=== PATIENT | female | born 1940 ===

== ENCOUNTER 2017-10-23 09:15 | Emergency (ER) | payer MEDICARE, MEDICAID ==
[~2017-10-23] VITALS: Ht 160 cm; Wt 62.0 kg
[~2017-10-23 09:15] MED LIST: CARV6.25 PO; DIGO0.25 PO; ENOX80P SQ; FURO20 PO; LORTA5 PO; SERT-132 PO; STOO100C PO; SYNT88TA PO; TAB-TAB PO; WARF5TAB PO; [UNRECOGNIZED DRUG - CODE] IM
[2017-10-23 09:18] VITALS: BP 134/85; PULSE 82; RESP 15; TEMP 98.4; O2SAT 92
[2017-10-23] MEDS ORDERED: SERT-132 PO (10:12)
[2017-10-23] MEDS ORDERED: CARV12.52 PO (10:12)
[2017-10-23] MEDS ORDERED: COUM5TAB PO (10:12)
[2017-10-23] MEDS ORDERED: FURO1TAB62 PO (10:12)
[2017-10-23] MEDS ORDERED: LEVO125T4 PO (10:12)
[2017-10-23] MEDS ORDERED: DIGO0.12 PO (10:12)
[2017-10-23] MEDS ORDERED: ATOR20TA15 PO (10:12)
[2017-10-23] MEDS ORDERED: AMLO5TAB2 PO (10:12)
[2017-10-23] MEDS ORDERED: COUM4TAB PO (10:12)
[2017-10-23] MEDS ORDERED: K-TA10TA PO (10:14)
[2017-10-23] MEDS ORDERED: SODIUM CHLOR 0.9% 1000 ML INJ 1,000 ML IV ONE (10:15)
[2017-10-23] MEDS ORDERED: ONDANSETRON HCL 4 MG/2 ML VIAL IV PUSH ONE (10:15)
[2017-10-23] MEDS ORDERED: MULTTAB67 PO (10:16)
--- NOTE | 2017-10-23 10:18 | PD ---
HPI Chief Complaint: GI Complaint Time Seen by Provider: 10:03 Travel History International Travel<30 days: No Contact w/Intl Traveler<30days: No Traveled to known affect area: No History of Present Illness HPI This 76-year-old female is brought by her daughters for evaluation of nausea and vomiting and weakness. Patient has extensive medical problems. She has had valve replacements and is on Coumadin. She has had strokes in the past and also has had a cerebral hemorrhage. She has a history of hypertension thyroid disease. She has borderline diabetes. She is on digoxin. She apparently has some dementia. The daughter says she is vomited about 3 times this morning. She appears somewhat listless to them. She is not complaining of any pain PFSH Past Medical History Hx Anticoagulant Therapy: Yes Atrial Fibrillation: Yes Heart Rhythm Problems: Yes Cancer: No Cardiac Catheterization: Yes (2007) Cardiovascular Problems: Yes (htn on meds, HEART VALVE REPLACEMENT) High Cholesterol: Yes Chest Pain: Yes Congestive Heart Failure: Yes (?) Cerebrovascular Accident: Yes Coronary Artery Disease: Yes Dementia: Yes Diabetes: No (borderline) Diminished Hearing: No Deep Vein Thrombosis: Yes Endocrine: Yes Gastrointestinal Disorders: No Genitourinary: Yes Hypertension: Yes Immune Disorder: No Implanted Vascular Access Dvce: Yes Medical other: Yes (hx of edema to legs/feet) Musculoskeletal: Yes Neurologic: Yes (CVA May 2012) Psychiatric: No Reproductive: No Respiratory: No Myocardial Infarction: Yes (2007) Thyroid Disease: Yes (HYPOTHRYROID) Triglycerides - High: Yes Tetanus Vaccination: Never Vaccinated Influenza Vaccination: No PNEUMOCCOCAL Vaccine (Year): 2 ?: Not Menopausal: Yes Past Surgical History Body Medical Devices: MVR, MECHANICAL VALVE Cardiac Surgery: Yes (OPEN HEART - 2 VALVES) Coronary Artery Bypass Graft: Yes (2010) Eye Surgery: Yes (BILAT. 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 Reported Meds & Prescriptions Reported Meds & Active Scripts Active Zofran Odt (Ondansetron Odt) 4 Mg Tab 4 Mg SL Q6HR PRN Reported Multiple Vitamin 1 Tab 1 Tab PO DAILY K-Tab (Potassium Chloride) 10 Meq Tab 10 Meq PO DAILY Atorvastatin (Atorvastatin Calcium) 20 Mg Tab 20 Mg PO DAILY Coumadin (Warfarin) 4 Mg Tab 4 Mg PO DIRECTED Coumadin (Warfarin) 5 Mg Tab 5 Mg PO DIRECTED Amlodipine (Amlodipine Besylate) 5 Mg Tab 5 Mg PO DAILY Levothyroxine (Levothyroxine Sodium) 125 Mcg Tab 125 Mcg PO DAILY Digoxin 0.125 Mg Tab 0.125 Mg PO DAILY Sertraline (Sertraline HCl) 50 Mg Tab 50 Mg PO DAILY Lasix (Furosemide) 20 Mg Tab 20 Mg PO DIRECTED Carvedilol 12.5 Mg Tab 12.5 Mg PO BID Review of Systems ROS Limitations: Language Barrier General / Constitutional: No: Fever, Chills HENT: No: Headaches Cardiovascular: No: Chest Pain or Discomfort Respiratory: No: Cough Gastrointestinal: Positive: Nausea, Vomiting Genitourinary: No: Urgency Neurologic: Positive: Weakness Physical Exam Narrative GENERAL: Well-developed female SKIN: Focused skin assessment warm/dry. HEAD: Atraumatic. Normocephalic. EYES: Pupils equal and round. No scleral icterus. No injection or drainage. ENT: No nasal bleeding or discharge. Mucous membranes pink and moist. NECK: Trachea midline. No JVD. CARDIOVASCULAR: Regular rate and rhythm. No murmur appreciated. RESPIRATORY: No accessory muscle use. Clear to auscultation. Breath sounds equal bilaterally. GASTROINTESTINAL: Abdomen soft, non-tender, nondistended. Hepatic and splenic margins not palpable. MUSCULOSKELETAL: No obvious deformities. No clubbing. No cyanosis. No edema. NEUROLOGICAL: She is somewhat listless initially but later fully alert no obvious cranial nerve deficits. Motor grossly within normal limits. Normal speech. PSYCHIATRIC: Not testable Data Data Last Documented VS Vital Signs Date Time Temp Pulse Resp B/P (MAP) Pulse Ox O2 Delivery O2 Flow Rate FiO2 10/23/17 11:01 64 16 127/77 (94) 97 Room Air 10/23/17 09:18 98.4 Orders Orders Electrocardiogram (10/23/17 10:13) Complete Blood Count With Diff (10/23/17 10:13) Comprehensive Metabolic Panel (10/23/17 10:13) B-Type Natriuretic Peptide (10/23/17 10:13) Prothrombin Time / Inr (Pt) (10/23/17 10:13) Act Partial Throm Time (Ptt) (10/23/17 10:13) Urinalysis - C+S If Indicated (10/23/17 10:13) Ct Brain W/O Iv Contrast(Rout) (10/23/17 10:13) Sodium Chlor 0.9% 1000 Ml Inj (Ns 1000 M (10/23/17 10:15) Ondansetron Inj (Zofran Inj) (10/23/17 10:15) Digoxin (10/23/17 10:13) Urine Culture (10/23/17 10:30) Labs Laboratory Tests Test 10/23/17 10:29 10/23/17 10:30 White Blood Count 3.9 TH/MM3 Red Blood Count 4.36 MIL/MM3 Hemoglobin 13.2 GM/DL Hematocrit 39.2 % Mean Corpuscular Volume 89.8 FL Mean Corpuscular Hemoglobin 30.3 PG Mean Corpuscular Hemoglobin Concent 33.8 % Red Cell Distribution Width 14.1 % Platelet Count 188 TH/MM3 Mean Platelet Volume 7.1 FL Neutrophils (%) (Auto) 54.8 % Lymphocytes (%) (Auto) 29.5 % Monocytes (%) (Auto) 9.1 % Eosinophils (%) (Auto) 6.0 % Basophils (%) (Auto) 0.6 % Neutrophils # (Auto) 2.1 TH/MM3 Lymphocytes # (Auto) 1.2 TH/MM3 Monocytes # (Auto) 0.4 TH/MM3 Eosinophils # (Auto) 0.2 TH/MM3 Basophils # (Auto) 0.0 TH/MM3 CBC Comment DIFF FINAL Differential Comment Prothrombin Time 16.6 SEC Prothromb Time International Ratio 1.6 RATIO Activated Partial Thromboplast Time 35.6 SEC Blood Urea Nitrogen 8 MG/DL Creatinine 0.73 MG/DL Random Glucose 102 MG/DL Total Protein 7.9 GM/DL Albumin 3.4 GM/DL Calcium Level 9.0 MG/DL Alkaline Phosphatase 130 U/L Aspartate Amino Transf (AST/SGOT) 24 U/L Alanine Aminotransferase (ALT/SGPT) 20 U/L Total Bilirubin 0.4 MG/DL Sodium Level 143 MEQ/L Potassium Level 4.3 MEQ/L Chloride Level 108 MEQ/L Carbon Dioxide Level 31.6 MEQ/L Anion Gap 3 MEQ/L Estimat Glomerular Filtration Rate 77 ML/MIN B-Type Natriuretic Peptide 48 PG/ML Digoxin Level 0.8 NG/ML Urine Collection Type CLEAN CATCH Urine Color YELLOW Urine Turbidity CLEAR Urine pH 7.5 Urine Specific [place] 1.010 Urine Protein NEG mg/dL Urine Glucose (UA) NEG mg/dL Urine Ketones NEG mg/dL Urine Occult Blood TRACE Urine Nitrite POS Urine Bilirubin NEG Urine Urobilinogen 0.2 MG/DL Urine Leukocyte Esterase SMALL Urine RBC 4-9 /hpf Urine WBC 6-8 /hpf Urine WBC Clumps OCC Urine Squamous Epithelial Cells 6-8 /hpf Urine Bacteria FEW /hpf Microscopic Urinalysis Comment CULTURE INDICATED Urine Collection Time 10:30 [facility] Medical Decision Making Medical Screen Exam Complete: Yes Emergency Medical Condition: Yes Medical Record Reviewed: Yes Differential Diagnosis Differential includes CVA, electrolyte imbalance dehydration, vomiting Narrative Course Is been given IV fluids and Zofran with improvement. CT is negative for stroke. Lab work unrevealing. Urine shows 6-8 white cells which I do not think warrants treatment with antibiotics. She will be released with prescription for Zofran Diagnosis Primary Impression: Acute vomiting Scripts Ondansetron Odt (Zofran Odt) 4 Mg Tab 4 MG SL Q6HR Y for Nausea/Vomiting, #10 TAB 0 Refills Prov: Steve Meyer MD 10/23/17 Disposition: 01 DISCHARGE HOME Condition: Stable Steve Meyer MD Oct 23, 2017 10:18
[2017-10-23 10:38] LABS: AUTOMATED NEUTROPHIL # 2.1 TH/MM3 (1.8-7.7); BASOPHIL % 0.6 % (0.0-2.0); EOSINOPHIL # 0.2 TH/MM3 (0-0.4); HEMATOCRIT 39.2 % (35.0-46.0); HEMOGLOBIN 13.2 GM/DL (11.6-15.3); LYMPH % 29.5 % (9.0-44.0); LYMPHOCYTE # 1.2 TH/MM3 (1.0-4.8); MEAN CELL VOLUME 89.8 FL (80.0-100.0); MEAN CORPUSCULAR HEMOGLOBIN 30.3 PG (27.0-34.0); MEAN CORPUSCULAR HGB CONC 33.8 % (32.0-36.0); MEAN PLATELET VOLUME 7.1 FL (7.0-11.0); MONO % 9.1 % (0.0-8.0); MONOCYTE # 0.4 TH/MM3 (0-0.9); NEUT % 54.8 % (16.0-70.0); PLATELET COUNT 188 TH/MM3 (150-450); RED BLOOD COUNT 4.36 MIL/MM3 (4.00-5.30); RED CELL DISTRIBUTION WIDTH 14.1 % (11.6-17.2); WHITE BLOOD COUNT 3.9 TH/MM3 (4.0-11.0)
[2017-10-23 10:47] LABS: CHLORIDE 108 MEQ/L (98-107); SODIUM (NA) 143 MEQ/L (136-145)
[2017-10-23 10:51] LABS: ALBUMIN 3.4 GM/DL (3.4-5.0); BICARBONATE 31.6 MEQ/L (21.0-32.0); BLOOD UREA NITROGEN 8 MG/DL (7-18); GLUCOSE,RANDOM 102 MG/DL (74-106)
[2017-10-23 10:52] LABS: INTERNATIONAL NORMALIZED RATIO 1.6 RATIO; PROTHROMBIN TIME - PATIENT 16.6 SEC (9.8-11.6)
[2017-10-23 10:54] LABS: ALT (GPT) 20 U/L (10-53); AST (GOT) 24 U/L (15-37); CREATININE 0.73 MG/DL (0.50-1.00); GLOMERULAR FILTRATION RATE 77 ML/MIN (>89)
[2017-10-23 10:55] LABS: TOTAL BILIRUBIN ADULT 0.4 MG/DL (0.2-1.0); TOTAL PROTEIN 7.9 GM/DL (6.4-8.2)
[2017-10-23 10:57] LABS: ALKALINE PHOSPHATASE 130 U/L (45-117)
[2017-10-23 11:01] VITALS: BP 127/77; PULSE 64; RESP 16; O2SAT 97
[2017-10-23 11:02] LABS: BILIRUBIN, URINE NEG (NEG); BLOOD, URINE TRACE (NEG); GLUCOSE,URINE NEG (NEG); KETONE, URINE NEG (NEG); NITRITE,URINE POS (NEG); PH, URINE 7.5 (5.0-8.5); URINE COLOR YELLOW (YELLW/STRAW); URINE LEUKOCYTE ESTERASE SMALL (NEG)
[2017-10-23 11:30] LABS: WHITE BLOOD CELL CLUMPS OCC
[2017-10-23 11:31] LABS: BACTERIA, URINE FEW /hpf
[2017-10-23 11:34] LABS: DIGOXIN 0.8 NG/ML (0.8-2.0)
[2017-10-23 12:10] VITALS: BP 124/66; PULSE 71; RESP 18; O2SAT 96
--- NOTE | 2017-10-23 12:15 | EKG ---
Date Performed: 10/23/2017 Time Performed: 10:36:16 PTAGE: 76 years EKG: ATRIAL FIBRILLATION NONSPECIFIC T-WAVE ABNORMALITY ABNORMAL RHYTHM ECG PREVIOUS TRACING : 10/13/2015 11.21 DOCTOR: Michael De Los Santos Interpretating Date/Time 10/23/2017 12:15:20
--- NOTE | 2017-10-23 12:34 | RADRPT ---
EXAM DATE/TIME: 10/23/2017 12:17 [facility] COMPARISON: CT BRAIN W/O CONTRAST, July 08, 2015, 12:55. INDICATIONS : General weakness. Vomiting. RADIATION DOSE: 47.28 CTDIvol (mGy) MEDICAL HISTORY : Cerebrovascular disease. Congestive heart failure. Deep venous thrombosis.Myocardial infarction. Hyp ertension. Dementia. SURGICAL HISTORY : CABG Mitral valve replacement. ENCOUNTER: Initial ACUITY: 1 day PAIN SCALE: 0/10 LOCATION: cranial TECHNIQUE: Multiple contiguous axial images were obtained of the head. Using automated exposure control and adj ustment of the mA and/or kV according to patient size, radiation dose was kept as low as reasonably a chievable to obtain optimal diagnostic quality images. DICOM format image data is available electro nically for review and comparison. FINDINGS: CEREBRUM: There is diffuse moderate atrophic changes noted with multiple areas of encephalomalacia which are st able No evidence of midline shift, mass lesion, hemorrhage or acute infarction. No extra-axial fluid collections are seen. POSTERIOR FOSSA: The cerebellum and brainstem are intact. The 4th ventricle is midline. The cerebellopontine angle i s unremarkable. EXTRACRANIAL: The visualized portion of the orbits is intact. Mucosal thickening is noted in the ethmoidal air cell s. SKULL: The calvaria is intact. No evidence of skull fracture. CONCLUSION: Stable appearance with multiple old infarcts. There is no acute hemorrhage, mass or acute infarction. Alvarez Melendrez MD on October 23, 2017 at 12:30 Board Certified Radiologist. This report was verified electronically.
[2017-10-23] MEDS ORDERED: ZOFR4TAB3 SL (12:51)
[2017-10-23 13:36] VITALS: BP 127/82
== END 2017-10-23 13:45 | disposition home or self-care (01) ==
LOC: PHED 09:15
DX: R11.2 Nausea with vomiting, unspecified (principal); R53.1 Weakness; E03.9 Hypothyroidism, unspecified; E78.00 Pure hypercholesterolemia, unspecified; I11.0 Hypertensive heart disease with heart failure; I50.9 Heart failure, unspecified; I48.91 Unspecified atrial fibrillation; Z79.01 Long term (current) use of anticoagulants
CPT/HCPCS: 70450; 80053; 80162; 81001; 83880; 85025; 85610; 85730; 87086; 93005; 96361; 96374; 99285; J2405; J7030

== ENCOUNTER 2017-10-26 00:08 | Inpatient (IN) | payer OTHER, MEDICARE, MEDICAID ==
[2017-10-26] VITALS (35 sets, daily range): BP systolic 105–160; BP diastolic 65–101; PULSE 62–75; RESP 15–23; TEMP 97.4–99; O2SAT 94–100
[~2017-10-26] VITALS: Ht 160 cm; Wt 66.7 kg
[~2017-10-26 00:08] MED LIST changes: +AMLO5TAB2 PO; +ATOR20TA15 PO; +CARV12.52 PO; -CARV6.25 PO; +COUM4TAB PO; +COUM5TAB PO; +DIGO0.12 PO; -DIGO0.25 PO; -ENOX80P SQ; +FURO1TAB62 PO; -FURO20 PO; +K-TA10TA PO; +LEVO125T4 PO; -LORTA5 PO; +MULTTAB67 PO; -STOO100C PO; -SYNT88TA PO; -TAB-TAB PO; -WARF5TAB PO; +ZOFR4TAB3 SL; -[UNRECOGNIZED DRUG - CODE] IM
[2017-10-26] MEDS ORDERED: IODIXANOL 320 MG/ML 10 ML VIAL (for Rad CT) IVCONTRAST ONE (00:12)
[2017-10-26 00:33] LABS: AUTOMATED NEUTROPHIL # 3.6 TH/MM3 (1.8-7.7); BASOPHIL % 0.6 % (0.0-2.0); EOSINOPHIL # 0.2 TH/MM3 (0-0.4); HEMATOCRIT 38.4 % (35.0-46.0); HEMOGLOBIN 12.5 GM/DL (11.6-15.3); LYMPHOCYTE # 1.5 TH/MM3 (1.0-4.8); MEAN CELL VOLUME 91.2 FL (80.0-100.0); MEAN CORPUSCULAR HEMOGLOBIN 29.8 PG (27.0-34.0); MEAN CORPUSCULAR HGB CONC 32.6 % (32.0-36.0); MEAN PLATELET VOLUME 7.4 FL (7.0-11.0); MONOCYTE # 0.5 TH/MM3 (0-0.9); NEUT % 60.4 % (16.0-70.0); PLATELET COUNT 169 TH/MM3 (150-450); RED BLOOD COUNT 4.21 MIL/MM3 (4.00-5.30); RED CELL DISTRIBUTION WIDTH 13.8 % (11.6-17.2); WHITE BLOOD COUNT 5.8 TH/MM3 (4.0-11.0)
[2017-10-26 00:40] LABS: CHLORIDE 107 MEQ/L (98-107); SODIUM (NA) 141 MEQ/L (136-145)
[2017-10-26 00:42] LABS: CALCIUM 8.8 MG/DL (8.5-10.1)
[2017-10-26 00:43] LABS: BICARBONATE 28.5 MEQ/L (21.0-32.0); BLOOD UREA NITROGEN 11 MG/DL (7-18); GLUCOSE,RANDOM 142 MG/DL (74-106)
[2017-10-26 00:44] LABS: INTERNATIONAL NORMALIZED RATIO 1.7 RATIO; PROTHROMBIN TIME - PATIENT 16.7 SEC (9.8-11.6)
[2017-10-26 00:46] LABS: CREATININE 0.74 MG/DL (0.50-1.00); GLOMERULAR FILTRATION RATE 76 ML/MIN (>89)
--- NOTE | 2017-10-26 00:49 | RADRPT ---
EXAM DATE/TIME: 10/26/2017 00:12 [facility] COMPARISON: CT BRAIN W/O CONTRAST, July 08, 2015, 12:55. CT BRAIN W/O CONTRAST, October 23, 2017, 12:17. INDICATIONS : Stroke alert, unresponsive. RADIATION DOSE: 60.17 CTDIvol (mGy) This report was called to Dr. Malcolm at the 12: 41 am MEDICAL HISTORY : Non-responsive. SURGICAL HISTORY : Non-responsive. ENCOUNTER: Initial ACUITY: 1 day PAIN SCALE: Non-responsive LOCATION: cranial TECHNIQUE: Multiple contiguous axial images were obtained of the head. Using automated exposure control and adj ustment of the mA and/or kV according to patient size, radiation dose was kept as low as reasonably a chievable to obtain optimal diagnostic quality images. DICOM format image data is available electro nically for review and comparison. FINDINGS: CEREBRUM: There are multiple old infarcts involving right MCA/ELENA watershed zone, right anterior frontal pariet al, left posterior parietal, left medial occipital mid convexity and left high parietal region. The appearance of these infarcts is unchanged from prior CT 10/23/17 and 07/08/15. No acute findings. No e vidence of acute blood products. There is prominence of the ventricles and sulci, characteristic of moderate central and cortical atrophy, similar to prior. POSTERIOR FOSSA: The cerebellum and brainstem are intact. The 4th ventricle is midline. The cerebellopontine angle i s unremarkable. EXTRACRANIAL: The visualized portion of the orbits is intact. Opacification of bilateral frontal and bilateral eth moid sinuses. SKULL: The calvaria is intact. No evidence of skull fracture. CONCLUSION: 1. Multiple bilateral old infarcts, unchanged from 3 days ago. No acute findings. 2. Bilateral maxillary and ethmoid sinus disease. Anatoly Early MD on October 26, 2017 at 0:39 Board Certified Radiologist. This report was verified electronically.
[2017-10-26 00:51] LABS: TROPONIN I LESS THAN 0.02 NG/ML (0.02-0.05)
--- NOTE | 2017-10-26 00:52 | PD ---
HPI Chief Complaint: Stroke Alert Time Seen by Provider: 00:24 Travel History International Travel<30 days: No Contact w/Intl Traveler<30days: No Traveled to known affect area: No History of Present Illness HPI The patient is a 76-year-old female that was apparently alert and talking prior to 11 PM tonight when she started vomiting. She then became comatose, [facility] was called and they intubated the patient using etomidate and Versed. 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 There has not been any head trauma. After intubation and Versed the blood pressure is 127/90. No seizure activity is noted tonight. PFSH Past Medical History Hx Anticoagulant Therapy: Yes Atrial Fibrillation: Yes Heart Rhythm Problems: Yes Cancer: No Cardiac Catheterization: Yes (2007) Cardiovascular Problems: Yes (htn on meds, HEART VALVE REPLACEMENT) High Cholesterol: Yes Chest Pain: Yes Congestive Heart Failure: Yes (?) Cerebrovascular Accident: Yes Coronary Artery Disease: Yes Dementia: Yes Diabetes: No (borderline) Diminished Hearing: No Deep Vein Thrombosis: Yes Endocrine: Yes Gastrointestinal Disorders: No Genitourinary: Yes Hypertension: Yes Immune Disorder: No Implanted Vascular Access Dvce: Yes Musculoskeletal: Yes Neurologic: Yes (CVA May 2012) Psychiatric: No Reproductive: No Respiratory: No Myocardial Infarction: Yes (2007) Thyroid Disease: Yes (HYPOTHRYROID) Triglycerides - High: Yes PNEUMOCCOCAL Vaccine (Year): 2 Menopausal: Yes Past Surgical History Body Medical Devices: MVR, MECHANICAL VALVE Cardiac Surgery: Yes (OPEN HEART - 2 VALVES) Coronary Artery Bypass Graft: Yes (2010) Eye Surgery: Yes (BILAT. 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 Reported Meds & Prescriptions Reported Meds & Active Scripts Active Zofran Odt (Ondansetron Odt) 4 Mg Tab 4 Mg SL Q6HR PRN Reported Multiple Vitamin 1 Tab 1 Tab PO DAILY K-Tab (Potassium Chloride) 10 Meq Tab 10 Meq PO DAILY Atorvastatin (Atorvastatin Calcium) 20 Mg Tab 20 Mg PO DAILY Coumadin (Warfarin) 4 Mg Tab 4 Mg PO DIRECTED Coumadin (Warfarin) 5 Mg Tab 5 Mg PO DIRECTED Amlodipine (Amlodipine Besylate) 5 Mg Tab 5 Mg PO DAILY Levothyroxine (Levothyroxine Sodium) 125 Mcg Tab 125 Mcg PO DAILY Digoxin 0.125 Mg Tab 0.125 Mg PO DAILY Sertraline (Sertraline HCl) 50 Mg Tab 50 Mg PO DAILY Lasix (Furosemide) 20 Mg Tab 20 Mg PO DIRECTED Carvedilol 12.5 Mg Tab 12.5 Mg PO BID Review of Systems ROS Limitations: Altered Mental Status, Unresponsive Except as stated in HPI: all other systems reviewed are Neg Physical Exam Narrative GENERAL: The patient is comatose. She does not respond to verbal commands. Blood pressure is 127/90. The patient is in atrial fibrillation and heart rate average is around 62. SKIN: Focused skin assessment warm/dry. HEAD: Atraumatic. Normocephalic. EYES: Pupils equal and round. No scleral icterus. No injection or drainage. ENT: No nasal bleeding or discharge. Mucous membranes pink and moist. NECK: Trachea midline. No JVD. CARDIOVASCULAR: Regular rate and rhythm. No murmur appreciated. RESPIRATORY: No accessory muscle use. Clear to auscultation. Breath sounds equal bilaterally. GASTROINTESTINAL: Abdomen soft, non-tender, nondistended. Hepatic and splenic margins not palpable. MUSCULOSKELETAL: No obvious deformities. No clubbing. No cyanosis. No edema. NEUROLOGICAL: Motor shows some right arm movement when pulling on the right arm but otherwise no movement anywhere else. About 15 minutes later the patient started moving all 4 extremities spontaneously but did not follow any commands. PSYCHIATRIC: Appropriate mood and affect; insight and judgment normal. Data Data Last Documented VS Vital Signs Date Time Temp Pulse Resp B/P (MAP) Pulse Ox O2 Delivery O2 Flow Rate FiO2 10/26/17 00:45 99 40 10/26/17 00:15 75 16 160/98 (118) 10/26/17 00:[address] Brain W/O Iv Contrast(Rout) (10/26/17 ) Cath For Specimen (10/26/17 00:12) Neuro Checks Q2HX12,Q4H (10/26/17 00:12) Nursing Bedside Swallow Assess .ONCE (10/26/17 00:12) Activity Bed Rest (10/26/17 00:12) Diet Npo (10/26/17 Breakfast) Prothrombin Time / Inr (Pt) (10/26/17 00:12) Act Partial Throm Time (Ptt) (10/26/17 00:12) Complete Blood Count With Diff (10/26/17 00:12) Basic Metabolic Panel (Bmp) (10/26/17 00:12) Fibrinogen (10/26/17 00:12) Creatine Kinase (Cpk) (10/26/17 00:12) Troponin I (10/26/17 00:12) Ua Includes Microscopic (10/26/17 00:12) Drug Screen, Random Urine (10/26/17 00:12) Type And Screen (10/26/17 00:12) Cta Brain W Iv Contrast W 3d (10/26/17 00:12) Cta Neck W Iv Contrast W 3d (10/26/17 00:12) Electrocardiogram (10/26/17 ) Consult Neurology (10/26/17 00:12) Blood Glucose (10/26/17 00:12) Ecg Monitoring (10/26/17 00:12) Iv Access Insert/Monitor (10/26/17 00:12) NPO (10/26/17 00:12) Oximetry (10/26/17 00:12) Resp Oxygen Nc Stroke (10/26/17 ) Digoxin (10/26/17 00:12) Urinary Catheter Insert/Apply (10/26/17 00:52) Propofol 1000 Mg/100 Ml Inj (Diprivan 10 (10/26/17 01:08) Lidocaine 2% Inj (Xylocaine 2% Inj) (10/26/17 01:08) Propofol 1000 Mg/100 Ml Inj (Diprivan 10 (10/26/17 01:15) Admit Order (Ed Use Only) (10/26/17 01:14) Labs Laboratory Tests Test 10/26/17 00:20 10/26/17 00:30 10/26/17 01:13 White Blood Count 5.8 TH/MM3 Red Blood Count 4.21 MIL/MM3 Hemoglobin 12.5 GM/DL Hematocrit 38.4 % Mean Corpuscular Volume 91.2 FL Mean Corpuscular Hemoglobin 29.8 PG Mean Corpuscular Hemoglobin Concent 32.6 % Red Cell Distribution Width 13.8 % Platelet Count 169 TH/MM3 Mean Platelet Volume 7.4 FL Neutrophils (%) (Auto) 60.4 % Lymphocytes (%) (Auto) 26.0 % Monocytes (%) (Auto) 9.0 % Eosinophils (%) (Auto) 4.0 % Basophils (%) (Auto) 0.6 % Neutrophils # (Auto) 3.6 TH/MM3 Lymphocytes # (Auto) 1.5 TH/MM3 Monocytes # (Auto) 0.5 TH/MM3 Eosinophils # (Auto) 0.2 TH/MM3 Basophils # (Auto) 0.0 TH/MM3 CBC Comment DIFF FINAL Differential Comment Prothrombin Time 16.7 SEC Prothromb Time International Ratio 1.7 RATIO Activated Partial Thromboplast Time 29.1 SEC Fibrinogen 298 mg/dL Blood Urea Nitrogen 11 MG/DL Creatinine 0.74 MG/DL Random Glucose 142 MG/DL Calcium Level 8.8 MG/DL Sodium Level 141 MEQ/L Potassium Level 3.5 MEQ/L Chloride Level 107 MEQ/L Carbon Dioxide Level 28.5 MEQ/L Anion Gap 6 MEQ/L Estimat Glomerular Filtration Rate 76 ML/MIN Total Creatine Kinase 47 U/L Troponin I LESS THAN 0.02 NG/ML Digoxin Level 0.6 NG/ML Urine Color YELLOW Urine Turbidity CLEAR Urine pH 7.5 Urine Specific [place] 1.010 Urine Protein NEG mg/dL Urine Glucose (UA) NEG mg/dL Urine Ketones NEG mg/dL Urine Occult Blood SMALL Urine Nitrite NEG Urine Bilirubin NEG Urine Urobilinogen 0.2 MG/DL Urine Leukocyte Esterase NEG Urine RBC 3-5 /hpf Urine WBC 0-2 /hpf Urine Squamous Epithelial Cells 0-5 /hpf Urine Bacteria NONE /hpf Urine Opiates Screen NEG Urine Barbiturates Screen NEG Urine Amphetamines Screen NEG Urine Benzodiazepines Screen POS Urine Cocaine Screen NEG Urine Cannabinoids Screen NEG Blood Gas Puncture Site RT BRACHIAL Blood Gas Patient Temperature 98.6 Blood Gas HCO3 26 mmol/L Blood Gas Base Excess 2.6 mmol/L Blood Gas Oxygen Saturation 97 % Arterial Blood pH 7.45 Arterial Blood Partial Pressure CO2 39 mmHG Arterial Blood Partial Pressure O2 151 mmHG Arterial Blood Oxygen Content 18.1 Vol % Arterial Blood Carboxyhemoglobin 1.4 % Arterial Blood Methemoglobin 1.1 % Blood Gas Hemoglobin 13.1 G/DL Oxygen Delivery Device VENTILATOR Blood Gas Ventilator Setting PRVC/AC Blood Gas Inspired Oxygen 40 % MDM Medical Decision Making Medical Screen Exam Complete: Yes Emergency Medical Condition: Yes Medical Record Reviewed: Yes Differential Diagnosis Intracranial bleed, ischemic CVA, seizure, hypoglycemia, electrolyte disorder Narrative Course The patient initially came in with no spontaneous movement. She then began to have spontaneous movement of her right arm, nothing on commands. At about 0045 the patient began moving both arms and both legs. The patient is on Coumadin and her INR is 1.7. I discussed the patient with Dr. Kim, the INR is borderline, she has a previous intracranial bleed and her history and she is improving. For these 3 reasons he does not want to give TPA. Plan: The patient will be admitted to the intensive care unit here at [facility]. Dr. Kim will be consulting and the patient will be admitted to Dr. Anguiano. Physician Communication Physician Communication I discussed the patient with Drs. Laughlin and Silvio. Diagnosis Primary Impression: Ischemic cerebrovascular accident (CVA) Admitting Information Admitting Physician Requests: Admit Giovani Malcolm MD Oct 26, 2017 00:52
--- NOTE | 2017-10-26 00:52 | RADRPT ---
EXAM DATE/TIME: 10/26/2017 00:12 [facility] COMPARISON: No previous studies available for comparison. INDICATIONS : Stroke alert, unresponsive IV CONTRAST: 80 cc Visipaque (iodixanol) IV ; Cumulative dose for multiple exams. RADIATION DOSE: 43.02 CTDIvol (mGy) ; Combined studies MEDICAL HISTORY : Non-responsive. SURGICAL HISTORY : Non-responsive. ENCOUNTER: Initial ACUITY: 1 day PAIN SCALE: Non-responsive LOCATION: cranial TECHNIQUE: Volumetric scanning was performed using a multi-row detector CT scanner. The data was post processed with a variety of visualization algorithms including full volume maximum intensity projection, multi -planar sliding thin slab reformation, curved planar reformation, and surface rendering techniques. Using automated exposure control and adjustment of the mA and/or kV according to patient size, radiat ion dose was kept as low as reasonably achievable to obtain optimal diagnostic quality images. DICO M format image data is available electronically for review and comparison. FINDINGS: There is excellent visualization of the major intracranial arteries out to the second-order branch ve ssels. There is no evidence for aneurysm, vessel truncation or stenosis, and no evidence for vascula r malformation. The right posterior cerebral artery arises from the anterior circulation. Flow is s een in the anterior communicating artery. The vertebral system is left dominant. CONCLUSION: No evidence of vessel truncation. Anatoly Early MD on October 26, 2017 at 0:47 Board Certified Radiologist. This report was verified electronically.
[2017-10-26 00:59] LABS: BILIRUBIN, URINE NEG (NEG); BLOOD, URINE SMALL (NEG); GLUCOSE,URINE NEG (NEG); KETONE, URINE NEG (NEG); NITRITE,URINE NEG (NEG); PH, URINE 7.5 (5.0-8.5); URINE COLOR YELLOW (YELLW/STRAW); URINE LEUKOCYTE ESTERASE NEG (NEG)
[2017-10-26 01:04] LABS: SQUAMOUS EPITHELIAL CELL URINE 0-5 /hpf (0-5); WBC, URINE 0-2 /hpf (0-5)
--- NOTE | 2017-10-26 01:06 | RADRPT ---
EXAM DATE/TIME: 10/26/2017 00:12 [facility] COMPARISON: No previous studies available for comparison. INDICATIONS : Stroke alert, unresponsive. IV CONTRAST: 80 cc Visipaque (iodixanol) IV ; Cumulative dose for multiple exams. RADIATION DOSE: 43.02 CTDIvol (mGy) ; Combined studies MEDICAL HISTORY : Non-responsive. SURGICAL HISTORY : Non-responsive. ENCOUNTER: Initial ACUITY: 1 day PAIN SCALE: Non-responsive LOCATION: neck Elevated flow velocities and ICA/CCA ratios have been found to correlate with increased degrees of vessel stenosis, calculated as percentage of diameter relative to a normal segment of distal ICA/CCA. TECHNIQUE: Volumetric scanning was performed using a multirow detector CT scanner. The data was post processed with a variety of visualization algorithms including full-volume maximum intensity projection, multip lanar sliding thin-slab reformation, curved-planar reformation, and surface-rendering techniques. Us ing automated exposure control and adjustment of the mA and/or kV according to patient size, radiatio n dose was kept as low as reasonably achievable to obtain optimal diagnostic quality images. DICOM f ormat image data is available electronically for review and comparison. FINDINGS: AORTIC ARCH: There is a three-vessel origin of the great vessels from the aorta. No evidence of ostial narrowing. RIGHT CAROTID: The common carotid artery is intact. The carotid bulb has a normal configuration without ulceration o r narrowing. Some wall calcification in bifurcation. The internal carotid artery lumen is smooth wi thout stenosis. The external carotid artery is intact. LEFT CAROTID: The common carotid artery is intact. The carotid bulb has a normal configuration without ulceration or narrowing. Some wall calcification of the bifurcation. The internal carotid artery lumen is smoo th without stenosis. The external carotid artery is intact. VERTEBRALS: The vertebral system is left dominant. CONCLUSION: 1. No luminal narrowing or significant plaque formation. 2. Left dominant vertebral system. Anatoly Early MD on October 26, 2017 at 1:01 Board Certified Radiologist. This report was verified electronically.
[2017-10-26] MEDS ORDERED: PROPOFOL 1000 MG/100 ML INJ 100 ML ONE (01:08)
[2017-10-26] MEDS ORDERED: LIDOCAINE HCL 2% 100 MG/5 ML SYRINGE ONE (01:08)
[2017-10-26] MEDS ORDERED: PROPOFOL 1000 MG/100 ML INJ 100 ML IV PRN (01:15)
[2017-10-26 01:24] LABS: DIGOXIN 0.6 NG/ML (0.8-2.0)
[2017-10-26] MEDS: SODIUM CHLOR 0.9% 1000 ML INJ 1,000 ML IV SCH ×2 (01:39→14:40)
[2017-10-26] MEDS ORDERED: RESP: ALBUTEROL 2.5 MG/IPRATROPIUM 0.5 MG NEB (PRN) INH (01:45)
[2017-10-26] MEDS ORDERED: MAGNESIUM HYDROXIDE SUSP 30 ML CUP PO PRN (01:45)
[2017-10-26] MEDS ORDERED: MORPHINE SULFATE 4 MG/ML INJ IV PUSH PRN (01:45)
[2017-10-26] MEDS ORDERED: SODIUM CHLORIDE 0.9% FLUSH 10 ML FLUSH IV FLUSH PRN ×2 (01:45→09:00)
[2017-10-26] MEDS ORDERED: NURSING INFORMATION XX SCH (01:45)
[2017-10-26] MEDS ORDERED: CHLORHEXIDINE GLUCONATE 2 % 1 PACK (2 CLOTHS) TOP PRN (01:45)
[2017-10-26] MEDS ORDERED: SENNOSIDES 8.6 MG TAB PO PRN (01:45)
[2017-10-26] MEDS ORDERED: ONDANSETRON HCL 4 MG/2 ML VIAL IV PUSH PRN (01:45)
[2017-10-26] MEDS ORDERED: LORazepam 2 MG/ML VIAL IV PUSH PRN (01:45)
[2017-10-26] MEDS ORDERED: LACTULOSE SYRUP 20 GM/30 ML CUP PO PRN (01:45)
[2017-10-26] MEDS ORDERED: BISACODYL 10 MG SUPP RECTAL PRN (01:45)
[2017-10-26] MEDS: HEPARIN-D5W 25,000 U/250 ML 250 ML IV PRN (02:11)
[2017-10-26] MEDS: levETIRAcetam INJ 100 ML IV SCH ×3 (02:12→21:29)
[2017-10-26] MEDS: CHLORHEXIDINE GLUCONATE 2 % 1 PACK (2 CLOTHS) TOP SCH (04:00)
--- NOTE | 2017-10-26 07:05 | RADRPT ---
EXAM DATE/TIME: 10/26/2017 06:33 [facility] COMPARISON: CHEST SINGLE AP, September 29, 2015, 9:14. INDICATIONS : Post endotracheal tube placement. MEDICAL HISTORY : Non-responsive SURGICAL HISTORY : Non-responsive ENCOUNTER: Initial ACUITY: 1 day PAIN SCORE: Non-responsive. LOCATION: Bilateral chest FINDINGS: There are atelectatic changes at the lung bases, cardiomegaly, sternotomy wires and cardiac valvular prosthesis. Enteric tube is coiled in the expected location of the stomach. An endotracheal tube is p resent. The distal tip is at the sho/origin of the right mainstem bronchus, it obscured by overlyi ng EKG leads. CONCLUSION: ET tube as above. Luis Felipe Ayala MD on October 26, 2017 at 7:01 Board Certified Radiologist. This report was verified electronically.
[2017-10-26] MEDS: PROPOFOL 1000 MG/100 ML INJ 100 ML IV PRN ×3 (08:12→21:28)
[2017-10-26] MEDS: DOCUSATE SODIUM 50 MG/SENNA 8.6 MG TAB PO SCH ×2 (08:28→21:30)
[2017-10-26] MEDS: FAMOTIDINE 20 MG/2 ML VIAL IV PUSH SCH ×2 (08:31→21:29)
[2017-10-26] MEDS: SODIUM CHLORIDE 0.9% FLUSH 10 ML FLUSH IV FLUSH SCH ×4 (08:32→21:29)
[2017-10-26] MEDS: MULTIVITAMIN TAB PO SCH (08:33)
[2017-10-26] MEDS: ATORVASTATIN 20 MG TAB PO SCH (08:33)
[2017-10-26] MEDS: CHLORHEXIDINE 0.12% (ORAL KIT) 15 ML CUP MT SCH ×2 (08:34→20:00)
[2017-10-26] MEDS: CARVEDILOL 12.5 MG TAB PO SCH ×2 (08:35→21:30)
[2017-10-26] MEDS: amLODIPine BESYLATE 5 MG TAB PO SCH (08:35)
[2017-10-26] MEDS: DIGOXIN 0.125 MG TAB PO SCH (08:35)
[2017-10-26] MEDS: SERTRALINE HCL 50 MG TAB PO SCH (08:35)
--- NOTE | 2017-10-26 08:40 | HHI.HP ---
[facility] Service Critical Care Medicine Primary Care Physician Alex Skelton Do, MD Admission Diagnosis Ischemic CVA Diagnosis: Chief Complaint: Altered mental status Travel History International Travel<30 Days: No Contact w/Intl Traveler <30 Da: No Traveled to Known Affected Are: No History of Present Illness HPI The patient is a 76-year-old female that was apparently alert and talking prior to 11 PM tonight when she started vomiting. She then became comatose, [facility] was called and they intubated the patient using etomidate and Versed. 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 There has not been any head trauma. After intubation and Versed the blood pressure is 127/90. No seizure activity noted per ER physician. Patient was kept sedated orally intubated overnight on mechanical ventilation. She is starting to arousable although not following commands. She does try to open her eyes on command. Per nursing staff she was moving all [address] done in the ER did not reveal any acute bleed and had evidence of old strokes. Dr. Kim from neurology was contacted by ER physician and will be evaluating patient. When I evaluated the patient this morning she sedated with propofol, orally intubated on mechanical ventilation. History is obtained by reviewing records and discussion with nursing staff. History PFSH Past Medical History Hx Anticoagulant Therapy: Yes Atrial Fibrillation: Yes Heart Rhythm Problems: Yes Cancer: No Cardiac Catheterization: Yes (2007) Cardiovascular Problems: Yes (htn on meds, HEART VALVE REPLACEMENT) High Cholesterol: Yes Chest Pain: Yes Congestive Heart Failure: Yes (?) Cerebrovascular Accident: Yes Coronary Artery Disease: Yes Dementia: Yes Diabetes: No (borderline) Diminished Hearing: No Deep Vein Thrombosis: Yes Endocrine: Yes Gastrointestinal Disorders: No Genitourinary: Yes Hypertension: Yes Immune Disorder: No Implanted Vascular Access Dvce: Yes Musculoskeletal: Yes Neurologic: Yes (CVA May 2012) Psychiatric: No Reproductive: No Respiratory: No Myocardial Infarction: Yes (2007) Thyroid Disease: Yes (HYPOTHRYROID) Triglycerides - High: Yes PNEUMOCCOCAL Vaccine (Year): 2 Menopausal: Yes Past Surgical History Body Medical Devices: MVR, MECHANICAL VALVE Cardiac Surgery: Yes (OPEN HEART - 2 VALVES) Coronary Artery Bypass Graft: Yes (2010) Eye Surgery: Yes (BILAT. 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 Reported Meds & Prescriptions Reported Meds & Active Scripts Active Zofran Odt (Ondansetron Odt) 4 Mg Tab 4 Mg SL Q6HR PRN Reported Multiple Vitamin 1 Tab 1 Tab PO DAILY K-Tab (Potassium Chloride) 10 Meq Tab 10 Meq PO DAILY Atorvastatin (Atorvastatin Calcium) 20 Mg Tab 20 Mg PO DAILY Coumadin (Warfarin) 4 Mg Tab 4 Mg PO DIRECTED Coumadin (Warfarin) 5 Mg Tab 5 Mg PO DIRECTED Amlodipine (Amlodipine Besylate) 5 Mg Tab 5 Mg PO DAILY Levothyroxine (Levothyroxine Sodium) 125 Mcg Tab 125 Mcg PO DAILY Digoxin 0.125 Mg Tab 0.125 Mg PO DAILY Sertraline (Sertraline HCl) 50 Mg Tab 50 Mg PO DAILY Lasix (Furosemide) 20 Mg Tab 20 Mg PO DIRECTED Carvedilol 12.5 Mg Tab 12.5 Mg PO BID ROS Review of Systems ROS Limitations: Altered Mental Status, intubated on mechanical ventilation Physical Exam Vital Signs Vital Signs Date Time Temp Pulse Resp B/P (MAP) Pulse Ox O2 Delivery O2 Flow Rate FiO2 10/26/17 06:00 71 10/26/17 06:00 64 16 152/82 (105) 99 10/26/17 05:00 97.5 70 16 156/89 (111) 98 10/26/17 04:29 98 35 10/26/17 04:00 70 16 134/101 (112) 94 10/26/17 04:00 71 10/26/17 03:18 97.5 68 21 145/92 (109) 10/26/17 03:04 74 16 145/80 (101) 100 Ventilator 10/26/17 03:00 40 10/26/17 01:52 97 Ventilator 4/28/18 01:51 98 Ventilator 10/26/17 01:40 Bag Valve 10/26/17 01:30 75 16 145/88 (107) 97 Ventilator 10/26/17 00:45 99 40 10/26/17 00:15 75 16 160/98 (118) 98 10/26/17 00:10 100 15.00 10/26/17 00:10 100 100 Physical Exam HEENT/ Neuro: Sedated, arouses with deep stimulation, attempts to open eyes. Not following commands potential withdrawal bilateral lower extremities with painful stimuli. Moving both hands. Orally intubated, Pallor present, no icterus, tongue/ mucosa dry Neck: No JVD Chest/Pulm: on mech vent, good air entry bilaterally, no wheezing or crackles CVS: S1-S2 irregularly irregular, no murmur GI/abdomen: soft, nontender, bowel sounds sluggish Extremities: warm bilaterally, no edema Laboratory Laboratory Tests Test 10/26/17 00:20 10/26/17 00:30 10/26/17 01:13 10/26/17 02:46 White Blood Count 5.8 Red Blood Count 4.21 Hemoglobin 12.5 Hematocrit 38.4 Mean Corpuscular Volume 91.2 Mean Corpuscular Hemoglobin 29.8 Mean Corpuscular Hemoglobin Concent 32.6 Red Cell Distribution Width 13.8 Platelet Count 169 Mean Platelet Volume 7.4 Neutrophils (%) (Auto) 60.4 Lymphocytes (%) (Auto) 26.0 Monocytes (%) (Auto) 9.0 Eosinophils (%) (Auto) 4.0 Basophils (%) (Auto) 0.6 Neutrophils # (Auto) 3.6 Lymphocytes # (Auto) 1.5 Monocytes # (Auto) 0.5 Eosinophils # (Auto) 0.2 Basophils # (Auto) 0.0 CBC Comment DIFF FINAL Differential Comment Prothrombin Time 16.7 Prothromb Time International Ratio 1.7 Activated Partial Thromboplast Time 29.1 Fibrinogen 298 Blood Urea Nitrogen 11 Creatinine 0.74 Random Glucose 142 Calcium Level 8.8 Sodium Level 141 Potassium Level 3.5 Chloride Level 107 Carbon Dioxide Level 28.5 Anion Gap 6 Estimat Glomerular Filtration Rate 76 Total Creatine Kinase 47 Troponin I LESS THAN 0.02 Digoxin Level 0.6 Urine Color YELLOW Urine Turbidity CLEAR Urine pH 7.5 Urine Specific [place] 1.010 Urine Protein NEG Urine Glucose (UA) NEG Urine Ketones NEG Urine Occult Blood SMALL Urine Nitrite NEG Urine Bilirubin NEG Urine Urobilinogen 0.2 Urine Leukocyte Esterase NEG Urine RBC 3-5 Urine WBC 0-2 Urine Squamous Epithelial Cells 0-5 Urine Bacteria NONE Urine Opiates Screen NEG Urine Barbiturates Screen NEG Urine Amphetamines Screen NEG Urine Benzodiazepines Screen POS Urine Cocaine Screen NEG Urine Cannabinoids Screen NEG Blood Gas Puncture Site RT BRACHIAL Blood Gas Patient Temperature 98.6 Blood Gas HCO3 26 Blood Gas Base Excess 2.6 Blood Gas Oxygen Saturation 97 Arterial Blood pH 7.45 Arterial Blood Partial Pressure CO2 39 Arterial Blood Partial Pressure O2 151 Arterial Blood Oxygen Content 18.1 Arterial Blood Carboxyhemoglobin 1.4 Arterial Blood Methemoglobin 1.1 Blood Gas Hemoglobin 13.1 Oxygen Delivery Device VENTILATOR Blood Gas Ventilator Setting PRVC/AC Blood Gas Inspired Oxygen 40 Ammonia 18 Test 10/26/17 07:53 Activated Partial Thromboplast Time 55.3 Date/Time Source Procedure Growth Status 10/26/17 05:15 Stool Stool Stool Occult Blood (MATTHEW) Pending Received Result Diagram: 10/26/17 0020 10/26/17 0020 Caprini VTE Risk Assessment Caprini VTE Risk Assessment: Mod/High Risk (score >= 2) Caprini Risk Assessment Model Point Value = 1 Point Value = 2 Point Value = 3 Point Value = 5 Age 41-60 Minor surgery BMI > 25 kg/m2 Swollen legs Varicose veins or History of unexplained or recurrent spontaneous Oral contraceptives or hormone replacement Sepsis (< 1 month) Serious lung disease, including pneumonia (< 1 month) Abnormal pulmonary function Acute myocardial infarction Congestive heart failure (< 1 month) History of inflammatory bowel disease Medical patient at bed rest Age 61-74 Arthroscopic surgery Major open surgery (> 45 min) Laparoscopic surgery (> 45 min) Malignancy Confined to bed (> 72 hours) Immobilizing plaster cast Central venous access Age >= 75 History of VTE Family history of VTE Factor V Leiden Prothrombin [id number] Lupus anticoagulant Anticardiolipin antibodies Elevated serum homocysteine Heparin-induced thrombocytopenia Other congenital or acquired thrombophilia Stroke (< 1 month) Elective arthroplasty Hip, pelvis, or leg fracture Acute spinal cord injury (< 1 month) Prophylaxis Regimen Total Risk Factor Score Risk Level Prophylaxis Regimen 0-1 Low Early ambulation 2 Moderate Order ONE of the following: *Sequential Compression Device (SCD) *Heparin 5000 units SQ BID 3-4 Higher Order ONE of the following medications: *Heparin 5000 units SQ TID *Enoxaparin/Lovenox 40 mg SQ daily (WT < 150 kg, CrCl > 30 mL/min) *Enoxaparin/Lovenox 30 mg SQ daily (WT < 150 kg, CrCl > 10-29 mL/min) *Enoxaparin/Lovenox 30 mg SQ BID (WT < 150 kg, CrCl > 30 mL/min) AND/OR *Sequential Compression Device (SCD) 5 or more Highest Order ONE of the following medications: *Heparin 5000 units SQ TID (Preferred with Epidurals) *Enoxaparin/Lovenox 40 mg SQ daily (WT < 150 kg, CrCl > 30 mL/min) *Enoxaparin/Lovenox 30 mg SQ daily (WT < 150 kg, CrCl > 10-29 mL/min) *Enoxaparin/Lovenox 30 mg SQ BID (WT < 150 kg, CrCl > 30 mL/min) AND *Sequential Compression Device (SCD) Assessment and Plan Assessment and Plan Altered mental status/encephalopathy History of previous strokes Atrial fibrillation Mechanical mitral valve on anticoagulation Subtherapeutic INR Acute respiratory failure on mechanical ventilation CAD CHF Dementia Hypothyroidism History of DVT Plan: Neuro: Sedation with propofol, daily sedation vacation. Will obtain MRI brain and EEG for further evaluation of altered mental status. Neurology consult with Dr. Kim. Cardiovascular: Continue home medications. On Coumadin for anticoagulation for mitral valve with subtherapeutic INR. Adjust Coumadin dosing. Started on heparin GTT for full anticoagulation due to subtherapeutic INR. Pulmonary: Continue mechanical ventilation, vent bundle, bronchodilators as needed. Awaiting improvement in neurologic status to initiate CPAP trials to decide extubation. Chest x-ray from this morning reviewed, ET tube to be pulled back 1.5 cm as it is at junction of sho and right mainstem bronchus GI/liver: Start tube feeds and advance to goal as tolerated Renal/: IV hydration, strict intake output, monitor and replete electrolytes, follow BUN/creatinine ID: No antibiotics at this time. Heme: Follow CBC and INR. Continue Coumadin for full anticoagulation. On heparin GTT while INR subtherapeutic. Endocrine: Watch for hypoglycemia, SSI for glycemic control if needed. Check TSH Prophylaxis: Pepcid, SCDs. On full anticoagulant with heparin. Coumadin for anticoagulation Condition critical Time spent on critical care excluding procedures 45 minutes Armani Rodriguez MD Oct 26, 2017 08:40
[2017-10-26] MEDS ORDERED: DEXTROSE 50% IN WATER 50 ML VIAL(D50) IV PUSH PRN (09:00)
[2017-10-26] MEDS ORDERED: GLUCAGON 1 MG/ML VIAL OTHER PRN (09:00)
--- NOTE | 2017-10-26 09:13 | MB ---
cc: Claudio Kim MD, PhD DATE: 10/26/2017 REASON FOR CONSULTATION: Stroke alert. HISTORY OF PRESENT ILLNESS: This is a 76-year-old female who was apparently normal when last seen at 11:00 last night, then began to have some vomiting and lost consciousness. [facility] was called. She was given benzodiazepines, was intubated in the field and brought to the emergency room. Dr. Malcolm therefore called a stroke alert. I discussed the case with Dr. Malcolm last night. Apparently, she had some weakness initially which he thought was focal left-sided weakness, but then this was resolving. She has a history of previous intracranial hemorrhage in the past. She does have atrial fibrillation for which she is on Coumadin. Her INR was 1.7. I recommended not to give TPA because of the borderline INR 1.7 as well as the rapidly resolving symptoms as well as a history of intracerebral hemorrhage. She also underwent CT angiography which revealed no evidence of any large vessel occlusion. PAST MEDICAL AND SURGICAL HISTORY: There is a history of atrial fibrillation, valve replacement surgery with a mechanical valve, mitral valve replacement, left shoulder fracture, cataract surgery. MEDICATIONS AT HOME: 1. She takes Coumadin. 2. Atorvastatin. 3. ____ 4. Multivitamin. 5. Levothyroxine. 6. Digoxin. 7. Sertraline. 8. Lasix. 9. Carvedilol. 10. Amlodipine. NEUROLOGIC EXAMINATION: GENERAL: The patient is sedated but we did hold the sedation for exam. VITAL SIGNS: Blood pressure 152/82, pulse 64, respirations 16, temperature 97.5 degrees. HIGHER CORTICAL FUNCTION: She is sedated, not following any commands. CRANIAL NERVES: Intact. Pupils are equal. There is no gross facial asymmetry. MOTOR EXAM: She seems to move both upper and lower extremities equally. She withdraws both legs equally to noxious stimuli. Reflexes are symmetric. IMAGING STUDIES: CT scan of the head obtained last night. Multiple old bilateral infarctions. No acute change. No hemorrhage identified. Neck CTA was normal. Brain CTA was normal. LABORATORY DATA: The white count is 5800; hemoglobin 12.5; hematocrit 38%; platelet count 169,000. Sodium is 141, potassium is 3.5, chloride 107, CO2 is 28. The BUN is 11, creatinine 0.74, GFR 76. PT last night 16.7, INR 1.7, APTT last night 29. She is now on IV heparin, APTT 55.3 this morning. Tox screen positive for benzodiazepine. Digoxin level 0.6. Urinalysis: The pH 7.5, specific gravity 1.010. IMPRESSION: Suspect that this may have been a transient ischemic attack with resolving symptoms versus completed stroke. History of atrial fibrillation as noted above. The patient was not a candidate for IV TPA for 3 reasons. The rapidly resolving symptoms, the history of cerebral hemorrhage and the borderline INR. There is no evidence of any large vessel occlusion for intervention. RECOMMENDATION: MRI of the brain if possible i not contraindication by her valve replacement. Also obtain an echocardiogram. Continue the IV heparin until the INR is greater than 2. Claudio Kim MD, PhD ANTHONY/LNIDA , 08:49 AM , 09:13 AM
--- NOTE | 2017-10-26 10:22 | EKG ---
Date Performed: 10/26/2017 Time Performed: 00:45:55 PTAGE: 76 years EKG: ATRIAL FIBRILLATION NONSPECIFIC ST & T-WAVE ABNORMALITY ABNORMAL RHYTHM ECG PREVIOUS TRACING : 10/23/2017 10.36 Since the previous tracing, no significant change noted DOCTOR: Gonsalo Canseco Interpretating Date/Time 10/26/2017 10:21:06
[2017-10-26] MEDS: INSULIN ASPART SUPPLEMENTAL SCALE SQ SCH ×3 (11:54→21:00)
[2017-10-26] MEDS: LEVOTHYROXINE SODIUM 125 MCG TAB PO SCH (12:01)
[2017-10-26] MEDS: ARTIFICIAL TEARS OPTH SOLN 15 ML BTL EACH EYE SCH ×3 (12:01→18:00)
[2017-10-26] MEDS ORDERED: WARFARIN SOD 4 MG TAB PO SCH (16:00)
--- NOTE | 2017-10-26 16:19 | RADRPT ---
EXAM DATE/TIME: 10/26/2017 16:04 [facility] COMPARISON: CT BRAIN W/O CONTRAST, October 26, 2017, 0:12. INDICATIONS : CVA. Unresponsive. MEDICAL HISTORY : Hypertension. SURGICAL HISTORY : CABG Heart valve replacement. ENCOUNTER: Initial ACUITY: 1 day PAIN SCORE: 0/10 LOCATION: cranial TECHNIQUE: Multiplanar, multisequence MRI of the brain was performed without contrast. FINDINGS: CEREBRUM: Multiple old bilateral infarcts again noted. Cerebral atrophy. The ventricles are normal for age. No evidence of midline shift, mass lesion, hemorrhage. No extraaxial fluid collections are seen. The pituitary gland and suprasellar cistern are normal in configuration. WHITE MATTER: Extensive signal abnormalities are seen in the white matter. POSTERIOR FOSSA: High T2 signal abnormality right cerebellum.. The 4th ventricle is midline. The cerebellopontine ang le is unremarkable. The cerebellar tonsils are normal in position. DIFFUSION IMAGING: There is focal area of restricted diffusion seen in the right cerebellum consistent with acute infarc tion. EXTRACRANIAL: The visualized portions of the orbits are unremarkable. Diffuse scattered sinus disease. CONCLUSION: 1. Acute right cerebellar infarct. No midline shift or mass effect. 2. Multiple old bilateral infarcts. Samuel Chen MD on October 26, 2017 at 16:13 Board Certified Radiologist. This report was verified electronically.
--- NOTE | 2017-10-26 19:00 | ECHRPT ---
Indication: CVA/TIA CONCLUSIONS Normal left ventricular size. Wall thickness is normal. The left ventricular systolic function is severely reduced with an estimated ejection fraction less than 20%. The left atrial size is [id number] dilated. The right atrial size is mildly dilated. The mitral valve area by Pressure Halftime Method is 1.29 cm. Normally functioning mechanical mitral valve prosthesis. Mitral valve mean gradient is 4.2 mmHg. Aortic valve sclerosis is present. Aortic valve mean gradient is 4.7 mmHg. Aortic valve area is 0.85 cm. There is mild tricuspid valve regurgitation. The estimated pulmonary arterial pressure is 33 mmHg. can not rule out thrombus in lv apex BP: 131 / 82 HR: 68 Rhythm: Atrial fibrillation, PVCs MEASUREMENTS (Male / Female) Normal Values Technical Quality:Technically difficult study 2D ECHO LVOT Diameter 1.9 cm Aortic Root Diameter 2.6 cm M-MODE LV Diastolic Diameter MM 5.2 cm 4.2 - 5.9 / 3.9 - 5.3 cm LV Systolic Diameter MM 4.7 cm LV Ejection Fraction MM Teich 18.3 % IVS Diastolic Thickness MM 0.8 cm 0.6 - 1.0 / 0.6 - 0.9 cm LVPW Diastolic Thickness MM 0.8 cm 0.6 - 1.0 / 0.6 - 0.9 cm LV Relative Wall Thickness MM 0.3 0.24 - 0.42 / 0.22 - 0.42 DOPPLER AV Peak Velocity 152.7 cm/s AV Peak Gradient 9.3 mmHg AV Mean Gradient 4.7 mmHg AV Velocity Time Integral 21.7 cm LVOT Peak Velocity 49.1 cm/s LVOT Peak Gradient 1.0 mmHg LVOT Velocity Time Integral 6.5 cm AV Area Cont Eq vti 0.8 cm AV Area Cont Eq pk 0.9 cm MV Peak Velocity 159.8 cm/s MV Peak Gradient 10.2 mmHg MV Mean Velocity 93.2 cm/s MV Mean Gradient 4.2 mmHg MV Area PHT 1.3 cm Mitral E Point Velocity 59.9 cm/s TR Peak Velocity 240.0 cm/s TR Peak Gradient 23.0 mmHg Right Atrial Pressure 10.0 mmHg Pulmonary Artery Systolic Pressu 33.0 mmHg Right Ventricular Systolic Press 33.0 mmHg PV Peak Velocity 43.6 cm/s PV Peak Gradient 0.8 mmHg FINDINGS LEFT VENTRICLE Normal left ventricular size. Wall thickness is normal. The left ventricular systolic function is severely reduced with an estimated ejection fraction less than 20%. RIGHT VENTRICLE Normal right ventricular size and systolic function. LEFT ATRIUM The left atrial size is [id number]-[id number] dilated. RIGHT ATRIUM The right atrial size is mildly dilated. ATRIAL SEPTUM The interatrial septum not well visualized. AORTA The aortic root and proximal ascending aorta are not well visualized. MITRAL VALVE The mitral valve area by Pressure Halftime Method is 1.29 cm. Normally functioning mechanical mitral valve prosthesis. Mitral valve mean gradient is 4.2 mmHg. AORTIC VALVE Aortic valve sclerosis is present. Aortic valve mean gradient is 4.7 mmHg. Aortic valve area is 0.85 cm. TRICUSPID VALVE There is mild tricuspid valve regurgitation. The estimated pulmonary arterial pressure is 33 mmHg. PULMONARY VALVE The pulmonary valve is not well visualized. VESSELS The inferior vena cava was not well visualized. PERICARDIUM No pericardial effusion. Gil Mcadams MD, FACC, [facility] (Electronically Signed) Final Date:26 October 2017 18:59
[2017-10-27] VITALS (66 sets, daily range): BP systolic 87–173; BP diastolic 60–96; PULSE 56–78; RESP 15–40; TEMP 97.8–100.3; O2SAT 99–100
[2017-10-27] MEDS: CHLORHEXIDINE GLUCONATE 2 % 1 PACK (2 CLOTHS) TOP SCH (04:00)
[2017-10-27 06:04] LABS: AUTOMATED NEUTROPHIL # 4.1 TH/MM3 (1.8-7.7); BASOPHIL # 0.1 TH/MM3 (0-0.2); BASOPHIL % 2.1 % (0.0-2.0); EOSINOPHIL # 0.1 TH/MM3 (0-0.4); EOSINOPHIL % 1.9 % (0.0-4.0); HEMATOCRIT 38.9 % (35.0-46.0); HEMOGLOBIN 12.9 GM/DL (11.6-15.3); LYMPH % 19.4 % (9.0-44.0); LYMPHOCYTE # 1.2 TH/MM3 (1.0-4.8); MEAN CELL VOLUME 89.8 FL (80.0-100.0); MEAN CORPUSCULAR HEMOGLOBIN 29.7 PG (27.0-34.0); MEAN CORPUSCULAR HGB CONC 33.1 % (32.0-36.0); MEAN PLATELET VOLUME 7.9 FL (7.0-11.0); MONO % 7.7 % (0.0-8.0); MONOCYTE # 0.5 TH/MM3 (0-0.9); NEUT % 68.9 % (16.0-70.0); PLATELET COUNT 142 TH/MM3 (150-450); RED BLOOD COUNT 4.33 MIL/MM3 (4.00-5.30); RED CELL DISTRIBUTION WIDTH 13.6 % (11.6-17.2)
[2017-10-27 06:16] LABS: INTERNATIONAL NORMALIZED RATIO 1.8 RATIO; PROTHROMBIN TIME - PATIENT 18.7 SEC (9.8-11.6)
[2017-10-27] MEDS: LEVOTHYROXINE SODIUM 125 MCG TAB PO SCH (06:17)
[2017-10-27 06:26] LABS: CHLORIDE 114 MEQ/L (98-107); SODIUM (NA) 146 MEQ/L (136-145)
[2017-10-27 06:29] LABS: CALCIUM 8.2 MG/DL (8.5-10.1)
[2017-10-27 06:30] LABS: BICARBONATE 23.6 MEQ/L (21.0-32.0); BLOOD UREA NITROGEN 9 MG/DL (7-18); GLUCOSE,RANDOM 139 MG/DL (74-106); MAGNESIUM 2.3 MG/DL (1.5-2.5)
[2017-10-27 06:33] LABS: ALT (GPT) 24 U/L (10-53); AST (GOT) 36 U/L (15-37); CREATININE 0.62 MG/DL (0.50-1.00); GLOMERULAR FILTRATION RATE 93 ML/MIN (>89); PHOSPHORUS 3.1 MG/DL (2.5-4.9)
[2017-10-27 06:34] LABS: TOTAL BILIRUBIN ADULT 0.7 MG/DL (0.2-1.0)
[2017-10-27 06:35] LABS: TOTAL PROTEIN 6.9 GM/DL (6.4-8.2)
[2017-10-27 06:36] LABS: ALKALINE PHOSPHATASE 119 U/L (45-117)
[2017-10-27] MEDS: levETIRAcetam INJ 100 ML IV SCH ×2 (08:37→21:23)
[2017-10-27] MEDS: ARTIFICIAL TEARS OPTH SOLN 15 ML BTL EACH EYE SCH ×3 (08:37→16:55)
[2017-10-27] MEDS: CARVEDILOL 12.5 MG TAB PO SCH ×2 (08:38→21:24)
[2017-10-27] MEDS: DOCUSATE SODIUM 50 MG/SENNA 8.6 MG TAB PO SCH ×2 (08:38→21:23)
[2017-10-27] MEDS: MULTIVITAMIN TAB PO SCH (08:38)
[2017-10-27] MEDS: FAMOTIDINE 20 MG/2 ML VIAL IV PUSH SCH ×2 (08:38→21:24)
[2017-10-27] MEDS: SERTRALINE HCL 50 MG TAB PO SCH (08:38)
[2017-10-27] MEDS: amLODIPine BESYLATE 5 MG TAB PO SCH (08:38)
[2017-10-27] MEDS: DIGOXIN 0.125 MG TAB PO SCH (08:38)
[2017-10-27] MEDS: ATORVASTATIN 20 MG TAB PO SCH (08:38)
[2017-10-27] MEDS: CHLORHEXIDINE 0.12% (ORAL KIT) 15 ML CUP MT SCH ×2 (08:39→21:22)
[2017-10-27] MEDS: SODIUM CHLOR 0.9% 1000 ML INJ 1,000 ML IV SCH (08:47)
[2017-10-27] MEDS: SODIUM CHLORIDE 0.9% FLUSH 10 ML FLUSH IV FLUSH SCH ×2 (09:00→21:24)
--- NOTE | 2017-10-27 09:54 | HHI.CCPN ---
Subjective Remarks/Hospital Course The patient is a 76-year-old female that was apparently alert and talking prior to 11 PM tonight when she started vomiting. She then became comatose, [facility] was called and they intubated the patient using etomidate and Versed. 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 There has not been any head trauma. After intubation and Versed the blood pressure is 127/90. No seizure activity noted per ER physician. Patient was kept sedated orally intubated overnight on mechanical ventilation. She is starting to arousable although not following commands. She does try to open her eyes on command. Per nursing staff she was moving all [address] done in the ER did not reveal any acute bleed and had evidence of old strokes. Dr. Kim from neurology was contacted by ER physician and will be evaluating patient. When I evaluated the patient this morning she sedated with propofol, orally intubated on mechanical ventilation. History is obtained by reviewing records and discussion with nursing staff. Subjective: 10/27: The patient currently remains intubated and sedated. EEG in process. MRI revealed acute right cerebellar. or infarct. Sedation vacation pending. Objective Vital Signs Date Time Temp Pulse Resp B/P (MAP) Pulse Ox O2 Delivery O2 Flow Rate FiO2 10/27/17 07:51 100 35 10/27/17 06:00 71 10/27/17 06:00 18 143/88 (106) 10/27/17 04:00 98.8 10/26/17 03:04 Ventilator 10/26/17 00:10 15.00 Intake and Output 10/27/17 10/27/17 10/28/17 08:00 16:00 00:00 Intake Total 792 ml Output Total 950 ml Balance -158 ml Result Diagram: 10/27/17 0550 10/27/17 0550 Other Results Microbiology Date/Time Source Procedure Growth Status 10/26/17 05:15 Stool Stool Stool Occult Blood (MATTHEW) - Final HEMOCCULT NEGATIVE Complete Imaging Last Impressions Neck CTA 10/26/1711 Signed Impressions: Service Date/Time: Thursday, October 26, 2017 00:12 - CONCLUSION: 1. No luminal narrowing or significant plaque formation. 2. Left dominant vertebral system. Anatoly Early MD Head CTA 10/26/1711 Signed Impressions: Service Date/Time: Thursday, October 26, 2017 00:12 - CONCLUSION: No evidence of vessel truncation. Anatoly Early MD Head CT 10/26/17 0000 Signed Impressions: Service Date/Time: Thursday, October 26, 2017 00:12 - CONCLUSION: 1. Multiple bilateral old infarcts, unchanged from 3 days ago. No acute findings. 2. Bilateral maxillary and ethmoid sinus disease. Anatoly Early MD Chest X-Ray 10/26/17 0000 Signed Impressions: Service Date/Time: Thursday, October 26, 2017 06:33 - CONCLUSION: ET tube as above. Luis Felipe Ayala MD Brain MRI 10/26/17 0000 Signed Impressions: Service Date/Time: Thursday, October 26, 2017 16:04 - CONCLUSION: 1. Acute right cerebellar infarct. No midline shift or mass effect. 2. Multiple old bilateral infarcts. Samuel Chen MD Objective Remarks HEENT/ Neuro: Currently sedated on propofol infusion, arouses with deep stimulation, attempts to open eyes. Not following commands potential withdrawal bilateral lower extremities with painful stimuli. Moving both hands. Orally intubated, Pallor present, no icterus, tongue/ mucosa dry Neck: No JVD Chest/Pulm: on mech vent, good air entry bilaterally, no wheezing or crackles. Bilateral chest excursion CVS: S1-S2 irregularly irregular, no murmur GI/abdomen: soft, nontender, bowel sounds sluggish Extremities: warm bilaterally, no edema Urinary Catheter: Yes Alvares insert reason: Measure Accurate Output Date of Insertion: Oct 26, 2017 A/P Assessment and Plan Altered mental status/encephalopathy History of previous strokes Atrial fibrillation Mechanical mitral valve on anticoagulation Subtherapeutic INR Acute respiratory failure on mechanical ventilation CAD CHF Dementia Hypothyroidism History of DVT Plan: Neuro: Sedation with propofol, daily sedation vacation. 10/26 MRI brain-acute right cerebellar infarct. 10/27 EEG for further evaluation of altered mental status-pending Neurology following- Dr. Kim. Cardiovascular: Continue home medications. On Coumadin for anticoagulation for mitral valve with subtherapeutic INR. Adjust Coumadin dosing. Started on heparin GTT for full anticoagulation due to subtherapeutic INR. Monitor INR Atrial fibrillation rate controlled Pulmonary: Continue mechanical ventilation Ventilator bundle, bronchodilators as needed. Awaiting improvement in neurologic status to initiate CPAP trials to decide extubation. Chest x-ray from this morning reviewed GI/liver: Tube feeds Jevity 1.5 and advance to goal 65 cc/hour as tolerated Bowel regimen GI prophylaxis Renal/: IV hydration, strict intake output, Monitor and replete electrolytes, follow BUN/creatinine ID: No antibiotics indicated at this time. Heme: Monitor CBC and INR. Continue Coumadin for full anticoagulation. On heparin GTT while INR subtherapeutic. Endocrine: Watch for hypoglycemia, SSI for glycemic control if needed. TSH significantly elevated- 16 Obtain [id number] on levothyroxine 125 mics/day Prophylaxis: Pepcid, SCDs. On full anticoagulant with heparin. Coumadin for anticoagulation my billing statement This patient remains critically ill with one or more organ systems which are or may become a threat to life. I have spent in excess of 35 minutes discontinuously in the care and management of this patient. This time is exclusive of procedures, and includes, but is not limited to, evaluation of the patient, review of the medical record, discussions with family, consultants, nursing staff, or respiratory therapy, and documentation in the medical record. Physician Melina Rock MD Oct 27, 2017 09:54
[2017-10-27] MEDS: INSULIN ASPART SUPPLEMENTAL SCALE SQ SCH ×4 (10:41→21:00)
[2017-10-27] MEDS: HEPARIN-D5W 25,000 U/250 ML 250 ML IV PRN (11:25)
[2017-10-27] MEDS: PROPOFOL 1000 MG/100 ML INJ 100 ML IV PRN (11:26)
[2017-10-27 11:40] LABS: CHOLESTEROL/ HDL RATIO 2.31 RATIO; HDL CHOLESTEROL 46.2 MG/DL (40.0-60.0)
--- NOTE | 2017-10-27 12:33 | RADRPT ---
EXAM DATE/TIME: 10/27/2017 12:09 [facility] COMPARISON: CT BRAIN W/O CONTRAST, October 26, 2017, 0:12. INDICATIONS : Follow up. RADIATION DOSE: 55.56 CTDIvol (mGy) MEDICAL HISTORY : Cerebrovascular disease. Dementia. Cardiovascular diseaseHypertension. SURGICAL HISTORY : CABG Mitral valve replacement. ENCOUNTER: Subsequent ACUITY: 2 days PAIN SCALE: Non-responsive LOCATION: cranial TECHNIQUE: Multiple contiguous axial images were obtained of the head. Using automated exposure control and adj ustment of the mA and/or kV according to patient size, radiation dose was kept as low as reasonably a chievable to obtain optimal diagnostic quality images. DICOM format image data is available electro nically for review and comparison. FINDINGS: There is opacification of the bilateral ethmoid air cells and maxillary sinuses. Mild circumferential mucosal thickening in the sphenoid sinuses and frontal sinuses. No fractures. There is encephalomala inga in the bilateral frontal, left temporal, left occipital, right parietal lobes from remote infarct s. There is mild diffuse atrophy. There is a remote left cerebellar infarct, and a new area of hypo-density in the right cerebellar hem isphere measuring 3.9 cm and demonstrating slight mass effect on the fourth ventricle. This is consis tent with acute infarction and cytotoxic edema. CONCLUSION: Remote infarcts are again noted as well is an acute right cerebellar infarct. Luis Felipe Ayala MD on October 27, 2017 at 12:28 Board Certified Radiologist. This report was verified electronically.
--- NOTE | 2017-10-27 12:38 | RADRPT ---
EXAM DATE/TIME: 10/27/2017 12:08 [facility] COMPARISON: CHEST SINGLE AP, October 26, 2017, 6:33. INDICATIONS : Respiratory failure MEDICAL HISTORY : Hypertension. Non-responsive SURGICAL HISTORY : CABG. Non-responsive Heart valve replacement. ENCOUNTER: Subsequent ACUITY: 4 - 6 days PAIN SCORE: Non-responsive. LOCATION: Bilateral chest FINDINGS: Enteric tube courses beneath the diaphragm. Endotracheal tube tip terminates just above the sho. T here is atelectasis versus consolidation at the bases. Cardiomegaly. CONCLUSION: No significant change has occurred. Luis Felipe Ayala MD on October 27, 2017 at 12:35 Board Certified Radiologist. This report was verified electronically.
--- NOTE | 2017-10-27 12:39 | MG ---
cc: Claudio Kim MD, PhD TEST NUMBER: [id number]. TECHNIQUE: A 21-channel EEG. DESCRIPTION: The background rhythm reveals generalized slowing in the theta frequency at 6 Hz. Amplitude is 20-30 microvolts. There are no lateralizing features seen. There are no epileptiform discharges. At times, this becomes even slower in the delta frequency. There is some occasional muscle artifact. INTERPRETATION: Abnormal study consistent with a diffuse encephalopathy. Claudio Kim MD, PhD ANTHONY/SB , 12:15 PM , 12:38 PM
[2017-10-27 13:27] LABS: HEMOGLOBIN A1C 4.8 % (4.3-6.0)
[2017-10-27] MEDS: ACETAMINOPHEN 325 MG TAB PO PRN (14:27)
[2017-10-27] MEDS ORDERED: WARFARIN SOD 5 MG TAB PO SCH (16:00)
[2017-10-27 20:31] LABS: THYROXINE (T4) 5.5 MCG/DL (4.8-13.9)
--- NOTE | 2017-10-27 20:32 | HHI.PR ---
Review/Management Diagnosis right cerebellar stroke atrial fibrillation Plan stop heparin and coumadin for now due to increase edema of Right cerebellar stroke and hemorrhagic potential . Start Aspirin suppository recheck CT brain in AM. If there is any more edema, consider [place] [facility] [place]. Diagnosis/Plan: Subjective Subjective Comments No acute events reported Active Medications Current Medications Medications (Trade) Dose Ordered Sig/Nitin Route Start Time Stop Time Status Last Admin (Norvasc) 5 mg DAILY PO 10/26/17 09:00 10/27/17 08:38 (Lipitor) 20 mg DAILY PO 10/26/17 09:00 10/27/17 08:38 (Coreg) 12.5 mg BID PO 10/26/17 09:00 10/27/17 08:38 (Lanoxin) 0.125 mg DAILY PO 10/26/17 09:00 10/27/17 08:38 (Synthroid) 125 mcg DAILY@0700 PO 10/26/17 07:00 10/27/17 06:17 (Zoloft) 50 mg DAILY PO 10/26/17 09:00 10/27/17 08:38 (Theragran) 1 tab DAILY PO 10/26/17 09:00 10/27/17 08:38 Pharmacy Profile Note 0 ml @ 0 mls/hr UNSCH OTHER 10/26/17 01:45 Levetriacetam 100 ml @ 400 mls/hr Q12HR IV 10/26/17 01:45 10/27/17 08:37 Sodium Chloride 1,000 ml @ 84 mls/hr [id number] IV 10/26/17 01:39 10/27/17 08:47 (Tylenol) 650 mg Q6H PRN PO 10/26/17 01:45 10/27/17 14:27 (Morphine Inj) 2 mg Q2H PRN IV PUSH 10/26/17 01:45 (Pepcid Inj) 20 mg Q12HR IV PUSH 10/26/17 09:00 10/27/17 08:38 (Ativan Inj) 1 mg Q1H PRN IV PUSH 10/26/17 01:45 (Tears Naturale Opth Soln) 1 drop TID EACH EYE 10/26/17 09:00 10/27/17 16:55 (Zofran Inj) 4 mg Q6H PRN IV PUSH 10/26/17 01:45 (Duoneb Neb) 1 ampule Q2HR NEB PRN INH 10/26/17 01:45 ([facility] [place] [facility] [place] 1 [id number] XX 10/26/17 01:45 10/26/17 01:45 (Chlorhexidine 2% Cloth) 3 pack Taper DAILY@04 TOP 10/26/17 04:00 10/22/18 03:59 10/27/17 04:00 (Chlorhexidine 2% Cloth) 3 pack UNSCH PRN TOP 10/26/17 01:45 (Ivette-Colace) 1 tab BID PO 10/26/17 09:00 10/27/17 08:38 (Milk Of Magnesia Liq) 30 ml Q12H PRN PO 10/26/17 01:45 (Senokot) 17.2 mg Q12H PRN PO 10/26/17 01:45 (Dulcolax Supp) 10 mg DAILY PRN RECTAL 10/26/17 01:45 (Lactulose Liq) 30 ml DAILY PRN PO 10/26/17 01:45 (Peridex 0.12% Liq) 15 ml BID@08,20 MT 10/26/17 08:00 10/27/17 08:39 Propofol 100 ml @ 1.878 mls/ hr TITRATE PRN IV 10/26/17 01:45 10/27/17 11:26 Heparin Sodium/ Dextrose 250 ml @ 8 mls/hr TITRATE PRN IV 10/26/17 01:45 10/27/17 11:25 (NS Flush) 2 ml BID IV FLUSH 10/26/17 09:00 10/26/17 21:00 (NS Flush) 2 ml UNSCH PRN IV FLUSH 10/26/17 09:00 (NovoLOG SUPPLEMENTAL SCALE) 1 ACHS SQ 10/26/17 12:00 10/27/17 16:55 (D50w (Vial) Inj) 50 ml UNSCH PRN IV PUSH 10/26/17 09:00 (Glucagon Inj) 1 mg UNSCH PRN OTHER 10/26/17 09:00 (Coumadin) 5 mg DAILY@1600 PO 10/27/17 16:00 10/27/17 14:27 Allergies Allergies Coded Allergies amiodarone (Unverified Allergy, Severe, Blurred Vision, 10/23/17) amoxicillin (Unverified Allergy, Severe, Swelling, 10/23/17) *MDRO Multi-Drug Resistant Organism (Verified Adverse Reaction, Unknown, ) Exam I&O / VS 10/27/17 10/27/17 10/28/17 15:00 23:00 07:00 Intake Total 206.1 ml 1750.7 ml Output Total 850 ml Balance 206.1 ml 900.7 ml IV Total 206.1 ml 790.7 ml Tube Feeding 760 ml Other 200 ml Output Urine Total 850 ml Vital Signs Date Time Temp Pulse Resp B/P (MAP) Pulse Ox O2 Delivery O2 Flow Rate FiO2 10/27/17 19:00 62 29 121/69 (86) 100 10/27/17 18:50 98.5 62 21 108/66 (80) 100 10/27/17 18:40 66 21 112/69 (83) 100 10/27/17 18:30 64 16 98/68 (78) 100 10/27/17 18:20 66 17 87/60 (69) 100 10/27/17 18:10 66 20 99/61 (74) 100 10/27/17 18:00 68 17 100/61 (74) 100 10/27/17 18:00 68 10/27/17 17:50 68 19 95/63 (74) 100 10/27/17 17:40 68 21 104/69 (81) 100 10/27/17 17:30 98.5 68 21 109/67 (81) 100 10/27/17 17:20 66 22 119/70 (86) 100 10/27/17 17:10 74 24 133/81 (98) 100 10/27/17 17:06 100 35 10/27/17 17:00 70 10/27/17 17:00 74 16 156/80 (105) 100 10/27/17 16:55 76 40 140/80 (100) 100 10/27/17 16:52 74 30 140/76 (97) 100 10/27/17 16:50 76 20 150/79 (102) 100 10/27/17 16:48 76 19 133/86 (102) 100 10/27/17 16:43 78 24 173/91 (118) 100 10/27/17 16:38 99.7 4/29/18 16:35 74 22 100 10/27/17 16:00 74 17 166/96 (119) 100 10/27/17 16:00 74 17 166/96 (119) 100 10/27/17 16:00 74 10/27/17 16:00 35 10/27/17 15:35 99.3 10/27/17 15:35 74 22 100 10/27/17 15:20 74 10/27/17 15:20 74 21 156/85 (108) 100 10/27/17 15:00 72 10/27/17 15:00 72 17 152/81 (104) 100 10/27/17 14:25 74 22 168/93 (118) 100 10/27/17 14:25 74 10/27/17 14:20 35 10/27/17 14:20 100 35 10/27/17 13:00 72 10/27/17 13:00 100.3 72 23 100 10/27/17 12:44 72 15 139/81 (100) 100 10/27/17 12:14 74 10/27/17 12:14 100.0 74 19 138/70 (92) 10/27/17 12:00 35 10/27/17 12:00 100 100 10/27/17 11:03 100 35 10/27/17 11:00 72 35 134/83 (100) 100 10/27/17 11:00 72 10/27/17 10:00 74 37 113/74 (87) 100 10/27/17 10:00 74 10/27/17 09:00 76 20 140/92 (108) 100 10/27/17 09:00 76 10/27/17 08:37 78 16 145/87 (106) 100 10/27/17 08:00 35 10/27/17 08:00 78 10/27/17 08:00 99.4 78 30 152/89 (110) 100 10/27/17 07:51 100 35 10/27/17 07:00 74 10/27/17 07:00 74 21 144/94 (111) 99 10/27/17 06:00 71 10/27/17 06:00 72 18 143/88 (106) 99 10/27/17 05:00 76 20 145/81 (102) 99 10/27/17 04:30 100 35 10/27/17 04:00 98.8 66 18 149/87 (107) 99 10/27/17 04:00 66 10/27/17 04:00 35 10/27/17 03:00 70 18 149/85 (106) 100 10/27/17 02:00 64 18 134/83 (100) 100 10/27/17 02:00 100 35 10/27/17 02:00 73 10/27/17 01:00 58 16 109/72 (84) 100 10/27/17 00:00 98.5 64 16 109/65 (80) 100 10/27/17 00:00 72 10/27/17 00:00 35 10/26/17 23:00 64 16 116/69 (85) 100 10/26/17 22:46 100 35 10/26/17 22:00 70 16 121/73 (89) 100 10/26/17 22:00 71 10/26/17 21:00 72 17 136/84 (101) 99 Exam Comments pupils 2mm symmetric and reactive EOM intact to dolls maneuver MOTOR--withdraws BUE and BLE to tactile stimulation Objective Radiology Results CT brain today shows right cerebellar infarct with more edema but no hemorrhage Micro and Labs Laboratory Tests Test 10/26/17 20:48 10/27/17 03:28 10/27/17 05:50 10/27/17 10:20 Activated Partial Thromboplast Time 58.1 67.6 65.4 White Blood Count 6.0 Red Blood Count 4.33 Hemoglobin 12.9 Hematocrit 38.9 Mean Corpuscular Volume 89.8 Mean Corpuscular Hemoglobin 29.7 Mean Corpuscular Hemoglobin Concent 33.1 Red Cell Distribution Width 13.6 Platelet Count 142 Mean Platelet Volume 7.9 Neutrophils (%) (Auto) 68.9 Lymphocytes (%) (Auto) 19.4 Monocytes (%) (Auto) 7.7 Eosinophils (%) (Auto) 1.9 Basophils (%) (Auto) 2.1 Neutrophils # (Auto) 4.1 Lymphocytes # (Auto) 1.2 Monocytes # (Auto) 0.5 Eosinophils # (Auto) 0.1 Basophils # (Auto) 0.1 CBC Comment DIFF FINAL Differential Comment Prothrombin Time 18.7 Prothromb Time International Ratio 1.8 Blood Urea Nitrogen 9 Creatinine 0.62 Random Glucose 139 Total Protein 6.9 Albumin 3.0 Calcium Level 8.2 Phosphorus Level 3.1 Magnesium Level 2.3 Alkaline Phosphatase 119 Aspartate Amino Transf (AST/SGOT) 36 Alanine Aminotransferase (ALT/SGPT) 24 Total Bilirubin 0.7 Sodium Level 146 Potassium Level 3.3 Chloride Level 114 Carbon Dioxide Level 23.6 Anion Gap 8 Estimat Glomerular Filtration Rate 93 Triglycerides Level 89 Cholesterol Level 107 LDL Cholesterol 43 HDL Cholesterol 46.2 Cholesterol/HDL Ratio 2.31 Test 10/27/17 10:26 10/27/17 17:40 Activated Partial Thromboplast Time 59.4 61.5 Date/Time Source Procedure Growth Status 10/26/17 05:15 Stool Stool Stool Occult Blood (MATTHEW) - Final HEMOCCULT NEGATIVE Complete Claudio Kim MD PhD Oct 27, 2017 20:32
[2017-10-27 20:40] LABS: FREE T3 1.72 PG/ML (2.18-3.98)
[2017-10-28] VITALS (51 sets, daily range): BP systolic 123–164; BP diastolic 64–93; PULSE 54–81; RESP 15–33; TEMP 97.3–99.7; O2SAT 98–100
[2017-10-28] MEDS: PROPOFOL 1000 MG/100 ML INJ 100 ML IV PRN (00:52)
[2017-10-28] MEDS: SODIUM CHLOR 0.9% 1000 ML INJ 1,000 ML IV SCH ×2 (00:52→13:14)
[2017-10-28] MEDS: CHLORHEXIDINE GLUCONATE 2 % 1 PACK (2 CLOTHS) TOP SCH (00:53)
[2017-10-28 04:59] LABS: HEMATOCRIT 37.7 % (35.0-46.0); HEMOGLOBIN 12.3 GM/DL (11.6-15.3); MEAN CELL VOLUME 90.7 FL (80.0-100.0); MEAN CORPUSCULAR HEMOGLOBIN 29.6 PG (27.0-34.0); MEAN CORPUSCULAR HGB CONC 32.6 % (32.0-36.0); MEAN PLATELET VOLUME 8.1 FL (7.0-11.0); PLATELET COUNT 133 TH/MM3 (150-450); RED BLOOD COUNT 4.15 MIL/MM3 (4.00-5.30); RED CELL DISTRIBUTION WIDTH 13.8 % (11.6-17.2); WHITE BLOOD COUNT 6.5 TH/MM3 (4.0-11.0)
[2017-10-28 05:10] LABS: CALCIUM 8.3 MG/DL (8.5-10.1)
[2017-10-28 05:11] LABS: BICARBONATE 27.7 MEQ/L (21.0-32.0)
[2017-10-28 05:13] LABS: INTERNATIONAL NORMALIZED RATIO 2.1 RATIO; PROTHROMBIN TIME - PATIENT 21.3 SEC (9.8-11.6)
[2017-10-28 05:15] LABS: CREATININE 0.52 MG/DL (0.50-1.00); PHOSPHORUS 1.8 MG/DL (2.5-4.9)
--- NOTE | 2017-10-28 06:25 | RADRPT ---
EXAM DATE/TIME: 10/28/2017 05:54 [facility] COMPARISON: CHEST SINGLE AP, October 27, 2017, 12:08. INDICATIONS : Shortness of breath. MEDICAL HISTORY : Hypertension. SURGICAL HISTORY : CABG. ENCOUNTER: Subsequent ACUITY: 4 - 6 days PAIN SCORE: Non-responsive. LOCATION: Bilateral chest FINDINGS: A single view of the chest demonstrates the lungs to be symmetrically aerated with minimal bibasilar atelectatic changes which appears to have improved slightly from prior. Heart size is prominent with findings of valvular replacement. Intact median sternotomy wires. Endotracheal and nasogastric tubes appear to be appropriately positioned. Mild dextroscoliosis of the thoracolumbar spine with associate d degenerative changes. Osseous structures are otherwise intact. CONCLUSION: 1. Improving aeration in the bases. 2. Stable cardiomegaly. Findings a prior valvular replacement 3. Appropriate positioning of life support tubes Julio Bahena MD on October 28, 2017 at 6:21 Board Certified Radiologist. This report was verified electronically.
[2017-10-28] MEDS: LEVOTHYROXINE SODIUM 125 MCG TAB PO SCH (08:25)
[2017-10-28] MEDS ORDERED: SODIUM PHOSPHATE INJ 30 MMOL in SODIUM CHLOR 0.9% 250 ML INJ 240 ML IV PRN (08:30)
[2017-10-28] MEDS ORDERED: POTASSIUM PHOSPHATE MONOBASIC 500 MG TAB PO/TUBE PRN (08:30)
[2017-10-28] MEDS ORDERED: MAGNESIUM SULFATE INJ 2 GM in SODIUM CHLORIDE 0.9% INJ 96 ML IV PRN (08:30)
[2017-10-28] MEDS ORDERED: POTASSIUM CHLOR 40 MEQ PREMIX 100 ML IV PRN ×2 (08:30)
[2017-10-28] MEDS ORDERED: POTASSIUM PHOSPHATE INJ 30 MMOL in SODIUM CHLOR 0.9% 250 ML INJ 250 ML IV PRN (08:30)
[2017-10-28] MEDS ORDERED: POTASSIUM PHOSPHATE MONOBASIC 500 MG TAB PO PRN (08:30)
[2017-10-28] MEDS ORDERED: MAGNESIUM SULFATE INJ 4 GM in SODIUM CHLORIDE 0.9% INJ 92 ML IV PRN (08:30)
[2017-10-28] MEDS ORDERED: POTASSIUM CHLORIDE 25 MEQ EFFERVESCENT TAB PO PRN (08:30)
[2017-10-28] MEDS ORDERED: POTASSIUM CHLOR 20 MEQ PREMIX 100 ML IV PRN (08:30)
[2017-10-28] MEDS ORDERED: MAGNESIUM OXIDE 400 MG TAB PO PRN (08:30)
--- NOTE | 2017-10-28 08:45 | HHI.PR ---
Review/Management Diagnosis right cerebellar stroke atrial fibrillation Plan will obtain CT brain stat to follow up on the cerebellar stroke--assess for increase edema or hemorrhage. Diagnosis/Plan: Subjective Subjective Comments No acute events reported pt nonresponsive on minimal sedation Active Medications Current Medications Medications (Trade) Dose Ordered Sig/Nitin Route Start Time Stop Time Status Last Admin (Norvasc) 5 mg DAILY PO 10/26/17 09:00 10/27/17 08:38 (Lipitor) 20 mg DAILY PO 10/26/17 09:00 10/27/17 08:38 (Coreg) 12.5 mg BID PO 10/26/17 09:00 10/27/17 21:24 (Lanoxin) 0.125 mg DAILY PO 10/26/17 09:00 10/27/17 08:38 (Synthroid) 125 mcg DAILY@0700 PO 10/26/17 07:00 10/28/17 08:25 (Zoloft) 50 mg DAILY PO 10/26/17 09:00 10/27/17 08:38 (Theragran) 1 tab DAILY PO 10/26/17 09:00 10/27/17 08:38 Levetriacetam 100 ml @ 400 mls/hr Q12HR IV 10/26/17 01:45 10/27/17 21:23 Sodium Chloride 1,000 ml @ 84 mls/hr [id number] IV 10/26/17 01:39 10/28/17 00:52 (Tylenol) 650 mg Q6H PRN PO 10/26/17 01:45 10/27/17 14:27 (Morphine Inj) 2 mg Q2H PRN IV PUSH 10/26/17 01:45 (Pepcid Inj) 20 mg Q12HR IV PUSH 10/26/17 09:00 10/27/17 21:24 (Ativan Inj) 1 mg Q1H PRN IV PUSH 10/26/17 01:45 (Tears Naturale Opth Soln) 1 drop TID EACH EYE 10/26/17 09:00 10/27/17 16:55 (Zofran Inj) 4 mg Q6H PRN IV PUSH 10/26/17 01:45 (Duoneb Neb) 1 ampule Q2HR NEB PRN INH 10/26/17 01:45 ([facility] [place]) 1 Q361D XX 10/26/17 01:45 10/26/17 01:45 (Chlorhexidine 2% Cloth) 3 pack Taper DAILY@04 TOP 10/26/17 04:00 10/22/18 03:59 10/28/17 00:53 (Chlorhexidine 2% Cloth) 3 pack UNSCH PRN TOP 10/26/17 01:45 (Ivette-Colace) 1 tab BID PO 10/26/17 09:00 10/27/17 21:23 (Milk Of Magnesia Liq) 30 ml Q12H PRN PO 10/26/17 01:45 (Senokot) 17.2 mg Q12H PRN PO 10/26/17 01:45 (Dulcolax Supp) 10 mg DAILY PRN RECTAL 10/26/17 01:45 (Lactulose Liq) 30 ml DAILY PRN PO 10/26/17 01:45 (Peridex 0.12% Liq) 15 ml BID@08,20 MT 10/26/17 08:00 10/27/17 21:22 Propofol 100 ml @ 1.878 mls/ hr TITRATE PRN IV 10/26/17 01:45 10/28/17 00:52 (NS Flush) 2 ml BID IV FLUSH 10/26/17 09:00 10/27/17 21:24 (NS Flush) 2 ml UNSCH PRN IV FLUSH 10/26/17 09:00 (D50w (Vial) Inj) 50 ml UNSCH PRN IV PUSH 10/26/17 09:00 (Glucagon Inj) 1 mg UNSCH PRN OTHER 10/26/17 09:00 (Aspirin Supp) 300 mg DAILY RECTAL 10/28/17 09:00 (NovoLOG SUPPLEMENTAL SCALE) 1 Q6HR SQ 10/28/17 12:00 UNV Potassium Chloride 100 ml @ 50 mls/hr Q2H PRN IV 10/28/17 08:30 UNV Potassium Chloride 100 ml @ 50 mls/hr Q2H PRN IV 10/28/17 08:30 UNV (K-Lyte Cl Eff) 50 meq UNSCH PRN PO 10/28/17 08:30 UNV Potassium Chloride 100 ml @ 25 mls/hr UNSCH PRN IV 10/28/17 08:30 UNV Potassium Chloride 100 ml @ 50 mls/hr Q2H PRN IV 10/28/17 08:30 UNV Magnesium Sulfate 4 gm/Sodium Chloride 100 ml @ 50 mls/hr UNSCH PRN IV 10/28/17 08:30 UNV (Mag-Ox) 800 mg UNSCH PRN PO 10/28/17 08:30 UNV Magnesium Sulfate 2 gm/Sodium Chloride 100 ml @ 50 mls/hr UNSCH PRN IV 10/28/17 08:30 UNV (K-Phos) 2,000 mg Q4H PRN PO 10/28/17 08:30 UNV Sodium Phosphate 30 mmol/Sodium Chloride 250 ml @ 42 mls/hr UNSCH PRN IV 10/28/17 08:30 UNV (K-Phos) 2,000 mg UNSCH PRN PO/TUBE 10/28/17 08:30 UNV Allergies Allergies Coded Allergies amiodarone (Unverified Allergy, Severe, Blurred Vision, 10/23/17) amoxicillin (Unverified Allergy, Severe, Swelling, 10/23/17) *MDRO Multi-Drug Resistant Organism (Verified Adverse Reaction, Unknown, ) Exam I&O / VS Vital Signs Date Time Temp Pulse Resp B/P (MAP) Pulse Ox O2 Delivery O2 Flow Rate FiO2 10/28/17 07:46 76 33 128/82 (97) 100 10/28/17 07:31 72 32 142/88 (106) 100 10/28/17 07:30 100 35 10/28/17 07:16 72 31 149/87 (107) 100 10/28/17 07:01 70 31 152/86 (108) 100 10/28/17 06:46 70 31 125/75 (92) 100 10/28/17 06:31 74 30 124/73 (90) 100 10/28/17 06:16 68 31 124/79 (94) 100 10/28/17 06:00 76 21 131/85 (100) 100 10/28/17 06:00 76 10/28/17 05:45 72 25 133/75 (94) 100 10/28/17 05:30 76 20 145/75 (98) 100 10/28/17 05:15 72 26 143/75 (97) 100 10/28/17 05:00 70 19 141/76 (97) 100 10/28/17 04:35 100 35 10/28/17 04:30 72 27 150/79 (102) 99 10/28/17 04:15 72 33 142/77 (98) 99 10/28/17 04:00 70 10/28/17 04:00 35 10/28/17 04:00 99.3 70 22 146/83 (104) 99 10/28/17 03:45 68 28 148/76 (100) 100 10/28/17 03:30 64 28 135/87 (103) 99 10/28/17 03:15 68 29 151/82 (105) 99 10/28/17 03:00 66 23 126/68 (87) 99 10/28/17 02:45 68 25 135/81 (99) 99 10/28/17 02:30 64 29 134/73 (93) 99 10/28/17 02:15 66 21 151/70 (97) 98 10/28/17 02:00 64 25 140/66 (90) 98 10/28/17 02:00 64 10/28/17 01:45 66 23 161/85 (110) 99 10/28/17 01:30 66 21 149/77 (101) 99 10/28/17 01:20 98 35 10/28/17 01:15 62 23 153/82 (105) 99 10/28/17 00:53 60 27 145/86 (105) 99 10/28/17 00:38 58 20 138/78 (98) 99 10/28/17 00:23 58 16 123/81 (95) 99 10/28/17 00:08 97.3 56 16 125/64 (84) 99 10/28/17 00:00 54 10/28/17 00:00 35 10/27/17 23:23 56 16 121/72 (88) 99 10/27/17 23:08 56 16 116/67 (83) 99 10/27/17 22:53 60 15 133/67 (89) 99 10/27/17 22:50 99 35 10/27/17 22:38 58 16 133/75 (94) 99 10/27/17 22:23 60 15 125/77 (93) 99 10/27/17 22:08 64 15 137/70 (92) 99 10/27/17 22:00 58 10/27/17 21:53 62 16 142/81 (101) 99 10/27/17 21:38 66 16 145/82 (103) 99 10/27/17 21:23 64 16 141/71 (94) 99 10/27/17 21:08 68 32 141/83 (102) 99 18 20:53 66 28 150/78 (102) 99 10/27/17 20:38 66 23 156/78 (104) 99 10/27/17 20:23 66 31 150/84 (106) 100 10/27/17 20:11 64 27 148/78 (101) 100 10/27/17 20:03 97.8 72 32 158/87 (110) 100 10/27/17 20:00 64 10/27/17 20:00 35 10/27/17 19:40 100 35 10/27/17 19:00 62 29 121/69 (86) 100 10/27/17 18:50 98.5 62 21 108/66 (80) 100 10/27/17 18:40 66 21 112/69 (83) 100 10/27/17 18:30 64 16 98/68 (78) 100 10/27/17 18:20 66 17 87/60 (69) 100 10/27/17 18:10 66 20 99/61 (74) 100 10/27/17 18:00 68 17 100/61 (74) 100 10/27/17 18:00 68 10/27/17 17:50 68 19 95/63 (74) 100 10/27/17 17:40 68 21 104/69 (81) 100 10/27/17 17:30 98.5 68 21 109/67 (81) 100 10/27/17 17:20 66 22 119/70 (86) 100 10/27/17 17:10 74 24 133/81 (98) 100 18 17:06 100 35 10/27/17 17:00 70 10/27/17 17:00 74 16 156/80 (105) 100 10/27/17 16:55 76 40 140/80 (100) 100 10/27/17 16:52 74 30 140/76 (97) 100 10/27/17 16:50 76 20 150/79 (102) 100 10/27/17 16:48 76 19 133/86 (102) 100 10/27/17 16:43 78 24 173/91 (118) 100 10/27/17 16:38 99.7 10/27/17 16:35 74 22 100 10/27/17 16:00 74 17 166/96 (119) 100 10/27/17 16:00 74 17 166/96 (119) 100 10/27/17 16:00 74 10/27/17 16:00 35 10/27/17 15:35 99.3 10/27/17 15:35 74 22 100 10/27/17 15:20 74 10/27/17 15:20 74 21 156/85 (108) 100 10/27/17 15:00 72 10/27/17 15:00 72 17 152/81 (104) 100 10/27/17 14:25 74 22 168/93 (118) 100 10/27/17 14:25 74 10/27/17 14:20 35 10/27/17 14:20 100 35 10/27/17 13:00 72 10/27/17 13:00 100.3 72 23 100 10/27/17 12:44 72 15 139/81 (100) 100 10/27/17 12:14 74 10/27/17 12:14 100.0 74 19 138/70 (92) 10/27/17 12:00 35 10/27/17 12:00 100 100 10/27/17 11:03 100 35 10/27/17 11:00 72 35 134/83 (100) 100 10/27/17 11:00 72 10/27/17 10:00 74 37 113/74 (87) 100 10/27/17 10:00 74 10/27/17 09:00 76 20 140/92 (108) 100 10/27/17 09:00 76 Exam Comments pupils 1mm symmetric and minimally reactive EOM intact to dolls maneuver MOTOR--no spontaneous limb movement Objective Micro and Labs Laboratory Tests Test 10/27/17 10:20 10/27/17 10:26 10/27/17 17:40 10/28/17 04:39 Thyroxine (T4) 5.5 Free Triiodothyronine (T3) pg/dL 1.72 Activated Partial Thromboplast Time 59.4 61.5 39.2 White Blood Count 6.5 Red Blood Count 4.15 Hemoglobin 12.3 Hematocrit 37.7 Mean Corpuscular Volume 90.7 Mean Corpuscular Hemoglobin 29.6 Mean Corpuscular Hemoglobin Concent 32.6 Red Cell Distribution Width 13.8 Platelet Count 133 Mean Platelet Volume 8.1 Prothrombin Time 21.3 Prothromb Time International Ratio 2.1 Blood Urea Nitrogen 10 Creatinine 0.52 Random Glucose 177 Calcium Level 8.3 Phosphorus Level 1.8 Magnesium Level 2.0 Sodium Level 147 Potassium Level 3.3 Chloride Level 115 Carbon Dioxide Level 27.7 Anion Gap 4 Estimat Glomerular Filtration Rate 114 Date/Time Source Procedure Growth Status 10/26/17 05:15 Stool Stool Stool Occult Blood (MATTHEW) - Final HEMOCCULT NEGATIVE Complete Claudio Kim MD PhD Oct 28, 2017 08:45
--- NOTE | 2017-10-28 08:54 | HHI.CCPN ---
Subjective Remarks/Hospital Course The patient is a 76-year-old female that was apparently alert and talking prior to 11 PM tonight when she started vomiting. She then became comatose, [facility] was called and they intubated the patient using etomidate and Versed. 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 There has not been any head trauma. After intubation and Versed the blood pressure is 127/90. No seizure activity noted per ER physician. Patient was kept sedated orally intubated overnight on mechanical ventilation. She is starting to arousable although not following commands. She does try to open her eyes on command. Per nursing staff she was moving all [address] done in the ER did not reveal any acute bleed and had evidence of old strokes. Dr. Kim from neurology was contacted by ER physician and will be evaluating patient. When I evaluated the patient this morning she sedated with propofol, orally intubated on mechanical ventilation. History is obtained by reviewing records and discussion with nursing staff. Subjective: 10/27: The patient currently remains intubated and sedated. EEG in process. MRI revealed acute right cerebellar. or infarct. Sedation vacation pending. 10/28: more cerebral edema on CT scan yesterday. remains very encephalopathic, intubated, obtunded. long conversation with family today where I explained current stroke and edema. family introduced the idea that if she would not come off life support or would need to be fully dependent on healthcare system, she would not want to live: will consult palliative care to assist with goals of care clarification. Objective Vital Signs Date Time Temp Pulse Resp B/P (MAP) Pulse Ox O2 Delivery O2 Flow Rate FiO2 10/28/17 07:46 76 33 128/82 (97) 100 10/28/17 07:30 35 10/28/17 04:00 99.3 10/26/17 03:04 Ventilator 10/26/17 00:10 15.00 Intake and Output 10/28/17 10/28/17 10/29/17 08:00 16:00 00:00 Intake Total 840 ml Output Total 500 ml Balance 340 ml Result Diagram: 10/28/17 0439 10/28/17 0439 Other Results Microbiology Date/Time Source Procedure Growth Status 10/26/17 05:15 Stool Stool Stool Occult Blood (MATTHEW) - Final HEMOCCULT NEGATIVE Complete Imaging Last Impressions Neck CTA 10/26/1711 Signed Impressions: Service Date/Time: Thursday, October 26, 2017 00:12 - CONCLUSION: 1. No luminal narrowing or significant plaque formation. 2. Left dominant vertebral system. Anatoly Early MD Head CTA 10/26/1711 Signed Impressions: Service Date/Time: Thursday, October 26, 2017 00:12 - CONCLUSION: No evidence of vessel truncation. Anatoly Early MD Head CT 10/26/17 0000 Signed Impressions: Service Date/Time: Thursday, October 26, 2017 00:12 - CONCLUSION: 1. Multiple bilateral old infarcts, unchanged from 3 days ago. No acute findings. 2. Bilateral maxillary and ethmoid sinus disease. Anatoly Early MD Chest X-Ray 10/26/17 Signed Impressions: Service Date/Time: Thursday, October 26, 2017 06:33 - CONCLUSION: ET tube as above. Luis Felipe Ayala MD Brain MRI 10/26/17 0000 Signed Impressions: Service Date/Time: Thursday, October 26, 2017 16:04 - CONCLUSION: 1. Acute right cerebellar infarct. No midline shift or mass effect. 2. Multiple old bilateral infarcts. Samuel Chen MD Objective Remarks HEENT/ Neuro: Currently sedated on propofol infusion, no movement to deep nailbed pressure this morning. Not following commands. Orally intubated, Pallor present, no icterus Neck: No JVD Chest/Pulm: on mech vent, good air entry bilaterally, no wheezing or crackles. Bilateral chest excursion CVS: S1-S2 irregularly irregular, no murmur GI/abdomen: soft, nontender, bowel sounds sluggish Extremities: warm bilaterally, no edema Date of Insertion: Oct 26, 2017 A/P Assessment and Plan Assessment: 76yF with large cerebellar stroke and associated severe encephalopathy, hypoxic and hypercarbic respiratory failure. repeat head CT today to eval for worsening cerebral edema. remains very critically ill. discussed with Dr. Kim, will hold anticoagulation, eval head CT. goals of care need to be better elucidated with family, as emergent posterior fossa decompressive crani for cerebral edema or hemorrhagic conversion would be quite morbid given her age and current functional status. will ask palliative care to provide added assistance. 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 10/27 EEG for further evaluation of altered mental status-pending Neurology following- Dr. Kim. stat repeat head CT. Cardiovascular: Continue home medications. hold coumadin for anticoagulation given size of stroke and edema. high concern for hemorrhagic conversion. Monitor INR Atrial fibrillation rate controlled Pulmonary: Continue mechanical ventilation Ventilator bundle, bronchodilators as needed. Awaiting improvement in neurologic status to initiate CPAP trials to decide extubation. Chest x-ray from this morning reviewed wean fio2 for goal spo2 > 90% GI/liver: Tube feeds Jevity 1.5 and advance to goal 65 cc/hour as tolerated Bowel regimen GI prophylaxis Renal/: IV hydration, strict intake output, Monitor and replete electrolytes, follow BUN/creatinine ID: No antibiotics indicated at this time. Heme: Monitor CBC and INR. hold anticoagulation. daily INRs. Endocrine: Watch for hypoglycemia, SSI for glycemic control if needed. TSH significantly elevated- 16 currently on levothyroxine 125 mcg/day Prophylaxis: Pepcid, SCDs. holding anticoagulation. my billing statement This patient remains critically ill with one or more organ systems which are or may become a threat to life. I have spent in excess of 40 minutes discontinuously in the care and management of this patient. This time is exclusive of procedures, and includes, but is not limited to, evaluation of the patient, review of the medical record, discussions with family, consultants, nursing staff, or respiratory therapy, and documentation in the medical record. Bradly Arellano MD Oct 28, 2017 08:54
[2017-10-28] MEDS: SODIUM CHLORIDE 0.9% FLUSH 10 ML FLUSH IV FLUSH SCH ×2 (09:00→21:09)
--- NOTE | 2017-10-28 09:49 | HHI.PR ---
Review/Management Diagnosis right cerebellar stroke atrial fibrillation Plan CT brain shows stable right cerebellar stroke with no hemorrhage in the stroke and no more mass effect. I discussed with the family the potential for worsening edema/ hemorrhage and whether they would want neurosurgical evaluation if that were to occur and they are unsure at this time but feel it may be a possibility. THerefore, I recommend transfering patient to [facility] at the [facility] for neurosurgical evaluation in the event the stroke develops hemorrhage or worse edema. Will continue to hold anticoagulation. Diagnosis/Plan: Subjective Subjective Comments No acute events reported No headache No chest pain No dyspnea Active Medications Current Medications Medications (Trade) Dose Ordered Sig/Nitin Route Start Time Stop Time Status Last Admin (Norvasc) 5 mg DAILY PO 10/26/17 09:00 10/27/17 08:38 (Lipitor) 20 mg DAILY PO 10/26/17 09:00 10/27/17 08:38 (Coreg) 12.5 mg BID PO 10/26/17 09:00 10/27/17 21:24 (Lanoxin) 0.125 mg DAILY PO 10/26/17 09:00 10/27/17 08:38 (Synthroid) 125 mcg DAILY@0700 PO 10/26/17 07:00 10/28/17 08:25 (Zoloft) 50 mg DAILY PO 10/26/17 09:00 10/27/17 08:38 (Theragran) 1 tab DAILY PO 10/26/17 09:00 10/27/17 08:38 Levetriacetam 100 ml @ 400 mls/hr Q12HR IV 10/26/17 01:45 10/27/17 21:23 Sodium Chloride 1,000 ml @ 84 mls/hr [id number] IV 10/26/17 01:39 10/28/17 00:52 (Tylenol) 650 mg Q6H PRN PO 10/26/17 01:45 10/27/17 14:27 (Morphine Inj) 2 mg Q2H PRN IV PUSH 10/26/17 01:45 (Pepcid Inj) 20 mg Q12HR IV PUSH 10/26/17 09:00 10/27/17 21:24 (Ativan Inj) 1 mg Q1H PRN IV PUSH 10/26/17 01:45 (Tears Naturale Opth Soln) 1 drop TID EACH EYE 10/26/17 09:00 10/27/17 16:55 (Zofran Inj) 4 mg Q6H PRN IV PUSH 10/26/17 01:45 (Duoneb Neb) 1 ampule Q2HR NEB PRN INH 10/26/17 01:45 ([facility] Nursing Information) 1 Q361D XX 10/26/17 01:45 10/26/17 01:45 (Chlorhexidine 2% Cloth) 3 pack Taper DAILY@04 TOP 10/26/17 04:00 10/22/18 03:59 10/28/17 00:53 (Chlorhexidine 2% Cloth) 3 pack UNSCH PRN TOP 10/26/17 01:45 (Ivette-Colace) 1 tab BID PO 10/26/17 09:00 10/27/17 21:23 (Milk Of Magnesia Liq) 30 ml Q12H PRN PO 10/26/17 01:45 (Senokot) 17.2 mg Q12H PRN PO 10/26/17 01:45 (Dulcolax Supp) 10 mg DAILY PRN RECTAL 10/26/17 01:45 (Lactulose Liq) 30 ml DAILY PRN PO 10/26/17 01:45 (Peridex 0.12% Liq) 15 ml BID@08,20 MT 10/26/17 08:00 10/27/17 21:22 Propofol 100 ml @ 1.878 mls/ hr TITRATE PRN IV 10/26/17 01:45 10/28/17 00:52 (NS Flush) 2 ml BID IV FLUSH 10/26/17 09:00 10/27/17 21:24 (NS Flush) 2 ml UNSCH PRN IV FLUSH 10/26/17 09:00 (D50w (Vial) Inj) 50 ml UNSCH PRN IV PUSH 10/26/17 09:00 (Glucagon Inj) 1 mg UNSCH PRN OTHER 10/26/17 09:00 (Aspirin Supp) 300 mg DAILY RECTAL 10/28/17 09:00 (NovoLOG SUPPLEMENTAL SCALE) 1 Q6HR SQ 10/28/17 12:00 UNV Potassium Chloride 100 ml @ 50 mls/hr Q2H PRN IV 10/28/17 08:30 UNV Potassium Chloride 100 ml @ 50 mls/hr Q2H PRN IV 10/28/17 08:30 UNV (K-Lyte Cl Eff) 50 meq UNSCH PRN PO 10/28/17 08:30 UNV Potassium Chloride 100 ml @ 25 mls/hr UNSCH PRN IV 10/28/17 08:30 UNV Potassium Chloride 100 ml @ 50 mls/hr Q2H PRN IV 10/28/17 08:30 UNV Magnesium Sulfate 4 gm/Sodium Chloride 100 ml @ 50 mls/hr UNSCH PRN IV 10/28/17 08:30 UNV (Mag-Ox) 800 mg UNSCH PRN PO 10/28/17 08:30 UNV Magnesium Sulfate 2 gm/Sodium Chloride 100 ml @ 50 mls/hr UNSCH PRN IV 10/28/17 08:30 UNV (K-Phos) 2,000 mg Q4H PRN PO 10/28/17 08:30 UNV Sodium Phosphate 30 mmol/Sodium Chloride 250 ml @ 42 mls/hr UNSCH PRN IV 10/28/17 08:30 UNV (K-Phos) 2,000 mg UNSCH PRN PO/TUBE 10/28/17 08:30 UNV Allergies Allergies Coded Allergies amiodarone (Unverified Allergy, Severe, Blurred Vision, 10/23/17) amoxicillin (Unverified Allergy, Severe, Swelling, 10/23/17) *MDRO Multi-Drug Resistant Organism (Verified Adverse Reaction, Unknown, ) Exam I&O / VS Vital Signs Date Time Temp Pulse Resp B/P (MAP) Pulse Ox O2 Delivery O2 Flow Rate FiO2 10/28/17 07:46 76 33 128/82 (97) 100 10/28/17 07:31 72 32 142/88 (106) 100 10/28/17 07:30 100 35 10/28/17 07:16 72 31 149/87 (107) 100 10/28/17 07:01 70 31 152/86 (108) 100 10/28/17 06:46 70 31 125/75 (92) 100 10/28/17 06:31 74 30 124/73 (90) 100 10/28/17 06:16 68 31 124/79 (94) 100 10/28/17 06:00 76 21 131/85 (100) 100 10/28/17 06:00 76 10/28/17 05:45 72 25 133/75 (94) 100 10/28/17 05:30 76 20 145/75 (98) 100 10/28/17 05:15 72 26 143/75 (97) 100 10/28/17 05:00 70 19 141/76 (97) 100 10/28/17 04:35 100 35 10/28/17 04:30 72 27 150/79 (102) 99 10/28/17 04:15 72 33 142/77 (98) 99 10/28/17 04:00 70 10/28/17 04:00 35 10/28/17 04:00 99.3 70 22 146/83 (104) 99 10/28/17 03:45 68 28 148/76 (100) 100 10/28/17 03:30 64 28 135/87 (103) 99 10/28/17 03:15 68 29 151/82 (105) 99 10/28/17 03:00 66 23 126/68 (87) 99 10/28/17 02:45 68 25 135/81 (99) 99 10/28/17 02:30 64 29 134/73 (93) 99 10/28/17 02:15 66 21 151/70 (97) 98 10/28/17 02:00 64 25 140/66 (90) 98 10/28/17 02:00 64 10/28/17 01:45 66 23 161/85 (110) 99 10/28/17 01:30 66 21 149/77 (101) 99 10/28/17 01:20 98 35 10/28/17 01:15 62 23 153/82 (105) 99 10/28/17 00:53 60 27 145/86 (105) 99 10/28/17 00:38 58 20 138/78 (98) 99 10/28/17 00:23 58 16 123/81 (95) 99 10/28/17 00:08 97.3 56 16 125/64 (84) 99 10/28/17 00:00 54 10/28/17 00:00 35 10/27/17 23:23 56 16 121/72 (88) 99 10/27/17 23:08 56 16 116/67 (83) 99 10/27/17 22:53 60 15 133/67 (89) 99 4/29/18 22:50 99 35 10/27/17 22:38 58 16 133/75 (94) 99 10/27/17 22:23 60 15 125/77 (93) 99 10/27/17 22:08 64 15 137/70 (92) 99 10/27/17 22:00 58 10/27/17 21:53 62 16 142/81 (101) 99 10/27/17 21:38 66 16 145/82 (103) 99 10/27/17 21:23 64 16 141/71 (94) 99 10/27/17 21:08 68 32 141/83 (102) 99 10/27/17 20:53 66 28 150/78 (102) 99 10/27/17 20:38 66 23 156/78 (104) 99 10/27/17 20:23 66 31 150/84 (106) 100 10/27/17 20:11 64 27 148/78 (101) 100 10/27/17 20:03 97.8 72 32 158/87 (110) 100 10/27/17 20:00 64 10/27/17 20:00 35 10/27/17 19:40 100 35 10/27/17 19:00 62 29 121/69 (86) 100 10/27/17 18:50 98.5 62 21 108/66 (80) 100 10/27/17 18:40 66 21 112/69 (83) 100 10/27/17 18:30 64 16 98/68 (78) 100 10/27/17 18:20 66 17 87/60 (69) 100 10/27/17 18:10 66 20 99/61 (74) 100 10/27/17 18:00 68 17 100/61 (74) 100 10/27/17 18:00 68 10/27/17 17:50 68 19 95/63 (74) 100 10/27/17 17:40 68 21 104/69 (81) 100 10/27/17 17:30 98.5 68 21 109/67 (81) 100 10/27/17 17:20 66 22 119/70 (86) 100 10/27/17 17:10 74 24 133/81 (98) 100 10/27/17 17:06 100 35 10/27/17 17:00 70 10/27/17 17:00 74 16 156/80 (105) 100 10/27/17 16:55 76 40 140/80 (100) 100 10/27/17 16:52 74 30 140/76 (97) 100 10/27/17 16:50 76 20 150/79 (102) 100 10/27/17 16:48 76 19 133/86 (102) 100 10/27/17 16:43 78 24 173/91 (118) 100 10/27/17 16:38 99.7 10/27/17 16:35 74 22 100 10/27/17 16:00 74 17 166/96 (119) 100 10/27/17 16:00 74 17 166/96 (119) 100 10/27/17 16:00 74 10/27/17 16:00 35 10/27/17 15:35 99.3 10/27/17 15:35 74 22 100 10/27/17 15:20 74 10/27/17 15:20 74 21 156/85 (108) 100 10/27/17 15:00 72 10/27/17 15:00 72 17 152/81 (104) 100 10/27/17 14:25 74 22 168/93 (118) 100 10/27/17 14:25 74 10/27/17 14:20 35 10/27/17 14:20 100 35 10/27/17 13:00 72 10/27/17 13:00 100.3 72 23 100 10/27/17 12:44 72 15 139/81 (100) 100 10/27/17 12:14 74 10/27/17 12:14 100.0 74 19 138/70 (92) 10/27/17 12:00 35 10/27/17 12:00 100 100 10/27/17 11:03 100 35 10/27/17 11:00 72 35 134/83 (100) 100 10/27/17 11:00 72 10/27/17 10:00 74 37 113/74 (87) 100 10/27/17 10:00 74 Exam Comments pupils 1mm symmetric and minimally reactive EOM intact to dolls maneuver MOTOR--no spontaneous limb movement Objective Micro and Labs Laboratory Tests Test 10/27/17 10:20 10/27/17 10:26 10/27/17 17:40 10/28/17 04:39 Thyroxine (T4) 5.5 Free Triiodothyronine (T3) pg/dL 1.72 Activated Partial Thromboplast Time 59.4 61.5 39.2 White Blood Count 6.5 Red Blood Count 4.15 Hemoglobin 12.3 Hematocrit 37.7 Mean Corpuscular Volume 90.7 Mean Corpuscular Hemoglobin 29.6 Mean Corpuscular Hemoglobin Concent 32.6 Red Cell Distribution Width 13.8 Platelet Count 133 Mean Platelet Volume 8.1 Prothrombin Time 21.3 Prothromb Time International Ratio 2.1 Blood Urea Nitrogen 10 Creatinine 0.52 Random Glucose 177 Calcium Level 8.3 Phosphorus Level 1.8 Magnesium Level 2.0 Sodium Level 147 Potassium Level 3.3 Chloride Level 115 Carbon Dioxide Level 27.7 Anion Gap 4 Estimat Glomerular Filtration Rate 114 Date/Time Source Procedure Growth Status 10/26/17 05:15 Stool Stool Stool Occult Blood ([facility]THEW) - Final HEMOCCULT NEGATIVE Complete Claudio Kim MD PhD Oct 28, 2017 09:49
--- NOTE | 2017-10-28 09:59 | RADRPT ---
EXAM DATE/TIME: 10/28/2017 09:21 [place] COMPARISON: CT BRAIN W/O CONTRAST, October 27, 2017, 12:09. INDICATIONS : Cerebellar CVA. Rule out increase mass effect. RADIATION DOSE: 61.29 CTDIvol (mGy) MEDICAL HISTORY : Cerebrovascular disease. Dementia. Cardiovascular disease. Hypertension. SURGICAL HISTORY : CABG. Mitral valve replacement. ENCOUNTER: Subsequent ACUITY: 3 days PAIN SCALE: Non-responsive LOCATION: cranial TECHNIQUE: Multiple contiguous axial images were obtained of the head. Using automated exposure control and adj ustment of the mA and/or kV according to patient size, radiation dose was kept as low as reasonably a chievable to obtain optimal diagnostic quality images. DICOM format image data is available electro nically for review and comparison. FINDINGS: Evolving right cerebellar infarct with associated slight mass effect on the fourth ventricle. No inte rval hemorrhage. Redemonstration of encephalomalacia in the bilateral frontal, left parietal and bila teral occipital mid convexities. Ventricles are stable in size and midline. Brainstem is intact. Redemonstration of pain in paranasal mucosal sinus opacification or or tenderness into the patient. T here is also a stable focal 1 cm region of hyperdensity in the posterior nasopharynx which may reflec t a small hematoma. The remainder of the exam is unchanged. CONCLUSION: 1. Evolving right cerebellar infarct with slight mass effect on the fourth ventricle. No intercurrent hemorrhage. 2. Stable focal 1 cm hyperdense lesion in the posterior nasopharynx which may reflect a small hematom a. 3. Redemonstration of remote bilateral cerebral infarcts Pollo Jang MD on October 28, 2017 at 9:34 Board Certified Radiologist. This report was verified electronically.
--- NOTE | 2017-10-28 10:13 | PD.CONS ---
Consult Service Palliative Care . Consult Requested By Dr. Robin . Primary Care Physician Alex Skelton Do, MD . Reason for Consultation a. To assist with evaluation and management of symptoms including: Encephalopathy, pain b. To assist medical decision maker(s) with: better understanding of current medical conditions; weighing benefits/burdens of medical treatment options; making medical treatment decisions. . HPI History of Present Illness Ms. Waters is a 76 yo old female patient with a known history of atrial fibrillation, previous CVA, CAD, hypercholesterolemia, CHF, hypertension, MA, hypothyroidism and CKD who presented to the ED on 10/26/2017 after an episode of vomiting followed by unresponsiveness. EMS was called; upon arrival to the home the patient was intubated. Of note, the patient is on anticoagulation therapy. She has a history of ischemic CVAs as well as intracranial hemorrhages in the past. Additional diagnostic data: * Vital signs: Pulse 75, respirations 16, BP 160/98, oxygen saturation 98% on 100% FiO2 * WBC: 5.8, hemoglobin 12.5, hematocrit 38.4, platelets 169, neutrophils 60.4% * Sodium: 141, potassium 3.5, chloride 107, carbon dioxide 28.5, glucose 142, calcium 8.8 * BUN: 11, creatinine 0.74, GFR 76 * Total creatinine 47, troponin <0.02 * PT: 16.7, INR 1.7, APTT 29.1 * Urinalysis WNL * CT head revealed multiple bilateral old infarcts unchanged from 3 days ago but no acute findings. * Chest x-ray showed atelectatic changes at the lung bases, cardiomegaly, sternotomy wires and cardiac valvular prosthesis. * CTA neck showed no luminal narrowing or significant plaque formation; left dominant vertebral system. * CTA brain showed no evidence of vessel truncation Patient was admitted to the intensive care unit. Neurology was consulted. Given rapidly resolving symptoms, borderline INR and h/o previous intracranial bleed, Dr. Kim (neurology) did not feel the patient was a candidate for TPA. The patient underwent a CT angiogram which revealed no evidence of any large vessel occlusions. An MRI of the brain revealed an acute right cerebellar infarct with no midline shift or mass-effect noted. An echocardiogram showed severely reduced left ventricular systolic function with an EF of <20% Follow-up CT brain on 10/27/17 showing increased edema of right cerebellar stroke and hemorrhagic potential. Heparin and Coumadin were placed on hold and the patient was started on aspirin [place]. An EEG on 10/27/2017 was consistent with diffuse encephalopathy. Function/Cognitive Trajectory Family reports the patient ambulates independently without assistive devices. If she goes outdoors for long periods of time, she may use a wheeled walker. Review of Systems ROS Limitations: Clinical Condition, Intubated, Altered Mental Status, Other ( ROS obtained through review of notes and family/staff report) Constitutional: COMPLAINS OF: Generalized weakness Cardiovascular: DENIES: Lower Extremity Edema Gastrointestinal: COMPLAINS OF: Nausea, Vomiting, DENIES: Black stools, Bloody stools, Constipation, Diarrhea Hematologic/Lymphatics: COMPLAINS OF: Bruising Psychiatric: COMPLAINS OF: Confusion Past Family Social History Coded Allergies: amiodarone (Unverified Allergy, Severe, Blurred Vision, 10/23/17) amoxicillin (Unverified Allergy, Severe, Swelling, 10/23/17) *MDRO Multi-Drug Resistant Organism (Verified Adverse Reaction, Unknown, ) MRSA PCR (nares) positive - 09/30/15 Past Medical History Atrial fibrillation Coronary artery disease Hypercholesterolemia CHF Hypertension Previous MA Hypothyroidism CKD Previous CVAs . Past Surgical History Mitral valve replacement-04/05/2011 [place] hole with evacuation of subdural hemorrhage-2012 Cardiac catheterization 2011 . Reported Medications Multiple Vitamin 1 Tab 1 Tab PO DAILY K-Tab (Potassium Chloride) 10 Meq Tab 10 Meq PO DAILY Atorvastatin (Atorvastatin Calcium) 20 Mg Tab 20 Mg PO DAILY Coumadin (Warfarin) 4 Mg Tab 4 Mg PO DIRECTED Coumadin (Warfarin) 5 Mg Tab 5 Mg PO DIRECTED Amlodipine (Amlodipine Besylate) 5 Mg Tab 5 Mg PO DAILY Levothyroxine (Levothyroxine Sodium) 125 Mcg Tab 125 Mcg PO DAILY Digoxin 0.125 Mg Tab 0.125 Mg PO DAILY Sertraline (Sertraline HCl) 50 Mg Tab 50 Mg PO DAILY Lasix (Furosemide) 20 Mg Tab 20 Mg PO DIRECTED Carvedilol 12.5 Mg Tab 12.5 Mg PO BID . Current Medications Medications (Trade) Dose Ordered Sig/Nitin Route Start Time Stop Time Status Last Admin (Norvasc) 5 mg DAILY PO 10/26/17 09:00 10/27/17 08:38 (Lipitor) 20 mg DAILY PO 10/26/17 09:00 10/27/17 08:38 (Coreg) 12.5 mg BID PO 10/26/17 09:00 10/27/17 21:24 (Lanoxin) 0.125 mg DAILY PO 10/26/17 09:00 10/27/17 08:38 (Synthroid) 125 mcg DAILY@0700 PO 10/26/17 07:00 10/28/17 08:25 (Zoloft) 50 mg DAILY PO 10/26/17 09:00 10/27/17 08:38 (Theragran) 1 tab DAILY PO 10/26/17 09:00 10/27/17 08:38 Levetriacetam 100 ml @ 400 mls/hr Q12HR IV 10/26/17 01:45 10/27/17 21:23 Sodium Chloride 1,000 ml @ 84 mls/hr [id number] IV 10/26/17 01:39 10/28/17 00:52 (Tylenol) 650 mg Q6H PRN PO 10/26/17 01:45 10/27/17 14:27 (Morphine Inj) 2 mg Q2H PRN IV PUSH 10/26/17 01:45 (Pepcid Inj) 20 mg Q12HR IV PUSH 10/26/17 09:00 10/27/17 21:24 (Ativan Inj) 1 mg Q1H PRN IV PUSH 10/26/17 01:45 (Tears Naturale Opth Soln) 1 drop TID EACH EYE 10/26/17 09:00 10/27/17 16:55 (Zofran Inj) 4 mg Q6H PRN IV PUSH 10/26/17 01:45 (Duoneb Neb) 1 ampule Q2HR NEB PRN INH 10/26/17 01:45 ([facility] Nursing Information) 1 Q361D XX 10/26/17 01:45 10/26/17 01:45 (Chlorhexidine 2% Cloth) 3 pack Taper DAILY@04 TOP 10/26/17 04:00 10/22/18 03:59 10/28/17 00:53 (Chlorhexidine 2% Cloth) 3 pack UNSCH PRN TOP 10/26/17 01:45 (Ivette-Colace) 1 tab BID PO 10/26/17 09:00 10/27/17 21:23 (Milk Of Magnesia Liq) 30 ml Q12H PRN PO 10/26/17 01:45 (Senokot) 17.2 mg Q12H PRN PO 10/26/17 01:45 (Dulcolax Supp) 10 mg DAILY PRN RECTAL 10/26/17 01:45 (Lactulose Liq) 30 ml DAILY PRN PO 10/26/17 01:45 (Peridex 0.12% Liq) 15 ml BID@08,20 MT 10/26/17 08:00 10/27/17 21:22 Propofol 100 ml @ 1.878 mls/ hr TITRATE PRN IV 10/26/17 01:45 10/28/17 00:52 (NS Flush) 2 ml BID IV FLUSH 10/26/17 09:00 10/27/17 21:24 (NS Flush) 2 ml UNSCH PRN IV FLUSH 10/26/17 09:00 (D50w (Vial) Inj) 50 ml UNSCH PRN IV PUSH 10/26/17 09:00 (Glucagon Inj) 1 mg UNSCH PRN OTHER 10/26/17 09:00 (Aspirin Supp) 300 mg DAILY RECTAL 10/28/17 09:00 (NovoLOG SUPPLEMENTAL SCALE) 1 Q6HR SQ 10/28/17 12:00 Potassium Chloride 100 ml @ 50 mls/hr Q2H PRN IV 10/28/17 08:30 Potassium Chloride 100 ml @ 50 mls/hr Q2H PRN IV 10/28/17 08:30 (K-Lyte Cl Eff) 50 meq UNSCH PRN PO 10/28/17 08:30 Potassium Chloride 100 ml @ 25 mls/hr UNSCH PRN IV 10/28/17 08:30 Potassium Chloride 100 ml @ 50 mls/hr Q2H PRN IV 10/28/17 08:30 Magnesium Sulfate 4 gm/Sodium Chloride 100 ml @ 50 mls/hr UNSCH PRN IV 10/28/17 08:30 (Mag-Ox) 800 mg UNSCH PRN PO 10/28/17 08:30 Magnesium Sulfate 2 gm/Sodium Chloride 100 ml @ 50 mls/hr UNSCH PRN IV 10/28/17 08:30 (K-Phos) 2,000 mg Q4H PRN PO 10/28/17 08:30 Sodium Phosphate 30 mmol/Sodium Chloride 250 ml @ 42 mls/hr UNSCH PRN IV 10/28/17 08:30 (K-Phos) 2,000 mg UNSCH PRN PO/TUBE 10/28/17 08:30 Potassium Phosphate 30 mmol/ Sodium Chloride 260 ml @ 42 mls/hr UNSCH PRN IV 10/28/17 08:30 Family History No family history of venous thromboembolic events. No family history of cancer. Substance Use Tobacco: None unknown Alcohol: None known Prescription med abuse: None known Illicits: None known Psychosocial History Patient is originally from [place]. She is a ; her approximately 18 years ago. Patient 3 daughters and 4 sons. She has 11 grandchildren and at least one great grandchild. The patient lives with her son. Four of her children live locally, to live in [place] and one is in [facility]. The patient has a private nurse who cares for her during the day. . Spiritual/Cultural Factors [place] . Health Care Surrogate: Copy in medical record Date completed: 07/13/2015 . Health Care Surrogate(s): Omega Low (RUBY) is designated as the [facility] decision maker; Lynsey Little is the alternate [facility] decision maker. . Documented care wishes: No documented care wishes are available other than the designation of healthcare surrogate. . Today's verbally stated goals: Given patient's clinical condition, she is unable to participate in establishing medical treatment goals. . Family/friends goals: Patient's family has indicated that the patient would not want to be kept alive on artificial life support for an extended period of time. The family is uncertain if they would proceed with neurosurgery should the patient's neurological status deteriorate, but they feel it may be a possibility. Ethical and Legal Issues No known ethical or legal issues impacting care at this time. . Physical Exam Vital Signs Date Time Temp Pulse Resp B/P (MAP) Pulse Ox O2 Delivery O2 Flow Rate FiO2 10/28/17 07:46 76 33 128/82 (97) 100 10/28/17 07:31 72 32 142/88 (106) 100 10/28/17 07:30 100 35 10/28/17 07:16 72 31 149/87 (107) 100 10/28/17 07:01 70 31 152/86 (108) 100 10/28/17 06:46 70 31 125/75 (92) 100 10/28/17 06:31 74 30 124/73 (90) 100 10/28/17 06:16 68 31 124/79 (94) 100 10/28/17 06:00 76 21 131/85 (100) 100 10/28/17 06:00 76 10/28/17 05:45 72 25 133/75 (94) 100 10/28/17 05:30 76 20 145/75 (98) 100 10/28/17 05:15 72 26 143/75 (97) 100 10/28/17 05:00 70 19 141/76 (97) 100 10/28/17 04:35 100 35 10/28/17 04:30 72 27 150/79 (102) 99 10/28/17 04:15 72 33 142/77 (98) 99 10/28/17 04:00 70 10/28/17 04:00 35 10/28/17 04:00 99.3 70 22 146/83 (104) 99 10/28/17 03:45 68 28 148/76 (100) 100 10/28/17 03:30 64 28 135/87 (103) 99 10/28/17 03:15 68 29 151/82 (105) 99 10/28/17 03:00 66 23 126/68 (87) 99 10/28/17 02:45 68 25 135/81 (99) 99 10/28/17 02:30 64 29 134/73 (93) 99 10/28/17 02:15 66 21 151/70 (97) 98 10/28/17 02:00 64 25 140/66 (90) 98 10/28/17 02:00 64 10/28/17 01:45 66 23 161/85 (110) 99 10/28/17 01:30 66 21 149/77 (101) 99 10/28/17 01:20 98 35 10/28/17 01:15 62 23 153/82 (105) 99 10/28/17 00:53 60 27 145/86 (105) 99 10/28/17 00:38 58 20 138/78 (98) 99 10/28/17 00:23 58 16 123/81 (95) 99 10/28/17 00:08 97.3 56 16 125/64 (84) 99 10/28/17 00:00 54 4/30/18 00:00 35 10/27/17 23:23 56 16 121/72 (88) 99 10/27/17 23:08 56 16 116/67 (83) 99 10/27/17 22:53 60 15 133/67 (89) 99 10/27/17 22:50 99 35 10/27/17 22:38 58 16 133/75 (94) 99 10/27/17 22:23 60 15 125/77 (93) 99 10/27/17 22:08 64 15 137/70 (92) 99 10/27/17 22:00 58 10/27/17 21:53 62 16 142/81 (101) 99 10/27/17 21:38 66 16 145/82 (103) 99 10/27/17 21:23 64 16 141/71 (94) 99 10/27/17 21:08 68 32 141/83 (102) 99 10/27/17 20:53 66 28 150/78 (102) 99 10/27/17 20:38 66 23 156/78 (104) 99 10/27/17 20:23 66 31 150/84 (106) 100 10/27/17 20:11 64 27 148/78 (101) 100 10/27/17 20:03 97.8 72 32 158/87 (110) 100 10/27/17 20:00 64 10/27/17 20:00 35 10/27/17 19:40 100 35 10/27/17 19:00 62 29 121/69 (86) 100 10/27/17 18:50 98.5 62 21 108/66 (80) 100 10/27/17 18:40 66 21 112/69 (83) 100 10/27/17 18:30 64 16 98/68 (78) 100 10/27/17 18:20 66 17 87/60 (69) 100 10/27/17 18:10 66 20 99/61 (74) 100 10/27/17 18:00 68 17 100/61 (74) 100 10/27/17 18:00 68 10/27/17 17:50 68 19 95/63 (74) 100 10/27/17 17:40 68 21 104/69 (81) 100 10/27/17 17:30 98.5 68 21 109/67 (81) 100 10/27/17 17:20 66 22 119/70 (86) 100 10/27/17 17:10 74 24 133/81 (98) 100 10/27/17 17:06 100 35 10/27/17 17:00 70 10/27/17 17:00 74 16 156/80 (105) 100 10/27/17 16:55 76 40 140/80 (100) 100 10/27/17 16:52 74 30 140/76 (97) 100 10/27/17 16:50 76 20 150/79 (102) 100 10/27/17 16:48 76 19 133/86 (102) 100 10/27/17 16:43 78 24 173/91 (118) 100 10/27/17 16:38 99.7 10/27/17 16:35 74 22 100 10/27/17 16:00 74 17 166/96 (119) 100 10/27/17 16:00 74 17 166/96 (119) 100 10/27/17 16:00 74 10/27/17 16:00 35 10/27/17 15:35 99.3 10/27/17 15:35 74 22 100 10/27/17 15:20 74 10/27/17 15:20 74 21 156/85 (108) 100 10/27/17 15:00 72 10/27/17 15:00 72 17 152/81 (104) 100 10/27/17 14:25 74 22 168/93 (118) 100 10/27/17 14:25 74 10/27/17 14:20 35 10/27/17 14:20 100 35 10/27/17 13:00 72 10/27/17 13:00 100.3 72 23 100 10/27/17 12:44 72 15 139/81 (100) 100 10/27/17 12:14 74 10/27/17 12:14 100.0 74 19 138/70 (92) 10/27/17 12:00 35 10/27/17 12:00 100 100 10/27/17 11:03 100 35 10/27/17 11:00 72 35 134/83 (100) 100 10/27/17 11:00 72 10/27/17 10:00 74 37 113/74 (87) 100 10/27/17 10:00 74 . Exam CONSTITUTIONAL/GENERAL: This is an elderly, female patient in no acute distress TUBES/LINES/DRAINS: PIV 2, OGT, ETT, SCDs, urinary catheter SKIN: No jaundice, rashes, or lesions. Ecchymoses on upper extremities. No wounds seen anteriorly. Skin temperature appropriate. Not diaphoretic. HEAD: Atraumatic. Normocephalic. EYES: Pupils equal and round and reactive. Extraocular motions intact. No scleral icterus. No injection or drainage. Fundi not examined. ENT: Hearing grossly normal. Nose without bleeding or purulent drainage. Throat without visible erythema, exudates, masses, or lesions. NECK: Trachea midline. Supple, nontender. No palpable thyroid enlargement or nodularity. CARDIOVASCULAR: Irregularly irregular without murmurs, gallops, or rubs. No JVD. Peripheral pulses symmetric. RESPIRATORY/CHEST: Symmetric, unlabored respirations. Clear to auscultation. Breath sounds diminished bilaterally. No wheezes, rales, or rhonchi. GASTROINTESTINAL: Abdomen soft, non-tender, nondistended. No guarding. Bowel sounds present. GENITOURINARY: Without palpable bladder distension. Alvares catheter in place. MUSCULOSKELETAL: Extremities without clubbing, cyanosis, or edema. No mottling or clubbing. LYMPHATICS: No palpable cervical or supraclavicular adenopathy. NEUROLOGICAL: Sedated. Patient withdraws to noxious stimuli. PSYCHIATRIC: No obvious anxiety/depression. no apparent hallucinations or other psychotic thought process. . Diagnostic Tests Laboratory Laboratory Tests Test 10/26/17 00:20 10/26/17 00:30 10/26/17 01:13 10/26/17 02:46 White Blood Count 5.8 TH/MM3 (4.0-11.0) Red Blood Count 4.21 MIL/MM3 (4.00-5.30) Hemoglobin 12.5 GM/DL (11.6-15.3) Hematocrit 38.4 % (35.0-46.0) Mean Corpuscular Volume 91.2 FL (80.0-100.0) Mean Corpuscular Hemoglobin 29.8 PG (27.0-34.0) Mean Corpuscular Hemoglobin Concent 32.6 % (32.0-36.0) Red Cell Distribution Width 13.8 % (11.6-17.2) Platelet Count 169 TH/MM3 (150-450) Mean Platelet Volume 7.4 FL (7.0-11.0) Neutrophils (%) (Auto) 60.4 % (16.0-70.0) Lymphocytes (%) (Auto) 26.0 % (9.0-44.0) Monocytes (%) (Auto) 9.0 % (0.0-8.0) Eosinophils (%) (Auto) 4.0 % (0.0-4.0) Basophils (%) (Auto) 0.6 % (0.0-2.0) Neutrophils # (Auto) 3.6 TH/MM3 (1.8-7.7) Lymphocytes # (Auto) 1.5 TH/MM3 (1.0-4.8) Monocytes # (Auto) 0.5 TH/MM3 (0-0.9) Eosinophils # (Auto) 0.2 TH/MM3 (0-0.4) Basophils # (Auto) 0.0 TH/MM3 (0-0.2) CBC Comment DIFF FINAL Differential Comment Prothrombin Time 16.7 SEC (9.8-11.6) Prothromb Time International Ratio 1.7 RATIO Activated Partial Thromboplast Time 29.1 SEC (24.3-30.1) Fibrinogen 298 mg/dL (227-377) Blood Urea Nitrogen 11 MG/DL (7-18) Creatinine 0.74 MG/DL (0.50-1.00) Random Glucose 142 MG/DL (74-106) Calcium Level 8.8 MG/DL (8.5-10.1) Sodium Level 141 MEQ/L (136-145) Potassium Level 3.5 MEQ/L (3.5-5.1) Chloride Level 107 MEQ/L (98-107) Carbon Dioxide Level 28.5 MEQ/L (21.0-32.0) Anion Gap 6 MEQ/L (5-15) Estimat Glomerular Filtration Rate 76 ML/MIN (>89) Total Creatine Kinase 47 U/L (26-192) Troponin I LESS THAN 0.02 NG/ML Digoxin Level 0.6 NG/ML (0.8-2.0) Urine Color YELLOW (YELLW/STRAW) Urine Turbidity CLEAR (CLEAR) Urine pH 7.5 (5.0-8.5) Urine Specific Paige 1.010 (1.002-1.035) Urine Protein NEG mg/dL (NEG-TRACE) Urine Glucose (UA) NEG mg/dL (NEG) Urine Ketones NEG mg/dL (NEG) Urine Occult Blood SMALL (NEG) Urine Nitrite NEG (NEG) Urine Bilirubin NEG (NEG) Urine Urobilinogen 0.2 MG/DL (LESS THAN Urine Leukocyte Esterase NEG (NEG) Urine RBC 3-5 /hpf (0-3) Urine WBC 0-2 /hpf (0-5) Urine Squamous Epithelial Cells 0-5 /hpf (0-5) Urine Bacteria NONE /hpf (NONE) Urine Opiates Screen NEG (NEG) Urine Barbiturates Screen NEG (NEG) Urine Amphetamines Screen NEG (NEG) Urine Benzodiazepines Screen POS (NEG) Urine Cocaine Screen NEG (NEG) Urine Cannabinoids Screen NEG (NEG) Blood Gas Puncture Site RT BRACHIAL Blood Gas Patient Temperature 98.6 Blood Gas HCO3 26 mmol/L (22-26) Blood Gas Base Excess 2.6 mmol/L (-2-2) Blood Gas Oxygen Saturation 97 % (90-100) Arterial Blood pH 7.45 (7.380-7.420) Arterial Blood Partial Pressure CO2 39 mmHG (38-42) Arterial Blood Partial Pressure O2 151 mmHG (61-120) Arterial Blood Oxygen Content 18.1 Vol % (12.0-20.0) Arterial Blood Carboxyhemoglobin 1.4 % (0-4) Arterial Blood Methemoglobin 1.1 % (0-2) Blood Gas Hemoglobin 13.1 G/DL (12.0-16.0) Oxygen Delivery Device VENTILATOR Blood Gas Ventilator Setting PRVC/AC Blood Gas Inspired Oxygen 40 % Ammonia 18 MCMOL/L (11-32) Test 10/26/17 07:53 10/26/17 13:41 10/26/17 20:48 10/27/17 03:28 Activated Partial Thromboplast Time 55.3 SEC (24.3-30.1) 67.8 SEC (24.3-30.1) 58.1 SEC (24.3-30.1) 67.6 SEC (24.3-30.1) Hemoglobin A1c 4.8 % (4.3-6.0) Thyroid Stimulating Hormone 3rd Gen 16.100 uIU/ML (0.358-3.740) Test 10/27/17 05:50 10/27/17 10:20 10/27/17 10:26 10/27/17 17:40 White Blood Count 6.0 TH/MM3 (4.0-11.0) Red Blood Count 4.33 MIL/MM3 (4.00-5.30) Hemoglobin 12.9 GM/DL (11.6-15.3) Hematocrit 38.9 % (35.0-46.0) Mean Corpuscular Volume 89.8 FL (80.0-100.0) Mean Corpuscular Hemoglobin 29.7 PG (27.0-34.0) Mean Corpuscular Hemoglobin Concent 33.1 % (32.0-36.0) Red Cell Distribution Width 13.6 % (11.6-17.2) Platelet Count 142 TH/MM3 (150-450) Mean Platelet Volume 7.9 FL (7.0-11.0) Neutrophils (%) (Auto) 68.9 % (16.0-70.0) Lymphocytes (%) (Auto) 19.4 % (9.0-44.0) Monocytes (%) (Auto) 7.7 % (0.0-8.0) Eosinophils (%) (Auto) 1.9 % (0.0-4.0) Basophils (%) (Auto) 2.1 % (0.0-2.0) Neutrophils # (Auto) 4.1 TH/MM3 (1.8-7.7) Lymphocytes # (Auto) 1.2 TH/MM3 (1.0-4.8) Monocytes # (Auto) 0.5 TH/MM3 (0-0.9) Eosinophils # (Auto) 0.1 TH/MM3 (0-0.4) Basophils # (Auto) 0.1 TH/MM3 (0-0.2) CBC Comment DIFF FINAL Differential Comment Prothrombin Time 18.7 SEC (9.8-11.6) Prothromb Time International Ratio 1.8 RATIO Activated Partial Thromboplast Time 65.4 SEC (24.3-30.1) 59.4 SEC (24.3-30.1) 61.5 SEC (24.3-30.1) Blood Urea Nitrogen 9 MG/DL (7-18) Creatinine 0.62 MG/DL (0.50-1.00) Random Glucose 139 MG/DL (74-106) Total Protein 6.9 GM/DL (6.4-8.2) Albumin 3.0 GM/DL (3.4-5.0) Calcium Level 8.2 MG/DL (8.5-10.1) Phosphorus Level 3.1 MG/DL (2.5-4.9) Magnesium Level 2.3 MG/DL (1.5-2.5) Alkaline Phosphatase 119 U/L (45-117) Aspartate Amino Transf (AST/SGOT) 36 U/L (15-37) Alanine Aminotransferase (ALT/SGPT) 24 U/L (10-53) Total Bilirubin 0.7 MG/DL (0.2-1.0) Sodium Level 146 MEQ/L (136-145) Potassium Level 3.3 MEQ/L (3.5-5.1) Chloride Level 114 MEQ/L (98-107) Carbon Dioxide Level 23.6 MEQ/L (21.0-32.0) Anion Gap 8 MEQ/L (5-15) Estimat Glomerular Filtration Rate 93 ML/MIN (>89) Triglycerides Level 89 MG/DL (42-150) Cholesterol Level 107 MG/DL (120-200) LDL Cholesterol 43 MG/DL (0-99) HDL Cholesterol 46.2 MG/DL (40.0-60.0) Cholesterol/HDL Ratio 2.31 RATIO Thyroxine (T4) 5.5 MCG/DL (4.8-13.9) Free Triiodothyronine (T3) pg/dL 1.72 PG/ML (2.18-3.98) Test 10/28/17 04:39 White Blood Count 6.5 TH/MM3 (4.0-11.0) Red Blood Count 4.15 MIL/MM3 (4.00-5.30) Hemoglobin 12.3 GM/DL (11.6-15.3) Hematocrit 37.7 % (35.0-46.0) Mean Corpuscular Volume 90.7 FL (80.0-100.0) Mean Corpuscular Hemoglobin 29.6 PG (27.0-34.0) Mean Corpuscular Hemoglobin Concent 32.6 % (32.0-36.0) Red Cell Distribution Width 13.8 % (11.6-17.2) Platelet Count 133 TH/MM3 (150-450) Mean Platelet Volume 8.1 FL (7.0-11.0) Prothrombin Time 21.3 SEC (9.8-11.6) Prothromb Time International Ratio 2.1 RATIO Activated Partial Thromboplast Time 39.2 SEC (24.3-30.1) Blood Urea Nitrogen 10 MG/DL (7-18) Creatinine 0.52 MG/DL (0.50-1.00) Random Glucose 177 MG/DL (74-106) Calcium Level 8.3 MG/DL (8.5-10.1) Phosphorus Level 1.8 MG/DL (2.5-4.9) Magnesium Level 2.0 MG/DL (1.5-2.5) Sodium Level 147 MEQ/L (136-145) Potassium Level 3.3 MEQ/L (3.5-5.1) Chloride Level 115 MEQ/L (98-107) Carbon Dioxide Level 27.7 MEQ/L (21.0-32.0) Anion Gap 4 MEQ/L (5-15) Estimat Glomerular Filtration Rate 114 ML/MIN (>89) . Result Diagram: 10/28/17 0439 10/28/17 0439 Microbiology Microbiology Date/Time Source Procedure Growth Status 10/26/17 05:15 Stool Stool Stool Occult Blood (MATTHEW) - Final HEMOCCULT NEGATIVE Complete . Imaging Last 72 hours Impressions Chest X-Ray 10/28/17 0600 Signed Impressions: Service Date/Time: Saturday, October 28, 2017 05:54 - CONCLUSION: 1. Improving aeration in the bases. 2. Stable cardiomegaly. Findings a prior valvular replacement 3. Appropriate positioning of life support tubes Julio Bahena MD Head CT 10/28/17 0000 Signed Impressions: Service Date/Time: Saturday, October 28, 2017 09:21 - CONCLUSION: 1. Evolving right cerebellar infarct with slight mass effect on the fourth ventricle. No intercurrent hemorrhage. 2. Stable focal 1 cm hyperdense lesion in the posterior nasopharynx which may reflect a small hematoma. 3. Redemonstration of remote bilateral cerebral infarcts Pollo Jang MD Head CT 10/27/17 0000 Signed Impressions: Service Date/Time: Friday, October 27, 2017 12:09 - CONCLUSION: Remote infarcts are again noted as well is an acute right cerebellar infarct. Luis Felipe Ayala MD Chest X-Ray 10/27/17 0000 Signed Impressions: Service Date/Time: Friday, October 27, 2017 12:08 - CONCLUSION: No significant change has occurred. Luis Felipe Ayala MD Neck CTA 10/26/1711 Signed Impressions: Service Date/Time: Thursday, October 26, 2017 00:12 - CONCLUSION: 1. No luminal narrowing or significant plaque formation. 2. Left dominant vertebral system. Anatoly Early MD Head CTA 10/26/17 001 Signed Impressions: Service Date/Time: Thursday, October 26, 2017 00:12 - CONCLUSION: No evidence of vessel truncation. Anatoly Early MD Head CT 10/26/17 0000 Signed Impressions: Service Date/Time: Thursday, October 26, 2017 00:12 - CONCLUSION: 1. Multiple bilateral old infarcts, unchanged from 3 days ago. No acute findings. 2. Bilateral maxillary and ethmoid sinus disease. Anatoly Early MD Chest X-Ray 10/26/17 0000 Signed Impressions: Service Date/Time: Thursday, October 26, 2017 06:33 - CONCLUSION: ET tube as above. Luis Felipe Ayala MD Brain MRI 10/26/17 0000 Signed Impressions: Service Date/Time: Thursday, October 26, 2017 16:04 - CONCLUSION: 1. Acute right cerebellar infarct. No midline shift or mass effect. 2. Multiple old bilateral infarcts. Samuel Chen MD . Patient/Family Conference Present at Family Conference: Met with patient's daughter, Lynsey, at bedside. . Family Conference Location: Bedside Issues Discussed: * Palliative care role, purpose, approach * Additional medical, psychosocial, and spiritual history * Patients general health, functional status, and cognitive changes in the months leading up to the current hospitalization * Patient/family understanding of the current medical problems * Patient/family understanding of prognosis * Patients goals of care as best understood from advance directives and/or conversations and/or values * Current medical treatment options and benefits/burdens of those options * Likely scenarios comparing ongoing aggressive care with a transition to comfort measures only * Questions answered to the best of my ability * Palliative care contact information provided . Assessment and Plan Disease Oriented Problem List: (1) H/O mitral valve replacement with mechanical valve (2) Subtherapeutic international normalized ratio (INR) (3) Acute respiratory failure with hypoxia and hypercarbia (4) CAD (coronary artery disease) (5) CHF (congestive heart failure) (6) Dementia (7) Hypothyroidism (8) History of DVT (deep vein thrombosis) (9) Atrial fibrillation with RVR (10) Ischemic cerebrovascular accident (CVA) Symptom Scale: (1) Encephalopathy 0-10 Scale: Unable to quantify (2) Pain 0-10 Scale: Unable to quantify Pertinent Non-Medical Issues Psychosocial:Patient is originally from [place]. She is a ; her approximately 18 years ago. Patient 3 daughters and 4 sons. She has 11 grandchildren and at least one great grandchild. The patient lives with her son. Four of her children live locally, to live in [place] and one is in [facility]. The patient has a private nurse who cares for her during the day. Spiritual: Temple Legal: Omega Low is designated as the [facility] decision maker; Lynsey Little is the alternate HCS decision maker. Ethical issues impacting care: No known ethical issues impacting care at this time. . Important Contacts Lynsey Little, daughter: [phone] Chelsea Low, daughter: [phone] . Code Status: Full Code Plan * FULL CODE * Decision-making: Given patient's current clinical condition, she is unable to participate in establishment of medical treatment goals. Healthcare surrogate designation form was completed on 07/13/2015 and designates daughter, Omega Low (RUBY ), as the primary [facility] decision maker. Daughter, Lynsey Little, is the designated alternate HCS decision maker. * AGGRESSIVE GOALS. * Patient's family has indicated that the patient would not want to be kept alive on artificial life support for an extended period of time. The family is uncertain if they would proceed with neurosurgery should the patient's neurological status deteriorate, but they feel it may be a possibility. Patient is being [facility] [place] to be evaluated by neurosurgery. * Discussed current medical treatment goals Dr. Robin (critical care) and RN ( Gregg). * Palliative care contact information was provided to the family. * Symptom management: == Encephalopathy: Patient is minimally responsive s/p acute right cerebellar infarct with no midline shift or mass-effect. Follow-up imaging revealed increased edema and potential for hemorrhagic conversion. EEG showing diffuse encephalopathy. Patient being transferred to [facility] to be evaluated by neurosurgery. == Pain: Multifactoral. Contributing factors may include poor circulation, invasive lines, immobility, bedbound status etc. patient is currently sedated on propofol. PRN acetaminophen and morphine are available but have not been utilized. Continue to monitor patient for nonverbal signs and/or symptoms of nonverbal pain. * Palliative care will continue to follow this patient throughout her hospitalization to establish stress, assist with symptom management and clarification of medical treatment goals. . Thank you for the opportunity to participate in the care of Ms. Waters. . Attestation To help prompt me to consider important information that might be impacting today's encounter and assessment, information from prior notes written by myself or my colleagues may have been "brought forward" into today's note. My signature on this note, however, is an attestation that I personally performed the exam, history, and/or decision-making noted today, and, unless otherwise indicated, the interactions with patient, family, and staff as well as the review of records all occurred today. I also attest that the listed assessment and stated plan reflect my best clinical judgment today based on the combination of historical information, prior notes, and today's exam/ interactions. When time spent is documented, it refers only to time spent today by the signer, or if indicated, combined time spent today by collaborating physician/nurse practitioner. . Brandi Coronado Oct 28, 2017 10:13
[2017-10-28] MEDS: ARTIFICIAL TEARS OPTH SOLN 15 ML BTL EACH EYE SCH ×3 (10:14→18:00)
[2017-10-28] MEDS: CHLORHEXIDINE 0.12% (ORAL KIT) 15 ML CUP MT SCH ×2 (10:14→20:00)
[2017-10-28] MEDS: amLODIPine BESYLATE 5 MG TAB PO SCH (10:15)
[2017-10-28] MEDS: SERTRALINE HCL 50 MG TAB PO SCH (10:15)
[2017-10-28] MEDS: DIGOXIN 0.125 MG TAB PO SCH (10:15)
[2017-10-28] MEDS: MULTIVITAMIN TAB PO SCH (10:15)
[2017-10-28] MEDS: CARVEDILOL 12.5 MG TAB PO SCH ×2 (10:15→21:08)
[2017-10-28] MEDS: DOCUSATE SODIUM 50 MG/SENNA 8.6 MG TAB PO SCH ×2 (10:16→21:08)
[2017-10-28] MEDS: levETIRAcetam INJ 100 ML IV SCH ×2 (10:16→21:09)
[2017-10-28] MEDS: ATORVASTATIN 20 MG TAB PO SCH (10:16)
[2017-10-28] MEDS: ASPIRIN 300 MG SUPP RECTAL SCH (10:16)
[2017-10-28] MEDS: FAMOTIDINE 20 MG/2 ML VIAL IV PUSH SCH ×2 (10:22→21:09)
[2017-10-28] MEDS: INSULIN ASPART SUPPLEMENTAL SCALE SQ SCH ×2 (12:00→18:00)
[2017-10-29] VITALS (17 sets, daily range): BP systolic 152–177; BP diastolic 86–99; PULSE 65–93; RESP 18–23; TEMP 98.4–100.6; O2SAT 97–100
[2017-10-29] MEDS: SODIUM CHLOR 0.9% 1000 ML INJ 1,000 ML IV SCH ×2 (01:09→13:48)
[2017-10-29] MEDS: CHLORHEXIDINE GLUCONATE 2 % 1 PACK (2 CLOTHS) TOP SCH (04:00)
[2017-10-29] MEDS: INSULIN ASPART SUPPLEMENTAL SCALE SQ SCH ×4 (06:00→17:43)
[2017-10-29 06:15] LABS: INTERNATIONAL NORMALIZED RATIO 1.5 RATIO; PROTHROMBIN TIME - PATIENT 15.3 SEC (9.8-11.6)
[2017-10-29 06:31] LABS: CALCIUM 8.3 MG/DL (8.5-10.1); CREATININE 0.58 MG/DL (0.50-1.00)
[2017-10-29] MEDS: LEVOTHYROXINE SODIUM 125 MCG TAB PO SCH (06:31)
[2017-10-29 06:35] LABS: HEMATOCRIT 36.6 % (35.0-46.0); HEMOGLOBIN 12.6 GM/DL (11.6-15.3); MEAN CELL VOLUME 90.4 FL (80.0-100.0); MEAN CORPUSCULAR HEMOGLOBIN 31.1 PG (27.0-34.0); MEAN CORPUSCULAR HGB CONC 34.4 % (32.0-36.0); MEAN PLATELET VOLUME 9.3 FL (7.0-11.0); PLATELET COUNT 230 TH/MM3 (150-450); RED BLOOD COUNT 4.05 MIL/MM3 (4.00-5.30); RED CELL DISTRIBUTION WIDTH 14.7 % (11.6-17.2); WHITE BLOOD COUNT 10.2 TH/MM3 (4.0-11.0)
[2017-10-29] MEDS: CHLORHEXIDINE 0.12% (ORAL KIT) 15 ML CUP MT SCH ×2 (08:00→20:37)
[2017-10-29] MEDS: SODIUM CHLORIDE 0.9% FLUSH 10 ML FLUSH IV FLUSH SCH ×2 (09:00→21:00)
[2017-10-29] MEDS: ARTIFICIAL TEARS OPTH SOLN 15 ML BTL EACH EYE SCH (09:00)
--- NOTE | 2017-10-29 09:17 | RADRPT ---
EXAM DATE/TIME: 10/29/2017 08:27 [place] COMPARISON: CT BRAIN W/O CONTRAST, October 28, 2017, 9:21. INDICATIONS : Follow up cerebellar CVA RADIATION DOSE: 32.81 CTDIvol (mGy) MEDICAL HISTORY : Hypertension. Cardiovascular disease Cerebrovascular disease. SURGICAL HISTORY : CABG ENCOUNTER: Subsequent ACUITY: 4 - 6 days PAIN SCALE: Non-responsive LOCATION: cranial TECHNIQUE: Multiple contiguous axial images were obtained of the head. Using automated exposure control and adj ustment of the mA and/or kV according to patient size, radiation dose was kept as low as reasonably a chievable to obtain optimal diagnostic quality images. DICOM format image data is available electro nically for review and comparison. FINDINGS: Hypodensity in the right anterior cerebellar hemisphere is stable in size. There is persistent shift of the ankle to the soleus towards the left. The 4th ventricle remains midline. No evidence of acu te blood products. Supratentorial findings including multiple old infarctions in the high right occipital, left mid temp oral, right mid frontal and left low occipital regions stable in appearance. No extra-axial fluid or blood. Complete opacification of both maxillary sinuses and multiple opacified ethmoid air cells, similar to prior stable oval hyperdensity in the midline nasopharynx measuring 1 cm. CONCLUSION: Stable appearance to the right cerebellar infarct and multiple old infarcts in the supratentorial bra in. Anatoly Early MD on October 29, 2017 at 9:12 Board Certified Radiologist. This report was verified electronically.
[2017-10-29] MEDS: ATORVASTATIN 20 MG TAB PO SCH (09:36)
[2017-10-29] MEDS: MULTIVITAMIN TAB PO SCH (09:36)
[2017-10-29] MEDS: levETIRAcetam INJ 100 ML IV SCH ×2 (09:36→20:36)
[2017-10-29] MEDS: SERTRALINE HCL 50 MG TAB PO SCH (09:36)
[2017-10-29] MEDS: CARVEDILOL 12.5 MG TAB PO SCH ×2 (09:36→20:36)
[2017-10-29] MEDS: DIGOXIN 0.125 MG TAB PO SCH (09:36)
[2017-10-29] MEDS: amLODIPine BESYLATE 5 MG TAB PO SCH (09:36)
[2017-10-29] MEDS: FAMOTIDINE 20 MG/2 ML VIAL IV PUSH SCH ×2 (09:36→20:36)
[2017-10-29] MEDS: DOCUSATE SODIUM 50 MG/SENNA 8.6 MG TAB PO SCH ×2 (09:36→20:36)
--- NOTE | 2017-10-29 09:36 | HHI.CCPN ---
Subjective Remarks/Hospital Course The patient is a 76-year-old female that was apparently alert and talking prior to 11 PM tonight when she started vomiting. She then became comatose, [facility] was called and they intubated the patient using etomidate and Versed. 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 There has not been any head trauma. After intubation and Versed the blood pressure is 127/90. No seizure activity noted per ER physician. Patient was kept sedated orally intubated overnight on mechanical ventilation. She is starting to arousable although not following commands. She does try to open her eyes on command. Per nursing staff she was moving all [address] done in the ER did not reveal any acute bleed and had evidence of old strokes. Dr. Kim from neurology was contacted by ER physician and will be evaluating patient. When I evaluated the patient this morning she sedated with propofol, orally intubated on mechanical ventilation. History is obtained by reviewing records and discussion with nursing staff. Subjective: 10/27: The patient currently remains intubated and sedated. EEG in process. MRI revealed acute right cerebellar. or infarct. Sedation vacation pending. 10/28: more cerebral edema on CT scan yesterday. remains very encephalopathic, intubated, obtunded. long conversation with family today where I explained current stroke and edema. family introduced the idea that if she would not come off life support or would need to be fully dependent on healthcare system, she would not want to live: will consult palliative care to assist with goals of care clarification. 10/29: remains intubated and encephalopathic. CT brain today demonstrates stable appearance of posterior fossa infarct and edema. neuro exam slightly better and now w/d x 4. Objective Vital Signs Date Time Temp Pulse Resp B/P (MAP) Pulse Ox O2 Delivery O2 Flow Rate FiO2 10/29/17 09:14 100 35 10/29/17 08:00 99.3 77 18 177/87 (117) 10/26/17 03:04 Ventilator 10/26/17 00:10 15.00 Intake and Output 10/29/17 10/29/17 10/30/17 08:00 16:00 00:00 Intake Total 413 ml Output Total 900.0 ml Balance -487.0 ml Result Diagram: 10/29/17 0408 10/29/17 0408 Imaging Last Impressions Neck CTA 10/26/17 001 Signed Impressions: Service Date/Time: Thursday, October 26, 2017 00:12 - CONCLUSION: 1. No luminal narrowing or significant plaque formation. 2. Left dominant vertebral system. Anatoly Early MD Head CTA 10/26/17 0012 Signed Impressions: Service Date/Time: Thursday, October 26, 2017 00:12 - CONCLUSION: No evidence of vessel truncation. Anatoly Early MD Head CT 10/26/17 0000 Signed Impressions: Service Date/Time: Thursday, October 26, 2017 00:12 - CONCLUSION: 1. Multiple bilateral old infarcts, unchanged from 3 days ago. No acute findings. 2. Bilateral maxillary and ethmoid sinus disease. Anatoly Early MD Chest X-Ray 10/26/17 0000 Signed Impressions: Service Date/Time: Thursday, October 26, 2017 06:33 - CONCLUSION: ET tube as above. Luis Felipe Ayala MD Brain MRI 10/26/17 0000 Signed Impressions: Service Date/Time: Thursday, October 26, 2017 16:04 - CONCLUSION: 1. Acute right cerebellar infarct. No midline shift or mass effect. 2. Multiple old bilateral infarcts. Samuel Chen MD Objective Remarks HEENT/ Neuro: withdraws to pain x 4. Not following commands. Orally intubated , Pallor present, no icterus Neck: No JVD Chest/Pulm: on mech vent, good air entry bilaterally, no wheezing or crackles. Bilateral chest excursion CVS: S1-S2 irregularly irregular, no murmur GI/abdomen: soft, nontender, bowel sounds sluggish Extremities: warm bilaterally, no edema Date of Insertion: Oct 26, 2017 A/P Assessment and Plan Assessment: 76yF with large cerebellar stroke and associated severe encephalopathy, hypoxic and hypercarbic respiratory failure. appreciate palliative care and neurology following. will wait and see how edema progresses. overall, likely to have functionally dependent quality of life in SNF with full-time assistance. Acute encephalopathy Acute cerebellar CVA Posterior fossa cerebral edema History of previous strokes Atrial fibrillation Mechanical mitral valve on anticoagulation Subtherapeutic INR Acute hypoxic and hypercarbic respiratory failure on mechanical ventilation CAD CHF Dementia Hypothyroidism History of DVT Plan: Neuro: minimize sedation frequent neuro checks 4/28 MRI brain-acute right cerebellar infarct. 10/27 EEG for further evaluation of altered mental status-pending Neurology following- Dr. Kim. Cardiovascular: Continue home medications. hold coumadin for anticoagulation given size of stroke and edema. high concern for hemorrhagic conversion. Monitor INR Atrial fibrillation rate controlled Pulmonary: Continue mechanical ventilation Ventilator bundle, bronchodilators as needed. Awaiting improvement in neurologic status to initiate CPAP trials to decide extubation. Chest x-ray from this morning reviewed wean fio2 for goal spo2 > 90% GI/liver: Tube feeds Jevity 1.5 and advance to goal 65 cc/hour as tolerated Bowel regimen GI prophylaxis Renal/: IV hydration, strict intake output, Monitor and replete electrolytes, follow BUN/creatinine ID: No antibiotics indicated at this time. Heme: Monitor CBC and INR. hold anticoagulation. daily INRs. Endocrine: Watch for hypoglycemia, SSI for glycemic control if needed. TSH significantly elevated- 16 currently on levothyroxine 125 mcg/day Prophylaxis: Pepcid, SCDs. holding anticoagulation. Bradly Arellano MD October 29, 2017 09:36
[2017-10-29] MEDS: ASPIRIN 300 MG SUPP RECTAL SCH (09:37)
--- NOTE | 2017-10-29 16:17 | HHI.HCPN ---
Reason for visit a. To assist with evaluation and management of symptoms including: Encephalopathy, pain b. To assist medical decision maker(s) with: better understanding of current medical conditions; weighing benefits/burdens of medical treatment options; making medical treatment decisions. . Subjective/Interval History Follow up visit for symptom management of pain and encephalopathy. Patient was transferred to [facility] yesterday 10/28/17 for possible neurosurgery consult. Patient seen and assessed in [facility] - room 1333. Also present, patient's son (Dorian) who is a volunteer at the hospital. Patient remains intubated and encephalopathic on no sedation. She does not respond to verbal stimuli on exam; withdraws lower extremities to deep tactile stimuli. Showing no nonverbal signs or symptoms of pain on exam; PRN acetaminophen and morphine are available. Patient has received 2 mg IV morphine x 1 in the past [address] brain 10/29/2017 shows stable appearance to the right cerebellar infarct and multiple old infarcts in the supratentorial brain. Recent lab work reviewed: = WBC: 10.2, hemoglobin 12.6, hematocrit 36.6, platelets 230 = Sodium: 144, potassium 4.0, chloride 111, carbon dioxide 26.0, glucose 141, calcium 8.3 = BUN: 9, creatinine 0.58, GFR 101 = PT: 15.3, INR 1.5, APTT 34.3 Goals remain aggressive at this time. Family indicates the patient had a previous subdural hematoma in 2012 requiring left frontal eve hole drainage of subdural hemorrhage. They are optimistic that she will be able to return to her baseline in time. Current medical treatment goals were discussed with RNMargaux. Advance Directives Health Care Surrogate: Copy in medical record Advance Directive Specifics Date completed: 07/13/2015 . Health Care Surrogate(s): Omega Low (RUBY) is designated as the [facility] decision maker; Lynsey Little is the alternate [facility] decision maker. . Documented care wishes: No documented care wishes are available other than the designation of healthcare surrogate. . Objective Vital Signs Date Time Temp Pulse Resp B/P (MAP) Pulse Ox O2 Delivery O2 Flow Rate FiO2 10/29/17 12:00 82 10/29/17 12:00 99.3 82 19 163/87 (112) 99 10/29/17 11:51 98 35 10/29/17 09:14 100 35 5/1/18 08:18 100 100 10/29/17 08:00 99.3 77 18 177/87 (117) 98 10/29/17 08:00 35 10/29/17 08:00 77 10/29/17 06:00 93 10/29/17 04:09 97 35 10/29/17 04:00 76 10/29/17 04:00 35 10/29/17 04:00 98.4 76 18 162/87 (112) 97 10/29/17 02:00 72 10/29/17 00:17 98 35 10/29/17 00:00 98.7 65 18 152/86 (108) 98 10/29/17 00:00 65 10/29/17 00:00 35 10/28/17 22:00 65 10/28/17 21:08 99 35 10/28/17 20:00 99.5 77 18 151/86 (107) 98 10/28/17 20:00 35 10/28/17 20:00 77 10/28/17 18:00 81 Intake & Output 10/29/17 10/29/17 07:00 19:00 Intake Total 413 ml 100 ml Output Total 900 ml 0 ml Balance -487 ml 100 ml IV Total 100 ml Tube Feeding 383 ml Other 30 ml Output Urine Total 900 ml Tube Feeding Residual Discard 0 ml # Bowel Movements 0 Physical Exam CONSTITUTIONAL/GENERAL: This is an elderly, female patient in no acute distress TUBES/LINES/DRAINS: PIV 2, OGT, ETT, SCDs, urinary catheter SKIN: No jaundice, rashes, or lesions. Ecchymoses on upper extremities. No wounds seen anteriorly. Skin temperature appropriate. Not diaphoretic. HEAD: Atraumatic. Normocephalic. EYES: Pupils equal and round and reactive. Extraocular motions intact. No scleral icterus. No injection or drainage. Fundi not examined. ENT: Hearing grossly normal. Nose without bleeding or purulent drainage. Throat without visible erythema, exudates, masses, or lesions. NECK: Trachea midline. Supple, nontender. No palpable thyroid enlargement or nodularity. CARDIOVASCULAR: Irregularly irregular without murmurs, gallops, or rubs. No JVD. Peripheral pulses symmetric. RESPIRATORY/CHEST: Symmetric, unlabored respirations. Clear to auscultation. Breath sounds diminished bilaterally. No wheezes, rales, or rhonchi. GASTROINTESTINAL: Abdomen soft, non-tender, nondistended. No guarding. Bowel sounds present. GENITOURINARY: Without palpable bladder distension. Alvares catheter in place. MUSCULOSKELETAL: Extremities without clubbing, cyanosis, or edema. No mottling or clubbing. LYMPHATICS: No palpable cervical or supraclavicular adenopathy. NEUROLOGICAL: Sedated. Patient withdraws to noxious stimuli. PSYCHIATRIC: No obvious anxiety/depression. no apparent hallucinations or other psychotic thought process. . Diagnostic Tests Laboratory Laboratory Tests Test 10/26/17 20:48 10/27/17 03:28 10/27/17 05:50 10/27/17 10:20 Activated Partial Thromboplast Time 58.1 SEC (24.3-30.1) 67.6 SEC (24.3-30.1) 65.4 SEC (24.3-30.1) White Blood Count 6.0 TH/MM3 (4.0-11.0) Red Blood Count 4.33 MIL/MM3 (4.00-5.30) Hemoglobin 12.9 GM/DL (11.6-15.3) Hematocrit 38.9 % (35.0-46.0) Mean Corpuscular Volume 89.8 FL (80.0-100.0) Mean Corpuscular Hemoglobin 29.7 PG (27.0-34.0) Mean Corpuscular Hemoglobin Concent 33.1 % (32.0-36.0) Red Cell Distribution Width 13.6 % (11.6-17.2) Platelet Count 142 TH/MM3 (150-450) Mean Platelet Volume 7.9 FL (7.0-11.0) Neutrophils (%) (Auto) 68.9 % (16.0-70.0) Lymphocytes (%) (Auto) 19.4 % (9.0-44.0) Monocytes (%) (Auto) 7.7 % (0.0-8.0) Eosinophils (%) (Auto) 1.9 % (0.0-4.0) Basophils (%) (Auto) 2.1 % (0.0-2.0) Neutrophils # (Auto) 4.1 TH/MM3 (1.8-7.7) Lymphocytes # (Auto) 1.2 TH/MM3 (1.0-4.8) Monocytes # (Auto) 0.5 TH/MM3 (0-0.9) Eosinophils # (Auto) 0.1 TH/MM3 (0-0.4) Basophils # (Auto) 0.1 TH/MM3 (0-0.2) CBC Comment DIFF FINAL Differential Comment Prothrombin Time 18.7 SEC (9.8-11.6) Prothromb Time International Ratio 1.8 RATIO Blood Urea Nitrogen 9 MG/DL (7-18) Creatinine 0.62 MG/DL (0.50-1.00) Random Glucose 139 MG/DL (74-106) Total Protein 6.9 GM/DL (6.4-8.2) Albumin 3.0 GM/DL (3.4-5.0) Calcium Level 8.2 MG/DL (8.5-10.1) Phosphorus Level 3.1 MG/DL (2.5-4.9) Magnesium Level 2.3 MG/DL (1.5-2.5) Alkaline Phosphatase 119 U/L (45-117) Aspartate Amino Transf (AST/SGOT) 36 U/L (15-37) Alanine Aminotransferase (ALT/SGPT) 24 U/L (10-53) Total Bilirubin 0.7 MG/DL (0.2-1.0) Sodium Level 146 MEQ/L (136-145) Potassium Level 3.3 MEQ/L (3.5-5.1) Chloride Level 114 MEQ/L (98-107) Carbon Dioxide Level 23.6 MEQ/L (21.0-32.0) Anion Gap 8 MEQ/L (5-15) Estimat Glomerular Filtration Rate 93 ML/MIN (>89) Triglycerides Level 89 MG/DL (42-150) Cholesterol Level 107 MG/DL (120-200) LDL Cholesterol 43 MG/DL (0-99) HDL Cholesterol 46.2 MG/DL (40.0-60.0) Cholesterol/HDL Ratio 2.31 RATIO Thyroxine (T4) 5.5 MCG/DL (4.8-13.9) Free Triiodothyronine (T3) pg/dL 1.72 PG/ML (2.18-3.98) Test 10/27/17 10:26 10/27/17 17:40 10/28/17 04:39 10/29/17 04:08 Activated Partial Thromboplast Time 59.4 SEC (24.3-30.1) 61.5 SEC (24.3-30.1) 39.2 SEC (24.3-30.1) 34.3 SEC (24.3-30.1) White Blood Count 6.5 TH/MM3 (4.0-11.0) 10.2 TH/MM3 (4.0-11.0) Red Blood Count 4.15 MIL/MM3 (4.00-5.30) 4.05 MIL/MM3 (4.00-5.30) Hemoglobin 12.3 GM/DL (11.6-15.3) 12.6 GM/DL (11.6-15.3) Hematocrit 37.7 % (35.0-46.0) 36.6 % (35.0-46.0) Mean Corpuscular Volume 90.7 FL (80.0-100.0) 90.4 FL (80.0-100.0) Mean Corpuscular Hemoglobin 29.6 PG (27.0-34.0) 31.1 PG (27.0-34.0) Mean Corpuscular Hemoglobin Concent 32.6 % (32.0-36.0) 34.4 % (32.0-36.0) Red Cell Distribution Width 13.8 % (11.6-17.2) 14.7 % (11.6-17.2) Platelet Count 133 TH/MM3 (150-450) 230 TH/MM3 (150-450) Mean Platelet Volume 8.1 FL (7.0-11.0) 9.3 FL (7.0-11.0) Prothrombin Time 21.3 SEC (9.8-11.6) 15.3 SEC (9.8-11.6) Prothromb Time International Ratio 2.1 RATIO 1.5 RATIO Blood Urea Nitrogen 10 MG/DL (7-18) 9 MG/DL (7-18) Creatinine 0.52 MG/DL (0.50-1.00) 0.58 MG/DL (0.50-1.00) Random Glucose 177 MG/DL (74-106) 141 MG/DL (74-106) Calcium Level 8.3 MG/DL (8.5-10.1) 8.3 MG/DL (8.5-10.1) Phosphorus Level 1.8 MG/DL (2.5-4.9) Magnesium Level 2.0 MG/DL (1.5-2.5) Sodium Level 147 MEQ/L (136-145) 144 MEQ/L (136-145) Potassium Level 3.3 MEQ/L (3.5-5.1) 4.0 MEQ/L (3.5-5.1) Chloride Level 115 MEQ/L (98-107) 111 MEQ/L (98-107) Carbon Dioxide Level 27.7 MEQ/L (21.0-32.0) 26.0 MEQ/L (21.0-32.0) Anion Gap 4 MEQ/L (5-15) 7 MEQ/L (5-15) Estimat Glomerular Filtration Rate 114 ML/MIN (>89) 101 ML/MIN (>89) Result Diagram: 10/29/1740710/29/17407 Assessment and Plan Disease Oriented Problem List: (1) H/O mitral valve replacement with mechanical valve (2) Subtherapeutic international normalized ratio (INR) (3) Acute respiratory failure with hypoxia and hypercarbia (4) CAD (coronary artery disease) (5) CHF (congestive heart failure) (6) Dementia (7) Hypothyroidism (8) History of DVT (deep vein thrombosis) (9) Atrial fibrillation with RVR (10) Ischemic cerebrovascular accident (CVA) Symptom Scale: (1) Encephalopathy 0-10 Scale: Unable to quantify (2) Pain 0-10 Scale: Unable to quantify Pertinent Non-Medical Issues Psychosocial:Patient is originally from [place]. She is a ; her approximately 18 years ago. Patient 3 daughters and 4 sons. She has 11 grandchildren and at least one great grandchild. The patient lives with her son. Four of her children live locally, to live in [place] and one is in [place]. The patient has a private nurse who cares for her during the day. Spiritual: Yarsanism Legal: Omega Low is designated as the [facility] decision maker; Lynsey Little is the alternate HCS decision maker. Ethical issues impacting care: No known ethical issues impacting care at this time. . Important Contacts Lynsey Little, daughter: [phone] Chelsea Low, daughter: [phone] . Prognosis Patient is a 76-year-old female status post large cerebellar stroke and associated severe encephalopathy, hypoxic and hypercarbic respiratory failure. Patient will likely remain functionally dependent requiring total assistance. Given her age and multiple comorbidities, she will remain high risk for complications and ongoing decline. . Code Status: Full Code Plan * FULL CODE * Decision-making: Given patient's current clinical condition, she is unable to participate in establishment of medical treatment goals. Healthcare surrogate designation form was completed on 07/13/2015 and designates daughter, Omega Low (RUBY ), as the primary [facility] decision maker. Daughter, Lynsey Little, is the designated alternate [facility] decision maker. * AGGRESSIVE GOALS. * Patient's family has indicated that the patient would not want to be kept alive on artificial life support for an extended period of time. The family is uncertain if they would proceed with neurosurgery should the patient's neurological status deteriorate, but they feel it may be a possibility. * Discussed current medical treatment goals MARITA Alston) * Palliative care contact information was provided to the family. * Symptom management: == Encephalopathy: Patient is minimally responsive s/p acute right cerebellar infarct with no midline shift or mass-effect. Follow-up imaging revealed increased edema and potential for hemorrhagic conversion. EEG showing diffuse encephalopathy. CT brain 10/29/2017 shows stable appearance to the right cerebellar infarct and multiple old infarcts in the supratentorial brain. == Pain: Multifactoral. Contributing factors may include poor circulation, invasive lines, immobility, bedbound status etc. Patient showing no non-verbal s/s pain off sedation. PRN acetaminophen and morphine are available. Morphine 2mg IV has been administered once in the 24 hours. * Palliative care will continue to follow this patient throughout her hospitalization to establish stress, assist with symptom management and clarification of medical treatment goals. . Attestation To help prompt me to consider important information that might be impacting today's encounter and assessment, information from prior notes written by myself or my colleagues may have been "brought forward" into today's note. My signature on this note, however, is an attestation that I personally performed the exam, history, and/or decision-making noted today, and, unless otherwise indicated, the interactions with patient, family, and staff as well as the review of records all occurred today. I also attest that the listed assessment and stated plan reflect my best clinical judgment today based on the combination of historical information, prior notes, and today's exam/ interactions. When time spent is documented, it refers only to time spent today by the signer, or if indicated, combined time spent today by collaborating physician/nurse practitioner. . Brandi Coronado October 29, 2017 16:17
[2017-10-29] MEDS: ACETAMINOPHEN 325 MG TAB PO PRN (18:15)
--- NOTE | 2017-10-29 21:12 | HHI.PR ---
Review/Management Diagnosis right cerebellar stroke atrial fibrillation Plan continue to monitor in icu hold anticoagulation another 2-3 days Diagnosis/Plan: Subjective Subjective Comments No acute events reported Has been moving extremities more today Active Medications Current Medications Medications (Trade) Dose Ordered Sig/Nitin Route Start Time Stop Time Status Last Admin (Norvasc) 5 mg DAILY PO 10/26/17 09:00 10/29/17 09:36 (Lipitor) 20 mg DAILY PO 10/26/17 09:00 10/29/17 09:36 (Coreg) 12.5 mg BID PO 10/26/17 09:00 10/29/17 20:36 (Lanoxin) 0.125 mg DAILY PO 10/26/17 09:00 10/29/17 09:36 (Zoloft) 50 mg DAILY PO 10/26/17 09:00 10/29/17 09:36 (Theragran) 1 tab DAILY PO 10/26/17 09:00 10/29/17 09:36 Levetriacetam 100 ml @ 400 mls/hr Q12HR IV 10/26/17 01:45 10/29/17 20:36 Sodium Chloride 1,000 ml @ 84 mls/hr [id number] IV 10/26/17 01:39 10/29/17 13:48 (Tylenol) 650 mg Q6H PRN PO 10/26/17 01:45 10/29/17 18:15 (Morphine Inj) 2 mg Q2H PRN IV PUSH 10/26/17 01:45 10/28/17 18:25 (Pepcid Inj) 20 mg Q12HR IV PUSH 10/26/17 09:00 10/29/17 20:36 (Ativan Inj) 1 mg Q1H PRN IV PUSH 10/26/17 01:45 (Tears Naturale Opth Soln) 1 drop TID EACH EYE 10/26/17 09:00 10/29/17 09:00 (Zofran Inj) 4 mg Q6H PRN IV PUSH 10/26/17 01:45 (Duoneb Neb) 1 ampule Q2HR NEB PRN INH 10/26/17 01:45 ([facility]) 1 Q361D XX 10/26/17 01:45 10/26/17 01:45 (Chlorhexidine 2% Cloth) 3 pack Taper DAILY@04 TOP 10/26/17 04:00 10/22/18 03:59 10/28/17 00:53 (Chlorhexidine 2% Cloth) 3 pack UNSCH PRN TOP 10/26/17 01:45 (Ivette-Colace) 1 tab BID PO 10/26/17 09:00 10/29/17 20:36 (Milk Of Magnesia Liq) 30 ml Q12H PRN PO 10/26/17 01:45 (Senokot) 17.2 mg Q12H PRN PO 10/26/17 01:45 (Dulcolax Supp) 10 mg DAILY PRN RECTAL 10/26/17 01:45 (Lactulose Liq) 30 ml DAILY PRN PO 10/26/17 01:45 (Peridex 0.12% Liq) 15 ml BID@08,20 MT 10/26/17 08:00 10/29/17 20:37 Propofol 100 ml @ 1.878 mls/ hr TITRATE PRN IV 10/26/17 01:45 10/28/17 00:52 (NS Flush) 2 ml BID IV FLUSH 10/26/17 09:00 10/29/17 09:00 (NS Flush) 2 ml UNSCH PRN IV FLUSH 10/26/17 09:00 (D50w (Vial) Inj) 50 ml UNSCH PRN IV PUSH 10/26/17 09:00 (Glucagon Inj) 1 mg UNSCH PRN OTHER 10/26/17 09:00 (Aspirin Supp) 300 mg DAILY RECTAL 10/28/17 09:00 10/29/17 09:37 (NovoLOG SUPPLEMENTAL SCALE) 1 Q6HR SQ 10/28/17 12:00 10/29/17 17:43 Potassium Chloride 100 ml @ 50 mls/hr Q2H PRN IV 10/28/17 08:30 Potassium Chloride 100 ml @ 50 mls/hr Q2H PRN IV 10/28/17 08:30 (K-Lyte Cl Eff) 50 meq UNSCH PRN PO 10/28/17 08:30 Potassium Chloride 100 ml @ 25 mls/hr UNSCH PRN IV 10/28/17 08:30 Potassium Chloride 100 ml @ 50 mls/hr Q2H PRN IV 10/28/17 08:30 Magnesium Sulfate 4 gm/Sodium Chloride 100 ml @ 50 mls/hr UNSCH PRN IV 10/28/17 08:30 (Mag-Ox) 800 mg UNSCH PRN PO 10/28/17 08:30 Magnesium Sulfate 2 gm/Sodium Chloride 100 ml @ 50 mls/hr UNSCH PRN IV 10/28/17 08:30 (K-Phos) 2,000 mg Q4H PRN PO 10/28/17 08:30 Sodium Phosphate 30 mmol/Sodium Chloride 250 ml @ 42 mls/hr UNSCH PRN IV 10/28/17 08:30 (K-Phos) 2,000 mg UNSCH PRN PO/TUBE 10/28/17 08:30 Potassium Phosphate 30 mmol/ Sodium Chloride 260 ml @ 42 mls/hr UNSCH PRN IV 10/28/17 08:30 10/28/17 15:39 (Synthroid) 125 mcg DAILY@0600 PO 10/29/17 06:00 10/29/17 06:31 Allergies Allergies Coded Allergies amiodarone (Unverified Allergy, Severe, Blurred Vision, 10/23/17) amoxicillin (Unverified Allergy, Severe, Swelling, 10/23/17) *MDRO Multi-Drug Resistant Organism (Verified Adverse Reaction, Unknown, ) Exam I&O / VS 10/29/17 10/29/17 10/30/17 15:00 23:00 07:00 Intake Total 1100 ml 755 ml Output Total 0 ml 900 ml Balance 1100 ml -145 ml IV Total 1100 ml 100 ml Tube Feeding 575 ml Tube Irrigant 80 ml Output Urine Total 900 ml Gastric Drainage Total 0 ml Tube Feeding Residual Discard 0 ml # Bowel Movements 0 Vital Signs Date Time Temp Pulse Resp B/P (MAP) Pulse Ox O2 Delivery O2 Flow Rate FiO2 10/29/17 20:56 99 30 10/29/17 20:00 99.5 77 23 173/90 (117) 99 10/29/17 20:00 77 10/29/17 20:00 35 10/29/17 17:22 99 35 10/29/17 16:00 79 10/29/17 16:00 100.6 79 18 169/99 (122) 99 10/29/17 12:00 82 10/29/17 12:00 99.3 82 19 163/87 (112) 99 10/29/17 11:51 98 35 10/29/17 09:14 100 35 10/29/17 08:18 100 100 10/29/17 08:00 99.3 77 18 177/87 (117) 98 10/29/17 08:00 35 10/29/17 08:00 77 10/29/17 06:00 93 10/29/17 04:09 97 35 10/29/17 04:00 76 10/29/17 04:00 35 10/29/17 04:00 98.4 76 18 162/87 (112) 97 10/29/17 02:00 72 10/29/17 00:17 98 35 10/29/17 00:00 98.7 65 18 152/86 (108) 98 10/29/17 00:00 65 10/29/17 00:00 35 10/28/17 22:00 65 Exam Comments pupils 2 mm symmetric and reactive EOM-I to dolls maneuver MOTOR--withdraws all four ext equally Objective Radiology Results CT brain--right cerebellar stroke is stable with no increase in mass effect and no hemorrhage Micro and Labs Laboratory Tests Test 10/29/17 04:08 White Blood Count 10.2 Red Blood Count 4.05 Hemoglobin 12.6 Hematocrit 36.6 Mean Corpuscular Volume 90.4 Mean Corpuscular Hemoglobin 31.1 Mean Corpuscular Hemoglobin Concent 34.4 Red Cell Distribution Width 14.7 Platelet Count 230 Mean Platelet Volume 9.3 Prothrombin Time 15.3 Prothromb Time International Ratio 1.5 Activated Partial Thromboplast Time 34.3 Blood Urea Nitrogen 9 Creatinine 0.58 Random Glucose 141 Calcium Level 8.3 Sodium Level 144 Potassium Level 4.0 Chloride Level 111 Carbon Dioxide Level 26.0 Anion Gap 7 Estimat Glomerular Filtration Rate 101 Date/Time Source Procedure Growth Status 10/26/17 05:15 Stool Stool Stool Occult Blood (MATTHEW) - Final HEMOCCULT NEGATIVE Complete Claudio Kim MD PhD October 29, 2017 21:12
[2017-10-29] MEDS ORDERED: ENALAPRILAT 1.25 MG/ML VIAL IV PUSH PRN (21:15)
[2017-10-30] VITALS (19 sets, daily range): BP systolic 131–169; BP diastolic 73–84; PULSE 67–90; RESP 17–20; TEMP 99–100.2; O2SAT 92–100
[2017-10-30] MEDS: CHLORHEXIDINE GLUCONATE 2 % 1 PACK (2 CLOTHS) TOP SCH (04:00)
[2017-10-30] MEDS: SODIUM CHLOR 0.9% 1000 ML INJ 1,000 ML IV SCH ×2 (04:30→12:54)
[2017-10-30 05:23] LABS: HEMATOCRIT 35.5 % (35.0-46.0); HEMOGLOBIN 12.1 GM/DL (11.6-15.3); MEAN CORPUSCULAR HEMOGLOBIN 31.1 PG (27.0-34.0); MEAN CORPUSCULAR HGB CONC 34.1 % (32.0-36.0); MEAN PLATELET VOLUME 8.5 FL (7.0-11.0); PLATELET COUNT 161 TH/MM3 (150-450); RED CELL DISTRIBUTION WIDTH 14.2 % (11.6-17.2); WHITE BLOOD COUNT 8.4 TH/MM3 (4.0-11.0)
[2017-10-30 05:30] LABS: INTERNATIONAL NORMALIZED RATIO 1.2 RATIO; PROTHROMBIN TIME - PATIENT 12.2 SEC (9.8-11.6)
[2017-10-30 05:51] LABS: BICARBONATE 28.4 MEQ/L (21.0-32.0); CALCIUM 8.3 MG/DL (8.5-10.1); CREATININE 0.57 MG/DL (0.50-1.00)
[2017-10-30] MEDS: INSULIN ASPART SUPPLEMENTAL SCALE SQ SCH ×4 (06:00→18:00)
[2017-10-30] MEDS: LEVOTHYROXINE SODIUM 125 MCG TAB PO SCH (06:28)
[2017-10-30] MEDS: SODIUM CHLORIDE 0.9% FLUSH 10 ML FLUSH IV FLUSH SCH ×2 (09:00→19:53)
[2017-10-30] MEDS: DOCUSATE SODIUM 50 MG/SENNA 8.6 MG TAB PO SCH ×2 (09:58→19:52)
[2017-10-30] MEDS: ASPIRIN 300 MG SUPP RECTAL SCH (09:58)
[2017-10-30] MEDS: levETIRAcetam INJ 100 ML IV SCH ×2 (09:58→19:53)
[2017-10-30] MEDS: amLODIPine BESYLATE 5 MG TAB PO SCH (09:59)
[2017-10-30] MEDS: FAMOTIDINE 20 MG/2 ML VIAL IV PUSH SCH (09:59)
[2017-10-30] MEDS: ATORVASTATIN 20 MG TAB PO SCH (09:59)
[2017-10-30] MEDS: CARVEDILOL 12.5 MG TAB PO SCH ×2 (09:59→19:52)
[2017-10-30] MEDS: MULTIVITAMIN TAB PO SCH (09:59)
[2017-10-30] MEDS: DIGOXIN 0.125 MG TAB PO SCH (09:59)
[2017-10-30] MEDS: SERTRALINE HCL 50 MG TAB PO SCH (09:59)
[2017-10-30] MEDS: CHLORHEXIDINE 0.12% (ORAL KIT) 15 ML CUP MT SCH ×2 (10:00→19:53)
[2017-10-30] MEDS: ARTIFICIAL TEARS OPTH SOLN 15 ML BTL EACH EYE SCH ×3 (10:00→18:07)
--- NOTE | 2017-10-30 15:48 | HHI.CCPN ---
Subjective Remarks/Hospital Course The patient is a 76-year-old female that was apparently alert and talking prior to 11 PM tonight when she started vomiting. She then became comatose, [facility] was called and they intubated the patient using etomidate and Versed. 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 There has not been any head trauma. After intubation and Versed the blood pressure is 127/90. No seizure activity noted per ER physician. Patient was kept sedated orally intubated overnight on mechanical ventilation. She is starting to arousable although not following commands. She does try to open her eyes on command. Per nursing staff she was moving all [address] done in the ER did not reveal any acute bleed and had evidence of old strokes. Dr. Kim from neurology was contacted by ER physician and will be evaluating patient. When I evaluated the patient this morning she sedated with propofol, orally intubated on mechanical ventilation. History is obtained by reviewing records and discussion with nursing staff. Subjective: 10/27: The patient currently remains intubated and sedated. EEG in process. MRI revealed acute right cerebellar. or infarct. Sedation vacation pending. 10/28: more cerebral edema on CT scan yesterday. remains very encephalopathic, intubated, obtunded. long conversation with family today where I explained current stroke and edema. family introduced the idea that if she would not come off life support or would need to be fully dependent on healthcare system, she would not want to live: will consult palliative care to assist with goals of care clarification. 10/29: remains intubated and encephalopathic. CT brain today demonstrates stable appearance of posterior fossa infarct and edema. neuro exam slightly better and now w/d x 4. 5: Remains encephalopathic, orally intubated on mechanical ventilation. Tolerating tube feeds. Objective Vital Signs Date Time Temp Pulse Resp B/P (MAP) Pulse Ox O2 Delivery O2 Flow Rate FiO2 10/30/17 12:00 78 10/30/17 12:00 35 10/30/17 11:44 97 10/30/17 04:00 99.5 18 139/73 (95) Intake and Output 10/30/17 10/30/17 10/31/17 08:00 16:00 00:00 Intake Total 1621 ml Output Total 1000 ml Balance 621 ml Result Diagram: 10/30/17 0503 10/30/17 0500 Imaging Last Impressions Neck CTA 10/26/1711 Signed Impressions: Service Date/Time: Thursday, October 26, 2017 00:12 - CONCLUSION: 1. No luminal narrowing or significant plaque formation. 2. Left dominant vertebral system. Anatoly Early MD Head CTA 10/26/17 0012 Signed Impressions: Service Date/Time: Thursday, October 26, 2017 00:12 - CONCLUSION: No evidence of vessel truncation. Anatoly Early MD Head CT 10/26/17 0000 Signed Impressions: Service Date/Time: Thursday, October 26, 2017 00:12 - CONCLUSION: 1. Multiple bilateral old infarcts, unchanged from 3 days ago. No acute findings. 2. Bilateral maxillary and ethmoid sinus disease. Anatoly Early MD Chest X-Ray 10/26/17 0000 Signed Impressions: Service Date/Time: Thursday, October 26, 2017 06:33 - CONCLUSION: ET tube as above. Luis Felipe Ayala MD Brain MRI 10/26/17 0000 Signed Impressions: Service Date/Time: Thursday, October 26, 2017 16:04 - CONCLUSION: 1. Acute right cerebellar infarct. No midline shift or mass effect. 2. Multiple old bilateral infarcts. Samuel Chen MD Objective Remarks HEENT/ Neuro: Encephalopathic, not following commands withdraws to pain x 4. Orally intubated, Pallor present, no icterus Neck: No JVD Chest/Pulm: on mech vent, good air entry bilaterally, no wheezing or crackles. Bilateral chest excursion CVS: S1-S2 irregularly irregular, no murmur GI/abdomen: soft, nontender, bowel sounds sluggish Extremities: warm bilaterally, no edema Date of Insertion: Oct 26, 2017 A/P Assessment and Plan Assessment: 76yF with large cerebellar stroke and associated severe encephalopathy, hypoxic and hypercarbic respiratory failure. appreciate palliative care and neurology following. will wait and see how edema progresses. overall, likely to have functionally dependent quality of life in SNF with full-time assistance. 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 10/27 EEG for further evaluation of altered mental status-pending Neurology following- Dr. Kim. Cardiovascular: Continue home medications. hold coumadin for anticoagulation given size of stroke and edema. high concern for hemorrhagic conversion. Monitor INR Atrial fibrillation rate controlled Pulmonary: Continue mechanical ventilation Ventilator bundle, bronchodilators as needed. Awaiting improvement in neurologic status to initiate CPAP trials to decide extubation. Chest x-ray from this morning reviewed wean fio2 for goal spo2 > 90% GI/liver: Tube feeds Jevity 1.5 and advance to goal 65 cc/hour as tolerated Bowel regimen GI prophylaxis Renal/: IV hydration, strict intake output, Monitor and replete electrolytes, follow BUN/creatinine ID: No antibiotics indicated at this time. Heme: Monitor CBC and INR. hold anticoagulation. daily INRs. Endocrine: Watch for hypoglycemia, SSI for glycemic control if needed. TSH significantly elevated- 16 currently on levothyroxine 125 mcg/day Prophylaxis: Pepcid, SCDs. holding anticoagulation. Armani Rodriguez MD October 30, 2017 15:48
--- NOTE | 2017-10-30 18:05 | HHI.PR ---
Review/Management Diagnosis right cerebellar stroke atrial fibrillation Plan recheck CT tomorrow Diagnosis/Plan: Subjective Subjective Comments No acute events reported off sedation. Not responding Active Medications Current Medications Medications (Trade) Dose Ordered Sig/Nitin Route Start Time Stop Time Status Last Admin (Norvasc) 5 mg DAILY PO 10/26/17 09:00 10/30/17 09:59 (Lipitor) 20 mg DAILY PO 10/26/17 09:00 10/30/17 09:59 (Coreg) 12.5 mg BID PO 10/26/17 09:00 10/30/17 09:59 (Lanoxin) 0.125 mg DAILY PO 10/26/17 09:00 10/30/17 09:59 (Zoloft) 50 mg DAILY PO 10/26/17 09:00 10/30/17 09:59 (Theragran) 1 tab DAILY PO 10/26/17 09:00 10/30/17 09:59 Levetriacetam 100 ml @ 400 mls/hr Q12HR IV 10/26/17 01:45 10/30/17 09:58 Sodium Chloride 1,000 ml @ 84 mls/hr [id number] IV 10/26/17 01:39 10/30/17 12:54 (Tylenol) 650 mg Q6H PRN PO 10/26/17 01:45 10/29/17 18:15 (Morphine Inj) 2 mg Q2H PRN IV PUSH 10/26/17 01:45 10/28/17 18:25 (Ativan Inj) 1 mg Q1H PRN IV PUSH 10/26/17 01:45 (Tears Naturale Opth Soln) 1 drop TID EACH EYE 10/26/17 09:00 10/30/17 13:00 (Zofran Inj) 4 mg Q6H PRN IV PUSH 10/26/17 01:45 (Duoneb Neb) 1 ampule Q2HR NEB PRN INH 10/26/17 01:45 ([facility] Information) 1 Q361D XX 10/26/17 01:45 10/26/17 01:45 (Chlorhexidine 2% Cloth) 3 pack Taper DAILY@04 TOP 10/26/17 04:00 10/22/18 03:59 10/28/17 00:53 (Chlorhexidine 2% Cloth) 3 pack UNSCH PRN TOP 10/26/17 01:45 (Ivette-Colace) 1 tab BID PO 10/26/17 09:00 10/30/17 09:58 (Milk Of Magnesia Liq) 30 ml Q12H PRN PO 10/26/17 01:45 (Senokot) 17.2 mg Q12H PRN PO 10/26/17 01:45 (Dulcolax Supp) 10 mg DAILY PRN RECTAL 10/26/17 01:45 (Lactulose Liq) 30 ml DAILY PRN PO 10/26/17 01:45 (Peridex 0.12% Liq) 15 ml BID@08,20 MT 10/26/17 08:00 10/30/17 10:00 Propofol 100 ml @ 1.878 mls/ hr TITRATE PRN IV 10/26/17 01:45 10/28/17 00:52 (NS Flush) 2 ml BID IV FLUSH 10/26/17 09:00 10/29/17 09:00 (NS Flush) 2 ml UNSCH PRN IV FLUSH 10/26/17 09:00 (D50w (Vial) Inj) 50 ml UNSCH PRN IV PUSH 10/26/17 09:00 (Glucagon Inj) 1 mg UNSCH PRN OTHER 10/26/17 09:00 (Aspirin Supp) 300 mg DAILY RECTAL 10/28/17 09:00 10/30/17 09:58 (NovoLOG SUPPLEMENTAL SCALE) 1 Q6HR SQ 10/28/17 12:00 10/30/17 13:21 Potassium Chloride 100 ml @ 50 mls/hr Q2H PRN IV 10/28/17 08:30 Potassium Chloride 100 ml @ 50 mls/hr Q2H PRN IV 10/28/17 08:30 (K-Lyte Cl Eff) 50 meq UNSCH PRN PO 10/28/17 08:30 Potassium Chloride 100 ml @ 25 mls/hr UNSCH PRN IV 10/28/17 08:30 Potassium Chloride 100 ml @ 50 mls/hr Q2H PRN IV 10/28/17 08:30 Magnesium Sulfate 4 gm/Sodium Chloride 100 ml @ 50 mls/hr UNSCH PRN IV 10/28/17 08:30 (Mag-Ox) 800 mg UNSCH PRN PO 10/28/17 08:30 Magnesium Sulfate 2 gm/Sodium Chloride 100 ml @ 50 mls/hr UNSCH PRN IV 10/28/17 08:30 (K-Phos) 2,000 mg Q4H PRN PO 10/28/17 08:30 Sodium Phosphate 30 mmol/Sodium Chloride 250 ml @ 42 mls/hr UNSCH PRN IV 10/28/17 08:30 (K-Phos) 2,000 mg UNSCH PRN PO/TUBE 10/28/17 08:30 Potassium Phosphate 30 mmol/ Sodium Chloride 260 ml @ 42 mls/hr UNSCH PRN IV 10/28/17 08:30 10/28/17 15:39 (Synthroid) 125 mcg DAILY@0600 PO 10/29/17 06:00 10/30/17 06:28 (Vasotec Inj) 1.25 mg Q6H PRN IV PUSH 10/29/17 21:15 (Pepcid) 20 mg BID PO 10/30/17 21:00 Allergies Allergies Coded Allergies amiodarone (Unverified Allergy, Severe, Blurred Vision, 10/23/17) amoxicillin (Unverified Allergy, Severe, Swelling, 10/23/17) *MDRO Multi-Drug Resistant Organism (Verified Adverse Reaction, Unknown, ) Exam I&O / VS Vital Signs Date Time Temp Pulse Resp B/P (MAP) Pulse Ox O2 Delivery O2 Flow Rate FiO2 10/30/17 16:07 98 35 10/30/17 14:00 90 10/30/17 12:00 78 10/30/17 12:00 35 10/30/17 12:00 99.1 80 20 139/84 (102) 92 10/30/17 11:44 97 35 10/30/17 10:00 73 10/30/17 08:03 94 35 10/30/17 08:00 85 10/30/17 08:00 99.0 81 20 131/77 (95) 94 10/30/17 08:00 35 10/30/17 06:00 77 10/30/17 04:00 99.5 78 18 139/73 (95) 99 10/30/17 04:00 35 10/30/17 03:23 100 30 10/30/17 02:00 77 10/30/17 00:01 95 35 10/30/17 00:00 99.1 67 17 137/79 (98) 99 10/30/17 00:00 77 10/30/17 00:00 35 10/29/17 22:00 77 10/29/17 20:56 99 30 10/29/17 20:00 99.5 77 23 173/90 (117) 99 10/29/17 20:00 77 10/29/17 20:00 35 Exam Comments not responsive to voice. grimacing to sternal rub Pupils 2 mm symmetric and reactiv EOM intact MOTOR--no spontaneous movement Objective Micro and Labs Laboratory Tests Test 10/30/17 05:00 10/30/17 05:03 Blood Urea Nitrogen 11 Creatinine 0.57 Random Glucose 164 Calcium Level 8.3 Sodium Level 143 Potassium Level 3.8 Chloride Level 110 Carbon Dioxide Level 28.4 Anion Gap 5 Estimat Glomerular Filtration Rate 103 White Blood Count 8.4 Red Blood Count 3.90 Hemoglobin 12.1 Hematocrit 35.5 Mean Corpuscular Volume 91.0 Mean Corpuscular Hemoglobin 31.1 Mean Corpuscular Hemoglobin Concent 34.1 Red Cell Distribution Width 14.2 Platelet Count 161 Mean Platelet Volume 8.5 Prothrombin Time 12.2 Prothromb Time International Ratio 1.2 Activated Partial Thromboplast Time 32.2 Date/Time Source Procedure Growth Status 10/26/17 05:15 Stool Stool Stool Occult Blood (MATTHEW) - Final HEMOCCULT NEGATIVE Complete Claudio Kim MD PhD October 30, 2017 18:05
[2017-10-30] MEDS: FAMOTIDINE 20 MG TAB PO SCH (19:53)
[2017-10-31] VITALS (18 sets, daily range): BP systolic 105–139; BP diastolic 59–78; PULSE 63–82; RESP 16–23; TEMP 98.2–102.4; O2SAT 96–99
[2017-10-31] MEDS: CHLORHEXIDINE GLUCONATE 2 % 1 PACK (2 CLOTHS) TOP SCH (00:11)
[2017-10-31] MEDS: SODIUM CHLOR 0.9% 1000 ML INJ 1,000 ML IV SCH ×2 (00:11→13:37)
[2017-10-31] MEDS: INSULIN ASPART SUPPLEMENTAL SCALE SQ SCH ×4 (00:30→18:51)
[2017-10-31] MEDS: ACETAMINOPHEN 325 MG TAB PO PRN ×2 (00:30→20:12)
[2017-10-31 04:23] LABS: HEMATOCRIT 32.7 % (35.0-46.0); HEMOGLOBIN 11.4 GM/DL (11.6-15.3); MEAN CELL VOLUME 90.1 FL (80.0-100.0); MEAN CORPUSCULAR HEMOGLOBIN 31.3 PG (27.0-34.0); MEAN CORPUSCULAR HGB CONC 34.7 % (32.0-36.0); MEAN PLATELET VOLUME 8.4 FL (7.0-11.0); PLATELET COUNT 170 TH/MM3 (150-450); RED BLOOD COUNT 3.63 MIL/MM3 (4.00-5.30); RED CELL DISTRIBUTION WIDTH 14.2 % (11.6-17.2); WHITE BLOOD COUNT 7.7 TH/MM3 (4.0-11.0)
[2017-10-31 04:37] LABS: INTERNATIONAL NORMALIZED RATIO 1.1 RATIO; PROTHROMBIN TIME - PATIENT 11.1 SEC (9.8-11.6)
[2017-10-31 04:47] LABS: CALCIUM 8.3 MG/DL (8.5-10.1); CREATININE 0.6 MG/DL (0.50-1.00)
[2017-10-31] MEDS: LEVOTHYROXINE SODIUM 125 MCG TAB PO SCH (06:37)
[2017-10-31] MEDS: CHLORHEXIDINE 0.12% (ORAL KIT) 15 ML CUP MT SCH ×2 (07:35→20:00)
[2017-10-31] MEDS: ASPIRIN 300 MG SUPP RECTAL SCH (08:24)
[2017-10-31] MEDS: ATORVASTATIN 20 MG TAB PO SCH (08:24)
[2017-10-31] MEDS: FAMOTIDINE 20 MG TAB PO SCH ×2 (08:24→20:12)
[2017-10-31] MEDS: levETIRAcetam INJ 100 ML IV SCH ×2 (08:24→20:11)
[2017-10-31] MEDS: MULTIVITAMIN TAB PO SCH (08:24)
[2017-10-31] MEDS: amLODIPine BESYLATE 5 MG TAB PO SCH (08:25)
[2017-10-31] MEDS: CARVEDILOL 12.5 MG TAB PO SCH ×2 (08:25→20:25)
[2017-10-31] MEDS: DOCUSATE SODIUM 50 MG/SENNA 8.6 MG TAB PO SCH ×2 (08:25→20:12)
[2017-10-31] MEDS: SODIUM CHLORIDE 0.9% FLUSH 10 ML FLUSH IV FLUSH SCH ×2 (08:25→20:25)
[2017-10-31] MEDS: SERTRALINE HCL 50 MG TAB PO SCH (08:25)
[2017-10-31] MEDS: DIGOXIN 0.125 MG TAB PO SCH (08:25)
[2017-10-31] MEDS: ARTIFICIAL TEARS OPTH SOLN 15 ML BTL EACH EYE SCH ×3 (08:26→18:00)
--- NOTE | 2017-10-31 09:49 | RADRPT ---
EXAM DATE/TIME: 10/31/2017 09:22 [place] COMPARISON: CT BRAIN W/O CONTRAST, October 29, 2017, 8:27. INDICATIONS : Cerebellar stroke. RADIATION DOSE: 56.35 CTDIvol (mGy) MEDICAL HISTORY : Cardiovascular disease. Hypertension. Renal insufficiency, chronic. SURGICAL HISTORY : None. ENCOUNTER: Subsequent ACUITY: 4 - 6 days PAIN SCALE: Non-responsive LOCATION: cranial TECHNIQUE: Multiple contiguous axial images were obtained of the head. Using automated exposure control and adj ustment of the mA and/or kV according to patient size, radiation dose was kept as low as reasonably a chievable to obtain optimal diagnostic quality images. DICOM format image data is available electro nically for review and comparison. FINDINGS: CEREBRUM: No acute findings. Multiple old infarctions bilateral frontal, left parietal, and bilateral occipita l are stable in appearance. No evidence of acute blood products. POSTERIOR FOSSA: Stable appearance to the right cerebellar infarct with stable midline shift of the 4th ventricle towa rds the left and effacement of the ambient wing cistern. No evidence of acute blood products. No si gnificant change in size. EXTRACRANIAL: Complete opacification of the maxillary sinuses and multiple opacified ethmoid air cells and diffuse mucosal thickening in the sphenoid sinuses, similar in appearance. Stable hyperdensity in the midlin e nasopharyngeal soft tissues. SKULL: The calvaria is intact. No evidence of skull fracture. CONCLUSION: 1. Stable appearance of the right cerebellar infarct and multiple supratentorial infarcts. 2. Stable sinus disease. Anatoly Early MD on October 31, 2017 at 9:42 Board Certified Radiologist. This report was verified electronically.
--- NOTE | 2017-10-31 10:56 | HHI.CCPN ---
Subjective Remarks/Hospital Course The patient is a 76-year-old female that was apparently alert and talking prior to 11 PM tonight when she started vomiting. She then became comatose, [facility] was called and they intubated the patient using etomidate and Versed. 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 There has not been any head trauma. After intubation and Versed the blood pressure is 127/90. No seizure activity noted per ER physician. Patient was kept sedated orally intubated overnight on mechanical ventilation. She is starting to arousable although not following commands. She does try to open her eyes on command. Per nursing staff she was moving all [address] done in the ER did not reveal any acute bleed and had evidence of old strokes. Dr. Kim from neurology was contacted by ER physician and will be evaluating patient. When I evaluated the patient this morning she sedated with propofol, orally intubated on mechanical ventilation. History is obtained by reviewing records and discussion with nursing staff. Subjective: 10/27: The patient currently remains intubated and sedated. EEG in process. MRI revealed acute right cerebellar. or infarct. Sedation vacation pending. 10/28: more cerebral edema on CT scan yesterday. remains very encephalopathic, intubated, obtunded. long conversation with family today where I explained current stroke and edema. family introduced the idea that if she would not come off life support or would need to be fully dependent on healthcare system, she would not want to live: will consult palliative care to assist with goals of care clarification. 10/29: remains intubated and encephalopathic. CT brain today demonstrates stable appearance of posterior fossa infarct and edema. neuro exam slightly better and now w/d x 4. 5: Remains encephalopathic, orally intubated on mechanical ventilation. Tolerating tube feeds. 10/31: Remains encephalopathic, orally intubated on mechanical ventilation. Tolerating tube feeds. Objective Vital Signs Date Time Temp Pulse Resp B/P (MAP) Pulse Ox O2 Delivery O2 Flow Rate FiO2 10/31/17 08:59 98 35 10/31/17 06:00 75 10/31/17 04:00 98.6 19 111/65 (80) Intake and Output 10/31/17 10/31/17 11/01/17 08:00 16:00 00:00 Intake Total 611 ml Output Total 500 ml Balance 111 ml Result Diagram: 10/31/17 0401 10/31/17 0401 Imaging Last Impressions Neck CTA 10/26/17 001 Signed Impressions: Service Date/Time: Thursday, October 26, 2017 00:12 - CONCLUSION: 1. No luminal narrowing or significant plaque formation. 2. Left dominant vertebral system. Anatoly Early MD Head CTA 10/26/17 0012 Signed Impressions: Service Date/Time: Thursday, October 26, 2017 00:12 - CONCLUSION: No evidence of vessel truncation. Anatoly Early MD Head CT 10/26/17 0000 Signed Impressions: Service Date/Time: Thursday, October 26, 2017 00:12 - CONCLUSION: 1. Multiple bilateral old infarcts, unchanged from 3 days ago. No acute findings. 2. Bilateral maxillary and ethmoid sinus disease. Anatoly Early MD Chest X-Ray 10/26/17 0000 Signed Impressions: Service Date/Time: Thursday, October 26, 2017 06:33 - CONCLUSION: ET tube as above. Luis Felipe Ayala MD Brain MRI 10/26/17 0000 Signed Impressions: Service Date/Time: Thursday, October 26, 2017 16:04 - CONCLUSION: 1. Acute right cerebellar infarct. No midline shift or mass effect. 2. Multiple old bilateral infarcts. Samuel Chen MD Objective Remarks HEENT/ Neuro: Encephalopathic, not following commands withdraws to pain x 4. Orally intubated, Pallor present, no icterus Neck: No JVD Chest/Pulm: on mech vent, good air entry bilaterally, no wheezing or crackles. Bilateral chest excursion CVS: S1-S2 irregularly irregular, no murmur GI/abdomen: soft, nontender, bowel sounds sluggish Extremities: warm bilaterally, no edema Date of Insertion: Oct 26, 2017 A/P Assessment and Plan Assessment: 76yF with large cerebellar stroke and associated severe encephalopathy, hypoxic and hypercarbic respiratory failure. appreciate palliative care and neurology following. will wait and see how edema progresses. overall, likely to have functionally dependent quality of life in SNF with full-time assistance. 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 10/27 EEG for further evaluation of altered mental status Neurology following- Dr. Kim. Cardiovascular: Continue home medications. hold coumadin for anticoagulation given size of stroke and edema. high concern for hemorrhagic conversion. Monitor INR Atrial fibrillation rate controlled Pulmonary: Continue mechanical ventilation Ventilator bundle, bronchodilators as needed. Awaiting improvement in neurologic status to initiate CPAP trials to decide extubation. Chest x-ray from this morning reviewed wean fio2 for goal spo2 > 90% GI/liver: Tube feeds Jevity 1.5 and advance to goal 65 cc/hour as tolerated Bowel regimen GI prophylaxis Renal/: IV hydration, strict intake output, Monitor and replete electrolytes, follow BUN/creatinine ID: No antibiotics indicated at this time. Heme: Monitor CBC and INR. hold anticoagulation. daily INRs. Endocrine: Watch for hypoglycemia, SSI for glycemic control if needed. TSH significantly elevated- 16 currently on levothyroxine 125 mcg/day Prophylaxis: Vahe, LISAs. holding anticoagulation. Armani Rodriguez MD October 31, 2017 10:56
--- NOTE | 2017-10-31 20:18 | HHI.PR ---
Review/Management Diagnosis right cerebellar stroke atrial fibrillation Plan continue asa recheck CT Saturday and if stable resume coumadin at that time. Diagnosis/Plan: Subjective Subjective Comments No acute events reported reportedly following occasional commands to son in her own language Active Medications Current Medications Medications (Trade) Dose Ordered Sig/Nitin Route Start Time Stop Time Status Last Admin (Norvasc) 5 mg DAILY PO 10/26/17 09:00 10/31/17 08:25 (Lipitor) 20 mg DAILY PO 10/26/17 09:00 10/31/17 08:24 (Coreg) 12.5 mg BID PO 10/26/17 09:00 10/31/17 08:25 (Lanoxin) 0.125 mg DAILY PO 10/26/17 09:00 10/31/17 08:25 (Zoloft) 50 mg DAILY PO 10/26/17 09:00 10/31/17 08:25 (Theragran) 1 tab DAILY PO 10/26/17 09:00 10/31/17 08:24 Levetriacetam 100 ml @ 400 mls/hr Q12HR IV 10/26/17 01:45 10/31/17 20:11 Sodium Chloride 1,000 ml @ 84 mls/hr [id number] IV 10/26/17 01:39 10/31/17 13:37 (Tylenol) 650 mg Q6H PRN PO 10/26/17 01:45 10/31/17 20:12 (Morphine Inj) 2 mg Q2H PRN IV PUSH 10/26/17 01:45 10/28/17 18:25 (Ativan Inj) 1 mg Q1H PRN IV PUSH 10/26/17 01:45 (Tears Naturale Opth Soln) 1 drop TID EACH EYE 10/26/17 09:00 10/31/17 18:00 (Zofran Inj) 4 mg Q6H PRN IV PUSH 10/26/17 01:45 (Duoneb Neb) 1 ampule Q2HR NEB PRN INH 10/26/17 01:45 ([facility] [place] [facility]) 1 Q361D XX 10/26/17 01:45 10/26/17 01:45 (Chlorhexidine 2% Cloth) Taper DAILY@04 TOP 10/26/17 04:00 10/22/18 03:59 10/28/17 00:53 (Chlorhexidine 2% Cloth) 3 pack UNSCH PRN TOP 10/26/17 01:45 (Ivette-Colace) 1 tab BID PO 10/26/17 09:00 10/31/17 20:12 (Milk Of Magnesia Liq) 30 ml Q12H PRN PO 10/26/17 01:45 (Senokot) 17.2 mg Q12H PRN PO 10/26/17 01:45 (Dulcolax Supp) 10 mg DAILY PRN RECTAL 10/26/17 01:45 (Lactulose Liq) 30 ml DAILY PRN PO 10/26/17 01:45 (Peridex 0.12% Liq) 15 ml BID@08,20 MT 10/26/17 08:00 10/31/17 07:35 Propofol 100 ml @ 1.878 mls/ hr TITRATE PRN IV 10/26/17 01:45 10/28/17 00:52 (NS Flush) 2 ml BID IV FLUSH 10/26/17 09:00 10/31/17 08:25 (NS Flush) 2 ml UNSCH PRN IV FLUSH 10/26/17 09:00 (D50w (Vial) Inj) 50 ml UNSCH PRN IV PUSH 10/26/17 09:00 (Glucagon Inj) 1 mg UNSCH PRN OTHER 10/26/17 09:00 (Aspirin Supp) 300 mg DAILY RECTAL 10/28/17 09:00 10/31/17 08:24 (NovoLOG SUPPLEMENTAL SCALE) 1 Q6HR SQ 10/28/17 12:00 10/31/17 18:51 Potassium Chloride 100 ml @ 50 mls/hr Q2H PRN IV 10/28/17 08:30 Potassium Chloride 100 ml @ 50 mls/hr Q2H PRN IV 10/28/17 08:30 (K-Lyte Cl Eff) 50 meq UNSCH PRN PO 10/28/17 08:30 Potassium Chloride 100 ml @ 25 mls/hr UNSCH PRN IV 10/28/17 08:30 Potassium Chloride 100 ml @ 50 mls/hr Q2H PRN IV 10/28/17 08:30 Magnesium Sulfate 4 gm/Sodium Chloride 100 ml @ 50 mls/hr UNSCH PRN IV 10/28/17 08:30 (Mag-Ox) 800 mg UNSCH PRN PO 10/28/17 08:30 Magnesium Sulfate 2 gm/Sodium Chloride 100 ml @ 50 mls/hr UNSCH PRN IV 10/28/17 08:30 (K-Phos) 2,000 mg Q4H PRN PO 10/28/17 08:30 Sodium Phosphate 30 mmol/Sodium Chloride 250 ml @ 42 mls/hr UNSCH PRN IV 10/28/17 08:30 (K-Phos) 2,000 mg UNSCH PRN PO/TUBE 10/28/17 08:30 Potassium Phosphate 30 mmol/ Sodium Chloride 260 ml @ 42 mls/hr UNSCH PRN IV 10/28/17 08:30 10/28/17 15:39 (Synthroid) 125 mcg DAILY@0600 PO 10/29/17 06:00 10/31/17 06:37 (Vasotec Inj) 1.25 mg Q6H PRN IV PUSH 10/29/17 21:15 (Pepcid) 20 mg BID PO 10/30/17 21:00 10/31/17 20:12 Allergies Allergies Coded Allergies amiodarone (Unverified Allergy, Severe, Blurred Vision, 10/23/17) amoxicillin (Unverified Allergy, Severe, Swelling, 10/23/17) *MDRO Multi-Drug Resistant Organism (Verified Adverse Reaction, Unknown, ) Exam I&O / VS 10/31/17 10/31/17 11/01/17 15:00 23:00 07:00 Intake Total 100 ml 831 ml Output Total 325 ml Balance 100 ml 506 ml IV Total 100 ml Tube Feeding 711 ml Other 120 ml Output Urine Total 325 ml # Bowel Movements 1 Vital Signs Date Time Temp Pulse Resp B/P (MAP) Pulse Ox O2 Delivery O2 Flow Rate FiO2 10/31/17 18:00 79 10/31/17 16:39 98 30 10/31/17 16:00 69 10/31/17 16:00 99.2 66 20 105/59 (74) 97 10/31/17 16:00 35 10/31/17 14:00 73 10/31/17 13:38 98 35 10/31/17 12:00 35 10/31/17 12:00 69 10/31/17 12:00 98.2 63 16 112/64 (80) 98 10/31/17 10:00 66 10/31/17 08:59 98 35 10/31/17 08:00 72 10/31/17 08:00 98.4 72 20 125/72 (89) 99 10/31/17 08:00 35 10/31/17 06:00 75 10/31/17 04:30 97 35 10/31/17 04:00 98.6 78 19 111/65 (80) 98 10/31/17 04:00 72 10/31/17 04:00 35 10/31/17 02:57 96 35 10/31/17 02:00 74 10/31/17 00:00 101.8 80 21 139/78 (98) 96 10/31/17 00:00 80 10/31/17 00:00 35 10/30/17 23:40 94 35 10/30/17 22:00 80 10/30/17 21:04 96 35 Exam Comments not responsive to voice. grimacing to sternal rub Pupils 2 mm symmetric and reactiv EOM intact MOTOR--no spontaneous movement Objective Radiology Results CT brain--stable right cerebellar cva with no more edema and no hemorrhage. Micro and Labs Laboratory Tests Test 10/31/17 04:01 White Blood Count 7.7 Red Blood Count 3.63 Hemoglobin 11.4 Hematocrit 32.7 Mean Corpuscular Volume 90.1 Mean Corpuscular Hemoglobin 31.3 Mean Corpuscular Hemoglobin Concent 34.7 Red Cell Distribution Width 14.2 Platelet Count 170 Mean Platelet Volume 8.4 Prothrombin Time 11.1 Prothromb Time International Ratio 1.1 Activated Partial Thromboplast Time 31.2 Blood Urea Nitrogen 15 Creatinine 0.60 Random Glucose 185 Calcium Level 8.3 Sodium Level 145 Potassium Level 3.6 Chloride Level 111 Carbon Dioxide Level 28.0 Anion Gap 6 Estimat Glomerular Filtration Rate 97 Date/Time Source Procedure Growth Status 10/26/17 05:15 Stool Stool Stool Occult Blood (MATTHEW) - Final HEMOCCULT NEGATIVE Complete Claudio Kim MD PhD October 31, 2017 20:18
[2017-11-01] VITALS (15 sets, daily range): BP systolic 114–134; BP diastolic 64–79; PULSE 66–83; RESP 20–25; TEMP 97.9–101.3; O2SAT 94–99
[2017-11-01] MEDS: SODIUM CHLOR 0.9% 1000 ML INJ 1,000 ML IV SCH ×2 (00:39→11:56)
[2017-11-01] MEDS: CHLORHEXIDINE GLUCONATE 2 % 1 PACK (2 CLOTHS) TOP SCH (03:31)
[2017-11-01 05:05] LABS: HEMATOCRIT 31.5 % (35.0-46.0); HEMOGLOBIN 10.7 GM/DL (11.6-15.3); MEAN CELL VOLUME 90.9 FL (80.0-100.0); MEAN CORPUSCULAR HEMOGLOBIN 30.9 PG (27.0-34.0); MEAN PLATELET VOLUME 9.1 FL (7.0-11.0); PLATELET COUNT 162 TH/MM3 (150-450); RED BLOOD COUNT 3.46 MIL/MM3 (4.00-5.30); RED CELL DISTRIBUTION WIDTH 14.1 % (11.6-17.2); WHITE BLOOD COUNT 7.8 TH/MM3 (4.0-11.0)
[2017-11-01 05:07] LABS: INTERNATIONAL NORMALIZED RATIO 1.1 RATIO
[2017-11-01] MEDS: INSULIN ASPART SUPPLEMENTAL SCALE SQ SCH ×5 (05:18→23:40)
[2017-11-01] MEDS: LEVOTHYROXINE SODIUM 125 MCG TAB PO SCH (05:18)
[2017-11-01 05:21] LABS: BICARBONATE 27.6 MEQ/L (21.0-32.0); CALCIUM 8.3 MG/DL (8.5-10.1); CREATININE 0.54 MG/DL (0.50-1.00)
[2017-11-01] MEDS: POTASSIUM CHLOR 20 MEQ PREMIX 100 ML IV PRN ×2 (06:02→07:20)
[2017-11-01] MEDS: DOCUSATE SODIUM 50 MG/SENNA 8.6 MG TAB PO SCH ×2 (08:23→20:00)
[2017-11-01] MEDS: DIGOXIN 0.125 MG TAB PO SCH (08:23)
[2017-11-01] MEDS: CARVEDILOL 12.5 MG TAB PO SCH ×2 (08:23→20:05)
[2017-11-01] MEDS: SERTRALINE HCL 50 MG TAB PO SCH (08:23)
[2017-11-01] MEDS: ASPIRIN 300 MG SUPP RECTAL SCH (08:23)
[2017-11-01] MEDS: FAMOTIDINE 20 MG TAB PO SCH ×2 (08:23→20:05)
[2017-11-01] MEDS: MULTIVITAMIN TAB PO SCH (08:23)
[2017-11-01] MEDS: ATORVASTATIN 20 MG TAB PO SCH (08:23)
[2017-11-01] MEDS: amLODIPine BESYLATE 5 MG TAB PO SCH (08:23)
[2017-11-01] MEDS: levETIRAcetam INJ 100 ML IV SCH ×2 (08:24→20:05)
[2017-11-01] MEDS: ARTIFICIAL TEARS OPTH SOLN 15 ML BTL EACH EYE SCH ×3 (08:24→18:00)
[2017-11-01] MEDS: CHLORHEXIDINE 0.12% (ORAL KIT) 15 ML CUP MT SCH ×2 (08:24→20:00)
[2017-11-01] MEDS: SODIUM CHLORIDE 0.9% FLUSH 10 ML FLUSH IV FLUSH SCH ×2 (08:24→20:04)
--- NOTE | 2017-11-01 12:21 | HHI.CCPN ---
Subjective Remarks/Hospital Course The patient is a 76-year-old female that was apparently alert and talking prior to 11 PM tonight when she started vomiting. She then became comatose, [facility] was called and they intubated the patient using etomidate and Versed. 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 There has not been any head trauma. After intubation and Versed the blood pressure is 127/90. No seizure activity noted per ER physician. Patient was kept sedated orally intubated overnight on mechanical ventilation. She is starting to arousable although not following commands. She does try to open her eyes on command. Per nursing staff she was moving all [address] done in the ER did not reveal any acute bleed and had evidence of old strokes. Dr. Kim from neurology was contacted by ER physician and will be evaluating patient. When I evaluated the patient this morning she sedated with propofol, orally intubated on mechanical ventilation. History is obtained by reviewing records and discussion with nursing staff. Subjective: 10/27: The patient currently remains intubated and sedated. EEG in process. MRI revealed acute right cerebellar. or infarct. Sedation vacation pending. 10/28: more cerebral edema on CT scan yesterday. remains very encephalopathic, intubated, obtunded. long conversation with family today where I explained current stroke and edema. family introduced the idea that if she would not come off life support or would need to be fully dependent on healthcare system, she would not want to live: will consult palliative care to assist with goals of care clarification. 10/29: remains intubated and encephalopathic. CT brain today demonstrates stable appearance of posterior fossa infarct and edema. neuro exam slightly better and now w/d x 4. 52: Remains encephalopathic, orally intubated on mechanical ventilation. Tolerating tube feeds. 10/31: Remains encephalopathic, orally intubated on mechanical ventilation. Tolerating tube feeds. 11/01: Remains encephalopathic, orally intubated on mechanical ventilation. Tolerating tube feeds. Objective Vital Signs Date Time Temp Pulse Resp B/P (MAP) Pulse Ox O2 Delivery O2 Flow Rate FiO2 11/01/17 12:00 100.4 77 25 134/79 (97) 94 11/01/17 12:00 30 Intake and Output 11/01/17 11/01/17 11/02/17 08:00 16:00 00:00 Intake Total 1691 ml 1200 ml Output Total 475 ml Balance 1216 ml 1200 ml Result Diagram: 11/01/17 0358 11/01/17 0358 Imaging Last Impressions Neck CTA 10/26/17 001 Signed Impressions: Service Date/Time: Thursday, October 26, 2017 00:12 - CONCLUSION: 1. No luminal narrowing or significant plaque formation. 2. Left dominant vertebral system. Anatoly Early MD Head CTA 10/26/17 0012 Signed Impressions: Service Date/Time: Thursday, October 26, 2017 00:12 - CONCLUSION: No evidence of vessel truncation. Anaotly Early MD Head CT 10/26/17 0000 Signed Impressions: Service Date/Time: Thursday, October 26, 2017 00:12 - CONCLUSION: 1. Multiple bilateral old infarcts, unchanged from 3 days ago. No acute findings. 2. Bilateral maxillary and ethmoid sinus disease. Anatoly Early MD Chest X-Ray 10/26/17 0000 Signed Impressions: Service Date/Time: Thursday, October 26, 2017 06:33 - CONCLUSION: ET tube as above. Luis Felipe Ayala MD Brain MRI 10/26/17 0000 Signed Impressions: Service Date/Time: Thursday, October 26, 2017 16:04 - CONCLUSION: 1. Acute right cerebellar infarct. No midline shift or mass effect. 2. Multiple old bilateral infarcts. Samuel Chen MD Objective Remarks HEENT/ Neuro: Encephalopathic, not following commands withdraws to pain x 4. Orally intubated, Pallor present, no icterus Neck: No JVD Chest/Pulm: on mech vent, good air entry bilaterally, no wheezing or crackles. Bilateral chest excursion CVS: S1-S2 irregularly irregular, no murmur GI/abdomen: soft, nontender, bowel sounds sluggish Extremities: warm bilaterally, no edema Date of Insertion: Oct 26, 2017 A/P Assessment and Plan Assessment: 76yF with large cerebellar stroke and associated severe encephalopathy, hypoxic and hypercarbic respiratory failure. appreciate palliative care and neurology following. will wait and see how edema progresses. overall, likely to have functionally dependent quality of life in SNF with full-time assistance. 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 10/27 EEG for further evaluation of altered mental status Neurology following- Dr. Kim. On ASA Cardiovascular: Continue home medications. hold coumadin for anticoagulation given size of stroke and edema. high concern for hemorrhagic conversion. Monitor INR Atrial fibrillation rate controlled Pulmonary: Continue mechanical ventilation Ventilator bundle, bronchodilators as needed. Awaiting improvement in neurologic status to initiate CPAP trials to decide extubation. Chest x-ray from this morning reviewed wean fio2 for goal spo2 > 90% GI/liver: Tube feeds Jevity 1.5 and advance to goal 65 cc/hour as tolerated Bowel regimen GI prophylaxis Renal/: IV hydration, strict intake output, Monitor and replete electrolytes, follow BUN/creatinine ID: No antibiotics indicated at this time. Heme: Monitor CBC and INR. hold anticoagulation. daily INRs. Endocrine: Watch for hypoglycemia, SSI for glycemic control if needed. TSH significantly elevated- 16 currently on levothyroxine 125 mcg/day Prophylaxis: Pepcid, SCDs. holding anticoagulation. Consult palliative care to assist with deciding goals of therapy as patient will require tracheostomy and PEG tube placement of aggressive care desired and prognosis appears poor. Armani Rodriguez MD November 01, 2017 12:21
[2017-11-01] MEDS: ACETAMINOPHEN 325 MG TAB PO PRN (16:24)
--- NOTE | 2017-11-01 16:26 | HHI.PR ---
Review/Management Diagnosis right cerebellar stroke atrial fibrillation Plan continue asa recheck CT Saturday and if stable resume coumadin at that time. Diagnosis/Plan: Subjective Subjective Comments No acute events reported Active Medications Current Medications Medications (Trade) Dose Ordered Sig/Nitin Route Start Time Stop Time Status Last Admin (Norvasc) 5 mg DAILY PO 10/26/17 09:00 11/01/17 08:23 (Lipitor) 20 mg DAILY PO 10/26/17 09:00 11/01/17 08:23 (Coreg) 12.5 mg BID PO 10/26/17 09:00 11/01/17 08:23 (Lanoxin) 0.125 mg DAILY PO 10/26/17 09:00 11/01/17 08:23 (Zoloft) 50 mg DAILY PO 10/26/17 09:00 11/01/17 08:23 (Theragran) 1 tab DAILY PO 10/26/17 09:00 11/01/17 08:23 Levetriacetam 100 ml @ 400 mls/hr Q12HR IV 10/26/17 01:45 11/01/17 08:24 Sodium Chloride 1,000 ml @ 84 mls/hr [id number] IV 10/26/17 01:39 11/01/17 11:56 (Tylenol) 650 mg Q6H PRN PO 10/26/17 01:45 10/31/17 20:12 (Morphine Inj) 2 mg Q2H PRN IV PUSH 10/26/17 01:45 10/28/17 18:25 (Ativan Inj) 1 mg Q1H PRN IV PUSH 10/26/17 01:45 (Tears Naturale Opth Soln) 1 drop TID EACH EYE 10/26/17 09:00 11/01/17 12:12 (Zofran Inj) 4 mg Q6H PRN IV PUSH 10/26/17 01:45 (Duoneb Neb) 1 ampule Q2HR NEB PRN INH 10/26/17 01:45 ([facility] [place] Nursing Information) 1 Q361D XX 10/26/17 01:45 10/26/17 01:45 (Chlorhexidine 2% Cloth) Taper DAILY@04 TOP 10/26/17 04:00 10/22/18 03:59 10/28/17 00:53 (Chlorhexidine 2% Cloth) 3 pack UNSCH PRN TOP 10/26/17 01:45 (Ivette-Colace) 1 tab BID PO 10/26/17 09:00 11/01/17 08:23 (Milk Of Magnesia Liq) 30 ml Q12H PRN PO 10/26/17 01:45 (Senokot) 17.2 mg Q12H PRN PO 10/26/17 01:45 (Dulcolax Supp) 10 mg DAILY PRN RECTAL 10/26/17 01:45 (Lactulose Liq) 30 ml DAILY PRN PO 10/26/17 01:45 (Peridex 0.12% Liq) 15 ml BID@08,20 MT 10/26/17 08:00 11/01/17 08:24 Propofol 100 ml @ 1.878 mls/ hr TITRATE PRN IV 10/26/17 01:45 10/28/17 00:52 (NS Flush) 2 ml BID IV FLUSH 10/26/17 09:00 11/01/17 08:24 (NS Flush) 2 ml UNSCH PRN IV FLUSH 10/26/17 09:00 (D50w (Vial) Inj) 50 ml UNSCH PRN IV PUSH 10/26/17 09:00 (Glucagon Inj) 1 mg UNSCH PRN OTHER 10/26/17 09:00 (Aspirin Supp) 300 mg DAILY RECTAL 10/28/17 09:00 11/01/17 08:23 (NovoLOG SUPPLEMENTAL SCALE) 1 Q6HR SQ 10/28/17 12:00 11/01/17 05:18 Potassium Chloride 100 ml @ 50 mls/hr Q2H PRN IV 10/28/17 08:30 Potassium Chloride 100 ml @ 50 mls/hr Q2H PRN IV 10/28/17 08:30 (K-Lyte Cl Eff) 50 meq UNSCH PRN PO 10/28/17 08:30 Potassium Chloride 100 ml @ 25 mls/hr UNSCH PRN IV 10/28/17 08:30 Potassium Chloride 100 ml @ 50 mls/hr Q2H PRN IV 10/28/17 08:30 11/01/17 07:20 Magnesium Sulfate 4 gm/Sodium Chloride 100 ml @ 50 mls/hr UNSCH PRN IV 10/28/17 08:30 (Mag-Ox) 800 mg UNSCH PRN PO 10/28/17 08:30 Magnesium Sulfate 2 gm/Sodium Chloride 100 ml @ 50 mls/hr UNSCH PRN IV 10/28/17 08:30 (K-Phos) 2,000 mg Q4H PRN PO 10/28/17 08:30 Sodium Phosphate 30 mmol/Sodium Chloride 250 ml @ 42 mls/hr UNSCH PRN IV 10/28/17 08:30 (K-Phos) 2,000 mg UNSCH PRN PO/TUBE 10/28/17 08:30 Potassium Phosphate 30 mmol/ Sodium Chloride 260 ml @ 42 mls/hr UNSCH PRN IV 10/28/17 08:30 10/28/17 15:39 (Synthroid) 125 mcg DAILY@0600 PO 10/29/17 06:00 11/01/17 05:18 (Vasotec Inj) 1.25 mg Q6H PRN IV PUSH 10/29/17 21:15 (Pepcid) 20 mg BID PO 10/30/17 21:00 11/01/17 08:23 Allergies Allergies Coded Allergies amiodarone (Unverified Allergy, Severe, Blurred Vision, 10/23/17) amoxicillin (Unverified Allergy, Severe, Swelling, 10/23/17) *MDRO Multi-Drug Resistant Organism (Verified Adverse Reaction, Unknown, ) Exam I&O / VS 11/01/17 11/01/17 11/02/17 15:00 23:00 07:00 Intake Total 1300 ml Balance 1300 ml IV Total 1300 ml Vital Signs Date Time Temp Pulse Resp B/P (MAP) Pulse Ox O2 Delivery O2 Flow Rate FiO2 11/01/17 12:00 100.4 77 25 134/79 (97) 94 11/01/17 12:00 30 11/01/17 11:38 96 30 11/01/17 09:10 99 30 11/01/17 09:10 30 11/01/17 09:05 30 11/01/17 08:00 99.9 73 20 118/64 (82) 99 11/01/17 08:00 35 11/01/17 06:00 72 11/01/17 04:05 99 30 11/01/17 04:00 69 11/01/17 04:00 35 11/01/17 04:00 97.9 66 22 125/73 (90) 98 11/01/17 02:00 73 11/01/17 00:38 98 30 11/01/17 00:00 82 11/01/17 00:00 35 11/01/17 00:00 98.7 70 21 114/67 (83) 97 10/31/17 22:00 73 10/31/17 20:40 96 30 10/31/17 20:00 81 10/31/17 20:00 35 10/31/17 20:00 102.4 82 23 130/75 (93) 96 10/31/17 18:00 79 10/31/17 16:39 98 30 Exam Comments not responsive to voice. Pupils 2 mm symmetric and reactiv EOM intact MOTOR--no spontaneous movement Objective Micro and Labs Laboratory Tests Test 11/01/17 03:58 White Blood Count 7.8 Red Blood Count 3.46 Hemoglobin 10.7 Hematocrit 31.5 Mean Corpuscular Volume 90.9 Mean Corpuscular Hemoglobin 30.9 Mean Corpuscular Hemoglobin Concent 34.0 Red Cell Distribution Width 14.1 Platelet Count 162 Mean Platelet Volume 9.1 Prothrombin Time 11.0 Prothromb Time International Ratio 1.1 Activated Partial Thromboplast Time 28.1 Blood Urea Nitrogen 17 Creatinine 0.54 Random Glucose 180 Calcium Level 8.3 Sodium Level 144 Potassium Level 3.5 Chloride Level 108 Carbon Dioxide Level 27.6 Anion Gap 8 Estimat Glomerular Filtration Rate 109 Date/Time Source Procedure Growth Status 10/26/17 05:15 Stool Stool Stool Occult Blood (MATTHEW) - Final HEMOCCULT NEGATIVE Complete Claudio Kim MD PhD November 01, 2017 16:26
[2017-11-02] VITALS (15 sets, daily range): BP systolic 120–149; BP diastolic 69–83; PULSE 68–82; RESP 20–23; TEMP 99.3–100.3; O2SAT 7–99
[2017-11-02] MEDS: SODIUM CHLOR 0.9% 1000 ML INJ 1,000 ML IV SCH ×2 (02:21→14:18)
[2017-11-02] MEDS: CHLORHEXIDINE GLUCONATE 2 % 1 PACK (2 CLOTHS) TOP SCH (04:00)
[2017-11-02] MEDS: LEVOTHYROXINE SODIUM 125 MCG TAB PO SCH (05:51)
[2017-11-02] MEDS: INSULIN ASPART SUPPLEMENTAL SCALE SQ SCH ×3 (05:52→17:41)
[2017-11-02 06:38] LABS: HEMATOCRIT 31.6 % (35.0-46.0); HEMOGLOBIN 10.8 GM/DL (11.6-15.3); MEAN CELL VOLUME 90.1 FL (80.0-100.0); MEAN CORPUSCULAR HEMOGLOBIN 30.7 PG (27.0-34.0); MEAN CORPUSCULAR HGB CONC 34.1 % (32.0-36.0); MEAN PLATELET VOLUME 8.5 FL (7.0-11.0); PLATELET COUNT 207 TH/MM3 (150-450); RED BLOOD COUNT 3.51 MIL/MM3 (4.00-5.30); RED CELL DISTRIBUTION WIDTH 14.1 % (11.6-17.2)
[2017-11-02 07:01] LABS: BICARBONATE 28.3 MEQ/L (21.0-32.0); CALCIUM 8.1 MG/DL (8.5-10.1); CREATININE 0.53 MG/DL (0.50-1.00)
[2017-11-02 07:28] LABS: PROTHROMBIN TIME - PATIENT 10.4 SEC (9.8-11.6)
[2017-11-02] MEDS: CHLORHEXIDINE 0.12% (ORAL KIT) 15 ML CUP MT SCH ×2 (08:00→20:09)
[2017-11-02] MEDS: ARTIFICIAL TEARS OPTH SOLN 15 ML BTL EACH EYE SCH ×3 (09:00→17:41)
[2017-11-02] MEDS: SODIUM CHLORIDE 0.9% FLUSH 10 ML FLUSH IV FLUSH SCH ×2 (09:00→20:17)
[2017-11-02] MEDS: amLODIPine BESYLATE 5 MG TAB PO SCH (09:10)
[2017-11-02] MEDS: FAMOTIDINE 20 MG TAB PO SCH ×2 (09:10→20:17)
[2017-11-02] MEDS: SERTRALINE HCL 50 MG TAB PO SCH (09:10)
[2017-11-02] MEDS: DIGOXIN 0.125 MG TAB PO SCH (09:10)
[2017-11-02] MEDS: ATORVASTATIN 20 MG TAB PO SCH (09:10)
[2017-11-02] MEDS: MULTIVITAMIN TAB PO SCH (09:10)
[2017-11-02] MEDS: ASPIRIN 300 MG SUPP RECTAL SCH (09:11)
[2017-11-02] MEDS: DOCUSATE SODIUM 50 MG/SENNA 8.6 MG TAB PO SCH ×2 (09:11→20:17)
[2017-11-02] MEDS: levETIRAcetam INJ 100 ML IV SCH ×2 (09:11→20:17)
[2017-11-02] MEDS: CARVEDILOL 12.5 MG TAB PO SCH ×2 (09:11→20:16)
--- NOTE | 2017-11-02 10:57 | HHI.CCPN ---
Subjective Remarks/Hospital Course The patient is a 76-year-old female that was apparently alert and talking prior to 11 PM tonight when she started vomiting. She then became comatose, [facility] was called and they intubated the patient using etomidate and Versed. 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 There has not been any head trauma. After intubation and Versed the blood pressure is 127/90. No seizure activity noted per ER physician. Patient was kept sedated orally intubated overnight on mechanical ventilation. She is starting to arousable although not following commands. She does try to open her eyes on command. Per nursing staff she was moving all [address] done in the ER did not reveal any acute bleed and had evidence of old strokes. Dr. Kim from neurology was contacted by ER physician and will be evaluating patient. When I evaluated the patient this morning she sedated with propofol, orally intubated on mechanical ventilation. History is obtained by reviewing records and discussion with nursing staff. Subjective: 10/27: The patient currently remains intubated and sedated. EEG in process. MRI revealed acute right cerebellar. or infarct. Sedation vacation pending. 10/28: more cerebral edema on CT scan yesterday. remains very encephalopathic, intubated, obtunded. long conversation with family today where I explained current stroke and edema. family introduced the idea that if she would not come off life support or would need to be fully dependent on healthcare system, she would not want to live: will consult palliative care to assist with goals of care clarification. 10/29: remains intubated and encephalopathic. CT brain today demonstrates stable appearance of posterior fossa infarct and edema. neuro exam slightly better and now w/d x 4. 5/2: Remains encephalopathic, orally intubated on mechanical ventilation. Tolerating tube feeds. 5/3: Remains encephalopathic, orally intubated on mechanical ventilation. Tolerating tube feeds. 11/01: Remains encephalopathic, orally intubated on mechanical ventilation. Tolerating tube feeds. 53: Intubated off sedation for the last 5 days at least, remains unresponsive. Chest exam reveals bilateral wheezing. Breathing treatments scheduled and as needed ordered. Tmax 101.3, check chest x-ray sputum culture, blood culture and UA. According to the son at the bedside family might want to proceed with tracheostomy and PEG tube placement Objective Vital Signs Date Time Temp Pulse Resp B/P (MAP) Pulse Ox O2 Delivery O2 Flow Rate FiO2 11/02/17 08:29 30 11/02/17 08:14 97 11/02/17 08:00 100.3 77 23 120/80 (93) Intake and Output 11/02/17 11/02/17 11/03/17 08:00 16:00 00:00 Intake Total 738 ml 100 ml Output Total 975.0 ml Balance -237.0 ml 100 ml Result Diagram: 11/02/17 0542 11/02/17 0542 Imaging Last Impressions Neck CTA 10/26/17 0012 Signed Impressions: Service Date/Time: Thursday, October 26, 2017 00:12 - CONCLUSION: 1. No luminal narrowing or significant plaque formation. 2. Left dominant vertebral system. Anatoly Early MD Head CTA 10/26/17 0012 Signed Impressions: Service Date/Time: Thursday, October 26, 2017 00:12 - CONCLUSION: No evidence of vessel truncation. Anatoly Early MD Head CT 10/26/17 0000 Signed Impressions: Service Date/Time: Thursday, October 26, 2017 00:12 - CONCLUSION: 1. Multiple bilateral old infarcts, unchanged from 3 days ago. No acute findings. 2. Bilateral maxillary and ethmoid sinus disease. Anatoly Early MD Chest X-Ray 10/26/17 0000 Signed Impressions: Service Date/Time: Thursday, October 26, 2017 06:33 - CONCLUSION: ET tube as above. Luis Felipe Ayala MD Brain MRI 10/26/17 0000 Signed Impressions: Service Date/Time: Thursday, October 26, 2017 16:04 - CONCLUSION: 1. Acute right cerebellar infarct. No midline shift or mass effect. 2. Multiple old bilateral infarcts. Samuel Chen MD Objective Remarks HEENT/ Neuro: Encephalopathic, not following commands withdraws to pain x 4. Orally intubated, Pallor present, no icterus. Pupils reactive. No spontaneous eye opening Neck: No JVD Chest/Pulm: on mech vent, good air entry bilaterally. Bilateral wheezing. No crackles CVS: S1-S2 irregularly irregular, no murmur GI/abdomen: soft, nontender, bowel sounds sluggish Extremities: warm bilaterally, no edema Date of Insertion: Oct 26, 2017 A/P Assessment and Plan Assessment: 76yF with large cerebellar stroke and associated severe encephalopathy, hypoxic and hypercarbic respiratory failure. appreciate palliative care and neurology following. Overall, likely to have functionally dependent quality of life in SNF with full-time assistance. Also the family members are coming in this week and to make decision regarding trach and PEG. According to the son at the bedside family might want to proceed with tracheostomy and PEG tube placement Acute encephalopathy Acute cerebellar CVA Posterior fossa cerebral edema History of previous strokes Atrial fibrillation Mechanical mitral valve on anticoagulation Fever Subtherapeutic INR Acute hypoxic and hypercarbic respiratory failure on mechanical ventilation CAD CHF Dementia Hypothyroidism History of DVT Plan: Neuro: Off all sedation >5 days, according to RN sedation is off since 10/28/2017 frequent neuro checks 10/26 MRI brain-acute right cerebellar infarct. CT head 10/31/2017 shows stable right cerebellar infarct and multiple supratentorial infarct 10/27 EEG for further evaluation of altered mental status Neurology following- Dr. Kim. On ASA Cardiovascular: Continue home medications. hold coumadin for anticoagulation given size of stroke and edema. high concern for hemorrhagic conversion. Monitor INR Atrial fibrillation rate controlled Pulmonary: Continue mechanical ventilation Ventilator bundle, bronchodilators as needed. Mental status will not permit extubation Plan for tracheostomy soon a family wants to continue aggressive care wean fio2 for goal spo2 > 90% GI/liver: Tube feeds Jevity 1.5 and advance to goal 65 cc/hour as tolerated Will need PEG tube if family decides on aggressive care Bowel regimen, GI prophylaxis Renal/: IV hydration, strict intake output, Monitor and replete electrolytes, follow BUN/creatinine ID: Spiking fever up to 101.3. Santana culture requested follow-up on chest x-ray Start antibiotics if evidence of infection Heme: Monitor CBC and INR. hold anticoagulation. daily INRs. Endocrine: Watch for hypoglycemia, SSI for glycemic control if needed. TSH significantly elevated- 16 currently on levothyroxine 125 mcg/day Prophylaxis: Pepcid, SCDs. holding anticoagulation. Palliative care to assist with deciding goals of therapy as patient will require tracheostomy and PEG tube placement of aggressive care desired and overall prognosis appears poor. Level 2 Leonidas David MD November 02, 2017 10:57
[2017-11-02] MEDS: RESP: ALBUTEROL 2.5 MG/IPRATROPIUM 0.5 MG NEB (SCH) NEB ×3 (11:00→20:48)
--- NOTE | 2017-11-02 11:59 | RADRPT ---
EXAM DATE/TIME: 11/02/2017 11:03 [facility] COMPARISON: CHEST SINGLE AP, October 28, 2017, 5:54. INDICATIONS : Respiratory disease. MEDICAL HISTORY : Cardiovascular disease. Hypertension. Renal insufficiency, chronic. SURGICAL HISTORY : None. ENCOUNTER: Subsequent ACUITY: 1 week PAIN SCORE: Non-responsive. LOCATION: Bilateral chest FINDINGS: Portable AP view of the chest demonstrates cardiac silhouette size is mildly enlarged in this patient post median sternotomy and valve replacement. Endotracheal tube distal tip measures 2.8 cm from the sho and NG tube courses beyond the GE junction. Lungs are underinflated there is mild bibasilar op acity. No pneumothorax is visualized. Bones demonstrate no acute finding. CONCLUSION: Underinflation with mild bibasilar opacity which could represent atelectasis. Small bilateral pleural effusions could have a similar appearance. Consider good inspiratory formal PA and lateral views of the chest for further evaluation, if needed. Frankie Zhang MD on November 02, 2017 at 11:56 Board Certified Radiologist. This report was verified electronically.
[2017-11-02 12:26] LABS: BILIRUBIN, URINE NEG (NEG); GLUCOSE,URINE NEG (NEG); KETONE, URINE NEG (NEG); NITRITE,URINE NEG (NEG); URINE COLOR YELLOW (YELLW/STRAW); URINE LEUKOCYTE ESTERASE TRACE (NEG)
[2017-11-02 12:35] LABS: BLOOD, URINE TRACE (NEG)
[2017-11-02 12:37] LABS: BACTERIA, URINE OCC /hpf; SQUAMOUS EPITHELIAL CELL URINE 11 /hpf (0-5); TRANSITIONAL EPI CELLS, URINE 1 /hpf
[2017-11-03] VITALS (14 sets, daily range): BP systolic 115–138; BP diastolic 64–92; PULSE 70–81; RESP 20–24; TEMP 98.9–100.2; O2SAT 96–100
[2017-11-03] MEDS: SODIUM CHLOR 0.9% 1000 ML INJ 1,000 ML IV SCH ×2 (01:15→16:14)
[2017-11-03] MEDS: CHLORHEXIDINE GLUCONATE 2 % 1 PACK (2 CLOTHS) TOP SCH (03:42)
[2017-11-03] MEDS: INSULIN ASPART SUPPLEMENTAL SCALE SQ SCH ×4 (06:25→18:00)
[2017-11-03] MEDS: LEVOTHYROXINE SODIUM 125 MCG TAB PO SCH (06:25)
[2017-11-03 07:06] LABS: HEMATOCRIT 29.7 % (35.0-46.0); HEMOGLOBIN 10.1 GM/DL (11.6-15.3); MEAN CELL VOLUME 90.3 FL (80.0-100.0); MEAN CORPUSCULAR HEMOGLOBIN 30.6 PG (27.0-34.0); MEAN CORPUSCULAR HGB CONC 33.9 % (32.0-36.0); MEAN PLATELET VOLUME 8.4 FL (7.0-11.0); PLATELET COUNT 205 TH/MM3 (150-450); RED BLOOD COUNT 3.29 MIL/MM3 (4.00-5.30); RED CELL DISTRIBUTION WIDTH 14.2 % (11.6-17.2); WHITE BLOOD COUNT 8.1 TH/MM3 (4.0-11.0)
[2017-11-03 07:48] LABS: BICARBONATE 27.8 MEQ/L (21.0-32.0); CALCIUM 7.8 MG/DL (8.5-10.1)
[2017-11-03 07:49] LABS: CREATININE 0.43 MG/DL (0.50-1.00)
[2017-11-03] MEDS: CHLORHEXIDINE 0.12% (ORAL KIT) 15 ML CUP MT SCH ×2 (08:00→20:22)
[2017-11-03] MEDS: RESP: ALBUTEROL 2.5 MG/IPRATROPIUM 0.5 MG NEB (SCH) NEB ×3 (08:34→22:47)
[2017-11-03] MEDS: ARTIFICIAL TEARS OPTH SOLN 15 ML BTL EACH EYE SCH ×3 (09:00→18:00)
[2017-11-03] MEDS: SODIUM CHLORIDE 0.9% FLUSH 10 ML FLUSH IV FLUSH SCH ×2 (09:00→20:54)
[2017-11-03] MEDS: FAMOTIDINE 20 MG TAB PO SCH ×2 (09:24→20:54)
[2017-11-03] MEDS: DIGOXIN 0.125 MG TAB PO SCH (09:24)
[2017-11-03] MEDS: DOCUSATE SODIUM 50 MG/SENNA 8.6 MG TAB PO SCH ×2 (09:24→20:54)
[2017-11-03] MEDS: ATORVASTATIN 20 MG TAB PO SCH (09:24)
[2017-11-03] MEDS: SERTRALINE HCL 50 MG TAB PO SCH (09:24)
[2017-11-03] MEDS: MULTIVITAMIN TAB PO SCH (09:24)
[2017-11-03] MEDS: ASPIRIN 300 MG SUPP RECTAL SCH (09:24)
[2017-11-03] MEDS: levETIRAcetam INJ 100 ML IV SCH ×2 (09:24→20:54)
[2017-11-03] MEDS: CARVEDILOL 12.5 MG TAB PO SCH ×2 (09:24→20:54)
[2017-11-03] MEDS: amLODIPine BESYLATE 5 MG TAB PO SCH (10:28)
[2017-11-03] MEDS: LINEZOLID 600 MG PREMIX 300 ML IV SCH (13:11)
[2017-11-03] MEDS: LEVOFLOXACIN 750 MG PREMIX INJ 150 ML IV SCH (14:24)
--- NOTE | 2017-11-03 14:46 | HHI.CCPN ---
Subjective Remarks/Hospital Course The patient is a 76-year-old female that was apparently alert and talking prior to 11 PM tonight when she started vomiting. She then became comatose, [facility] was called and they intubated the patient using etomidate and Versed. 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 There has not been any head trauma. After intubation and Versed the blood pressure is 127/90. No seizure activity noted per ER physician. Patient was kept sedated orally intubated overnight on mechanical ventilation. She is starting to arousable although not following commands. She does try to open her eyes on command. Per nursing staff she was moving all [address] done in the ER did not reveal any acute bleed and had evidence of old strokes. Dr. Kim from neurology was contacted by ER physician and will be evaluating patient. When I evaluated the patient this morning she sedated with propofol, orally intubated on mechanical ventilation. History is obtained by reviewing records and discussion with nursing staff. Subjective: 10/27: The patient currently remains intubated and sedated. EEG in process. MRI revealed acute right cerebellar. or infarct. Sedation vacation pending. 10/28: more cerebral edema on CT scan yesterday. remains very encephalopathic, intubated, obtunded. long conversation with family today where I explained current stroke and edema. family introduced the idea that if she would not come off life support or would need to be fully dependent on healthcare system, she would not want to live: will consult palliative care to assist with goals of care clarification. 10/29: remains intubated and encephalopathic. CT brain today demonstrates stable appearance of posterior fossa infarct and edema. neuro exam slightly better and now w/d x 4. 5/2: Remains encephalopathic, orally intubated on mechanical ventilation. Tolerating tube feeds. 3: Remains encephalopathic, orally intubated on mechanical ventilation. Tolerating tube feeds. 11/01: Remains encephalopathic, orally intubated on mechanical ventilation. Tolerating tube feeds. 11/02: Intubated off sedation for the last 5 days at least, remains unresponsive. Chest exam reveals bilateral wheezing. Breathing treatments scheduled and as needed ordered. Tmax 101.3, check chest x-ray sputum culture, blood culture and UA. According to the son at the bedside family might want to proceed with tracheostomy and PEG tube placement 11/03: Remains encephalopathic, orally intubated on mechanical ventilation. Grimaces with painful stimuli however not following commands. Objective Vital Signs Date Time Temp Pulse Resp B/P (MAP) Pulse Ox O2 Delivery O2 Flow Rate FiO2 11/03/17 12:02 98 30 11/03/17 12:00 70 11/03/17 12:00 99.7 20 119/67 (84) Intake and Output 11/03/17 11/03/17 11/04/17 08:00 16:00 00:00 Intake Total 824 ml 400 ml Output Total 825.0 ml 0 ml Balance -1.0 ml 400 ml Result Diagram: 11/03/17 0640 11/03/17 0640 Other Results Microbiology Date/Time Source Procedure Growth Status 11/02/17 11:55 Urine Catheterized Urine Urine Culture - Final 50-100,000 CFU/ML MIXED SHIRA... Complete Imaging Last Impressions Neck CTA 10/26/17 0012 Signed Impressions: Service Date/Time: Thursday, October 26, 2017 00:12 - CONCLUSION: 1. No luminal narrowing or significant plaque formation. 2. Left dominant vertebral system. Anatoly Early MD Head CTA 10/26/17 0012 Signed Impressions: Service Date/Time: Thursday, October 26, 2017 00:12 - CONCLUSION: No evidence of vessel truncation. Anatoly Early MD Head CT 10/26/17 0000 Signed Impressions: Service Date/Time: Thursday, October 26, 2017 00:12 - CONCLUSION: 1. Multiple bilateral old infarcts, unchanged from 3 days ago. No acute findings. 2. Bilateral maxillary and ethmoid sinus disease. Anatoly Early MD Chest X-Ray 10/26/17 0000 Signed Impressions: Service Date/Time: Thursday, October 26, 2017 06:33 - CONCLUSION: ET tube as above. Luis Felipe Ayala MD Brain MRI 10/26/17 0000 Signed Impressions: Service Date/Time: Thursday, October 26, 2017 16:04 - CONCLUSION: 1. Acute right cerebellar infarct. No midline shift or mass effect. 2. Multiple old bilateral infarcts. Samuel Chen MD Objective Remarks HEENT/ Neuro: Encephalopathic, not following commands withdraws to pain x 4. Orally intubated, Pallor present, no icterus. Pupils reactive. No spontaneous eye opening Neck: No JVD Chest/Pulm: on mech vent, good air entry bilaterally. Bilateral wheezing. No crackles CVS: S1-S2 irregularly irregular, no murmur GI/abdomen: soft, nontender, bowel sounds sluggish Extremities: warm bilaterally, no edema Date of Insertion: Oct 26, 2017 A/P Assessment and Plan Assessment: 76yF with large cerebellar stroke and associated severe encephalopathy, hypoxic and hypercarbic respiratory failure. appreciate palliative care and neurology following. Overall, likely to have functionally dependent quality of life in SNF with full-time assistance. Also the family members are coming in to make decision regarding trach and PEG. 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 CT head 10/31/2017 shows stable right cerebellar infarct and multiple supratentorial infarct 10/27 EEG for further evaluation of altered mental status Neurology following- Dr. Kim. On ASA Cardiovascular: Continue home medications. hold coumadin for anticoagulation given size of stroke and edema. high concern for hemorrhagic conversion. Monitor INR Atrial fibrillation rate controlled Pulmonary: Continue mechanical ventilation Ventilator bundle, bronchodilators as needed. Mental status will not permit extubation Awaiting decision by family regarding tracheostomy as patient is currently not extubated able due to inability to protect airway. wean fio2 for goal spo2 > 90% GI/liver: Tube feeds Jevity 1.5 and advance to goal 65 cc/hour as tolerated Will need PEG tube if family decides on aggressive care Bowel regimen, GI prophylaxis Renal/: IV hydration, strict intake output, Monitor and replete electrolytes, follow BUN/creatinine ID: Spiking fever up to 101.3. Santana culture requested follow-up on chest x-ray Sputum culture from 11/02 growing MRSA/gram-negative rods. Starting antibiotics: Zyvox, levaquin on 11/03. Heme: Monitor CBC and INR. hold anticoagulation. daily INRs. Endocrine: Watch for hypoglycemia, SSI for glycemic control if needed. TSH significantly elevated- 16 currently on levothyroxine 125 mcg/day Prophylaxis: Pepcid, SCDs. holding anticoagulation. Palliative care to assist with deciding goals of therapy as patient will require tracheostomy and PEG tube placement of aggressive care desired and overall prognosis appears poor. Awaiting family meeting later today following arrival of patient's children. Level 2 Armani Rodriguez MD November 03, 2017 14:46
[2017-11-03] MEDS: ACETAMINOPHEN 325 MG TAB PO PRN (16:13)
[2017-11-04] VITALS (16 sets, daily range): BP systolic 128–176; BP diastolic 66–76; PULSE 66–90; RESP 20–22; TEMP 98.9–99.8; O2SAT 95–100
[2017-11-04] MEDS: SODIUM CHLOR 0.9% 1000 ML INJ 1,000 ML IV SCH ×2 (00:09→12:08)
[2017-11-04] MEDS: INSULIN ASPART SUPPLEMENTAL SCALE SQ SCH ×4 (00:15→17:49)
[2017-11-04] MEDS: LINEZOLID 600 MG PREMIX 300 ML IV SCH ×2 (00:16→12:00)
[2017-11-04] MEDS: CHLORHEXIDINE GLUCONATE 2 % 1 PACK (2 CLOTHS) TOP SCH (04:00)
[2017-11-04] MEDS: RESP: ALBUTEROL 2.5 MG/IPRATROPIUM 0.5 MG NEB (SCH) NEB ×4 (04:28→21:21)
[2017-11-04 06:10] LABS: HEMATOCRIT 31.9 % (35.0-46.0); HEMOGLOBIN 10.9 GM/DL (11.6-15.3); MEAN CELL VOLUME 90.5 FL (80.0-100.0); MEAN CORPUSCULAR HEMOGLOBIN 30.9 PG (27.0-34.0); MEAN CORPUSCULAR HGB CONC 34.1 % (32.0-36.0); MEAN PLATELET VOLUME 8.5 FL (7.0-11.0); PLATELET COUNT 229 TH/MM3 (150-450); RED BLOOD COUNT 3.52 MIL/MM3 (4.00-5.30); RED CELL DISTRIBUTION WIDTH 14.1 % (11.6-17.2); WHITE BLOOD COUNT 9.3 TH/MM3 (4.0-11.0)
[2017-11-04 06:27] LABS: BICARBONATE 28.7 MEQ/L (21.0-32.0); CALCIUM 8.2 MG/DL (8.5-10.1); CREATININE 0.54 MG/DL (0.50-1.00)
[2017-11-04] MEDS: LEVOTHYROXINE SODIUM 125 MCG TAB PO SCH (06:39)
[2017-11-04] MEDS: CHLORHEXIDINE 0.12% (ORAL KIT) 15 ML CUP MT SCH ×2 (08:16→20:43)
[2017-11-04] MEDS: DIGOXIN 0.125 MG TAB PO SCH (08:53)
[2017-11-04] MEDS: amLODIPine BESYLATE 5 MG TAB PO SCH (08:53)
[2017-11-04] MEDS: levETIRAcetam INJ 100 ML IV SCH ×2 (08:53→20:43)
[2017-11-04] MEDS: FAMOTIDINE 20 MG TAB PO SCH ×2 (08:53→20:43)
[2017-11-04] MEDS: CARVEDILOL 12.5 MG TAB PO SCH ×2 (08:53→20:43)
[2017-11-04] MEDS: ASPIRIN 300 MG SUPP RECTAL SCH (08:53)
[2017-11-04] MEDS: ATORVASTATIN 20 MG TAB PO SCH (08:53)
[2017-11-04] MEDS: MULTIVITAMIN TAB PO SCH (08:53)
[2017-11-04] MEDS: DOCUSATE SODIUM 50 MG/SENNA 8.6 MG TAB PO SCH ×2 (08:53→20:43)
[2017-11-04] MEDS: ARTIFICIAL TEARS OPTH SOLN 15 ML BTL EACH EYE SCH ×3 (08:54→17:49)
[2017-11-04] MEDS: SODIUM CHLORIDE 0.9% FLUSH 10 ML FLUSH IV FLUSH SCH ×2 (08:54→20:43)
[2017-11-04] MEDS: SERTRALINE HCL 50 MG TAB PO SCH (08:54)
--- NOTE | 2017-11-04 13:21 | RADRPT ---
EXAM DATE/TIME: 11/04/2017 12:31 [facility] COMPARISON: MRI BRAIN W/O CONTRAST, October 26, 2017, 16:04. CT BRAIN W/O CONTRAST, October 31, 2017, 9:22. INDICATIONS : Altered mental status. RADIATION DOSE: 56.35 CTDIvol (mGy) MEDICAL HISTORY : Stroke. Hypertension. SURGICAL HISTORY : Non-responsive. ENCOUNTER: Initial ACUITY: 1 day PAIN SCALE: Non-responsive LOCATION: Bilateral head TECHNIQUE: Multiple contiguous axial images were obtained of the head. Using automated exposure control and adj ustment of the mA and/or kV according to patient size, radiation dose was kept as low as reasonably a chievable to obtain optimal diagnostic quality images. DICOM format image data is available electro nically for review and comparison. FINDINGS: CEREBRUM: The ventricles and cortical sulci are widened. There is expansion of the extra-axial spaces especiall y posteriorly. There is encephalomalacia involving portions of the left frontal lobe, left temporal l obe, left occipital lobe right frontal, right parietal, and right occipital regions. There is decrea sed density seen throughout the periventricular white matter. are normal for age. No evidence of mid line shift, mass lesion, hemorrhage or acute infarction. POSTERIOR FOSSA: There is low-density in the posterior aspects of the ernie. There is areas of recent infarction seen i n the right cerebellar hemisphere. There is a linear area of encephalomalacia involving the left cere bellar hemisphere. The 4th ventricle is midline. The cerebellopontine angle is unremarkable. EXTRACRANIAL: The visualized portion of the orbits is intact. There is opacification of the maxillary sinuses. Ther e is sinus disease seen at the ethmoid and sphenoid sinuses. SKULL: The calvaria is intact. No evidence of skull fracture. CONCLUSION: 1. Persistent area of recent infarction at the right cerebellar hemisphere. 2. Multiple areas of encephalomalacia in the cerebral hemispheres and the left cerebellar hemisphere. 3. Atrophy. 4. Suspected small vessel ischemic change in the white matter. 5. Sinus disease. Frankie Zamudio MD on November 04, 2017 at 13:11 Board Certified Radiologist. This report was verified electronically.
[2017-11-04] MEDS: LEVOFLOXACIN 750 MG PREMIX INJ 150 ML IV SCH (13:58)
--- NOTE | 2017-11-04 16:20 | HHI.HCPN ---
Reason for visit a. To assist with evaluation and management of symptoms including: Encephalopathy, pain b. To assist medical decision maker(s) with: better understanding of current medical conditions; weighing benefits/burdens of medical treatment options; making medical treatment decisions. . Subjective/Interval History Follow up visit for clarifications of goals of care. Patient seen in surgical ICU, remains endotracheally intubated on mechanical ventilation. Appears neurological condition improving, patient alert, tracking with eyes. Speaks Kinyarwanda, christine Ballard interpreting during my evaluation. Patient moving feet and toes to commands, squeezing left hand to command, tracking but not attempting to communicate. Patient without sedation for over a week, appears comfortable during my visit. Repeat head CT today revealing persistent area of recent infarct at the right cerebellar hemisphere, multiple areas of encephalomalacia in the cerebral hemispheres in the left cerebellar hemisphere, atrophy and suspected small vessel ischemic changes in the white matter. Most recent chest x-ray 11/02 revealing underinflation with mild bibasilar opacity which could represent atelectasis. Patient tolerating CPAP trials during my visit. Laboratory workup today revealing WBC 9.3, Hgb stable at 10.9, BUN/creatinine 12 /0.54. Sputum culture 11/02 positive for staph aureus MRSA, gram-negative ian. Spoke with patient's son Elio at bedside. Family to meet with neurology Dr. Kim this evening. Additional family member suspected to arrive later today. Son verbalized feeling optimistic with patient's neurological condition, perception of improvement. Receptive to palliative care follow-ups after discussion with neurology Dr. Kim. . Family/friend interactions See interval note. . Advance Directives Health Care Surrogate: Copy in medical record Advance Directive Specifics Date completed: 07/13/2015 . Health Care Surrogate(s): Omega Low (RUBY) is designated as the [facility] decision maker; Lynsey Little is the alternate [facility] decision maker. . Documented care wishes: No documented care wishes are available other than the designation of healthcare surrogate. . Objective Vital Signs Date Time Temp Pulse Resp B/P (MAP) Pulse Ox O2 Delivery O2 Flow Rate FiO2 11/04/17 16:00 30 11/04/17 16:00 80 11/04/17 14:00 66 11/04/17 12:00 99.3 74 22 137/66 (89) 99 11/04/17 12:00 30 5/7/18 12:00 73 11/04/17 10:00 84 11/04/17 08:49 30 11/04/17 08:43 99 30 11/04/17 08:43 30 11/04/17 08:00 99.8 90 22 176/76 (109) 97 11/04/17 08:00 78 11/04/17 08:00 30 11/04/17 06:00 79 11/04/17 04:20 100 30 11/04/17 04:00 30 11/04/17 04:00 99.8 78 20 132/70 (90) 96 11/04/17 04:00 78 11/04/17 02:00 76 11/04/17 00:00 99.4 76 21 129/69 (89) 98 11/04/17 00:00 76 11/04/17 00:00 30 11/03/17 22:47 100 30 11/03/17 22:00 72 11/03/17 20:00 78 11/03/17 20:00 30 11/03/17 20:00 99.3 78 22 132/92 (105) 98 11/03/17 16:34 99.5 73 20 138/69 (92) 100 11/03/17 16:34 73 Intake & Output 11/04/17 11/04/17 06:59 18:59 Intake Total 823 ml 550 ml Output Total 1000 ml Balance -177 ml 550 ml IV Total 550 ml Tube Feeding 723 ml Other 100 ml Output Urine Total 1000 ml # Bowel Movements 1 Physical Exam CONSTITUTIONAL/GENERAL: This is an elderly, female patient in no acute distress TUBES/LINES/DRAINS: PIV 2, OGT, ETT, SCDs, urinary catheter SKIN: No jaundice, rashes, or lesions. Ecchymoses on upper extremities. No wounds seen anteriorly. Skin temperature appropriate. Not diaphoretic. HEAD: Atraumatic. Normocephalic. EYES: Pupils equal and round and reactive. Extraocular motions intact. No scleral icterus. No injection or drainage. ENT: Hearing grossly normal. Nose without bleeding or purulent drainage. Moist oral mucosa. NECK: Trachea midline. Supple, nontender. CARDIOVASCULAR: Irregularly irregular without murmurs, gallops, or rubs. No JVD. Peripheral pulses symmetric. RESPIRATORY/CHEST: Symmetric, unlabored respirations. Clear to auscultation. Breath sounds diminished bilaterally. No wheezes, rales, or rhonchi. GASTROINTESTINAL: Abdomen soft, non-tender, nondistended. No guarding. Bowel sounds present. GENITOURINARY: Without palpable bladder distension. Alvares catheter in place. MUSCULOSKELETAL: Extremities without clubbing, cyanosis, or edema. No mottling or clubbing. NEUROLOGICAL: Tracking, moving bilateral lower extremities and left hand to command. PSYCHIATRIC: Appears calm. . Diagnostic Tests Laboratory Laboratory Tests Test 11/02/17 05:42 11/02/17 11:55 11/03/17 06:40 11/04/17 04:36 White Blood Count 8.0 TH/MM3 (4.0-11.0) 8.1 TH/MM3 (4.0-11.0) 9.3 TH/MM3 (4.0-11.0) Red Blood Count 3.51 MIL/MM3 (4.00-5.30) 3.29 MIL/MM3 (4.00-5.30) 3.52 MIL/MM3 (4.00-5.30) Hemoglobin 10.8 GM/DL (11.6-15.3) 10.1 GM/DL (11.6-15.3) 10.9 GM/DL (11.6-15.3) Hematocrit 31.6 % (35.0-46.0) 29.7 % (35.0-46.0) 31.9 % (35.0-46.0) Mean Corpuscular Volume 90.1 FL (80.0-100.0) 90.3 FL (80.0-100.0) 90.5 FL (80.0-100.0) Mean Corpuscular Hemoglobin 30.7 PG (27.0-34.0) 30.6 PG (27.0-34.0) 30.9 PG (27.0-34.0) Mean Corpuscular Hemoglobin Concent 34.1 % (32.0-36.0) 33.9 % (32.0-36.0) 34.1 % (32.0-36.0) Red Cell Distribution Width 14.1 % (11.6-17.2) 14.2 % (11.6-17.2) 14.1 % (11.6-17.2) Platelet Count 207 TH/MM3 (150-450) 205 TH/MM3 (150-450) 229 TH/MM3 (150-450) Mean Platelet Volume 8.5 FL (7.0-11.0) 8.4 FL (7.0-11.0) 8.5 FL (7.0-11.0) Prothrombin Time 10.4 SEC (9.8-11.6) Prothromb Time International Ratio 1.0 RATIO Activated Partial Thromboplast Time 29.1 SEC (24.3-30.1) Blood Urea Nitrogen 12 MG/DL (7-18) 14 MG/DL (7-18) 12 MG/DL (7-18) Creatinine 0.53 MG/DL (0.50-1.00) 0.43 MG/DL (0.50-1.00) 0.54 MG/DL (0.50-1.00) Random Glucose 176 MG/DL (74-106) 171 MG/DL (74-106) 184 MG/DL (74-106) Calcium Level 8.1 MG/DL (8.5-10.1) 7.8 MG/DL (8.5-10.1) 8.2 MG/DL (8.5-10.1) Sodium Level 144 MEQ/L (136-145) 143 MEQ/L (136-145) 144 MEQ/L (136-145) Potassium Level 3.9 MEQ/L (3.5-5.1) 3.8 MEQ/L (3.5-5.1) 3.7 MEQ/L (3.5-5.1) Chloride Level 110 MEQ/L (98-107) 109 MEQ/L (98-107) 109 MEQ/L (98-107) Carbon Dioxide Level 28.3 MEQ/L (21.0-32.0) 27.8 MEQ/L (21.0-32.0) 28.7 MEQ/L (21.0-32.0) Anion Gap 6 MEQ/L (5-15) 6 MEQ/L (5-15) 6 MEQ/L (5-15) Estimat Glomerular Filtration Rate 112 ML/MIN (>89) 142 ML/MIN (>89) 109 ML/MIN (>89) Urine Color YELLOW (YELLW/STRAW) Urine Turbidity HAZY (CLEAR) Urine pH 7.0 (5.0-8.5) Urine Specific [place] 1.017 (1.002-1.035) Urine Protein 300 OR GREATER mg/dL Urine Glucose (UA) NEG mg/dL (NEG) Urine Ketones NEG mg/dL (NEG) Urine Occult Blood TRACE (NEG) Urine Nitrite NEG (NEG) Urine Bilirubin NEG (NEG) Urine Urobilinogen 2.0 MG/DL (LESS THAN Urine Leukocyte Esterase TRACE (NEG) Urine RBC 3 /hpf (0-3) Urine WBC 39 /hpf (0-5) Urine Squamous Epithelial Cells 11 /hpf (0-5) Urine Transitional Epithelial Cells 1 /hpf (NONE) Urine Bacteria OCC /hpf (NONE) Microscopic Urinalysis Comment CATH-CULTURE IND Result Diagram: 11/04/17 0436 11/04/17435 Microbiology Microbiology Date/Time Source Procedure Growth Status 11/02/17 12:30 Blood Peripheral Aerobic Blood Culture - Preliminary NO GROWTH IN 2 DAYS Resulted 11/02/17 12:30 Blood Peripheral Anaerobic Blood Culture - Preliminary NO GROWTH IN 2 DAYS Resulted 11/02/17 12:25 Blood Peripheral Aerobic Blood Culture - Preliminary NO GROWTH IN 2 DAYS Resulted 11/02/17 12:25 Blood Peripheral Anaerobic Blood Culture - Preliminary NO GROWTH IN 2 DAYS Resulted 11/02/17 11:55 Sputum Endotracheal Gram Stain - Final Resulted 11/02/17 11:55 Sputum Culture - Preliminary S. Aureus Mrsa Gram Negative Ian Resulted 11/02/17 11:55 Urine Catheterized Urine Urine Culture - Final 50-100,000 CFU/ML MIXED SHIRA... Complete Imaging Last [address] 11/04/17 0900 Signed Impressions: Service Date/Time: Saturday, November 04, 2017 12:31 - CONCLUSION: 1. Persistent area of recent infarction at the right cerebellar hemisphere. 2. Multiple areas of encephalomalacia in the cerebral hemispheres and the left cerebellar hemisphere. 3. Atrophy. 4. Suspected small vessel ischemic change in the white matter. 5. Sinus disease. Frankie Zamudio MD Procedures * 10/26/2017 -tracheal intubation . Assessment and Plan Disease Oriented Problem List: (1) Ischemic cerebrovascular accident (CVA) (2) H/O mitral valve replacement with mechanical valve (3) Acute respiratory failure with hypoxia and hypercarbia (4) CAD (coronary artery disease) (5) CHF (congestive heart failure) (6) Dementia (7) Hypothyroidism (8) History of DVT (deep vein thrombosis) (9) Atrial fibrillation with RVR Symptom Scale: (1) Encephalopathy 0-10 Scale: Unable to quantify (2) Pain 0-10 Scale: Unable to quantify Pertinent Non-Medical Issues Psychosocial:Patient is originally from [place]. She is a ; her approximately 18 years ago. Patient 3 daughters and 4 sons. She has 11 grandchildren and at least one great grandchild. The patient lives with her son. Four of her children live locally, to live in [place] and one is in [facility]. The patient has a private nurse who cares for her during the day. Spiritual: [employer] Legal: Omega Low is designated as the [facility] decision maker; Lynsey Little is the alternate [facility] decision maker. Ethical issues impacting care: No known ethical issues impacting care at this time. . Important Contacts Lynsey Little, daughter: [phone] Chelsea Low, daughter: [phone] Son Elio from [place] Son Tamar from [place] Son Dorian Son Micaela . Prognosis Patient is a 76-year-old female status post large cerebellar stroke and associated severe encephalopathy, hypoxic and hypercarbic respiratory failure. Patient will likely remain functionally dependent requiring total assistance. Given her age and multiple comorbidities, she will remain high risk for complications and ongoing decline. . Code Status: Full Code Plan * FULL CODE * Decision-making: Given patient's current clinical condition, she is unable to participate in establishment of medical treatment goals. Healthcare surrogate designation form was completed on 07/13/2015 and designates daughter, Omega Low (RUBY ), as the primary [facility] decision maker. Daughter, Lynsey Little, is the designated alternate [facility] decision maker. * AGGRESSIVE GOALS. * Patient's family has indicated that the patient would not want to be kept alive on artificial life support for an extended period of time. Family considering proceeding with tracheostomy and PEG tube placement if patient is unable to medically extubate. * Palliative care contact information was provided to the family. * Symptom management: == Encephalopathy: Secondary to acute right cerebellar infarct. Of sedation for the past 7 days, appears neurologically improving. Tracking of following simple commands during my visit. == Pain: Multifactorial. Contributing factors may include poor circulation, invasive lines, immobility, bedbound status etc. Patient showing no non-verbal s/s pain off sedation. PRN acetaminophen and morphine are available. * Palliative care will continue to follow this patient throughout her hospitalization to establish stress, assist with symptom management and clarification of medical treatment goals. . Time Spent Total Floor Time (mins): 32 (Total time to include review of available medical records since last visit, physical exam, conversation with patient's son, case discussion with bedside RN.) >50% Counseling/Coord of Care: Yes Attestation To help prompt me to consider important information that might be impacting today's encounter and assessment, information from prior notes written by myself or my colleagues may have been "brought forward" into today's note. My signature on this note, however, is an attestation that I personally performed the exam, history, and/or decision-making noted today, and, unless otherwise indicated, the interactions with patient, family, and staff as well as the review of records all occurred today. I also attest that the listed assessment and stated plan reflect my best clinical judgment today based on the combination of historical information, prior notes, and today's exam/ interactions. When time spent is documented, it refers only to time spent today by the signer, or if indicated, combined time spent today by collaborating physician/nurse practitioner. Carole Marina November 04, 2017 16:19
--- NOTE | 2017-11-04 17:52 | HHI.CCPN ---
Subjective Remarks/Hospital Course The patient is a 76-year-old female that was apparently alert and talking prior to 11 PM tonight when she started vomiting. She then became comatose, [facility] was called and they intubated the patient using etomidate and Versed. 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 There has not been any head trauma. After intubation and Versed the blood pressure is 127/90. No seizure activity noted per ER physician. Patient was kept sedated orally intubated overnight on mechanical ventilation. She is starting to arousable although not following commands. She does try to open her eyes on command. Per nursing staff she was moving all [address] done in the ER did not reveal any acute bleed and had evidence of old strokes. Dr. Kim from neurology was contacted by ER physician and will be evaluating patient. When I evaluated the patient this morning she sedated with propofol, orally intubated on mechanical ventilation. History is obtained by reviewing records and discussion with nursing staff. Subjective: 10/27: The patient currently remains intubated and sedated. EEG in process. MRI revealed acute right cerebellar. or infarct. Sedation vacation pending. 10/28: more cerebral edema on CT scan yesterday. remains very encephalopathic, intubated, obtunded. long conversation with family today where I explained current stroke and edema. family introduced the idea that if she would not come off life support or would need to be fully dependent on healthcare system, she would not want to live: will consult palliative care to assist with goals of care clarification. 10/29: remains intubated and encephalopathic. CT brain today demonstrates stable appearance of posterior fossa infarct and edema. neuro exam slightly better and now w/d x 4. 5/2: Remains encephalopathic, orally intubated on mechanical ventilation. Tolerating tube feeds. 3: Remains encephalopathic, orally intubated on mechanical ventilation. Tolerating tube feeds. 11/01: Remains encephalopathic, orally intubated on mechanical ventilation. Tolerating tube feeds. 11/02: Intubated off sedation for the last 5 days at least, remains unresponsive. Chest exam reveals bilateral wheezing. Breathing treatments scheduled and as needed ordered. Tmax 101.3, check chest x-ray sputum culture, blood culture and UA. According to the son at the bedside family might want to proceed with tracheostomy and PEG tube placement 11/03: Remains encephalopathic, orally intubated on mechanical ventilation. Grimaces with painful stimuli however not following commands. 11/04: Squeezes hands today. Discussed with Dr. Kim. He will start heparin gtt , convert to coumadin after tracheostomy. Objective Vital Signs Date Time Temp Pulse Resp B/P (MAP) Pulse Ox O2 Delivery O2 Flow Rate FiO2 11/04/17 16:41 99 30 11/04/17 16:00 80 11/04/17 12:00 99.3 22 137/66 (89) Intake and Output 11/04/17 11/04/17 11/05/17 08:00 16:00 00:00 Intake Total 823 ml 550 ml Output Total 1000 ml Balance -177 ml 550 ml Result Diagram: 11/04/17 0436 11/04/17 0436 Other Results Microbiology Date/Time Source Procedure Growth Status 11/02/17 11:55 Urine Catheterized Urine Urine Culture - Final 50-100,000 CFU/ML MIXED SHIRA... Complete Imaging Last Impressions Neck CTA 10/26/17 001 Signed Impressions: Service Date/Time: Thursday, October 26, 2017 00:12 - CONCLUSION: 1. No luminal narrowing or significant plaque formation. 2. Left dominant vertebral system. Anatoly Early MD Head CTA 10/26/17 001 Signed Impressions: Service Date/Time: Thursday, October 26, 2017 00:12 - CONCLUSION: No evidence of vessel truncation. Anatoly Early MD Head CT 10/26/17 0000 Signed Impressions: Service Date/Time: Thursday, October 26, 2017 00:12 - CONCLUSION: 1. Multiple bilateral old infarcts, unchanged from 3 days ago. No acute findings. 2. Bilateral maxillary and ethmoid sinus disease. Anatoly Early MD Chest X-Ray 10/26/17 0000 Signed Impressions: Service Date/Time: Thursday, October 26, 2017 06:33 - CONCLUSION: ET tube as above. Luis Felipe Ayala MD Brain MRI 10/26/17 0000 Signed Impressions: Service Date/Time: Thursday, October 26, 2017 16:04 - CONCLUSION: 1. Acute right cerebellar infarct. No midline shift or mass effect. 2. Multiple old bilateral infarcts. Samuel Chen MD Objective Remarks HEENT/ Pallor present, no icterus. Neck: No JVD Chest/Pulm: on mech vent, good air entry bilaterally. Bilateral light wheezing. No crackles CVS: S1-S2 irregularly irregular, no murmur, no JVD. GI/abdomen: Soft, nontender, bowel sounds sluggish. No guarding. Extremities: Warm bilaterally, no edema Neuro: Neuro: Encephalopathic, squeezes hands commands withdraws to pain x 4. Orally intubated, Date of Insertion: Oct 26, 2017 A/P Assessment and Plan Assessment: 76yF with large cerebellar stroke and associated severe encephalopathy, hypoxic and hypercarbic respiratory failure. appreciate palliative care and neurology following. Overall, likely to have functionally dependent quality of life in SNF with full-time assistance. Also the family members are coming in to make decision regarding trach and PEG. 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 CT head 10/31/2017 shows stable right cerebellar infarct and multiple supratentorial infarct 10/27 EEG for further evaluation of altered mental status Neurology following- Dr. Kim. On ASA Start heparin gtt. Cardiovascular: Continue home medications. hold coumadin for anticoagulation given size of stroke and edema. high concern for hemorrhagic conversion. Monitor INR Atrial fibrillation rate controlled Pulmonary: Continue mechanical ventilation Ventilator bundle, bronchodilators as needed. Mental status will not permit extubation Awaiting decision by family regarding tracheostomy as patient is currently not extubated able due to inability to protect airway. wean fio2 for goal spo2 > 90% GI/liver: Tube feeds Jevity 1.5 and advance to goal 65 cc/hour as tolerated Will need PEG tube if family decides on aggressive care Bowel regimen, GI prophylaxis Renal/: IV hydration, strict intake output, Monitor and replete electrolytes, follow BUN/creatinine ID: Spiking fever up to 101.3. Santana culture requested follow-up on chest x-ray Sputum culture from 11/02 growing MRSA/gram-negative rods. Starting antibiotics: Zyvox, levaquin on 11/03. Heme: Monitor CBC and INR. hold anticoagulation. daily INRs. Endocrine: Watch for hypoglycemia, SSI for glycemic control if needed. TSH significantly elevated- 16 currently on levothyroxine 125 mcg/day Prophylaxis: Pepcid, SCDs. holding anticoagulation. Overall impression: Family encouraged today, will decide if want to proceed with trach/PEG. Greg Cole MD November 04, 2017 17:52
--- NOTE | 2017-11-04 17:57 | HHI.PR ---
Review/Management Diagnosis right cerebellar stroke--exam improving atrial fibrillation Plan start iv heparin with no boluses. Delay starting coumadin in anticipation of possible tracheostomy and PEG tube placement Diagnosis/Plan: Subjective Subjective Comments No acute events reported Patient has been more responsive and following commands. Active Medications Current Medications Medications (Trade) Dose Ordered Sig/Nitin Route Start Time Stop Time Status Last Admin (Norvasc) 5 mg DAILY PO 10/26/17 09:00 11/04/17 08:53 (Lipitor) 20 mg DAILY PO 10/26/17 09:00 11/04/17 08:53 (Coreg) 12.5 mg BID PO 10/26/17 09:00 11/04/17 08:53 (Lanoxin) 0.125 mg DAILY PO 10/26/17 09:00 11/04/17 08:53 (Zoloft) 50 mg DAILY PO 10/26/17 09:00 11/04/17 08:54 (Theragran) 1 tab DAILY PO 10/26/17 09:00 11/04/17 08:53 Levetriacetam 100 ml @ 400 mls/hr Q12HR IV 10/26/17 01:45 11/04/17 08:53 Sodium Chloride 1,000 ml @ 84 mls/hr [id number] IV 10/26/17 01:39 11/04/17 12:08 (Tylenol) 650 mg Q6H PRN PO 10/26/17 01:45 11/03/17 16:13 (Morphine Inj) 2 mg Q2H PRN IV PUSH 10/26/17 01:45 10/28/17 18:25 (Ativan Inj) 1 mg Q1H PRN IV PUSH 10/26/17 01:45 (Tears Naturale Opth Soln) 1 drop TID EACH EYE 10/26/17 09:00 11/04/17 17:49 (Zofran Inj) 4 mg Q6H PRN IV PUSH 10/26/17 01:45 (Duoneb Neb) 1 ampule Q2HR NEB PRN INH 10/26/17 01:45 11/02/17 10:44 ([facility]) 1 [id number] XX 10/26/17 01:45 10/26/17 01:45 (Chlorhexidine 2% Cloth) Taper DAILY@04 TOP 10/26/17 04:00 10/22/18 03:59 10/28/17 00:53 (Chlorhexidine 2% Cloth) 3 pack UNSCH PRN TOP 10/26/17 01:45 (Ivette-Colace) 1 tab BID PO 10/26/17 09:00 11/04/17 08:53 (Milk Of Magnesia Liq) 30 ml Q12H PRN PO 10/26/17 01:45 (Senokot) 17.2 mg Q12H PRN PO 10/26/17 01:45 (Dulcolax Supp) 10 mg DAILY PRN RECTAL 10/26/17 01:45 (Lactulose Liq) 30 ml DAILY PRN PO 10/26/17 01:45 (Peridex 0.12% Liq) 15 ml BID@08,20 MT 10/26/17 08:00 11/04/17 08:16 Propofol 100 ml @ 1.878 mls/ hr TITRATE PRN IV 10/26/17 01:45 10/28/17 00:52 (NS Flush) 2 ml BID IV FLUSH 10/26/17 09:00 11/03/17 20:54 (NS Flush) 2 ml UNSCH PRN IV FLUSH 10/26/17 09:00 (D50w (Vial) Inj) 50 ml UNSCH PRN IV PUSH 10/26/17 09:00 (Glucagon Inj) 1 mg UNSCH PRN OTHER 10/26/17 09:00 (Aspirin Supp) 300 mg DAILY RECTAL 10/28/17 09:00 11/04/17 08:53 (NovoLOG SUPPLEMENTAL SCALE) 1 Q6HR SQ 10/28/17 12:00 11/04/17 12:00 Potassium Chloride 100 ml @ 50 mls/hr Q2H PRN IV 10/28/17 08:30 Potassium Chloride 100 ml @ 50 mls/hr Q2H PRN IV 10/28/17 08:30 (K-Lyte Cl Eff) 50 meq UNSCH PRN PO 10/28/17 08:30 Potassium Chloride 100 ml @ 25 mls/hr UNSCH PRN IV 10/28/17 08:30 Potassium Chloride 100 ml @ 50 mls/hr Q2H PRN IV 10/28/17 08:30 11/01/17 07:20 Magnesium Sulfate 4 gm/Sodium Chloride 100 ml @ 50 mls/hr UNSCH PRN IV 10/28/17 08:30 (Mag-Ox) 800 mg UNSCH PRN PO 10/28/17 08:30 Magnesium Sulfate 2 gm/Sodium Chloride 100 ml @ 50 mls/hr UNSCH PRN IV 10/28/17 08:30 (K-Phos) 2,000 mg Q4H PRN PO 10/28/17 08:30 Sodium Phosphate 30 mmol/Sodium Chloride 250 ml @ 42 mls/hr UNSCH PRN IV 10/28/17 08:30 (K-Phos) 2,000 mg UNSCH PRN PO/TUBE 10/28/17 08:30 Potassium Phosphate 30 mmol/ Sodium Chloride 260 ml @ 42 mls/hr UNSCH PRN IV 10/28/17 08:30 10/28/17 15:39 (Synthroid) 125 mcg DAILY@0600 PO 10/29/17 06:00 11/04/17 06:39 (Vasotec Inj) 1.25 mg Q6H PRN IV PUSH 10/29/17 21:15 (Pepcid) 20 mg BID PO 10/30/17 21:00 11/04/17 08:53 (Duoneb Neb) 1 ampule Q6HR NEB NEB 11/02/17 11:00 11/04/17 16:39 Linezolid 300 ml @ 300 mls/hr Q12H IV 11/03/17 13:00 11/04/17 12:00 Levofloxacin/ Dextrose 150 ml @ 100 mls/hr Q24H IV 11/03/17 14:00 11/04/17 13:58 Allergies Allergies Coded Allergies amiodarone (Unverified Allergy, Severe, Blurred Vision, 10/23/17) amoxicillin (Unverified Allergy, Severe, Swelling, 10/23/17) *MDRO Multi-Drug Resistant Organism (Verified Adverse Reaction, Unknown, ) Exam I&O / VS 11/04/17 11/04/17 11/05/17 15:00 23:00 07:00 Intake Total 400 ml 150 ml Balance 400 ml 150 ml IV Total 400 ml 150 ml Vital Signs Date Time Temp Pulse Resp B/P (MAP) Pulse Ox O2 Delivery O2 Flow Rate FiO2 11/04/17 16:41 99 30 11/04/17 16:00 30 11/04/17 16:00 99.5 76 20 128/69 (88) 100 11/04/17 16:00 30 11/04/17 16:00 80 11/04/17 14:00 66 11/04/17 12:00 99.3 74 22 137/66 (89) 99 11/04/17 12:00 30 11/04/17 12:00 73 11/04/17 10:00 84 11/04/17 08:49 30 11/04/17 08:43 99 30 11/04/17 08:43 30 11/04/17 08:00 99.8 90 22 176/76 (109) 97 11/04/17 08:00 78 11/04/17 08:00 30 11/04/17 06:00 79 11/04/17 04:20 100 30 11/04/17 04:00 30 11/04/17 04:00 99.8 78 20 132/70 (90) 96 11/04/17 04:00 78 11/04/17 02:00 76 11/04/17 00:00 99.4 76 21 129/69 (89) 98 11/04/17 00:00 76 11/04/17 00:00 30 11/03/17 22:47 100 30 11/03/17 22:00 72 11/03/17 20:00 78 11/03/17 20:00 30 11/03/17 20:00 99.3 78 22 132/92 (105) 98 Exam Comments More alert. Opens eyes to voice. 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 Move BLE equally Objective Radiology Results CT brain--encephalomalacia right cerebellar hemisphere. No hemorrhage Micro and Labs Laboratory Tests Test 11/04/17 04:36 White Blood Count 9.3 Red Blood Count 3.52 Hemoglobin 10.9 Hematocrit 31.9 Mean Corpuscular Volume 90.5 Mean Corpuscular Hemoglobin 30.9 Mean Corpuscular Hemoglobin Concent 34.1 Red Cell Distribution Width 14.1 Platelet Count 229 Mean Platelet Volume 8.5 Blood Urea Nitrogen 12 Creatinine 0.54 Random Glucose 184 Calcium Level 8.2 Sodium Level 144 Potassium Level 3.7 Chloride Level 109 Carbon Dioxide Level 28.7 Anion Gap 6 Estimat Glomerular Filtration Rate 109 Date/Time Source Procedure Growth Status 5/5/18 12:30 Blood Peripheral Aerobic Blood Culture - Preliminary NO GROWTH IN 2 DAYS Resulted 11/02/17 12:30 Blood Peripheral Anaerobic Blood Culture - Preliminary NO GROWTH IN 2 DAYS Resulted 10/26/17 05:15 Stool Stool Stool Occult Blood (MATTHEW) - Final HEMOCCULT NEGATIVE Complete 11/02/17 11:55 Sputum Endotracheal Gram Stain - Final Resulted 11/02/17 11:55 Sputum Culture - Preliminary S. Aureus Mrsa Gram Negative Ian Resulted 11/02/17 11:55 Urine Catheterized Urine Urine Culture - Final 50-100,000 CFU/ML MIXED SHIRA... Complete Claudio Kim MD PhD November 04, 2017 17:57
[2017-11-04 21:28] LABS: HEMATOCRIT 30.3 % (35.0-46.0); HEMOGLOBIN 10.4 GM/DL (11.6-15.3); MEAN CORPUSCULAR HEMOGLOBIN 30.9 PG (27.0-34.0); MEAN CORPUSCULAR HGB CONC 34.3 % (32.0-36.0); MEAN PLATELET VOLUME 7.8 FL (7.0-11.0); PLATELET COUNT 245 TH/MM3 (150-450); RED BLOOD COUNT 3.37 MIL/MM3 (4.00-5.30); RED CELL DISTRIBUTION WIDTH 13.9 % (11.6-17.2); WHITE BLOOD COUNT 7.5 TH/MM3 (4.0-11.0)
[2017-11-04 21:47] LABS: INTERNATIONAL NORMALIZED RATIO 1.1 RATIO; PROTHROMBIN TIME - PATIENT 10.8 SEC (9.8-11.6)
[2017-11-04] MEDS: HEPARIN-D5W 25,000 U/250 ML 250 ML IV PRN (21:51)
[2017-11-05] VITALS (19 sets, daily range): BP systolic 106–139; BP diastolic 62–74; PULSE 64–81; RESP 18–20; TEMP 98.2–99.7; O2SAT 98–100
[2017-11-05] MEDS: SODIUM CHLOR 0.9% 1000 ML INJ 1,000 ML IV SCH ×3 (00:21→23:49)
[2017-11-05] MEDS: LINEZOLID 600 MG PREMIX 300 ML IV SCH ×2 (00:29→13:20)
[2017-11-05] MEDS: INSULIN ASPART SUPPLEMENTAL SCALE SQ SCH ×4 (00:29→17:35)
[2017-11-05] MEDS: CHLORHEXIDINE GLUCONATE 2 % 1 PACK (2 CLOTHS) TOP SCH (02:55)
[2017-11-05 03:26] LABS: BICARBONATE 30.4 MEQ/L (21.0-32.0); CREATININE 0.54 MG/DL (0.50-1.00)
[2017-11-05] MEDS: RESP: ALBUTEROL 2.5 MG/IPRATROPIUM 0.5 MG NEB (SCH) NEB ×5 (03:46→23:38)
[2017-11-05] MEDS: LEVOTHYROXINE SODIUM 125 MCG TAB PO SCH (05:56)
[2017-11-05] MEDS: amLODIPine BESYLATE 5 MG TAB PO SCH (08:01)
[2017-11-05] MEDS: SERTRALINE HCL 50 MG TAB PO SCH (08:01)
[2017-11-05] MEDS: ARTIFICIAL TEARS OPTH SOLN 15 ML BTL EACH EYE SCH ×3 (08:01→17:35)
[2017-11-05] MEDS: DOCUSATE SODIUM 50 MG/SENNA 8.6 MG TAB PO SCH ×2 (08:01→20:50)
[2017-11-05] MEDS: SODIUM CHLORIDE 0.9% FLUSH 10 ML FLUSH IV FLUSH SCH ×2 (08:01→20:50)
[2017-11-05] MEDS: MULTIVITAMIN TAB PO SCH (08:01)
[2017-11-05] MEDS: DIGOXIN 0.125 MG TAB PO SCH (08:01)
[2017-11-05] MEDS: CHLORHEXIDINE 0.12% (ORAL KIT) 15 ML CUP MT SCH ×2 (08:01→20:50)
[2017-11-05] MEDS: levETIRAcetam INJ 100 ML IV SCH ×2 (08:01→20:50)
[2017-11-05] MEDS: CARVEDILOL 12.5 MG TAB PO SCH ×2 (08:01→20:50)
[2017-11-05] MEDS: FAMOTIDINE 20 MG TAB PO SCH ×2 (08:01→20:50)
[2017-11-05] MEDS: ATORVASTATIN 20 MG TAB PO SCH (08:02)
[2017-11-05] MEDS: LEVOFLOXACIN 750 MG PREMIX INJ 150 ML IV SCH (13:20)
--- NOTE | 2017-11-05 17:26 | HHI.CCPN ---
Subjective Remarks/Hospital Course The patient is a 76-year-old female that was apparently alert and talking prior to 11 PM tonight when she started vomiting. She then became comatose, [facility] was called and they intubated the patient using etomidate and Versed. 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 There has not been any head trauma. After intubation and Versed the blood pressure is 127/90. No seizure activity noted per ER physician. Patient was kept sedated orally intubated overnight on mechanical ventilation. She is starting to arousable although not following commands. She does try to open her eyes on command. Per nursing staff she was moving all [address] done in the ER did not reveal any acute bleed and had evidence of old strokes. Dr. Kim from neurology was contacted by ER physician and will be evaluating patient. When I evaluated the patient this morning she sedated with propofol, orally intubated on mechanical ventilation. History is obtained by reviewing records and discussion with nursing staff. Subjective: 10/27: The patient currently remains intubated and sedated. EEG in process. MRI revealed acute right cerebellar. or infarct. Sedation vacation pending. 10/28: more cerebral edema on CT scan yesterday. remains very encephalopathic, intubated, obtunded. long conversation with family today where I explained current stroke and edema. family introduced the idea that if she would not come off life support or would need to be fully dependent on healthcare system, she would not want to live: will consult palliative care to assist with goals of care clarification. 10/29: remains intubated and encephalopathic. CT brain today demonstrates stable appearance of posterior fossa infarct and edema. neuro exam slightly better and now w/d x 4. 5/2: Remains encephalopathic, orally intubated on mechanical ventilation. Tolerating tube feeds. 3: Remains encephalopathic, orally intubated on mechanical ventilation. Tolerating tube feeds. 11/01: Remains encephalopathic, orally intubated on mechanical ventilation. Tolerating tube feeds. 11/02: Intubated off sedation for the last 5 days at least, remains unresponsive. Chest exam reveals bilateral wheezing. Breathing treatments scheduled and as needed ordered. Tmax 101.3, check chest x-ray sputum culture, blood culture and UA. According to the son at the bedside family might want to proceed with tracheostomy and PEG tube placement 11/03: Remains encephalopathic, orally intubated on mechanical ventilation. Grimaces with painful stimuli however not following commands. 11/04: Squeezes hands today. Discussed with Dr. Kim. He will start heparin gtt , convert to coumadin after tracheostomy. 11/05: Family has not agreed to trach or PEG yet, they want to see if she wakes up more. Objective Vital Signs Date Time Temp Pulse Resp B/P (MAP) Pulse Ox O2 Delivery O2 Flow Rate FiO2 11/05/17 16:42 98 30 11/05/17 16:00 69 11/05/17 16:00 98.2 18 120/70 (87) Intake and Output 11/05/17 11/05/17 11/06/17 08:00 16:00 00:00 Intake Total 722 ml 1550 ml Output Total 1300 ml Balance -578 ml 1550 ml Result Diagram: 11/04/17 2118 11/05/17 0300 Imaging Last Impressions Neck CTA 10/26/17 0012 Signed Impressions: Service Date/Time: Thursday, October 26, 2017 00:12 - CONCLUSION: 1. No luminal narrowing or significant plaque formation. 2. Left dominant vertebral system. Anatoly Early MD Head CTA 10/26/17 0012 Signed Impressions: Service Date/Time: Thursday, October 26, 2017 00:12 - CONCLUSION: No evidence of vessel truncation. Anatoly Early MD Head CT 10/26/17 0000 Signed Impressions: Service Date/Time: Thursday, October 26, 2017 00:12 - CONCLUSION: 1. Multiple bilateral old infarcts, unchanged from 3 days ago. No acute findings. 2. Bilateral maxillary and ethmoid sinus disease. Anatoly Early MD Chest X-Ray 10/26/17 0000 Signed Impressions: Service Date/Time: Thursday, October 26, 2017 06:33 - CONCLUSION: ET tube as above. Luis Felipe Ayala MD Brain MRI 10/26/17 0000 Signed Impressions: Service Date/Time: Thursday, October 26, 2017 16:04 - CONCLUSION: 1. Acute right cerebellar infarct. No midline shift or mass effect. 2. Multiple old bilateral infarcts. Samuel Chen MD Objective Remarks HEENT/ Pallor present, no icterus. Neck: No JVD Chest/Pulm: on mech vent, good air entry bilaterally. Bilateral light wheezing. No crackles CVS: S1-S2 irregularly irregular, no murmur, no JVD. GI/abdomen: Soft, nontender, bowel sounds sluggish. No guarding. Extremities: Warm bilaterally, no edema Neuro: Neuro: Encephalopathic, squeezes hands commands withdraws to pain x 4. Orally intubated, Date of Insertion: Oct 26, 2017 A/P Assessment and Plan Assessment: 76yF with large cerebellar stroke and associated severe encephalopathy, hypoxic and hypercarbic respiratory failure. appreciate palliative care and neurology following. Overall, likely to have functionally dependent quality of life in SNF with full-time assistance. Also the family members are coming in to make decision regarding trach and PEG. 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 CT head 10/31/2017 shows stable right cerebellar infarct and multiple supratentorial infarct 10/27 EEG for further evaluation of altered mental status Neurology following- Dr. Kim. On ASA Start heparin gtt. Cardiovascular: Continue home medications. hold coumadin for anticoagulation given size of stroke and edema. high concern for hemorrhagic conversion. Monitor INR Atrial fibrillation rate controlled Pulmonary: Continue mechanical ventilation Ventilator bundle, bronchodilators as needed. Mental status will not permit extubation Awaiting decision by family regarding tracheostomy as patient is currently not extubated able due to inability to protect airway. wean fio2 for goal spo2 > 90% GI/liver: Tube feeds Jevity 1.5 and advance to goal 65 cc/hour as tolerated Will need PEG tube if family decides on aggressive care Bowel regimen, GI prophylaxis Renal/: IV hydration, strict intake output, Monitor and replete electrolytes, follow BUN/creatinine ID: Spiking fever up to 101.3. Santana culture requested follow-up on chest x-ray Sputum culture from 11/02 growing MRSA/gram-negative rods. Starting antibiotics: Zyvox, levaquin on 11/03. Heme: Monitor CBC and INR. hold anticoagulation. daily INRs. Endocrine: Watch for hypoglycemia, SSI for glycemic control if needed. TSH significantly elevated- 16 currently on levothyroxine 125 mcg/day Prophylaxis: Pepcid, SCDs. holding anticoagulation. Overall impression: Family encouraged, will decide if want to proceed with trach /PEG later in the week.. Greg Cole MD November 05, 2017 17:26
[2017-11-05] MEDS: HEPARIN-D5W 25,000 U/250 ML 250 ML IV PRN (17:58)
--- NOTE | 2017-11-05 20:20 | HHI.PR ---
Review/Management Diagnosis right cerebellar stroke-- atrial fibrillation Plan continue iv heparin. Coumadin to start after tracheostomy/PEG Diagnosis/Plan: Subjective Subjective Comments No acute events reported Family reports she has been more alert today, following commands Active Medications Current Medications Medications (Trade) Dose Ordered Sig/Nitin Route Start Time Stop Time Status Last Admin (Norvasc) 5 mg DAILY PO 10/26/17 09:00 11/05/17 08:01 (Lipitor) 20 mg DAILY PO 10/26/17 09:00 11/05/17 08:02 (Coreg) 12.5 mg BID PO 10/26/17 09:00 11/05/17 08:01 (Lanoxin) 0.125 mg DAILY PO 10/26/17 09:00 11/05/17 08:01 (Zoloft) 50 mg DAILY PO 10/26/17 09:00 11/05/17 08:01 (Theragran) 1 tab DAILY PO 10/26/17 09:00 11/05/17 08:01 Levetriacetam 100 ml @ 400 mls/hr Q12HR IV 10/26/17 01:45 11/05/17 08:01 Sodium Chloride 1,000 ml @ 84 mls/hr [id number] IV 10/26/17 01:39 11/05/17 11:18 (Tylenol) 650 mg Q6H PRN PO 10/26/17 01:45 11/03/17 16:13 (Morphine Inj) 2 mg Q2H PRN IV PUSH 10/26/17 01:45 10/28/17 18:25 (Ativan Inj) 1 mg Q1H PRN IV PUSH 10/26/17 01:45 (Tears Naturale Opth Soln) 1 drop TID EACH EYE 10/26/17 09:00 11/05/17 17:35 (Zofran Inj) 4 mg Q6H PRN IV PUSH 10/26/17 01:45 (Duoneb Neb) 1 ampule Q2HR NEB PRN INH 10/26/17 01:45 11/02/17 10:44 ([facility] [place] Nursing Information) 1 Q361D XX 10/26/17 01:45 10/26/17 01:45 (Chlorhexidine 2% Cloth) Taper DAILY@04 TOP 10/26/17 04:00 4/24/19 03:59 10/28/17 00:53 (Chlorhexidine 2% Cloth) 3 pack UNSCH PRN TOP 10/26/17 01:45 (Ivette-Colace) 1 tab BID PO 10/26/17 09:00 11/05/17 08:01 (Milk Of Magnesia Liq) 30 ml Q12H PRN PO 10/26/17 01:45 (Senokot) 17.2 mg Q12H PRN PO 10/26/17 01:45 (Dulcolax Supp) 10 mg DAILY PRN RECTAL 10/26/17 01:45 (Lactulose Liq) 30 ml DAILY PRN PO 10/26/17 01:45 (Peridex 0.12% Liq) 15 ml BID@08,20 MT 10/26/17 08:00 11/05/17 08:01 Propofol 100 ml @ 1.878 mls/ hr TITRATE PRN IV 10/26/17 01:45 10/28/17 00:52 (NS Flush) 2 ml BID IV FLUSH 10/26/17 09:00 11/05/17 08:01 (NS Flush) 2 ml UNSCH PRN IV FLUSH 10/26/17 09:00 (D50w (Vial) Inj) 50 ml UNSCH PRN IV PUSH 10/26/17 09:00 (Glucagon Inj) 1 mg UNSCH PRN OTHER 10/26/17 09:00 (NovoLOG SUPPLEMENTAL SCALE) 1 Q6HR SQ 10/28/17 12:00 11/05/17 11:18 Potassium Chloride 100 ml @ 50 mls/hr Q2H PRN IV 10/28/17 08:30 Potassium Chloride 100 ml @ 50 mls/hr Q2H PRN IV 10/28/17 08:30 (K-Lyte Cl Eff) 50 meq UNSCH PRN PO 10/28/17 08:30 Potassium Chloride 100 ml @ 25 mls/hr UNSCH PRN IV 10/28/17 08:30 Potassium Chloride 100 ml @ 50 mls/hr Q2H PRN IV 10/28/17 08:30 11/01/17 07:20 Magnesium Sulfate 4 gm/Sodium Chloride 100 ml @ 50 mls/hr UNSCH PRN IV 10/28/17 08:30 (Mag-Ox) 800 mg UNSCH PRN PO 10/28/17 08:30 Magnesium Sulfate 2 gm/Sodium Chloride 100 ml @ 50 mls/hr UNSCH PRN IV 10/28/17 08:30 (K-Phos) 2,000 mg Q4H PRN PO 10/28/17 08:30 Sodium Phosphate 30 mmol/Sodium Chloride 250 ml @ 42 mls/hr UNSCH PRN IV 10/28/17 08:30 (K-Phos) 2,000 mg UNSCH PRN PO/TUBE 10/28/17 08:30 Potassium Phosphate 30 mmol/ Sodium Chloride 260 ml @ 42 mls/hr UNSCH PRN IV 10/28/17 08:30 10/28/17 15:39 (Synthroid) 125 mcg DAILY@0600 PO 10/29/17 06:00 11/05/17 05:56 (Vasotec Inj) 1.25 mg Q6H PRN IV PUSH 10/29/17 21:15 (Pepcid) 20 mg BID PO 10/30/17 21:00 11/05/17 08:01 (Duoneb Neb) 1 ampule Q6HR NEB NEB 11/02/17 11:00 11/05/17 20:07 Linezolid 300 ml @ 300 mls/hr Q12H IV 11/03/17 13:00 11/05/17 13:20 Levofloxacin/ Dextrose 150 ml @ 100 mls/hr Q24H IV 11/03/17 14:00 11/05/17 13:20 Heparin Sodium/ Dextrose 250 ml @ 10 mls/hr TITRATE PRN IV 11/04/17 18:00 11/05/17 17:58 Allergies Allergies Coded Allergies amiodarone (Unverified Allergy, Severe, Blurred Vision, 10/23/17) amoxicillin (Unverified Allergy, Severe, Swelling, 10/23/17) *MDRO Multi-Drug Resistant Organism (Verified Adverse Reaction, Unknown, ) Exam I&O / VS 11/05/17 11/05/17 11/06/17 15:00 23:00 07:00 Intake Total 1100 ml 1480 ml Output Total 1800 ml Balance 1100 ml -320 ml IV Total 1100 ml 700 ml Tube Feeding 720 ml Other 60 ml Output Urine Total 1800 ml # Bowel Movements 0 Vital Signs Date Time Temp Pulse Resp B/P (MAP) Pulse Ox O2 Delivery O2 Flow Rate FiO2 11/05/17 18:00 78 11/05/17 16:42 98 30 11/05/17 16:00 30 11/05/17 16:00 69 11/05/17 16:00 98.2 69 18 120/70 (87) 99 11/05/17 14:38 30 11/05/17 14:26 30 11/05/17 14:00 64 11/05/17 12:04 99 30 11/05/17 12:00 98.4 64 18 106/65 (79) 99 11/05/17 12:00 64 11/05/17 12:00 30 11/05/17 10:00 72 11/05/17 08:49 98 30 11/05/17 08:00 99.1 68 18 122/62 (82) 99 11/05/17 08:00 30 11/05/17 08:00 68 11/05/17 06:00 65 11/05/17 05:11 98 30 11/05/17 04:00 99.7 73 20 139/74 (95) 98 11/05/17 04:00 65 11/05/17 04:00 30 11/05/17 02:00 65 11/05/17 00:30 99 30 11/05/17 00:00 65 11/05/17 00:00 98.9 75 18 113/62 (79) 98 11/05/17 00:00 30 11/04/17 22:00 77 11/04/17 21:16 95 30 Exam Comments Lethargic, opens eyes to voice but does not follow more complex commands CN--PERRL MOTOR--move BLE equally Objective Micro and Labs Laboratory Tests Test 11/04/17 21:18 11/05/17 03:00 11/05/17 11:45 White Blood Count 7.5 Red Blood Count 3.37 Hemoglobin 10.4 Hematocrit 30.3 Mean Corpuscular Volume 90.0 Mean Corpuscular Hemoglobin 30.9 Mean Corpuscular Hemoglobin Concent 34.3 Red Cell Distribution Width 13.9 Platelet Count 245 Mean Platelet Volume 7.8 Prothrombin Time 10.8 Prothromb Time International Ratio 1.1 Activated Partial Thromboplast Time 28.2 38.9 50.3 Blood Urea Nitrogen 12 Creatinine 0.54 Random Glucose 164 Calcium Level 8.0 Sodium Level 144 Potassium Level 3.7 Chloride Level 109 Carbon Dioxide Level 30.4 Anion Gap 5 Estimat Glomerular Filtration Rate 109 Date/Time Source Procedure Growth Status 11/02/17 12:30 Blood Peripheral Aerobic Blood Culture - Preliminary NO GROWTH IN 3 DAYS Resulted 11/02/17 12:30 Blood Peripheral Anaerobic Blood Culture - Preliminary NO GROWTH IN 3 DAYS Resulted 10/26/17 05:15 Stool Stool Stool Occult Blood (MATTHEW) - Final HEMOCCULT NEGATIVE Complete 11/02/17 11:55 Sputum Endotracheal Gram Stain - Final Complete 11/02/17 11:55 Sputum Culture - Final S. Aureus Mrsa Klebsiella Pneumoniae Complete 11/02/17 11:55 Urine Catheterized Urine Urine Culture - Final 50-100,000 CFU/ML MIXED SHIRA... Complete Claudio Kim MD PhD November 05, 2017 20:20
[2017-11-05] MEDS ORDERED: RESP: ALBUTEROL 2.5 MG/3 ML NEB (PRN) NEB (21:30)
[2017-11-05] MEDS ORDERED: RESP: ALBUTEROL 2.5 MG/IPRATROPIUM 0.5 MG NEB (SCH) NEB (22:00)
[2017-11-06] VITALS (17 sets, daily range): BP systolic 127–143; BP diastolic 62–78; PULSE 65–81; RESP 16–19; TEMP 98.3–98.9; O2SAT 98–100
[2017-11-06] MEDS: LINEZOLID 600 MG PREMIX 300 ML IV SCH ×2 (01:00→14:12)
[2017-11-06] MEDS: RESP: ALBUTEROL 2.5 MG/IPRATROPIUM 0.5 MG NEB (SCH) NEB ×5 (03:54→19:46)
[2017-11-06] MEDS: CHLORHEXIDINE GLUCONATE 2 % 1 PACK (2 CLOTHS) TOP SCH (04:00)
[2017-11-06] MEDS: INSULIN ASPART SUPPLEMENTAL SCALE SQ SCH ×4 (06:00→18:00)
[2017-11-06] MEDS: LEVOTHYROXINE SODIUM 125 MCG TAB PO SCH (06:10)
[2017-11-06 06:17] LABS: BICARBONATE 30.8 MEQ/L (21.0-32.0); CALCIUM 8.2 MG/DL (8.5-10.1); CREATININE 0.57 MG/DL (0.50-1.00)
[2017-11-06] MEDS: amLODIPine BESYLATE 5 MG TAB PO SCH (08:23)
[2017-11-06] MEDS: MULTIVITAMIN TAB PO SCH (08:23)
[2017-11-06] MEDS: FAMOTIDINE 20 MG TAB PO SCH ×2 (08:23→19:43)
[2017-11-06] MEDS: SERTRALINE HCL 50 MG TAB PO SCH (08:23)
[2017-11-06] MEDS: CHLORHEXIDINE 0.12% (ORAL KIT) 15 ML CUP MT SCH ×2 (08:23→19:43)
[2017-11-06] MEDS: CARVEDILOL 12.5 MG TAB PO SCH ×2 (08:24→19:43)
[2017-11-06] MEDS: ATORVASTATIN 20 MG TAB PO SCH (08:24)
[2017-11-06] MEDS: DIGOXIN 0.125 MG TAB PO SCH (08:24)
[2017-11-06] MEDS: SODIUM CHLORIDE 0.9% FLUSH 10 ML FLUSH IV FLUSH SCH ×2 (08:24→19:43)
[2017-11-06] MEDS: levETIRAcetam INJ 100 ML IV SCH ×2 (08:24→19:43)
[2017-11-06] MEDS: ARTIFICIAL TEARS OPTH SOLN 15 ML BTL EACH EYE SCH ×3 (08:26→18:18)
[2017-11-06] MEDS: DOCUSATE SODIUM 50 MG/SENNA 8.6 MG TAB PO SCH ×2 (08:27→19:43)
[2017-11-06] MEDS: SODIUM CHLOR 0.9% 1000 ML INJ 1,000 ML IV SCH (11:59)
[2017-11-06] MEDS: LEVOFLOXACIN 750 MG PREMIX INJ 150 ML IV SCH (14:12)
--- NOTE | 2017-11-06 14:59 | HHI.PR ---
Review/Management Diagnosis right cerebellar stroke--exam stable. She is following commands atrial fibrillation Plan continue iv heparin. Coumadin to start after tracheostomy/PEG Diagnosis/Plan: Subjective Subjective Comments No acute events reported Active Medications Current Medications Medications (Trade) Dose Ordered Sig/Nitin Route Start Time Stop Time Status Last Admin (Norvasc) 5 mg DAILY PO 10/26/17 09:00 11/06/17 08:23 (Lipitor) 20 mg DAILY PO 10/26/17 09:00 11/06/17 08:24 (Coreg) 12.5 mg BID PO 10/26/17 09:00 11/06/17 08:24 (Lanoxin) 0.125 mg DAILY PO 10/26/17 09:00 11/06/17 08:24 (Zoloft) 50 mg DAILY PO 10/26/17 09:00 11/06/17 08:23 (Theragran) 1 tab DAILY PO 10/26/17 09:00 11/06/17 08:23 Levetriacetam 100 ml @ 400 mls/hr Q12HR IV 10/26/17 01:45 11/06/17 08:24 Sodium Chloride 1,000 ml @ 84 mls/hr [id number] IV 10/26/17 01:39 11/06/17 11:59 (Tylenol) 650 mg Q6H PRN PO 10/26/17 01:45 11/03/17 16:13 (Morphine Inj) 2 mg Q2H PRN IV PUSH 10/26/17 01:45 10/28/17 18:25 (Ativan Inj) 1 mg Q1H PRN IV PUSH 10/26/17 01:45 (Tears Naturale Opth Soln) 1 drop TID EACH EYE 10/26/17 09:00 11/06/17 13:00 (Zofran Inj) 4 mg Q6H PRN IV PUSH 10/26/17 01:45 ([facility] [place] Nursing Information) 1 Q361D XX 10/26/17 01:45 10/26/17 01:45 (Chlorhexidine 2% Cloth) Taper DAILY@04 TOP 10/26/17 04:00 10/22/18 03:59 10/28/17 00:53 (Chlorhexidine 2% Cloth) 3 pack UNSCH PRN TOP 10/26/17 01:45 (Ivette-Colace) 1 tab BID PO 10/26/17 09:00 11/05/17 20:50 (Milk Of Magnesia Liq) 30 ml Q12H PRN PO 10/26/17 01:45 (Senokot) 17.2 mg Q12H PRN PO 10/26/17 01:45 (Dulcolax Supp) 10 mg DAILY PRN RECTAL 10/26/17 01:45 (Lactulose Liq) 30 ml DAILY PRN PO 10/26/17 01:45 (Peridex 0.12% Liq) 15 ml BID@08,20 MT 10/26/17 08:00 11/06/17 08:23 Propofol 100 ml @ 1.878 mls/ hr TITRATE PRN IV 10/26/17 01:45 10/28/17 00:52 (NS Flush) 2 ml BID IV FLUSH 10/26/17 09:00 11/06/17 08:24 (NS Flush) 2 ml UNSCH PRN IV FLUSH 10/26/17 09:00 (D50w (Vial) Inj) 50 ml UNSCH PRN IV PUSH 10/26/17 09:00 (Glucagon Inj) 1 mg UNSCH PRN OTHER 10/26/17 09:00 (NovoLOG SUPPLEMENTAL SCALE) 1 Q6HR SQ 10/28/17 12:00 11/06/17 06:00 Potassium Chloride 100 ml @ 50 mls/hr Q2H PRN IV 10/28/17 08:30 Potassium Chloride 100 ml @ 50 mls/hr Q2H PRN IV 10/28/17 08:30 (K-Lyte Cl Eff) 50 meq UNSCH PRN PO 10/28/17 08:30 Potassium Chloride 100 ml @ 25 mls/hr UNSCH PRN IV 10/28/17 08:30 Potassium Chloride 100 ml @ 50 mls/hr Q2H PRN IV 10/28/17 08:30 11/01/17 07:20 Magnesium Sulfate 4 gm/Sodium Chloride 100 ml @ 50 mls/hr UNSCH PRN IV 10/28/17 08:30 (Mag-Ox) 800 mg UNSCH PRN PO 10/28/17 08:30 Magnesium Sulfate 2 gm/Sodium Chloride 100 ml @ 50 mls/hr UNSCH PRN IV 10/28/17 08:30 (K-Phos) 2,000 mg Q4H PRN PO 10/28/17 08:30 Sodium Phosphate 30 mmol/Sodium Chloride 250 ml @ 42 mls/hr UNSCH PRN IV 10/28/17 08:30 (K-Phos) 2,000 mg UNSCH PRN PO/TUBE 10/28/17 08:30 Potassium Phosphate 30 mmol/ Sodium Chloride 260 ml @ 42 mls/hr UNSCH PRN IV 10/28/17 08:30 10/28/17 15:39 (Synthroid) 125 mcg DAILY@0600 PO 10/29/17 06:00 11/06/17 06:10 (Vasotec Inj) 1.25 mg Q6H PRN IV PUSH 10/29/17 21:15 (Pepcid) 20 mg BID PO 10/30/17 21:00 11/06/17 08:23 Linezolid 300 ml @ 300 mls/hr Q12H IV 11/03/17 13:00 11/06/17 14:12 Levofloxacin/ Dextrose 150 ml @ 100 mls/hr Q24H IV 11/03/17 14:00 11/06/17 14:12 Heparin Sodium/ Dextrose 250 ml @ 10 mls/hr TITRATE PRN IV 11/04/17 18:00 11/05/17 17:58 (Albuterol Neb) 2.5 mg Q2HR NEB PRN NEB 11/05/17 21:30 (Duoneb Neb) 1 ampule Q4HR NEB NEB 11/06/17 00:00 11/06/17 12:13 Allergies Allergies Coded Allergies amiodarone (Unverified Allergy, Severe, Blurred Vision, 10/23/17) amoxicillin (Unverified Allergy, Severe, Swelling, 10/23/17) *MDRO Multi-Drug Resistant Organism (Verified Adverse Reaction, Unknown, ) Exam I&O / VS 11/06/17 11/06/17 11/07/17 15:00 23:00 07:00 Intake Total 1100 ml Balance 1100 ml IV Total 1100 ml Vital Signs Date Time Temp Pulse Resp B/P (MAP) Pulse Ox O2 Delivery O2 Flow Rate FiO2 11/06/17 14:00 76 11/06/17 12:21 98 30 11/06/17 12:00 30 11/06/17 12:00 98.4 77 18 129/66 (87) 99 11/06/17 12:00 67 11/06/17 10:00 71 11/06/17 08:33 100 30 11/06/17 08:33 30 11/06/17 08:00 76 11/06/17 08:00 30 11/06/17 08:00 98.3 77 19 142/72 (95) 100 11/06/17 06:00 74 11/06/17 04:04 98 30 11/06/17 04:00 74 11/06/17 04:00 30 11/06/17 04:00 98.9 74 18 140/67 (91) 100 11/06/17 02:00 81 11/06/17 00:00 98.8 65 18 130/73 (92) 98 11/06/17 00:00 81 11/06/17 00:00 30 11/05/17 23:38 98 30 11/05/17 22:00 81 11/05/17 21:48 100 30 11/05/17 20:00 30 11/05/17 20:00 98.8 81 20 122/69 (86) 99 11/05/17 20:00 81 11/05/17 18:00 78 11/05/17 16:42 98 30 11/05/17 16:00 30 11/05/17 16:00 69 11/05/17 16:00 98.2 69 18 120/70 (87) 99 Exam Comments Lethargic, opens eyes to voice . 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 arms to command CN--PERRL MOTOR--move BLE equally Objective Micro and Labs Laboratory Tests Test 11/05/17 20:14 11/06/17 05:37 Activated Partial Thromboplast Time 49.0 53.9 Blood Urea Nitrogen 12 Creatinine 0.57 Random Glucose 169 Calcium Level 8.2 Sodium Level 144 Potassium Level 3.9 Chloride Level 109 Carbon Dioxide Level 30.8 Anion Gap 4 Estimat Glomerular Filtration Rate 103 Date/Time Source Procedure Growth Status 11/02/17 12:30 Blood Peripheral Aerobic Blood Culture - Preliminary NO GROWTH IN 4 DAYS Resulted 11/02/17 12:30 Blood Peripheral Anaerobic Blood Culture - Preliminary NO GROWTH IN 4 DAYS Resulted 10/26/17 05:15 Stool Stool Stool Occult Blood (MATTHEW) - Final HEMOCCULT NEGATIVE Complete 11/02/17 11:55 Sputum Endotracheal Gram Stain - Final Complete 11/02/17 11:55 Sputum Culture - Final S. Aureus Mrsa Klebsiella Pneumoniae Complete 11/02/17 11:55 Urine Catheterized Urine Urine Culture - Final 50-100,000 CFU/ML MIXED SHIRA... Complete Claudio Kim MD PhD November 06, 2017 14:59
--- NOTE | 2017-11-06 15:48 | HHI.CCPN ---
Subjective Remarks/Hospital Course The patient is a 76-year-old female that was apparently alert and talking prior to 11 PM tonight when she started vomiting. She then became comatose, [facility] was called and they intubated the patient using etomidate and Versed. 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 There has not been any head trauma. After intubation and Versed the blood pressure is 127/90. No seizure activity noted per ER physician. Patient was kept sedated orally intubated overnight on mechanical ventilation. She is starting to arousable although not following commands. She does try to open her eyes on command. Per nursing staff she was moving all [address] done in the ER did not reveal any acute bleed and had evidence of old strokes. Dr. Kim from neurology was contacted by ER physician and will be evaluating patient. When I evaluated the patient this morning she sedated with propofol, orally intubated on mechanical ventilation. History is obtained by reviewing records and discussion with nursing staff. Subjective: 10/27: The patient currently remains intubated and sedated. EEG in process. MRI revealed acute right cerebellar. or infarct. Sedation vacation pending. 10/28: more cerebral edema on CT scan yesterday. remains very encephalopathic, intubated, obtunded. long conversation with family today where I explained current stroke and edema. family introduced the idea that if she would not come off life support or would need to be fully dependent on healthcare system, she would not want to live: will consult palliative care to assist with goals of care clarification. 10/29: remains intubated and encephalopathic. CT brain today demonstrates stable appearance of posterior fossa infarct and edema. neuro exam slightly better and now w/d x 4. 5/2: Remains encephalopathic, orally intubated on mechanical ventilation. Tolerating tube feeds. 3: Remains encephalopathic, orally intubated on mechanical ventilation. Tolerating tube feeds. 11/01: Remains encephalopathic, orally intubated on mechanical ventilation. Tolerating tube feeds. 11/02: Intubated off sedation for the last 5 days at least, remains unresponsive. Chest exam reveals bilateral wheezing. Breathing treatments scheduled and as needed ordered. Tmax 101.3, check chest x-ray sputum culture, blood culture and UA. According to the son at the bedside family might want to proceed with tracheostomy and PEG tube placement 11/03: Remains encephalopathic, orally intubated on mechanical ventilation. Grimaces with painful stimuli however not following commands. 11/04: Squeezes hands today. Discussed with Dr. Kim. He will start heparin gtt , convert to coumadin after tracheostomy. 11/05: Family has not agreed to trach or PEG yet, they want to see if she wakes up more. 11/06: Family remains encouraged by some early hand motility. They wish to wait to decide whether a tracheostomy is appropriate and/or necessary. Objective Vital Signs Date Time Temp Pulse Resp B/P (MAP) Pulse Ox O2 Delivery O2 Flow Rate FiO2 11/06/17 14:00 76 11/06/17 12:21 98 30 11/06/17 12:00 98.4 18 129/66 (87) Intake and Output 11/06/17 11/06/17 11/07/17 08:00 16:00 00:00 Intake Total 1160 ml 1100 ml Output Total 1400 ml Balance -240 ml 1100 ml Result Diagram: 11/04/17211711/06/17 0537 Imaging Last Impressions Neck CTA 10/26/17 001 Signed Impressions: Service Date/Time: Thursday, October 26, 2017 00:12 - CONCLUSION: 1. No luminal narrowing or significant plaque formation. 2. Left dominant vertebral system. Anatoly Early MD Head CTA 10/26/17 0012 Signed Impressions: Service Date/Time: Thursday, October 26, 2017 00:12 - CONCLUSION: No evidence of vessel truncation. Anatoly Early MD Head CT 10/26/17 0000 Signed Impressions: Service Date/Time: Thursday, October 26, 2017 00:12 - CONCLUSION: 1. Multiple bilateral old infarcts, unchanged from 3 days ago. No acute findings. 2. Bilateral maxillary and ethmoid sinus disease. Anatoly Early MD Chest X-Ray 10/26/17 0000 Signed Impressions: Service Date/Time: Thursday, October 26, 2017 06:33 - CONCLUSION: ET tube as above. Luis Felipe Aylaa MD Brain MRI 10/26/17 0000 Signed Impressions: Service Date/Time: Thursday, October 26, 2017 16:04 - CONCLUSION: 1. Acute right cerebellar infarct. No midline shift or mass effect. 2. Multiple old bilateral infarcts. Samuel Chen MD Objective Remarks HEENT/ Pallor present, no icterus. Neck: No JVD Chest/Pulm: on mech vent, good air entry bilaterally. Bilateral light wheezing. No crackles CVS: S1-S2 irregularly irregular, no murmur, no JVD. GI/abdomen: Soft, nontender, bowel sounds sluggish. No guarding. Extremities: Warm bilaterally, no edema Neuro: Neuro: Encephalopathic, squeezes hands commands withdraws to pain x 4. Orally intubated, Date of Insertion: Oct 26, 2017 A/P Assessment and Plan Assessment: 76yF with large cerebellar stroke and associated severe encephalopathy, hypoxic and hypercarbic respiratory failure. appreciate palliative care and neurology following. Overall, likely to have functionally dependent quality of life in SNF with full-time assistance. Also the family members are coming in to make decision regarding trach and PEG. 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 CT head 10/31/2017 shows stable right cerebellar infarct and multiple supratentorial infarct 10/27 EEG for further evaluation of altered mental status Neurology following- Dr. Kim. On ASA Start heparin gtt. Cardiovascular: Continue home medications. hold coumadin for anticoagulation given size of stroke and edema. high concern for hemorrhagic conversion. Monitor INR Atrial fibrillation rate controlled Pulmonary: Continue mechanical ventilation Ventilator bundle, bronchodilators as needed. Mental status will not permit extubation Awaiting decision by family regarding tracheostomy as patient is currently not extubated able due to inability to protect airway. wean fio2 for goal spo2 > 90% GI/liver: Tube feeds Jevity 1.5 and advance to goal 65 cc/hour as tolerated Will need PEG tube if family decides on aggressive care Bowel regimen, GI prophylaxis Renal/: IV hydration, strict intake output, Monitor and replete electrolytes, follow BUN/creatinine ID: Spiking fever up to 101.3. Santana culture requested follow-up on chest x-ray Sputum culture from 11/02 growing MRSA/gram-negative rods. Starting antibiotics: Zyvox, levaquin on 11/03. Heme: Monitor CBC and INR. hold anticoagulation. daily INRs. Endocrine: Watch for hypoglycemia, SSI for glycemic control if needed. TSH significantly elevated- 16 currently on levothyroxine 125 mcg/day Prophylaxis: Pepcid, SCDs. holding anticoagulation. Overall impression: Family encouraged, will decide if want to proceed with trach /PEG later in the week. All 3 men at the bedside today. Greg Cole MD November 06, 2017 15:48
[2017-11-06] MEDS: HEPARIN-D5W 25,000 U/250 ML 250 ML IV PRN (16:24)
[2017-11-07] VITALS (18 sets, daily range): BP systolic 108–152; BP diastolic 62–77; PULSE 62–102; RESP 12–19; TEMP 98.4–98.9; O2SAT 97–100
[2017-11-07] MEDS: RESP: ALBUTEROL 2.5 MG/IPRATROPIUM 0.5 MG NEB (SCH) NEB ×7 (00:32→21:23)
[2017-11-07] MEDS: LINEZOLID 600 MG PREMIX 300 ML IV SCH ×2 (00:53→14:13)
[2017-11-07] MEDS: CHLORHEXIDINE GLUCONATE 2 % 1 PACK (2 CLOTHS) TOP SCH (03:52)
[2017-11-07 05:23] LABS: HEMATOCRIT 30.1 % (35.0-46.0); HEMOGLOBIN 10.2 GM/DL (11.6-15.3); MEAN CELL VOLUME 91.3 FL (80.0-100.0); MEAN CORPUSCULAR HEMOGLOBIN 30.9 PG (27.0-34.0); MEAN CORPUSCULAR HGB CONC 33.9 % (32.0-36.0); MEAN PLATELET VOLUME 7.9 FL (7.0-11.0); PLATELET COUNT 276 TH/MM3 (150-450); RED BLOOD COUNT 3.29 MIL/MM3 (4.00-5.30); WHITE BLOOD COUNT 6.3 TH/MM3 (4.0-11.0)
[2017-11-07 05:36] LABS: BICARBONATE 28.1 MEQ/L (21.0-32.0); CALCIUM 8.9 MG/DL (8.5-10.1); CREATININE 0.63 MG/DL (0.50-1.00)
[2017-11-07] MEDS: INSULIN ASPART SUPPLEMENTAL SCALE SQ SCH ×4 (05:59→17:52)
[2017-11-07] MEDS: LEVOTHYROXINE SODIUM 125 MCG TAB PO SCH (05:59)
[2017-11-07] MEDS: CHLORHEXIDINE 0.12% (ORAL KIT) 15 ML CUP MT SCH ×2 (07:29→20:31)
[2017-11-07] MEDS: levETIRAcetam INJ 100 ML IV SCH ×2 (07:45→20:31)
[2017-11-07] MEDS: SODIUM CHLORIDE 0.9% FLUSH 10 ML FLUSH IV FLUSH SCH ×2 (07:45→20:31)
[2017-11-07] MEDS: DIGOXIN 0.125 MG TAB PO SCH (07:45)
[2017-11-07] MEDS: ARTIFICIAL TEARS OPTH SOLN 15 ML BTL EACH EYE SCH ×3 (07:45→17:52)
[2017-11-07] MEDS: CARVEDILOL 12.5 MG TAB PO SCH ×2 (07:45→20:31)
[2017-11-07] MEDS: MULTIVITAMIN TAB PO SCH (07:46)
[2017-11-07] MEDS: ATORVASTATIN 20 MG TAB PO SCH (07:46)
[2017-11-07] MEDS: FAMOTIDINE 20 MG TAB PO SCH ×2 (07:46→20:31)
[2017-11-07] MEDS: DOCUSATE SODIUM 50 MG/SENNA 8.6 MG TAB PO SCH ×2 (07:46→20:31)
[2017-11-07] MEDS: SERTRALINE HCL 50 MG TAB PO SCH (07:47)
[2017-11-07] MEDS: amLODIPine BESYLATE 5 MG TAB PO SCH (08:23)
[2017-11-07] MEDS: SODIUM CHLOR 0.9% 1000 ML INJ 1,000 ML IV SCH (11:44)
--- NOTE | 2017-11-07 12:01 | HHI.HCPN ---
Reason for visit a. To assist with evaluation and management of symptoms including: Encephalopathy, pain b. To assist medical decision maker(s) with: better understanding of current medical conditions; weighing benefits/burdens of medical treatment options; making medical treatment decisions. . Subjective/Interval History Follow up visit for clarifications of goals of care. Patient seen in surgical ICU, remains endotracheally intubated on mechanical ventilation. Ongoing CPAP trials during my visit, 30% FiO2. Patient sleeping, briefly opened eyes to verbal stimuli. Neurological condition appears improving, tracking with eyes. Intermittently following simple commands. Appears comfortable during my visit. Laboratory workup today revealing WBC 6.3, Hgb 10.2. Sodium 142, potassium 4.0, BUN/creatinine 11/0.63. No new imaging for review. . Family/friend interactions Bedside conversation with patient's daughter Lynsey/ro RICO and son Elio. Medical update provided. Family reports speaking with neurology Dr. Kim and attending Dr. Cole. Reviewed that even though patient is currently tolerating CPAP trials, she does not appear neurologically alert to protect her airway. Patient currently on day 12 for endotracheal intubation. Family verbalized feeling optimistic with patient's improved neurological condition to include following some simple commands and attempting to communicate by mouthing some words. Family reports that after further consideration, they have decided to proceed with tracheostomy and PEG tube. Goals of therapy remain aggressive. Bedside RN notified, charge nurse notified. Case discussed with [facility] from [facility]. . Advance Directives Health Care Surrogate: Copy in medical record Advance Directive Specifics Date completed: 07/13/2015 . Health Care Surrogate(s): Sinab Devante (RUBY) is designated as the [facility] decision maker; Lynsey Little is the alternate [facility] decision maker. . Documented care wishes: No documented care wishes are available other than the designation of healthcare surrogate. . Significant change in goals: Goals of therapy remain aggressive to include full code, and tracheostomy and PEG tube. . Objective Vital Signs Date Time Temp Pulse Resp B/P (MAP) Pulse Ox O2 Delivery O2 Flow Rate FiO2 11/07/17 11:21 99 30 11/07/17 11:21 30 11/07/17 10:00 68 11/07/17 09:39 98 30 11/07/17 08:00 98.5 76 18 150/69 (96) 99 11/07/17 08:00 30 11/07/17 08:00 74 11/07/17 06:00 76 11/07/17 04:00 98.9 75 16 126/62 (83) 100 11/07/17 04:00 76 11/07/17 04:00 99 30 11/07/17 04:00 30 11/07/17 02:00 71 11/07/17 00:36 99 30 11/07/17 00:00 30 11/07/17 00:00 72 11/07/17 00:00 98.9 84 19 152/77 (102) 99 11/06/17 22:00 65 11/06/17 21:19 99 30 11/06/17 20:00 30 11/06/17 20:00 65 11/06/17 20:00 98.9 75 19 143/78 (99) 99 11/06/17 18:00 65 11/06/17 16:00 98.3 68 16 127/62 (83) 99 11/06/17 16:00 30 11/06/17 16:00 68 11/06/17 15:36 98 30 11/06/17 14:00 76 11/06/17 12:21 98 30 11/06/17 12:00 30 11/06/17 12:00 98.4 77 18 129/66 (87) 99 11/06/17 12:00 67 Intake & Output 11/07/17 11/07/17 07:00 19:00 Intake Total 752 ml Output Total 1400 ml Balance -648 ml Tube Feeding 632 ml Other 120 ml Output Urine Total 1400 ml # Bowel Movements 1 Physical Exam CONSTITUTIONAL/GENERAL: This is an elderly, female patient in no acute distress TUBES/LINES/DRAINS: PIV 2, OGT, ETT, SCDs, urinary catheter SKIN: No jaundice, rashes, or lesions. Ecchymoses on upper extremities. No wounds seen anteriorly. Skin temperature appropriate. Not diaphoretic. HEAD: Atraumatic. Normocephalic. EYES: Pupils equal and round and reactive. Extraocular motions intact. No scleral icterus. No injection or drainage. ENT: Hearing grossly normal. Nose without bleeding or purulent drainage. Moist oral mucosa. NECK: Trachea midline. Supple, nontender. CARDIOVASCULAR: Irregularly irregular without murmurs, gallops, or rubs. No JVD. Peripheral pulses symmetric. RESPIRATORY/CHEST: Symmetric, unlabored respirations. Clear to auscultation. Breath sounds diminished bilaterally. No wheezes, rales, or rhonchi. GASTROINTESTINAL: Abdomen soft, non-tender, nondistended. No guarding. Bowel sounds present. GENITOURINARY: Without palpable bladder distension. Alvares catheter in place. MUSCULOSKELETAL: Extremities without clubbing, cyanosis, or edema. No mottling or clubbing. NEUROLOGICAL: Tracking, moving bilateral lower extremities and left hand to command. PSYCHIATRIC: Appears calm. . Diagnostic Tests Laboratory Laboratory Tests Test 11/04/17 21:18 11/05/17 03:00 11/05/17 11:45 11/05/17 20:14 White Blood Count 7.5 TH/MM3 (4.0-11.0) Red Blood Count 3.37 MIL/MM3 (4.00-5.30) Hemoglobin 10.4 GM/DL (11.6-15.3) Hematocrit 30.3 % (35.0-46.0) Mean Corpuscular Volume 90.0 FL (80.0-100.0) Mean Corpuscular Hemoglobin 30.9 PG (27.0-34.0) Mean Corpuscular Hemoglobin Concent 34.3 % (32.0-36.0) Red Cell Distribution Width 13.9 % (11.6-17.2) Platelet Count 245 TH/MM3 (150-450) Mean Platelet Volume 7.8 FL (7.0-11.0) Prothrombin Time 10.8 SEC (9.8-11.6) Prothromb Time International Ratio 1.1 RATIO Activated Partial Thromboplast Time 28.2 SEC (24.3-30.1) 38.9 SEC (24.3-30.1) 50.3 SEC (24.3-30.1) 49.0 SEC (24.3-30.1) Blood Urea Nitrogen 12 MG/DL (7-18) Creatinine 0.54 MG/DL (0.50-1.00) Random Glucose 164 MG/DL (74-106) Calcium Level 8.0 MG/DL (8.5-10.1) Sodium Level 144 MEQ/L (136-145) Potassium Level 3.7 MEQ/L (3.5-5.1) Chloride Level 109 MEQ/L (98-107) Carbon Dioxide Level 30.4 MEQ/L (21.0-32.0) Anion Gap 5 MEQ/L (5-15) Estimat Glomerular Filtration Rate 109 ML/MIN (>89) Test 11/06/17 05:37 11/07/17 04:44 11/07/17 08:06 Activated Partial Thromboplast Time 53.9 SEC (24.3-30.1) 24.6 SEC (24.3-30.1) Blood Urea Nitrogen 12 MG/DL (7-18) 11 MG/DL (7-18) Creatinine 0.57 MG/DL (0.50-1.00) 0.63 MG/DL (0.50-1.00) Random Glucose 169 MG/DL (74-106) 126 MG/DL (74-106) Calcium Level 8.2 MG/DL (8.5-10.1) 8.9 MG/DL (8.5-10.1) Sodium Level 144 MEQ/L (136-145) 142 MEQ/L (136-145) Potassium Level 3.9 MEQ/L (3.5-5.1) 4.0 MEQ/L (3.5-5.1) Chloride Level 109 MEQ/L (98-107) 107 MEQ/L (98-107) Carbon Dioxide Level 30.8 MEQ/L (21.0-32.0) 28.1 MEQ/L (21.0-32.0) Anion Gap 4 MEQ/L (5-15) 7 MEQ/L (5-15) Estimat Glomerular Filtration Rate 103 ML/MIN (>89) 92 ML/MIN (>89) White Blood Count 6.3 TH/MM3 (4.0-11.0) Red Blood Count 3.29 MIL/MM3 (4.00-5.30) Hemoglobin 10.2 GM/DL (11.6-15.3) Hematocrit 30.1 % (35.0-46.0) Mean Corpuscular Volume 91.3 FL (80.0-100.0) Mean Corpuscular Hemoglobin 30.9 PG (27.0-34.0) Mean Corpuscular Hemoglobin Concent 33.9 % (32.0-36.0) Red Cell Distribution Width 14.0 % (11.6-17.2) Platelet Count 276 TH/MM3 (150-450) Mean Platelet Volume 7.9 FL (7.0-11.0) Result Diagram: 11/07/17 0444 11/07/17 0444 Procedures * 10/26/2017 -tracheal intubation . Assessment and Plan Disease Oriented Problem List: (1) Ischemic cerebrovascular accident (CVA) (2) H/O mitral valve replacement with mechanical valve (3) Acute respiratory failure with hypoxia and hypercarbia (4) CAD (coronary artery disease) (5) CHF (congestive heart failure) (6) Dementia (7) Hypothyroidism (8) History of DVT (deep vein thrombosis) (9) Atrial fibrillation with RVR Symptom Scale: (1) Encephalopathy 0-10 Scale: Unable to quantify (2) Pain 0-10 Scale: Unable to quantify Pertinent Non-Medical Issues Psychosocial:Patient is originally from [facility]. She is a ; her approximately 18 years ago. Patient 3 daughters and 4 sons. She has 11 grandchildren and at least one great grandchild. The patient lives with her son. Four of her children live locally, to live in [place] and one is in [facility]. The patient has a private nurse who cares for her during the day. Spiritual: Jainism Legal: Omega Low is designated as the [facility] decision maker; Lysney Little is the alternate [facility] decision maker. Ethical issues impacting care: No known ethical issues impacting care at this time. . Important Contacts Lynsey Little, daughter: [phone] Chelsea Low, daughter: [phone] Son Elio from [place] Son Tamar from [place] Son Dorian Son Micaela . Prognosis Patient is a 76-year-old female status post large cerebellar stroke and associated severe encephalopathy, hypoxic and hypercarbic respiratory failure. Patient will likely remain functionally dependent requiring total assistance. Given her age and multiple comorbidities, she will remain high risk for complications and ongoing decline. . Code Status: Full Code Plan * CODE STATUS: FULL CODE * MEDICAL DECISION-MAKING: Given patient's current clinical condition, she is unable to participate in establishment of medical treatment goals. Healthcare surrogate designation form was completed on 07/13/2015 and designates daughter, Omega Low (RUBY), as the primary [facility] decision maker. Daughter, Lynsey Little, is the designated alternate [facility] decision maker. * GOALS OF CARE: Goals of treatment remain aggressive. 11/07/17 -Family reports that after further consideration, they have decided to proceed with tracheostomy and PEG tube placement. Family verbalized feeling optimistic with patient's improved neurological status to include following some simple commands and attempting to communicate by mouthing words. Discussed with family that at this time is unclear the extent of neurological deficit secondary to right cerebellar stroke. Family looking into acute rehabilitation post trach and PEG, [facility] following. * Symptom management: == Encephalopathy: Secondary to acute right cerebellar infarct. Off sedation for over the past 7 days, appears neurologically improving. Tracking of following simple commands during my visit. == Pain: Multifactorial. Contributing factors may include poor circulation, invasive lines, immobility, bedbound status etc. PRN acetaminophen and morphine are available. Appears comfortable during my visit. == Shortness of breath: Remains endotracheally intubated on mechanical ventilation. Tolerating CPAP, however, not appropriately alert to protect her airway. Family has decided to proceed with tracheostomy. * Palliative care contact information has been provided to patient's family. * Case discussed with bedside RN. * Palliative care will continue to follow this patient throughout her hospitalization to establish stress, assist with symptom management and clarification of medical treatment goals. . Time Spent Total Floor Time (mins): 36 (Total time to include review of medical records, physical exam, goals of care conversation with patient's family, case discussion with bedside RN. ) >50% Counseling/Coord of Care: Yes Attestation To help prompt me to consider important information that might be impacting today's encounter and assessment, information from prior notes written by myself or my colleagues may have been "brought forward" into today's note. My signature on this note, however, is an attestation that I personally performed the exam, history, and/or decision-making noted today, and, unless otherwise indicated, the interactions with patient, family, and staff as well as the review of records all occurred today. I also attest that the listed assessment and stated plan reflect my best clinical judgment today based on the combination of historical information, prior notes, and today's exam/ interactions. When time spent is documented, it refers only to time spent today by the signer, or if indicated, combined time spent today by collaborating physician/nurse practitioner. Carole Marina November 07, 2017 12:01
--- NOTE | 2017-11-07 13:00 | HHI.CCPN ---
Subjective Remarks/Hospital Course The patient is a 76-year-old female that was apparently alert and talking prior to 11 PM tonight when she started vomiting. She then became comatose, [facility] was called and they intubated the patient using etomidate and Versed. 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 There has not been any head trauma. After intubation and Versed the blood pressure is 127/90. No seizure activity noted per ER physician. Patient was kept sedated orally intubated overnight on mechanical ventilation. She is starting to arousable although not following commands. She does try to open her eyes on command. Per nursing staff she was moving all [address] done in the ER did not reveal any acute bleed and had evidence of old strokes. Dr. Kim from neurology was contacted by ER physician and will be evaluating patient. When I evaluated the patient this morning she sedated with propofol, orally intubated on mechanical ventilation. History is obtained by reviewing records and discussion with nursing staff. Subjective: 10/27: The patient currently remains intubated and sedated. EEG in process. MRI revealed acute right cerebellar. or infarct. Sedation vacation pending. 10/28: more cerebral edema on CT scan yesterday. remains very encephalopathic, intubated, obtunded. long conversation with family today where I explained current stroke and edema. family introduced the idea that if she would not come off life support or would need to be fully dependent on healthcare system, she would not want to live: will consult palliative care to assist with goals of care clarification. 10/29: remains intubated and encephalopathic. CT brain today demonstrates stable appearance of posterior fossa infarct and edema. neuro exam slightly better and now w/d x 4. 5/2: Remains encephalopathic, orally intubated on mechanical ventilation. Tolerating tube feeds. 3: Remains encephalopathic, orally intubated on mechanical ventilation. Tolerating tube feeds. 11/01: Remains encephalopathic, orally intubated on mechanical ventilation. Tolerating tube feeds. 11/02: Intubated off sedation for the last 5 days at least, remains unresponsive. Chest exam reveals bilateral wheezing. Breathing treatments scheduled and as needed ordered. Tmax 101.3, check chest x-ray sputum culture, blood culture and UA. According to the son at the bedside family might want to proceed with tracheostomy and PEG tube placement 11/03: Remains encephalopathic, orally intubated on mechanical ventilation. Grimaces with painful stimuli however not following commands. 11/04: Squeezes hands today. Discussed with Dr. Kim. He will start heparin gtt , convert to coumadin after tracheostomy. 11/05: Family has not agreed to trach or PEG yet, they want to see if she wakes up more. 11/06: Family remains encouraged by some early hand motility. They wish to wait to decide whether a tracheostomy is appropriate and/or necessary. 11/07: Will try patient on spontaneous breathing trials today, earlier efforts were plagued by episodes of apnea. Family continues to wish to hold off on tracheostomy at this point. Objective Vital Signs Date Time Temp Pulse Resp B/P (MAP) Pulse Ox O2 Delivery O2 Flow Rate FiO2 11/07/17 11:21 99 30 11/07/17 10:00 68 11/07/17 08:00 98.5 18 150/69 (96) Intake and Output 11/07/17 11/07/17 11/08/17 08:00 16:00 00:00 Intake Total 752 ml Output Total 1400 ml Balance -648 ml Result Diagram: 11/07/17 0444 11/07/17 0444 Imaging Last Impressions Neck CTA 10/26/17 001 Signed Impressions: Service Date/Time: Thursday, October 26, 2017 00:12 - CONCLUSION: 1. No luminal narrowing or significant plaque formation. 2. Left dominant vertebral system. Anatoly Early MD Head CTA 10/26/17 0012 Signed Impressions: Service Date/Time: Thursday, October 26, 2017 00:12 - CONCLUSION: No evidence of vessel truncation. Anatoly Early MD Head CT 10/26/17 0000 Signed Impressions: Service Date/Time: Thursday, October 26, 2017 00:12 - CONCLUSION: 1. Multiple bilateral old infarcts, unchanged from 3 days ago. No acute findings. 2. Bilateral maxillary and ethmoid sinus disease. Anatoly Early MD Chest X-Ray 10/26/17 0000 Signed Impressions: Service Date/Time: Thursday, October 26, 2017 06:33 - CONCLUSION: ET tube as above. Luis Felipe Ayala MD Brain MRI 10/26/17 0000 Signed Impressions: Service Date/Time: Thursday, October 26, 2017 16:04 - CONCLUSION: 1. Acute right cerebellar infarct. No midline shift or mass effect. 2. Multiple old bilateral infarcts. Samuel Chen MD Objective Remarks HEENT/ Pallor present, no icterus. Neck: Orally intubated, supple Chest/Pulm: on mech vent, good air entry bilaterally. No adventitious sounds. CVS: S1-S2 irregularly irregular, no murmur, no JVD. GI/abdomen: Soft, nontender, bowel sounds sluggish. No guarding. Extremities: Warm bilaterally, no edema Neuro: Neuro: Encephalopathy persists, squeezes hands commands withdraws to pain x 4. Orally intubated, Date of Insertion: Oct 26, 2017 A/P Assessment and Plan Assessment: 76yF with large cerebellar stroke and associated severe encephalopathy, hypoxic and hypercarbic respiratory failure. appreciate palliative care and neurology following. Overall, likely to have functionally dependent quality of life in SNF with full-time assistance. Also the family members are coming in to make decision regarding trach and PEG. 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 CT head 10/31/2017 shows stable right cerebellar infarct and multiple supratentorial infarct 10/27 EEG for further evaluation of altered mental status Neurology following- Dr. Kim. On ASA Continue heparin gtt. consider converting to Lovenox for ease of management. Cardiovascular: Continue home medications. hold coumadin for anticoagulation given size of stroke and edema. high concern for hemorrhagic conversion. Monitor INR Atrial fibrillation rate controlled Pulmonary: Continue mechanical ventilation Ventilator bundle, bronchodilators as needed. Mental status will not permit extubation Awaiting decision by family regarding tracheostomy as patient is currently not extubated able due to inability to protect airway. wean fio2 for goal spo2 > 90% GI/liver: Tube feeds Jevity 1.5 and advance to goal 65 cc/hour as tolerated Will need PEG tube if family decides on aggressive care Bowel regimen, GI prophylaxis Renal/: IV hydration, strict intake output, Monitor and replete electrolytes, follow BUN/creatinine ID: Spiking fever up to 101.3. Santana culture requested follow-up on chest x-ray Sputum culture from 11/02 growing MRSA/gram-negative rods. Starting antibiotics: Zyvox, levaquin on 11/03. Heme: Monitor CBC and INR. hold anticoagulation. daily INRs. Endocrine: Watch for hypoglycemia, SSI for glycemic control if needed. TSH significantly elevated- 16 currently on levothyroxine 125 mcg/day Prophylaxis: Pepcid, SCDs. Full anticoagulation. Overall impression: Family encouraged, will decide if want to proceed with trach /PEG later in the week. Son is at bedside today. Greg Cole MD November 07, 2017 13:00
[2017-11-07] MEDS: LEVOFLOXACIN 750 MG PREMIX INJ 150 ML IV SCH (14:14)
[2017-11-07] MEDS: HEPARIN-D5W 25,000 U/250 ML 250 ML IV PRN (14:16)
--- NOTE | 2017-11-07 20:28 | HHI.PR ---
Review/Management Diagnosis right cerebellar stroke--exam stable. atrial fibrillation Plan continue iv heparin. Coumadin to start after tracheostomy/PEG Diagnosis/Plan: Subjective Subjective Comments No acute events reported Her family state she has been more alert today and following commands Active Medications Current Medications Medications (Trade) Dose Ordered Sig/Nitin Route Start Time Stop Time Status Last Admin (Norvasc) 5 mg DAILY PO 10/26/17 09:00 11/07/17 08:23 (Lipitor) 20 mg DAILY PO 10/26/17 09:00 11/07/17 07:46 (Coreg) 12.5 mg BID PO 10/26/17 09:00 11/07/17 07:45 (Lanoxin) 0.125 mg DAILY PO 10/26/17 09:00 11/07/17 07:45 (Zoloft) 50 mg DAILY PO 10/26/17 09:00 11/07/17 07:47 (Theragran) 1 tab DAILY PO 10/26/17 09:00 11/07/17 07:46 Levetriacetam 100 ml @ 400 mls/hr Q12HR IV 10/26/17 01:45 11/07/17 07:45 Sodium Chloride 1,000 ml @ 20 mls/hr Q24H IV 10/26/17 01:39 11/07/17 11:44 (Tylenol) 650 mg Q6H PRN PO 10/26/17 01:45 11/03/17 16:13 (Morphine Inj) 2 mg Q2H PRN IV PUSH 10/26/17 01:45 10/28/17 18:25 (Ativan Inj) 1 mg Q1H PRN IV PUSH 10/26/17 01:45 (Tears Naturale Opth Soln) 1 drop TID EACH EYE 10/26/17 09:00 11/07/17 17:52 (Zofran Inj) 4 mg Q6H PRN IV PUSH 10/26/17 01:45 ([facility] Nursing Information) 1 Q361D XX 10/26/17 01:45 10/26/17 01:45 (Chlorhexidine 2% Cloth) Taper DAILY@04 TOP 10/26/17 04:00 10/22/18 03:59 10/28/17 00:53 (Chlorhexidine 2% Cloth) 3 pack UNSCH PRN TOP 10/26/17 01:45 (Ivette-Colace) 1 tab BID PO 10/26/17 09:00 11/05/17 20:50 (Milk Of Magnesia Liq) 30 ml Q12H PRN PO 10/26/17 01:45 (Senokot) 17.2 mg Q12H PRN PO 10/26/17 01:45 (Dulcolax Supp) 10 mg DAILY PRN RECTAL 10/26/17 01:45 (Lactulose Liq) 30 ml DAILY PRN PO 10/26/17 01:45 (Peridex 0.12% Liq) 15 ml BID@08,20 MT 10/26/17 08:00 11/07/17 07:29 Propofol 100 ml @ 1.878 mls/ hr TITRATE PRN IV 10/26/17 01:45 10/28/17 00:52 (NS Flush) 2 ml BID IV FLUSH 10/26/17 09:00 11/07/17 07:45 (NS Flush) 2 ml UNSCH PRN IV FLUSH 10/26/17 09:00 (D50w (Vial) Inj) 50 ml UNSCH PRN IV PUSH 10/26/17 09:00 (Glucagon Inj) 1 mg UNSCH PRN OTHER 10/26/17 09:00 (NovoLOG SUPPLEMENTAL SCALE) 1 Q6HR SQ 10/28/17 12:00 11/06/17 06:00 Potassium Chloride 100 ml @ 50 mls/hr Q2H PRN IV 10/28/17 08:30 Potassium Chloride 100 ml @ 50 mls/hr Q2H PRN IV 10/28/17 08:30 (K-Lyte Cl Eff) 50 meq UNSCH PRN PO 10/28/17 08:30 Potassium Chloride 100 ml @ 25 mls/hr UNSCH PRN IV 10/28/17 08:30 Potassium Chloride 100 ml @ 50 mls/hr Q2H PRN IV 10/28/17 08:30 11/01/17 07:20 Magnesium Sulfate 4 gm/Sodium Chloride 100 ml @ 50 mls/hr UNSCH PRN IV 10/28/17 08:30 (Mag-Ox) 800 mg UNSCH PRN PO 10/28/17 08:30 Magnesium Sulfate 2 gm/Sodium Chloride 100 ml @ 50 mls/hr UNSCH PRN IV 10/28/17 08:30 (K-Phos) 2,000 mg Q4H PRN PO 10/28/17 08:30 Sodium Phosphate 30 mmol/Sodium Chloride 250 ml @ 42 mls/hr UNSCH PRN IV 10/28/17 08:30 (K-Phos) 2,000 mg UNSCH PRN PO/TUBE 10/28/17 08:30 Potassium Phosphate 30 mmol/ Sodium Chloride 260 ml @ 42 mls/hr UNSCH PRN IV 10/28/17 08:30 10/28/17 15:39 (Synthroid) 125 mcg DAILY@0600 PO 10/29/17 06:00 11/07/17 05:59 (Vasotec Inj) 1.25 mg Q6H PRN IV PUSH 10/29/17 21:15 (Pepcid) 20 mg BID PO 10/30/17 21:00 11/07/17 07:46 Linezolid 300 ml @ 300 mls/hr Q12H IV 11/03/17 13:00 11/07/17 14:13 Levofloxacin/ Dextrose 150 ml @ 100 mls/hr Q24H IV 11/03/17 14:00 11/07/17 14:14 Heparin Sodium/ Dextrose 250 ml @ 10 mls/hr TITRATE PRN IV 11/04/17 18:00 11/07/17 14:16 (Albuterol Neb) 2.5 mg Q2HR NEB PRN NEB 11/05/17 21:30 (Duoneb Neb) 1 ampule Q4HR NEB NEB 11/06/17 00:00 11/07/17 17:42 Allergies Allergies Coded Allergies amiodarone (Unverified Allergy, Severe, Blurred Vision, 10/23/17) amoxicillin (Unverified Allergy, Severe, Swelling, 10/23/17) *MDRO Multi-Drug Resistant Organism (Verified Adverse Reaction, Unknown, ) Exam I&O / VS 11/07/17 11/07/17 11/08/17 15:00 23:00 07:00 Intake Total 100 ml 1979 ml Output Total 550 ml Balance 100 ml 1429 ml IV Total 100 ml 1312 ml Tube Feeding 607 ml Other 60 ml Output Urine Total 550 ml # Voids 1 # Bowel Movements 0 Vital Signs Date Time Temp Pulse Resp B/P (MAP) Pulse Ox O2 Delivery O2 Flow Rate FiO2 11/07/17 18:00 92 11/07/17 17:45 99 30 11/07/17 16:00 74 11/07/17 16:00 30 11/07/17 16:00 98.5 74 12 127/65 (85) 100 11/07/17 14:00 66 11/07/17 12:00 30 11/07/17 12:00 98.4 62 18 108/62 (77) 97 11/07/17 12:00 62 11/07/17 11:21 99 30 11/07/17 11:21 30 11/07/17 10:00 68 11/07/17 09:39 98 30 11/07/17 08:00 98.5 76 18 150/69 (96) 99 11/07/17 08:00 30 11/07/17 08:00 74 11/07/17 06:00 76 11/07/17 04:00 98.9 75 16 126/62 (83) 100 11/07/17 04:00 76 11/07/17 04:00 99 30 11/07/17 04:00 30 11/07/17 02:00 71 11/07/17 00:36 99 30 11/07/17 00:00 30 11/07/17 00:00 72 11/07/17 00:00 98.9 84 19 152/77 (102) 99 11/06/17 22:00 65 11/06/17 21:19 99 30 Exam Comments more alert, opens eyes to voice . She does follow some simple commands today CN--PERRL MOTOR--move BLE equally Objective Micro and Labs Laboratory Tests Test 11/07/17 04:44 11/07/17 08:06 11/07/17 18:40 White Blood Count 6.3 Red Blood Count 3.29 Hemoglobin 10.2 Hematocrit 30.1 Mean Corpuscular Volume 91.3 Mean Corpuscular Hemoglobin 30.9 Mean Corpuscular Hemoglobin Concent 33.9 Red Cell Distribution Width 14.0 Platelet Count 276 Mean Platelet Volume 7.9 Blood Urea Nitrogen 11 Creatinine 0.63 Random Glucose 126 Calcium Level 8.9 Sodium Level 142 Potassium Level 4.0 Chloride Level 107 Carbon Dioxide Level 28.1 Anion Gap 7 Estimat Glomerular Filtration Rate 92 Activated Partial Thromboplast Time 24.6 Date/Time Source Procedure Growth Status 11/02/17 12:30 Blood Peripheral Aerobic Blood Culture - Final NO GROWTH IN 5 DAYS Complete 11/02/17 12:30 Blood Peripheral Anaerobic Blood Culture - Final NO GROWTH IN 5 DAYS Complete 10/26/17 05:15 Stool Stool Stool Occult Blood (MATTHEW) - Final HEMOCCULT NEGATIVE Complete 11/02/17 11:55 Sputum Endotracheal Gram Stain - Final Complete 11/02/17 11:55 Sputum Culture - Final S. Aureus Mrsa Klebsiella Pneumoniae Complete 11/02/17 11:55 Urine Catheterized Urine Urine Culture - Final 50-100,000 CFU/ML MIXED SHIRA... Complete Claudio Kim MD PhD November 07, 2017 20:28
[2017-11-08] VITALS (17 sets, daily range): BP systolic 95–166; BP diastolic 54–85; PULSE 58–97; RESP 16–22; TEMP 98.4–98.9; O2SAT 97–100
[2017-11-08] MEDS: LINEZOLID 600 MG PREMIX 300 ML IV SCH ×2 (00:17→12:58)
[2017-11-08] MEDS: CHLORHEXIDINE GLUCONATE 2 % 1 PACK (2 CLOTHS) TOP SCH (02:58)
[2017-11-08 03:52] LABS: BICARBONATE 29.3 MEQ/L (21.0-32.0); CALCIUM 7.9 MG/DL (8.5-10.1); CREATININE 0.62 MG/DL (0.50-1.00)
[2017-11-08] MEDS: RESP: ALBUTEROL 2.5 MG/IPRATROPIUM 0.5 MG NEB (SCH) NEB ×5 (04:09→20:59)
[2017-11-08] MEDS: INSULIN ASPART SUPPLEMENTAL SCALE SQ SCH ×4 (05:41→18:00)
[2017-11-08] MEDS: LEVOTHYROXINE SODIUM 125 MCG TAB PO SCH (05:41)
--- NOTE | 2017-11-08 07:04 | HHI.CCPN ---
Subjective Remarks/Hospital Course The patient is a 76-year-old female that was apparently alert and talking prior to 11 PM tonight when she started vomiting. She then became comatose, [facility] was called and they intubated the patient using etomidate and Versed. 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 There has not been any head trauma. After intubation and Versed the blood pressure is 127/90. No seizure activity noted per ER physician. Patient was kept sedated orally intubated overnight on mechanical ventilation. She is starting to arousable although not following commands. She does try to open her eyes on command. Per nursing staff she was moving all [address] done in the ER did not reveal any acute bleed and had evidence of old strokes. Dr. Kim from neurology was contacted by ER physician and will be evaluating patient. When I evaluated the patient this morning she sedated with propofol, orally intubated on mechanical ventilation. History is obtained by reviewing records and discussion with nursing staff. Subjective: 10/27: The patient currently remains intubated and sedated. EEG in process. MRI revealed acute right cerebellar. or infarct. Sedation vacation pending. 10/28: more cerebral edema on CT scan yesterday. remains very encephalopathic, intubated, obtunded. long conversation with family today where I explained current stroke and edema. family introduced the idea that if she would not come off life support or would need to be fully dependent on healthcare system, she would not want to live: will consult palliative care to assist with goals of care clarification. 10/29: remains intubated and encephalopathic. CT brain today demonstrates stable appearance of posterior fossa infarct and edema. neuro exam slightly better and now w/d x 4. 5/2: Remains encephalopathic, orally intubated on mechanical ventilation. Tolerating tube feeds. 3: Remains encephalopathic, orally intubated on mechanical ventilation. Tolerating tube feeds. 11/01: Remains encephalopathic, orally intubated on mechanical ventilation. Tolerating tube feeds. 11/02: Intubated off sedation for the last 5 days at least, remains unresponsive. Chest exam reveals bilateral wheezing. Breathing treatments scheduled and as needed ordered. Tmax 101.3, check chest x-ray sputum culture, blood culture and UA. According to the son at the bedside family might want to proceed with tracheostomy and PEG tube placement 11/03: Remains encephalopathic, orally intubated on mechanical ventilation. Grimaces with painful stimuli however not following commands. 11/04: Squeezes hands today. Discussed with Dr. Kim. He will start heparin gtt , convert to coumadin after tracheostomy. 11/05: Family has not agreed to trach or PEG yet, they want to see if she wakes up more. 11/06: Family remains encouraged by some early hand motility. They wish to wait to decide whether a tracheostomy is appropriate and/or necessary. 11/07: Will try patient on spontaneous breathing trials today, earlier efforts were plagued by episodes of apnea. Family continues to wish to hold off on tracheostomy at this point. 11/08: Family would like to go ahead with trach and PEG. Neurological function severly impaired and both will be required for ongoing care. Objective Vital Signs Date Time Temp Pulse Resp B/P (MAP) Pulse Ox O2 Delivery O2 Flow Rate FiO2 11/08/17 06:00 77 11/08/17 04:09 99 30 11/08/17 04:00 98.9 16 166/69 (101) Intake and Output 11/08/17 11/08/17 11/09/17 08:00 16:00 00:00 Intake Total 775 ml Output Total 1800 ml Balance -1025 ml Result Diagram: 11/07/17 0444 11/08/17 0254 Imaging Last Impressions Neck CTA 10/26/1711 Signed Impressions: Service Date/Time: Thursday, October 26, 2017 00:12 - CONCLUSION: 1. No luminal narrowing or significant plaque formation. 2. Left dominant vertebral system. Anatoly Early MD Head CTA 10/26/17 0012 Signed Impressions: Service Date/Time: Thursday, October 26, 2017 00:12 - CONCLUSION: No evidence of vessel truncation. Anatoly Early MD Head CT 10/26/17 0000 Signed Impressions: Service Date/Time: Thursday, October 26, 2017 00:12 - CONCLUSION: 1. Multiple bilateral old infarcts, unchanged from 3 days ago. No acute findings. 2. Bilateral maxillary and ethmoid sinus disease. Anatoly Early MD Chest X-Ray 10/26/17 0000 Signed Impressions: Service Date/Time: Thursday, October 26, 2017 06:33 - CONCLUSION: ET tube as above. Luis Felipe Ayala MD Brain MRI 10/26/17 0000 Signed Impressions: Service Date/Time: Thursday, October 26, 2017 16:04 - CONCLUSION: 1. Acute right cerebellar infarct. No midline shift or mass effect. 2. Multiple old bilateral infarcts. Samuel Chen MD Objective Remarks HEENT: Normal, no icterus. Neck: Orally intubated, supple Chest/Pulm: on mech vent, good air entry bilaterally. No adventitious sounds. CVS: S1-S2 irregularly irregular, no murmur, no JVD. GI/abdomen: Soft, nontender, bowel sounds present. No guarding. Extremities: Warm bilaterally, no edema Neuro: Encephalopathy persists, squeezes hands to command, withdraws to pain x 4. Orally intubated, Date of Insertion: Oct 26, 2017 A/P Assessment and Plan Assessment: 76yF with large cerebellar stroke and associated severe encephalopathy, hypoxic and hypercarbic respiratory failure. appreciate palliative care and neurology following. Overall, likely to have functionally dependent quality of life in SNF with full-time assistance. According to the son at the bedside family want to proceed with tracheostomy and PEG tube placement. 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 CT head 10/31/2017 shows stable right cerebellar infarct and multiple supratentorial infarct 10/27 EEG for further evaluation of altered mental status Neurology following- Dr. Kim. On ASA Continue heparin gtt. consider converting to Lovenox for ease of management. Cardiovascular: Continue home medications. hold coumadin for anticoagulation given size of stroke and edema. high concern for hemorrhagic conversion. Monitor INR Atrial fibrillation rate controlled Heparin gtt Pulmonary: Continue mechanical ventilation Ventilator bundle, bronchodilators as needed. Mental status will not permit extubation Awaiting decision by family regarding tracheostomy as patient is currently not extubated able due to inability to protect airway. wean fio2 for goal spo2 > 90% GI/liver: Tube feeds Jevity 1.5 and advance to goal 65 cc/hour as tolerated Will need PEG tube if family decides on aggressive care Bowel regimen, GI prophylaxis Renal/: IV hydration, strict intake output, Monitor and replete electrolytes, follow BUN/creatinine ID: Spiking fever up to 101.3. Santana culture requested follow-up on chest x-ray Sputum culture from 11/02 growing MRSA/gram-negative rods. Starting antibiotics: Zyvox, levaquin on 11/03. Heme: Monitor CBC and INR. hold anticoagulation today for procedure.. daily INRs. Endocrine: Watch for hypoglycemia, SSI for glycemic control if needed. TSH significantly elevated- 16 currently on levothyroxine 125 mcg/day Prophylaxis: Pepcid, SCDs. Full anticoagulation. Overall impression: Family encouraged, decided to proceed with trach/PEG. Son is at bedside today. Greg Cole MD November 08, 2017 07:03
[2017-11-08] MEDS: CHLORHEXIDINE 0.12% (ORAL KIT) 15 ML CUP MT SCH ×2 (08:00→20:18)
[2017-11-08] MEDS: ARTIFICIAL TEARS OPTH SOLN 15 ML BTL EACH EYE SCH ×3 (09:00→17:20)
[2017-11-08] MEDS: SERTRALINE HCL 50 MG TAB PO SCH (09:10)
[2017-11-08] MEDS: DOCUSATE SODIUM 50 MG/SENNA 8.6 MG TAB PO SCH ×2 (09:10→20:20)
[2017-11-08] MEDS: DIGOXIN 0.125 MG TAB PO SCH (09:10)
[2017-11-08] MEDS: CARVEDILOL 12.5 MG TAB PO SCH ×2 (09:10→20:19)
[2017-11-08] MEDS: FAMOTIDINE 20 MG TAB PO SCH ×2 (09:10→20:19)
[2017-11-08] MEDS: ATORVASTATIN 20 MG TAB PO SCH (09:10)
[2017-11-08] MEDS: amLODIPine BESYLATE 5 MG TAB PO SCH (09:10)
[2017-11-08] MEDS: MULTIVITAMIN TAB PO SCH (09:10)
[2017-11-08] MEDS: levETIRAcetam INJ 100 ML IV SCH ×2 (09:10→20:19)
[2017-11-08] MEDS: SODIUM CHLORIDE 0.9% FLUSH 10 ML FLUSH IV FLUSH SCH ×2 (09:10→20:19)
[2017-11-08] MEDS: SODIUM CHLOR 0.9% 1000 ML INJ 1,000 ML IV SCH (12:06)
[2017-11-08] MEDS: LEVOFLOXACIN 750 MG PREMIX INJ 150 ML IV SCH (12:57)
[2017-11-08] MEDS ORDERED: ROCURONIUM INJ 50 MG/5 ML VIAL IV ONE (13:30)
[2017-11-08] MEDS ORDERED: MIDAZOLAM HCL 5 MG/5 ML VIAL IV PUSH ONE (13:30)
--- NOTE | 2017-11-08 16:31 | PD.PROCEDR ---
Procedure Note Procedure Diagnosis: Hypoxemic respiratory failure, acute Operation: Therapeutic flexible bronchoscopy Procedure: Timeout performed and patient properly identified. The patient is intubated through the orotracheal route and on mechanical ventilation at 20 breaths per minute. The usual ICU monitoring devices are in place. Through the indwelling orotracheal tube using a side-port in the ventilatory circuit the bronchoscope was delivered into the tracheobronchial tree. The mucosa of the trach is trachea and bronchus was clean but there was a large amount of thick white inspissated sputum and basilar bronchi on the left. These were suctioned clean. Branching anatomy was anatomically normal. The remainder of the bronchoscopy was normal. The orotracheal tube in the bronchoscope were then removed together up to the level of the cricoid cartilage. This position was used to visualize placement of the percutaneous tracheostomy as dictated by a separate team. When inserted, the bronchoscope was delivered through the new tracheostomy tube and confirmed correct position of the new tube in the mid trachea. Mechanical ventilation was rapidly converted to the new tracheostomy tube and full tidal volumes were returned. End-tidal CO2 monitoring confirmed function. Oxygen saturation was maintained at greater than 95% throughout the procedure. Greg Cole MD November 08, 2017 16:31
--- NOTE | 2017-11-08 16:59 | HHI.PR ---
Review/Management Diagnosis right cerebellar stroke--exam stable. atrial fibrillation Plan continue iv heparin. Coumadin to start after PEG Diagnosis/Plan: Subjective Subjective Comments Pt s/p tracheostomy placement Active Medications Current Medications Medications (Trade) Dose Ordered Sig/Nitin Route Start Time Stop Time Status Last Admin (Norvasc) 5 mg DAILY PO 10/26/17 09:00 11/08/17 09:10 (Lipitor) 20 mg DAILY PO 10/26/17 09:00 11/08/17 09:10 (Coreg) 12.5 mg BID PO 10/26/17 09:00 11/08/17 09:10 (Lanoxin) 0.125 mg DAILY PO 10/26/17 09:00 11/08/17 09:10 (Zoloft) 50 mg DAILY PO 10/26/17 09:00 11/08/17 09:10 (Theragran) 1 tab DAILY PO 10/26/17 09:00 11/08/17 09:10 Levetriacetam 100 ml @ 400 mls/hr Q12HR IV 10/26/17 01:45 11/08/17 09:10 Sodium Chloride 1,000 ml @ 20 mls/hr Q24H IV 10/26/17 01:39 11/08/17 12:06 (Tylenol) 650 mg Q6H PRN PO 10/26/17 01:45 11/03/17 16:13 (Morphine Inj) 2 mg Q2H PRN IV PUSH 10/26/17 01:45 10/28/17 18:25 (Ativan Inj) 1 mg Q1H PRN IV PUSH 10/26/17 01:45 (Tears Naturale Opth Soln) 1 drop TID EACH EYE 10/26/17 09:00 11/08/17 12:57 (Zofran Inj) 4 mg Q6H PRN IV PUSH 10/26/17 01:45 ([facility] Nursing Information) 1 Q361D XX 10/26/17 01:45 10/26/17 01:45 (Chlorhexidine 2% Cloth) Taper DAILY@04 TOP 10/26/17 04:00 10/22/18 03:59 10/28/17 00:53 (Chlorhexidine 2% Cloth) 3 pack UNSCH PRN TOP 10/26/17 01:45 (Ivette-Colace) 1 tab BID PO 10/26/17 09:00 11/08/17 09:10 (Milk Of Magnesia Liq) 30 ml Q12H PRN PO 10/26/17 01:45 (Senokot) 17.2 mg Q12H PRN PO 10/26/17 01:45 (Dulcolax Supp) 10 mg DAILY PRN RECTAL 10/26/17 01:45 (Lactulose Liq) 30 ml DAILY PRN PO 10/26/17 01:45 (Peridex 0.12% Liq) 15 ml BID@08,20 MT 10/26/17 08:00 11/08/17 08:00 Propofol 100 ml @ 1.878 mls/ hr TITRATE PRN IV 10/26/17 01:45 10/28/17 00:52 (NS Flush) 2 ml BID IV FLUSH 10/26/17 09:00 11/08/17 09:10 (NS Flush) 2 ml UNSCH PRN IV FLUSH 10/26/17 09:00 (D50w (Vial) Inj) 50 ml UNSCH PRN IV PUSH 10/26/17 09:00 (Glucagon Inj) 1 mg UNSCH PRN OTHER 10/26/17 09:00 (NovoLOG SUPPLEMENTAL SCALE) 1 Q6HR SQ 10/28/17 12:00 11/06/17 06:00 Potassium Chloride 100 ml @ 50 mls/hr Q2H PRN IV 10/28/17 08:30 Potassium Chloride 100 ml @ 50 mls/hr Q2H PRN IV 10/28/17 08:30 (K-Lyte Cl Eff) 50 meq UNSCH PRN PO 10/28/17 08:30 Potassium Chloride 100 ml @ 25 mls/hr UNSCH PRN IV 10/28/17 08:30 Potassium Chloride 100 ml @ 50 mls/hr Q2H PRN IV 10/28/17 08:30 11/01/17 07:20 Magnesium Sulfate 4 gm/Sodium Chloride 100 ml @ 50 mls/hr UNSCH PRN IV 10/28/17 08:30 (Mag-Ox) 800 mg UNSCH PRN PO 10/28/17 08:30 Magnesium Sulfate 2 gm/Sodium Chloride 100 ml @ 50 mls/hr UNSCH PRN IV 10/28/17 08:30 (K-Phos) 2,000 mg Q4H PRN PO 10/28/17 08:30 Sodium Phosphate 30 mmol/Sodium Chloride 250 ml @ 42 mls/hr UNSCH PRN IV 10/28/17 08:30 (K-Phos) 2,000 mg UNSCH PRN PO/TUBE 10/28/17 08:30 Potassium Phosphate 30 mmol/ Sodium Chloride 260 ml @ 42 mls/hr UNSCH PRN IV 10/28/17 08:30 10/28/17 15:39 (Synthroid) 125 mcg DAILY@0600 PO 10/29/17 06:00 11/08/17 05:41 (Vasotec Inj) 1.25 mg Q6H PRN IV PUSH 10/29/17 21:15 (Pepcid) 20 mg BID PO 10/30/17 21:00 11/08/17 09:10 Linezolid 300 ml @ 300 mls/hr Q12H IV 11/03/17 13:00 11/08/17 12:58 Levofloxacin/ Dextrose 150 ml @ 100 mls/hr Q24H IV 11/03/17 14:00 11/08/17 12:57 Heparin Sodium/ Dextrose 250 ml @ 10 mls/hr TITRATE PRN IV 11/04/17 18:00 Future Hold 11/07/17 14:16 (Albuterol Neb) 2.5 mg Q2HR NEB PRN NEB 11/05/17 21:30 (Duoneb Neb) 1 ampule Q4HR NEB NEB 11/06/17 00:00 11/08/17 12:00 Allergies Allergies Coded Allergies amiodarone (Unverified Allergy, Severe, Blurred Vision, 10/23/17) amoxicillin (Unverified Allergy, Severe, Swelling, 10/23/17) *MDRO Multi-Drug Resistant Organism (Verified Adverse Reaction, Unknown, ) Exam I&O / VS Vital Signs Date Time Temp Pulse Resp B/P (MAP) Pulse Ox O2 Delivery O2 Flow Rate FiO2 11/08/17 12:00 58 11/08/17 12:00 98.8 58 16 95/54 (68) 98 11/08/17 12:00 30 11/08/17 10:13 99 30 11/08/17 10:00 78 11/08/17 08:00 30 11/08/17 08:00 98.4 84 16 162/85 (110) 100 11/08/17 08:00 84 11/08/17 06:00 77 11/08/17 04:09 99 30 11/08/17 04:00 30 11/08/17 04:00 75 11/08/17 04:00 98.9 74 16 166/69 (101) 97 11/08/17 02:00 75 11/08/17 00:00 98.9 75 19 130/74 (92) 100 11/08/17 00:00 30 11/08/17 00:00 75 11/07/17 23:50 98 40 11/07/17 23:49 99 30 11/07/17 22:00 75 11/07/17 21:18 99 30 11/07/17 20:00 98.4 102 15 131/77 (95) 99 11/07/17 20:00 30 11/07/17 20:00 92 11/07/17 18:00 92 11/07/17 17:45 99 30 Exam Comments sedated now CN--PERRL MOTOR--minimal movement due to sedation Objective Micro and Labs Laboratory Tests Test 11/07/17 18:40 11/08/17 02:54 11/08/17 10:29 Activated Partial Thromboplast Time 61.6 28.2 27.3 Blood Urea Nitrogen 13 Creatinine 0.62 Random Glucose 112 Calcium Level 7.9 Sodium Level 143 Potassium Level 4.3 Chloride Level 109 Carbon Dioxide Level 29.3 Anion Gap 5 Estimat Glomerular Filtration Rate 93 Date/Time Source Procedure Growth Status 11/02/17 12:30 Blood Peripheral Aerobic Blood Culture - Final NO GROWTH IN 5 DAYS Complete 11/02/17 12:30 Blood Peripheral Anaerobic Blood Culture - Final NO GROWTH IN 5 DAYS Complete 10/26/17 05:15 Stool Stool Stool Occult Blood (MATTHEW) - Final HEMOCCULT NEGATIVE Complete 11/02/17 11:55 Sputum Endotracheal Gram Stain - Final Complete 11/02/17 11:55 Sputum Culture - Final S. Aureus Mrsa Klebsiella Pneumoniae Complete 11/02/17 11:55 Urine Catheterized Urine Urine Culture - Final 50-100,000 CFU/ML MIXED SHIRA... Complete Claudio Kim MD PhD November 08, 2017 16:59
--- NOTE | 2017-11-08 17:15 | RADRPT ---
EXAM DATE/TIME: 11/08/2017 16:46 [facility] COMPARISON: CHEST SINGLE AP, November 02, 2017, 11:03. INDICATIONS : Tracheostomy. MEDICAL HISTORY : Cardiovascular disease. Hypertension. Renal insufficiency, chronic. SURGICAL HISTORY : None. ENCOUNTER: Subsequent ACUITY: 2 weeks PAIN SCORE: Non-responsive. LOCATION: Bilateral chest FINDINGS: Tracheostomy is present in good position. Nasogastric tube descends to the stomach. There is no evide nce of pneumothorax or other complication of the procedure. Hazy bibasilar pleural-parenchymal opacit ies present, worse on the left than the right and somewhat improved. Cardiac contours are grossly sta ble. CONCLUSION: Tracheostomy without complication. Continued improvement in aeration Frankie Tsai MD on November 08, 2017 at 17:12 Board Certified Radiologist. This report was verified electronically.
--- NOTE | 2017-11-08 17:15 | PD.PROCEDR ---
Procedure Note Procedure Percutaneous Dilation Tracheostomy Tube Placement Diagnosis: Chronic respiratory failure Indications: Chronic respiratory failure with failure to wean from mechanical ventilation Anesthesia: Versed 5mg iv Neuromuscular Blockade: Rocuronium 50 mg IV Anesthesia was provided by the bedside RN Description of the Procedure: The patient was sedated and paralyzed. The patient was positioned in the supine position with a chest roll. The patient's neck was slightly extended. Landmarks were palpated and the anatomy of the anterior neck was deemed normal. A time out procedure was performed. The patient was placed on a volume control mode of ventilation, on 100% FiO2. The patient was prepped and draped sterilely. A bronchoscope was inserted into the endotracheal tube for endoscopic guidance (see separate bronchoscopy procedure note). After negative aspiration, 1% lidocaine with 1:100k epinephrine was injected subcutaneously in the midline neck using a 21g needle for local anesthesia. An approximately 2cm skin incision was made using a #15 blade. The cricoid cartilage, thyroid tissue , and tracheal rings were palpated in the midline. Under direct bronchoscopic guidance, the cuff of the endotracheal tube was deflated and the endotracheal tube was retracted to a level above the level of the skin incision. At this point, a 15g introducer needle/catheter was advanced midline under negative aspiration with saline filled syringe until bubbles were seen and the needle and catheter were visualized in the lumen of the trachea. The needle was withdrawn leaving the catheter in place. A 0.052 in diameter J-shaped guidewire was advanced through the catheter into the lumen of the trachea, under direct bronchoscopic visualization. Using a modified Seldinger technique , a 14 Fr, 4.5 cm introducer dilator was used, followed by a Blue Rhino Percutaneous Tracheostomy Dilator, and finally a 28 Fr tracheostomy loading catheter with 8.0 Cuffed Shiley tracheostomy tube. The loading catheter and guidewire were removed and the tracheostomy tube was confirmed in the lumen of the trachea with bronchoscopy, end-tidal CO2, and returning volumes on the ventilator. The tracheostomy was sewn to the skin with interrupted 2.0 Prolene sutures, and a tracheostomy tie was applied to the skin. There were no immediate complications. There was minimal EBL. A chest x-ray has been ordered. Director Business: Lawson Cole MD I personally performed the procedure. Bradly Arellano MD November 08, 2017 17:15
[2017-11-09] VITALS (18 sets, daily range): BP systolic 109–157; BP diastolic 63–83; PULSE 66–88; RESP 16–22; TEMP 98.4–98.8; O2SAT 99–100
[2017-11-09] MEDS: RESP: ALBUTEROL 2.5 MG/IPRATROPIUM 0.5 MG NEB (SCH) NEB ×6 (01:02→20:23)
[2017-11-09] MEDS: LINEZOLID 600 MG PREMIX 300 ML IV SCH ×2 (01:03→11:45)
[2017-11-09] MEDS: CHLORHEXIDINE GLUCONATE 2 % 1 PACK (2 CLOTHS) TOP SCH (03:28)
[2017-11-09] MEDS: LEVOTHYROXINE SODIUM 125 MCG TAB PO SCH (05:59)
[2017-11-09] MEDS: INSULIN ASPART SUPPLEMENTAL SCALE SQ SCH ×4 (06:00→18:00)
[2017-11-09 06:31] LABS: BICARBONATE 22.3 MEQ/L (21.0-32.0); CALCIUM 8.7 MG/DL (8.5-10.1); CREATININE 0.81 MG/DL (0.50-1.00)
[2017-11-09] MEDS: CHLORHEXIDINE 0.12% (ORAL KIT) 15 ML CUP MT SCH ×2 (08:00→20:00)
[2017-11-09] MEDS: levETIRAcetam INJ 100 ML IV SCH ×2 (08:14→20:17)
[2017-11-09] MEDS: SODIUM CHLORIDE 0.9% FLUSH 10 ML FLUSH IV FLUSH SCH ×2 (08:14→20:17)
[2017-11-09] MEDS: ATORVASTATIN 20 MG TAB PO SCH (08:14)
[2017-11-09] MEDS: ARTIFICIAL TEARS OPTH SOLN 15 ML BTL EACH EYE SCH ×3 (08:14→18:00)
[2017-11-09] MEDS: amLODIPine BESYLATE 5 MG TAB PO SCH (08:14)
[2017-11-09] MEDS: MULTIVITAMIN TAB PO SCH (08:15)
[2017-11-09] MEDS: DOCUSATE SODIUM 50 MG/SENNA 8.6 MG TAB PO SCH ×2 (08:15→20:17)
[2017-11-09] MEDS: DIGOXIN 0.125 MG TAB PO SCH (08:15)
[2017-11-09] MEDS: SERTRALINE HCL 50 MG TAB PO SCH (08:15)
[2017-11-09] MEDS: CARVEDILOL 12.5 MG TAB PO SCH ×2 (08:15→20:17)
[2017-11-09] MEDS: FAMOTIDINE 20 MG TAB PO SCH ×2 (08:15→20:17)
--- NOTE | 2017-11-09 09:28 | HHI.CCPN ---
Subjective Remarks/Hospital Course The patient is a 76-year-old female that was apparently alert and talking prior to 11 PM tonight when she started vomiting. She then became comatose, [facility] was called and they intubated the patient using etomidate and Versed. 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 There has not been any head trauma. After intubation and Versed the blood pressure is 127/90. No seizure activity noted per ER physician. Patient was kept sedated orally intubated overnight on mechanical ventilation. She is starting to arousable although not following commands. She does try to open her eyes on command. Per nursing staff she was moving all [address] done in the ER did not reveal any acute bleed and had evidence of old strokes. Dr. Kim from neurology was contacted by ER physician and will be evaluating patient. When I evaluated the patient this morning she sedated with propofol, orally intubated on mechanical ventilation. History is obtained by reviewing records and discussion with nursing staff. Subjective: 10/27: The patient currently remains intubated and sedated. EEG in process. MRI revealed acute right cerebellar. or infarct. Sedation vacation pending. 10/28: more cerebral edema on CT scan yesterday. remains very encephalopathic, intubated, obtunded. long conversation with family today where I explained current stroke and edema. family introduced the idea that if she would not come off life support or would need to be fully dependent on healthcare system, she would not want to live: will consult palliative care to assist with goals of care clarification. 10/29: remains intubated and encephalopathic. CT brain today demonstrates stable appearance of posterior fossa infarct and edema. neuro exam slightly better and now w/d x 4. 5/2: Remains encephalopathic, orally intubated on mechanical ventilation. Tolerating tube feeds. 3: Remains encephalopathic, orally intubated on mechanical ventilation. Tolerating tube feeds. 11/01: Remains encephalopathic, orally intubated on mechanical ventilation. Tolerating tube feeds. 11/02: Intubated off sedation for the last 5 days at least, remains unresponsive. Chest exam reveals bilateral wheezing. Breathing treatments scheduled and as needed ordered. Tmax 101.3, check chest x-ray sputum culture, blood culture and UA. According to the son at the bedside family might want to proceed with tracheostomy and PEG tube placement 11/03: Remains encephalopathic, orally intubated on mechanical ventilation. Grimaces with painful stimuli however not following commands. 11/04: Squeezes hands today. Discussed with Dr. Kim. He will start heparin gtt , convert to coumadin after tracheostomy. 11/05: Family has not agreed to trach or PEG yet, they want to see if she wakes up more. 11/06: Family remains encouraged by some early hand motility. They wish to wait to decide whether a tracheostomy is appropriate and/or necessary. 11/07: Will try patient on spontaneous breathing trials today, earlier efforts were plagued by episodes of apnea. Family continues to wish to hold off on tracheostomy at this point. 11/08: Family would like to go ahead with trach and PEG. Neurological function severely impaired and both will be required for ongoing care. 11/09: Trach site clean, dry. Will restart heparin 24 hours after PEG. No change in neuro function. Objective Vital Signs Date Time Temp Pulse Resp B/P (MAP) Pulse Ox O2 Delivery O2 Flow Rate FiO2 11/09/17 08:46 100 45 11/09/17 06:00 79 11/09/17 04:00 98.5 22 136/75 (95) Intake and Output 11/09/17 11/09/17 11/10/17 08:00 16:00 00:00 Intake Total 923 ml Output Total 1600 ml Balance -677 ml Result Diagram: 11/07/17 0444 11/09/17 0533 Imaging Last Impressions Neck CTA 10/26/17 0012 Signed Impressions: Service Date/Time: Thursday, October 26, 2017 00:12 - CONCLUSION: 1. No luminal narrowing or significant plaque formation. 2. Left dominant vertebral system. Anatoly Early MD Head CTA 10/26/17 0012 Signed Impressions: Service Date/Time: Thursday, October 26, 2017 00:12 - CONCLUSION: No evidence of vessel truncation. Anatoly Early MD Head CT 10/26/17 0000 Signed Impressions: Service Date/Time: Thursday, October 26, 2017 00:12 - CONCLUSION: 1. Multiple bilateral old infarcts, unchanged from 3 days ago. No acute findings. 2. Bilateral maxillary and ethmoid sinus disease. Anatoly Early MD Chest X-Ray 10/26/17 0000 Signed Impressions: Service Date/Time: Thursday, October 26, 2017 06:33 - CONCLUSION: ET tube as above. Luis Felipe Ayala MD Brain MRI 10/26/17 0000 Signed Impressions: Service Date/Time: Thursday, October 26, 2017 16:04 - CONCLUSION: 1. Acute right cerebellar infarct. No midline shift or mass effect. 2. Multiple old bilateral infarcts. Samuel Chen MD Objective Remarks HEENT: Normal, no conjunctival icterus. Neck: Trach site clean dry Chest/Pulm: on mech vent, good air entry bilaterally. No adventitious sounds. CVS: S1-S2 irregularly irregular, no murmur, no JVD. GI/abdomen: Soft, nontender, bowel sounds present. No guarding. Extremities: Warm bilaterally, no edema Neuro: Encephalopathy persists, withdraws to pain x 4. Direct tracheal intubated, Date of Insertion: Oct 26, 2017 A/P Assessment and Plan Assessment: 76yF with large cerebellar stroke and associated severe encephalopathy, hypoxic and hypercarbic respiratory failure. appreciate palliative care and neurology following. Overall, likely to have functionally dependent quality of life in SNF with full-time assistance. Tracheostomy and PEG tube placement. 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 CT head 10/31/2017 shows stable right cerebellar infarct and multiple supratentorial infarct 10/27 EEG for further evaluation of altered mental status Neurology following- Dr. Kim. On ASA Continue heparin gtt. consider converting to Lovenox for ease of management after PEG. Cardiovascular: Continue home medications. hold coumadin for anticoagulation given size of stroke and edema. high concern for hemorrhagic conversion. Monitor INR Atrial fibrillation rate controlled Heparin gtt Pulmonary: Continue mechanical ventilation Ventilator bundle, bronchodilators as needed. Mental status will not permit extubation Awaiting decision by family regarding tracheostomy as patient is currently not extubated able due to inability to protect airway. wean fio2 for goal spo2 > 90% GI/liver: Tube feeds Jevity 1.5 and advance to goal 65 cc/hour as tolerated Will need PEG tube if family decides on aggressive care Bowel regimen, GI prophylaxis Renal/: IV hydration, strict intake output, Monitor and replete electrolytes, follow BUN/creatinine ID: Spiking fever up to 101.3. Santana culture requested follow-up on chest x-ray Sputum culture from 11/02 growing MRSA/gram-negative rods. Starting antibiotics: Zyvox, levaquin on 11/03. Heme: Monitor CBC and INR. hold anticoagulation today for procedure.. daily INRs. Endocrine: Watch for hypoglycemia, SSI for glycemic control if needed. TSH significantly elevated- 16 currently on levothyroxine 125 mcg/day Prophylaxis: Pepcid, SCDs. Full anticoagulation. Overall impression: Family encouraged, proceed with trach/PEG. Son is at bedside today. Greg Cole MD November 09, 2017 09:28
--- NOTE | 2017-11-09 10:09 | PD.CONS ---
HPI History of Present Illness This is a 76 year old obese female who was admitted to the hospital on 2017 with an ischemic CVA. She currently maintains on prolonged mechanical ventilation and Jevity 1.5 NG tube for feedings. Gastroenterology has been consulted for PEG tube placement. Patient currently opens her eyes and listens to her son speak to her but is unable to give any valid information. She will facial grimace to pain but other than that most of the information is being obtained from the son and the record. Palliative care has met with patient currently patient is full code full aggressive care and family plans to proceed with PEG tube placement. Currently patient has tube feedings at 40 cc an hour and seems to be tolerating well. Nurse states soft semi-formed bowel movement every 12 hours no diarrhea. There is supportive family members available for history. PFSH Past Medical History Atrial fibrillation Coronary artery disease Hypercholesterolemia CHF Hypertension Previous [place] Hypothyroidism CKD Previous CVAs . Past Surgical History Mitral valve replacement-04/05/2011 [place] hole with evacuation of subdural hemorrhage-2012 Cardiac catheterization 2011 . Coded Allergies: amiodarone (Unverified Allergy, Severe, Blurred Vision, 10/23/17) amoxicillin (Unverified Allergy, Severe, Swelling, 10/23/17) *MDRO Multi-Drug Resistant Organism (Verified Adverse Reaction, Unknown, ) MRSA PCR (nares) positive - 09/30/15 Medications Administered Medications Medications (Trade) Dose Ordered Sig/Nitin Route PRN Reason Start Time Stop Time Status Last Admin Dose Admin Amlodipine Besylate (Norvasc) 5 mg DAILY PO 10/26/17 09:00 11/09/17 08:14 Atorvastatin Calcium (Lipitor) 20 mg DAILY PO 10/26/17 09:00 11/09/17 08:14 Carvedilol (Coreg) 12.5 mg BID PO 10/26/17 09:00 11/09/17 08:15 Digoxin (Lanoxin) 0.125 mg DAILY PO 10/26/17 09:00 11/09/17 08:15 Sertraline HCl (Zoloft) 50 mg DAILY PO 10/26/17 09:00 11/09/17 08:15 Multivitamins (Theragran) 1 tab DAILY PO 10/26/17 09:00 11/09/17 08:15 Levetriacetam 100 ml @ 400 mls/hr Q12HR IV 10/26/17 01:45 11/09/17 08:14 Sodium Chloride 1,000 ml @ 20 mls/hr Q24H IV 10/26/17 01:39 11/08/17 12:06 Acetaminophen (Tylenol) 650 mg Q6H PRN PO PAIN 1-5 AND/OR FEVER >101F 10/26/17 01:45 11/03/17 16:13 Morphine Sulfate (Morphine Inj) 2 mg Q2H PRN IV PUSH PAIN SCALE 6 TO 10 10/26/17 01:45 10/28/17 18:25 Artificial Tears (Tears Naturale Opth Soln) 1 drop TID EACH EYE 10/26/17 09:00 11/09/17 08:14 Miscellaneous Information ([facility] [place] [facility]) 1 Q361D XX 10/26/17 01:45 10/26/17 01:45 Chlorhexidine Gluconate (Chlorhexidine 2% Cloth) Taper DAILY@04 TOP 10/26/17 04:00 10/22/18 03:59 11/09/17 03:28 Senna/Docusate Sodium (Ivette-Colace) 1 tab BID PO 10/26/17 09:00 11/09/17 08:15 Chlorhexidine Gluconate (Peridex 0.12% Liq) 15 ml BID@08,20 MT 10/26/17 08:00 11/09/17 08:00 Propofol 100 ml @ 1.878 mls/ hr TITRATE PRN IV SEDATION 10/26/17 01:45 10/28/17 00:52 Sodium Chloride (NS Flush) 2 ml BID IV FLUSH 10/26/17 09:00 11/09/17 08:14 Insulin Aspart (NovoLOG SUPPLEMENTAL SCALE) 1 Q6HR SQ 10/28/17 12:00 11/06/17 06:00 Potassium Chloride 100 ml @ 50 mls/hr Q2H PRN IV For Potassium 3.3 - 3.5 mEq/L 10/28/17 08:30 11/01/17 07:20 Potassium Phosphate 30 mmol/ Sodium Chloride 260 ml @ 42 mls/hr UNSCH PRN IV SEE LABEL COMMENTS 10/28/17 08:30 10/28/17 15:39 Levothyroxine Sodium (Synthroid) 125 mcg DAILY@0600 PO 10/29/17 06:00 5/12/18 05:59 Famotidine (Pepcid) 20 mg BID PO 10/30/17 21:00 11/09/17 08:15 Linezolid 300 ml @ 300 mls/hr Q12H IV 11/03/17 13:00 11/09/17 01:03 Levofloxacin/ Dextrose 150 ml @ 100 mls/hr Q24H IV 11/03/17 14:00 11/08/17 12:57 Heparin Sodium/ Dextrose 250 ml @ 10 mls/hr TITRATE PRN IV Coagulation Management 11/04/17 18:00 Future Hold 11/07/17 14:16 Albuterol/ Ipratropium (Duoneb Neb) 1 ampule Q4HR NEB NEB 11/06/17 00:00 11/09/17 08:46 Family History No family history of venous thromboembolic events. No family history of cancer. Review of Systems No facial grimace to abdominal palpation GI Exam Vitals I&O Vital Signs Date Time Temp Pulse Resp B/P (MAP) Pulse Ox O2 Delivery O2 Flow Rate FiO2 11/09/17 08:46 100 45 11/09/17 06:00 79 11/09/17 04:04 100 45 11/09/17 04:00 45 11/09/17 04:00 98.5 68 22 136/75 (95) 100 11/09/17 04:00 68 11/09/17 02:00 73 11/09/17 01:02 100 50 11/09/17 00:00 77 11/09/17 00:00 98.7 77 22 157/78 (104) 100 11/09/17 00:00 45 11/08/17 22:00 84 11/08/17 20:59 99 50 11/08/17 20:00 45 11/08/17 20:00 98.6 97 22 156/85 (108) 100 11/08/17 20:00 97 11/08/17 18:00 88 11/08/17 17:00 99 30 11/08/17 16:00 98.7 74 16 139/79 (99) 100 11/08/17 16:00 30 11/08/17 16:00 74 11/08/17 15:45 99 100 11/08/17 14:00 61 11/08/17 12:00 58 11/08/17 12:00 98.8 58 16 95/54 (68) 98 11/08/17 12:00 30 11/08/17 10:13 99 30 I/O 11/08/17 11/08/17 11/08/17 11/09/17 11/09/17 11/09/17 07:00 15:00 23:00 07:00 15:00 23:00 Intake Total 775 ml 220 ml 923 ml Output Total 1800 ml 1600 ml 1600 ml Balance -1025 ml -1380 ml -677 ml IV Total 400 ml 100 ml 300 ml Tube Feeding 315 ml 0 ml 223 ml Other 60 ml 120 ml 400 ml Output Urine Total 1800 ml 1600 ml 1600 ml Gastric Drainage Total 0 ml # Bowel Movements 1 1 1 Imaging Last Impressions Chest X-Ray 11/08/17 1620 Signed Impressions: Service Date/Time: Wednesday, November 08, 2017 16:46 - CONCLUSION: Tracheostomy without complication. Continued improvement in aeration Frankie Tsai MD Head CT 11/04/17 0900 Signed Impressions: Service Date/Time: Saturday, November 04, 2017 12:31 - CONCLUSION: 1. Persistent area of recent infarction at the right cerebellar hemisphere. 2. Multiple areas of encephalomalacia in the cerebral hemispheres and the left cerebellar hemisphere. 3. Atrophy. 4. Suspected small vessel ischemic change in the white matter. 5. Sinus disease. Frankie Zamudio MD Neck CTA 10/26/1711 Signed Impressions: Service Date/Time: Thursday, October 26, 2017 00:12 - CONCLUSION: 1. No luminal narrowing or significant plaque formation. 2. Left dominant vertebral system. Anatoly Early MD Head CTA 10/26/17 0012 Signed Impressions: Service Date/Time: Thursday, October 26, 2017 00:12 - CONCLUSION: No evidence of vessel truncation. Anatoly Early MD Brain MRI 10/26/17 0000 Signed Impressions: Service Date/Time: Thursday, October 26, 2017 16:04 - CONCLUSION: 1. Acute right cerebellar infarct. No midline shift or mass effect. 2. Multiple old bilateral infarcts. Samuel Chen MD Laboratory Test 11/08/17 10:29 11/09/17 05:33 Activated Partial Thromboplast Time 27.3 SEC Blood Urea Nitrogen 14 MG/DL Creatinine 0.81 MG/DL Random Glucose 124 MG/DL Calcium Level 8.7 MG/DL Sodium Level 139 MEQ/L Potassium Level 3.7 MEQ/L Chloride Level 107 MEQ/L Carbon Dioxide Level 22.3 MEQ/L Anion Gap 10 MEQ/L Estimat Glomerular Filtration Rate 69 ML/MIN Date/Time Source Procedure Growth Status 11/02/17 12:30 Blood Peripheral Aerobic Blood Culture - Final NO GROWTH IN 5 DAYS Complete 11/02/17 12:30 Blood Peripheral Anaerobic Blood Culture - Final NO GROWTH IN 5 DAYS Complete 10/26/17 05:15 Stool Stool Stool Occult Blood (MATTHEW) - Final HEMOCCULT NEGATIVE Complete 11/02/17 11:55 Sputum Endotracheal Gram Stain - Final Complete 11/02/17 11:55 Sputum Culture - Final S. Aureus Mrsa Klebsiella Pneumoniae Complete 11/02/17 11:55 Urine Catheterized Urine Urine Culture - Final 50-100,000 CFU/ML MIXED SHIRA... Complete Physical Examination HEENT: normocephalic; atraumatic; no jaundice. Ventilator management NECK: No JVD CHEST: Mild diminished breath sounds with few rhonchi CARDIAC: Heart rate controlled ABDOMEN: Large, obese, soft, nondistended, nontender; no hepatosplenomegaly; bowel sounds are present in all four quadrants., Tube feeds 40 cc an hour via NG tube EXTREMITIES: No clubbing, cyanosis, or edema. SKIN: Normal; no rash; no jaundice. TACTICAL DEBRIEFER OFFICER: Nonverbal, opens eyes and does grimace to painful stimulation. Appears to listen to her son in her own language Assessment and Plan Plan 76-year-old unfortunate obese female with ischemic CVA. Patient is now requiring chronic ventilatory support and long-term nutritional needs. Currently has NG tube with Jevity 1.5 feedings at 40 cc an hour Long-term nutritional needs with PEG tube placement requested with gastroenterology consult. No facial grimace to abdominal palpation, abdomen is soft and bowel sounds are soft but active. Patient is currently on IV Levaquin which will be appropriate for preop antibiotic. Plan Consent for EGD with PEG tube placement Saturday Decompress abdomen and feedings and n.p.o. Saturday night 11/11/2017 Monitor labs with special attention to hemoglobin and for any bleeding Hold any anticoagulants Saturday a.m. Further recommendations to follow Supportive care Patient was seen per myself and Dr. Szymanski , note was written on his behalf Erica Foster November 09, 2017 10:09
[2017-11-09] MEDS: SODIUM CHLOR 0.9% 1000 ML INJ 1,000 ML IV SCH (11:45)
[2017-11-09] MEDS: LEVOFLOXACIN 750 MG PREMIX INJ 150 ML IV SCH (14:49)
[2017-11-10] VITALS (17 sets, daily range): BP systolic 114–139; BP diastolic 61–77; PULSE 65–80; RESP 14–22; TEMP 97.9–99.4; O2SAT 98–100
[2017-11-10] MEDS: LINEZOLID 600 MG PREMIX 300 ML IV SCH ×2 (00:12→11:55)
[2017-11-10] MEDS: CHLORHEXIDINE GLUCONATE 2 % 1 PACK (2 CLOTHS) TOP SCH (03:51)
[2017-11-10] MEDS: INSULIN ASPART SUPPLEMENTAL SCALE SQ SCH ×4 (06:00→18:00)
[2017-11-10] MEDS: LEVOTHYROXINE SODIUM 125 MCG TAB PO SCH (06:20)
[2017-11-10] MEDS: CHLORHEXIDINE 0.12% (ORAL KIT) 15 ML CUP MT SCH ×2 (08:00→20:00)
[2017-11-10] MEDS: ARTIFICIAL TEARS OPTH SOLN 15 ML BTL EACH EYE SCH ×3 (09:00→18:00)
[2017-11-10] MEDS: CARVEDILOL 12.5 MG TAB PO SCH ×2 (09:00→20:54)
[2017-11-10] MEDS: DOCUSATE SODIUM 50 MG/SENNA 8.6 MG TAB PO SCH ×2 (09:00→20:54)
[2017-11-10] MEDS: levETIRAcetam INJ 100 ML IV SCH ×2 (09:30→20:54)
[2017-11-10] MEDS: MULTIVITAMIN TAB PO SCH (09:30)
[2017-11-10] MEDS: FAMOTIDINE 20 MG TAB PO SCH ×2 (09:30→20:54)
[2017-11-10] MEDS: SERTRALINE HCL 50 MG TAB PO SCH (09:30)
[2017-11-10] MEDS: ATORVASTATIN 20 MG TAB PO SCH (09:30)
[2017-11-10] MEDS: SODIUM CHLORIDE 0.9% FLUSH 10 ML FLUSH IV FLUSH SCH ×2 (09:30→20:54)
[2017-11-10] MEDS: amLODIPine BESYLATE 5 MG TAB PO SCH (09:30)
[2017-11-10] MEDS: DIGOXIN 0.125 MG TAB PO SCH (09:31)
[2017-11-10] MEDS: SODIUM CHLOR 0.9% 1000 ML INJ 1,000 ML IV SCH (11:44)
--- NOTE | 2017-11-10 11:53 | HHI.CCPN ---
Subjective Remarks/Hospital Course The patient is a 76-year-old female that was apparently alert and talking prior to 11 PM tonight when she started vomiting. She then became comatose, [facility] was called and they intubated the patient using etomidate and Versed. 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 There has not been any head trauma. After intubation and Versed the blood pressure is 127/90. No seizure activity noted per ER physician. Patient was kept sedated orally intubated overnight on mechanical ventilation. She is starting to arousable although not following commands. She does try to open her eyes on command. Per nursing staff she was moving all [address] done in the ER did not reveal any acute bleed and had evidence of old strokes. Dr. Kim from neurology was contacted by ER physician and will be evaluating patient. When I evaluated the patient this morning she sedated with propofol, orally intubated on mechanical ventilation. History is obtained by reviewing records and discussion with nursing staff. Subjective: 10/27: The patient currently remains intubated and sedated. EEG in process. MRI revealed acute right cerebellar. or infarct. Sedation vacation pending. 10/28: more cerebral edema on CT scan yesterday. remains very encephalopathic, intubated, obtunded. long conversation with family today where I explained current stroke and edema. family introduced the idea that if she would not come off life support or would need to be fully dependent on healthcare system, she would not want to live: will consult palliative care to assist with goals of care clarification. 10/29: remains intubated and encephalopathic. CT brain today demonstrates stable appearance of posterior fossa infarct and edema. neuro exam slightly better and now w/d x 4. 5/2: Remains encephalopathic, orally intubated on mechanical ventilation. Tolerating tube feeds. 3: Remains encephalopathic, orally intubated on mechanical ventilation. Tolerating tube feeds. 11/01: Remains encephalopathic, orally intubated on mechanical ventilation. Tolerating tube feeds. 11/02: Intubated off sedation for the last 5 days at least, remains unresponsive. Chest exam reveals bilateral wheezing. Breathing treatments scheduled and as needed ordered. Tmax 101.3, check chest x-ray sputum culture, blood culture and UA. According to the son at the bedside family might want to proceed with tracheostomy and PEG tube placement 11/03: Remains encephalopathic, orally intubated on mechanical ventilation. Grimaces with painful stimuli however not following commands. 11/04: Squeezes hands today. Discussed with Dr. Kim. He will start heparin gtt , convert to coumadin after tracheostomy. 11/05: Family has not agreed to trach or PEG yet, they want to see if she wakes up more. 11/06: Family remains encouraged by some early hand motility. They wish to wait to decide whether a tracheostomy is appropriate and/or necessary. 11/07: Will try patient on spontaneous breathing trials today, earlier efforts were plagued by episodes of apnea. Family continues to wish to hold off on tracheostomy at this point. 11/08: Family would like to go ahead with trach and PEG. Neurological function severely impaired and both will be required for ongoing care. 11/09: Trach site clean, dry. Will restart heparin 24 hours after PEG. No change in neuro function. 11/10: Tolerating SBT with moderately elevated pressure support. Plan is for PEG tube insertion in the morning. 24 hours after that we should be able to restart full anticoagulation, likely just go straight to Coumadin. Objective Vital Signs Date Time Temp Pulse Resp B/P (MAP) Pulse Ox O2 Delivery O2 Flow Rate FiO2 11/10/17 08:00 100 45 11/10/17 06:00 80 11/10/17 04:00 98.3 22 114/75 (88) Intake and Output 11/10/17 11/10/17 11/11/17 08:00 16:00 00:00 Intake Total 450 ml Output Total 350 ml Balance 100 ml Result Diagram: 11/07/17 0444 11/09/17 0533 Imaging Last Impressions Neck CTA 10/26/17 001 Signed Impressions: Service Date/Time: Thursday, October 26, 2017 00:12 - CONCLUSION: 1. No luminal narrowing or significant plaque formation. 2. Left dominant vertebral system. Anatoly Early MD Head CTA 10/26/17 0012 Signed Impressions: Service Date/Time: Thursday, October 26, 2017 00:12 - CONCLUSION: No evidence of vessel truncation. Anatoly Early MD Head CT 10/26/17 0000 Signed Impressions: Service Date/Time: Thursday, October 26, 2017 00:12 - CONCLUSION: 1. Multiple bilateral old infarcts, unchanged from 3 days ago. No acute findings. 2. Bilateral maxillary and ethmoid sinus disease. Anatoly Early MD Chest X-Ray 10/26/17 0000 Signed Impressions: Service Date/Time: Thursday, October 26, 2017 06:33 - CONCLUSION: ET tube as above. Luis Felipe Ayala MD Brain MRI 10/26/17 0000 Signed Impressions: Service Date/Time: Thursday, October 26, 2017 16:04 - CONCLUSION: 1. Acute right cerebellar infarct. No midline shift or mass effect. 2. Multiple old bilateral infarcts. Samuel Chen MD Objective Remarks HEENT: Normal, no conjunctival icterus. Neck: Trach site clean dry Chest/Pulm: on mech vent, good air entry bilaterally. No adventitious sounds. CVS: S1-S2 irregularly irregular, no murmur, no JVD. GI/abdomen: Soft, nontender, bowel sounds present. No guarding. Extremities: Warm bilaterally, no edema Neuro: Encephalopathy persists, withdraws to noxious stimulation 4. Direct tracheal intubation. Date of Insertion: Oct 26, 2017 A/P Assessment and Plan Assessment: 76yF with large cerebellar stroke and associated severe encephalopathy, hypoxic and hypercarbic respiratory failure. appreciate palliative care and neurology following. Overall, likely to have functionally dependent quality of life in SNF with full-time assistance. Tracheostomy done and PEG tube placement tomorrow. 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 CT head 10/31/2017 shows stable right cerebellar infarct and multiple supratentorial infarct 10/27 EEG for further evaluation of altered mental status Neurology following- Dr. Kim. On ASA Continue heparin gtt. consider converting to Lovenox for ease of management after PEG. Cardiovascular: Continue home medications. hold coumadin for anticoagulation given size of stroke and edema. high concern for hemorrhagic conversion. Monitor INR Atrial fibrillation rate controlled Heparin gtt on hold for PEG Pulmonary: Continue mechanical ventilation Ventilator bundle, bronchodilators as needed. Mental status will not permit extubation Awaiting decision by family regarding tracheostomy as patient is currently not extubated able due to inability to protect airway. wean fio2 for goal spo2 > 90% GI/liver: Tube feeds Jevity 1.5 and advance to goal 65 cc/hour as tolerated Will need PEG tube if family decides on aggressive care Bowel regimen, GI prophylaxis Renal/: IV hydration, strict intake output, Monitor and replete electrolytes, follow BUN/creatinine ID: Spiking fever up to 101.3. Santana culture requested follow-up on chest x-ray Sputum culture from 11/02 growing MRSA/gram-negative rods. Starting antibiotics: Zyvox, levaquin on 11/03. Heme: Monitor CBC and INR. hold anticoagulation today for procedure.. daily INRs. Endocrine: Watch for hypoglycemia, SSI for glycemic control if needed. TSH significantly elevated- 16 currently on levothyroxine 125 mcg/day Prophylaxis: Pepcid, SCDs. Full anticoagulation. Overall impression: No significant improvement in neurologic function overnight. Long-term goal will undoubtedly include LTAC placement. Greg Cole MD November 10, 2017 11:52
--- NOTE | 2017-11-10 13:10 | HHI.GIFU ---
Subjective Remarks Off sedation, pt does not respond during my exam (Yesi Rowley) Objective Vitals I&O Vital Signs Date Time Temp Pulse Resp B/P (MAP) Pulse Ox O2 Delivery O2 Flow Rate FiO2 11/10/17 12:00 45 11/10/17 12:00 74 11/10/17 12:00 99.0 74 17 117/61 (79) 99 11/10/17 11:48 100 45 11/10/17 10:00 73 11/10/17 08:00 100 45 11/10/17 08:00 45 11/10/17 08:00 99.4 74 14 127/68 (87) 100 11/10/17 08:00 74 11/10/17 07:50 45 11/10/17 06:00 80 11/10/17 04:38 98 45 11/10/17 04:00 98.3 77 22 114/75 (88) 100 11/10/17 04:00 65 11/10/17 04:00 45 11/10/17 02:00 80 11/10/17 00:31 100 45 11/10/17 00:00 45 11/10/17 00:00 77 11/10/17 00:00 98.0 72 22 129/77 (94) 100 11/09/17 22:00 68 11/09/17 20:23 100 45 11/09/17 20:00 98.8 88 22 109/68 (82) 100 11/09/17 20:00 88 11/09/17 20:00 45 11/09/17 18:00 72 11/09/17 16:09 100 45 11/09/17 16:00 98.8 72 20 119/63 (81) 100 11/09/17 16:00 72 11/09/17 16:00 45 11/09/17 14:00 68 I/O 11/09/17 11/09/17 11/09/17 11/10/17 11/10/17 11/10/17 06:59 14:59 22:59 06:59 14:59 22:59 Intake Total 923 ml 880 ml 696 ml 450 ml 580 ml Output Total 1600 ml 1800 ml 350 ml Balance -677 ml 880 ml -1104 ml 100 ml 580 ml IV Total 300 ml 880 ml 150 ml 580 ml Tube Feeding 223 ml 426 ml 450 ml Other 400 ml 120 ml Output Urine Total 1600 ml 1800 ml 350 ml # Voids 1 # Bowel Movements 1 2 1 Laboratory Date/Time Source Procedure Growth Status 11/02/17 12:30 Blood Peripheral Aerobic Blood Culture - Final NO GROWTH IN 5 DAYS Complete 11/02/17 12:30 Blood Peripheral Anaerobic Blood Culture - Final NO GROWTH IN 5 DAYS Complete 10/26/17 05:15 Stool Stool Stool Occult Blood (MATTHEW) - Final HEMOCCULT NEGATIVE Complete 11/02/17 11:55 Sputum Endotracheal Gram Stain - Final Complete 11/02/17 11:55 Sputum Culture - Final S. Aureus Mrsa Klebsiella Pneumoniae Complete 11/02/17 11:55 Urine Catheterized Urine Urine Culture - Final 50-100,000 CFU/ML MIXED SHIRA... Complete Imaging Last Impressions Chest X-Ray 11/08/17 1620 Signed Impressions: Service Date/Time: Wednesday, November 08, 2017 16:46 - CONCLUSION: Tracheostomy without complication. Continued improvement in aeration Frankie Tsai MD Head CT 11/04/17 0900 Signed Impressions: Service Date/Time: Saturday, November 04, 2017 12:31 - CONCLUSION: 1. Persistent area of recent infarction at the right cerebellar hemisphere. 2. Multiple areas of encephalomalacia in the cerebral hemispheres and the left cerebellar hemisphere. 3. Atrophy. 4. Suspected small vessel ischemic change in the white matter. 5. Sinus disease. Frankie Zamudio MD Neck CTA 10/26/1711 Signed Impressions: Service Date/Time: Thursday, October 26, 2017 00:12 - CONCLUSION: 1. No luminal narrowing or significant plaque formation. 2. Left dominant vertebral system. Anatoly Early MD Head CTA 10/26/17 0012 Signed Impressions: Service Date/Time: Thursday, October 26, 2017 00:12 - CONCLUSION: No evidence of vessel truncation. Anatoly Early MD Brain MRI 10/26/17 0000 Signed Impressions: Service Date/Time: Thursday, October 26, 2017 16:04 - CONCLUSION: 1. Acute right cerebellar infarct. No midline shift or mass effect. 2. Multiple old bilateral infarcts. Samuel Chen MD Physical Exam HEENT: Normocephalic; atraumatic CHEST: Respirations synchronized with vent CARDIAC: Irregularly irregular, rate controlled ABDOMEN: Soft, nondistended, bowel sounds active SKIN: Normal; no rash; no jaundice. CAUL DRESSER: Unresponsive (Yesi Rowley) Assessment and Plan Plan Assessment: - Consult for PEG placement due to longterm vent dependence and long-term nutritional needs. S/P tracheostomy Currently receiving TF through NG tube- Jevity 1.5 running at 55mL/hr - History of a-fib- R cerebellar stroke- was on Heparin- planning on switching to Coumadin? for anticoagulation following PEG Plan EGD with PEG tomorrow Obtain consent Hold TF after [place] Linezolid for abx coverage Heparin gtt already on hold Further recommendations based on findings of above Patient has been seen and examined by myself and Dr. Machado and this note is written on his behalf (Yesi Rowley) Physician Comments Seen and examined with FREELANCE DATA ENTRY, sedated/intubated. EGD/Peg tomorrow. (Chio Machado MD) Yesi Rowley November 10, 2017 13:10 Chio Machado MD November 10, 2017 21:34
[2017-11-10] MEDS: LEVOFLOXACIN 750 MG PREMIX INJ 150 ML IV SCH (16:08)
[2017-11-10] MEDS ORDERED: CHLORHEXIDINE GLUCONATE 2 % 1 PACK (2 CLOTHS) TOPICAL PRN (23:00)
[2017-11-10] MEDS ORDERED: POVIDONE IODINE 5% (ANTISEPSIS KIT) 4 APPLICATIONS EACH NARE PRN (23:00)
[2017-11-10] MEDS ORDERED: LACTATED RINGER'S 1000 ML IV PRN (23:00)
[2017-11-10] MEDS ORDERED: SODIUM CHLORID 0.9% 500 ML IV PRN (23:00)
[2017-11-11] VITALS (17 sets, daily range): BP systolic 132–160; BP diastolic 72–84; PULSE 65–85; RESP 11–22; TEMP 98.4–98.8; O2SAT 99–100
[2017-11-11] MEDS: LINEZOLID 600 MG PREMIX 300 ML IV SCH ×2 (00:06→12:11)
[2017-11-11] MEDS: CHLORHEXIDINE GLUCONATE 2 % 1 PACK (2 CLOTHS) TOP SCH (03:17)
[2017-11-11 04:37] LABS: AUTOMATED NEUTROPHIL # 5.2 TH/MM3 (1.8-7.7); BASOPHIL % 0.4 % (0.0-2.0); EOSINOPHIL # 0.2 TH/MM3 (0-0.4); EOSINOPHIL % 3.1 % (0.0-4.0); HEMATOCRIT 32.1 % (35.0-46.0); HEMOGLOBIN 10.8 GM/DL (11.6-15.3); LYMPH % 14.1 % (9.0-44.0); MEAN CELL VOLUME 91.6 FL (80.0-100.0); MEAN CORPUSCULAR HEMOGLOBIN 30.7 PG (27.0-34.0); MEAN CORPUSCULAR HGB CONC 33.5 % (32.0-36.0); MEAN PLATELET VOLUME 6.9 FL (7.0-11.0); MONO % 5.9 % (0.0-8.0); MONOCYTE # 0.4 TH/MM3 (0-0.9); NEUT % 76.5 % (16.0-70.0); PLATELET COUNT 302 TH/MM3 (150-450); RED BLOOD COUNT 3.51 MIL/MM3 (4.00-5.30); WHITE BLOOD COUNT 6.8 TH/MM3 (4.0-11.0)
[2017-11-11 05:14] LABS: BICARBONATE 23.1 MEQ/L (21.0-32.0); CALCIUM 8.5 MG/DL (8.5-10.1); CREATININE 0.69 MG/DL (0.50-1.00)
[2017-11-11] MEDS: INSULIN ASPART SUPPLEMENTAL SCALE SQ SCH ×5 (05:28→23:57)
[2017-11-11] MEDS: LEVOTHYROXINE SODIUM 125 MCG TAB PO SCH (05:28)
[2017-11-11] MEDS: CHLORHEXIDINE 0.12% (ORAL KIT) 15 ML CUP MT SCH ×2 (07:59→20:50)
[2017-11-11] MEDS: ARTIFICIAL TEARS OPTH SOLN 15 ML BTL EACH EYE SCH ×3 (08:21→18:00)
[2017-11-11] MEDS: CARVEDILOL 12.5 MG TAB PO SCH ×2 (08:21→20:51)
[2017-11-11] MEDS: SODIUM CHLORIDE 0.9% FLUSH 10 ML FLUSH IV FLUSH SCH ×2 (08:21→20:50)
[2017-11-11] MEDS: levETIRAcetam INJ 100 ML IV SCH ×2 (08:21→20:50)
[2017-11-11] MEDS: MULTIVITAMIN TAB PO SCH (08:21)
[2017-11-11] MEDS: ATORVASTATIN 20 MG TAB PO SCH (08:21)
[2017-11-11] MEDS: SERTRALINE HCL 50 MG TAB PO SCH (08:21)
[2017-11-11] MEDS: DIGOXIN 0.125 MG TAB PO SCH (08:21)
[2017-11-11] MEDS: FAMOTIDINE 20 MG TAB PO SCH ×2 (08:21→20:51)
[2017-11-11] MEDS: amLODIPine BESYLATE 5 MG TAB PO SCH (08:22)
[2017-11-11] MEDS: DOCUSATE SODIUM 50 MG/SENNA 8.6 MG TAB PO SCH ×2 (08:22→20:51)
[2017-11-11] MEDS ORDERED: RESP: ALBUTEROL 2.5 MG/3 ML NEB (PRN) NEB (10:00)
--- NOTE | 2017-11-11 10:06 | HHI.CCPN ---
Subjective Remarks/Hospital Course The patient is a 76-year-old female that was apparently alert and talking prior to 11 PM tonight when she started vomiting. She then became comatose, [facility] was called and they intubated the patient using etomidate and Versed. 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 There has not been any head trauma. After intubation and Versed the blood pressure is 127/90. No seizure activity noted per ER physician. Patient was kept sedated orally intubated overnight on mechanical ventilation. She is starting to arousable although not following commands. She does try to open her eyes on command. Per nursing staff she was moving all [address] done in the ER did not reveal any acute bleed and had evidence of old strokes. Dr. Kim from neurology was contacted by ER physician and will be evaluating patient. When I evaluated the patient this morning she sedated with propofol, orally intubated on mechanical ventilation. History is obtained by reviewing records and discussion with nursing staff. 10/27: The patient currently remains intubated and sedated. EEG in process. MRI revealed acute right cerebellar. or infarct. Sedation vacation pending. 10/28: more cerebral edema on CT scan yesterday. remains very encephalopathic, intubated, obtunded. long conversation with family today where I explained current stroke and edema. family introduced the idea that if she would not come off life support or would need to be fully dependent on healthcare system, she would not want to live: will consult palliative care to assist with goals of care clarification. 10/29: remains intubated and encephalopathic. CT brain today demonstrates stable appearance of posterior fossa infarct and edema. neuro exam slightly better and now w/d x 4. 5/2: Remains encephalopathic, orally intubated on mechanical ventilation. Tolerating tube feeds. 5/3: Remains encephalopathic, orally intubated on mechanical ventilation. Tolerating tube feeds. 11/01: Remains encephalopathic, orally intubated on mechanical ventilation. Tolerating tube feeds. 11/02: Intubated off sedation for the last 5 days at least, remains unresponsive. Chest exam reveals bilateral wheezing. Breathing treatments scheduled and as needed ordered. Tmax 101.3, check chest x-ray sputum culture, blood culture and UA. According to the son at the bedside family might want to proceed with tracheostomy and PEG tube placement 11/03: Remains encephalopathic, orally intubated on mechanical ventilation. Grimaces with painful stimuli however not following commands. 11/04: Squeezes hands today. Discussed with Dr. Kim. He will start heparin gtt , convert to coumadin after tracheostomy. 11/05: Family has not agreed to trach or PEG yet, they want to see if she wakes up more. 11/06: Family remains encouraged by some early hand motility. They wish to wait to decide whether a tracheostomy is appropriate and/or necessary. 11/07: Will try patient on spontaneous breathing trials today, earlier efforts were plagued by episodes of apnea. Family continues to wish to hold off on tracheostomy at this point. 11/08: Family would like to go ahead with trach and PEG. Neurological function severely impaired and both will be required for ongoing care. 11/09: Trach site clean, dry. Will restart heparin 24 hours after PEG. No change in neuro function. 11/10: Tolerating SBT with moderately elevated pressure support. Plan is for PEG tube insertion in the morning. 24 hours after that we should be able to restart full anticoagulation, likely just go straight to Coumadin. Subjective 11/11: PSV trial 15/135%. Arousable and does open eyes but not following commands currently. Tube feeds currently on hold for planned percutaneous endoscopic gastrostomy tube placement in OR this a.m. Objective Vital Signs Date Time Temp Pulse Resp B/P (MAP) Pulse Ox O2 Delivery O2 Flow Rate FiO2 11/11/17 08:23 35 11/11/17 08:20 99 11/11/17 08:00 98.5 85 13 141/84 (103) Intake and Output 11/11/17 11/11/17 11/12/17 08:00 16:00 00:00 Output Total 750 ml Balance -750 ml Result Diagram: 11/11/17 0426 11/11/17 0426 Other Results Microbiology Date/Time Source Procedure Growth Status 11/02/17 12:30 Blood Peripheral Aerobic Blood Culture - Final NO GROWTH IN 5 DAYS Complete 11/02/17 12:30 Blood Peripheral Anaerobic Blood Culture - Final NO GROWTH IN 5 DAYS Complete 10/26/17 05:15 Stool Stool Stool Occult Blood (MATTHEW) - Final HEMOCCULT NEGATIVE Complete 11/02/17 11:55 Sputum Endotracheal Gram Stain - Final Complete 11/02/17 11:55 Sputum Culture - Final S. Aureus Mrsa Klebsiella Pneumoniae Complete 11/02/17 11:55 Urine Catheterized Urine Urine Culture - Final 50-100,000 CFU/ML MIXED SHIRA... Complete Imaging Last Impressions Chest X-Ray 11/08/17 1620 Signed Impressions: Service Date/Time: Wednesday, November 08, 2017 16:46 - CONCLUSION: Tracheostomy without complication. Continued improvement in aeration Frankie Tsai MD Head CT 11/04/17 0900 Signed Impressions: Service Date/Time: Saturday, November 04, 2017 12:31 - CONCLUSION: 1. Persistent area of recent infarction at the right cerebellar hemisphere. 2. Multiple areas of encephalomalacia in the cerebral hemispheres and the left cerebellar hemisphere. 3. Atrophy. 4. Suspected small vessel ischemic change in the white matter. 5. Sinus disease. Frankie Zamudio MD Neck CTA 10/26/17 0012 Signed Impressions: Service Date/Time: Thursday, October 26, 2017 00:12 - CONCLUSION: 1. No luminal narrowing or significant plaque formation. 2. Left dominant vertebral system. Anatoly Early MD Head CTA 10/26/17 0012 Signed Impressions: Service Date/Time: Thursday, October 26, 2017 00:12 - CONCLUSION: No evidence of vessel truncation. Anatoly Early MD Brain MRI 10/26/17 0000 Signed Impressions: Service Date/Time: Thursday, October 26, 2017 16:04 - CONCLUSION: 1. Acute right cerebellar infarct. No midline shift or mass effect. 2. Multiple old bilateral infarcts. Samuel Chen MD Objective Remarks GENERAL: 76-year-old female currently resting in bed in no acute distress SKIN: Warm and dry. No rash HEAD: Atraumatic. Normocephalic. EYES: Pupils equal and round about 4 mm bilaterally reactive to 3. No scleral icterus. No injection or drainage. ENT: No nasal bleeding or discharge. Mucous membranes pink and moist. NG tube in right nares NECK: Trachea midline. No JVD. Tracheostomy site is clean dry and intact CARDIOVASCULAR: Irregularly irregular. S1, S3 no S4. 1/6 murmur RESPIRATORY: No accessory muscle use. Clear to auscultation. Breath sounds equal bilaterally. GASTROINTESTINAL: Abdomen soft, non-tender, nondistended. Hepatic and splenic margins not palpable. MUSCULOSKELETAL: Extremities with trace bilateral upper and lower extremity edema. No obvious deformities. NEUROLOGICAL: Encephalopathic. No obvious cranial nerve deficits. Withdraws to noxious cannulation 4. Minimal movement right upper extremity. Urinary Catheter: No Assessment to: Continue Date of Insertion: Oct 26, 2017 Vascular Central Line Catheter: No Assessment to: Continue A/P Assessment and Plan Neuro/Psych: Bilateral cataract Dementia disorder NOS Acute encephalopathy Acute cerebellar CVA Posterior fossa cerebral edema History of previous strokes Off all sedation >8 days, according to RN sedation is off since 10/28/2017 frequent neuro checks 10/26 MRI brain-acute right cerebellar infarct. CT head 10/31/2017 shows stable right cerebellar infarct and multiple supratentorial infarct 10/27 EEG for further evaluation of altered mental status Neurology following- Dr. Kim. On ASA Continue heparin gtt. consider converting to Lovenox for ease of management after PEG. Cardiovascular: Atrial fibrillation Chronic systolic heart failure ejection fraction 20% Mechanical mitral valve on anticoagulation Coronary artery disease Currently on amlodipine 5 mg daily, digoxin 0.125 mg daily and carvedilol 12.5 mg mg p.o. twice daily/home medications Recheck digoxin level in a.m. 11/12 Continue atorvastatin 20 mg daily for dyslipidemia. hold coumadin for anticoagulation given size of stroke and edema. high concern for hemorrhagic conversion. Monitor INR Atrial fibrillation rate controlled Heparin gtt on hold for PEG 2D echocardiogram revealed EF less than 20%. Bilateral atrial enlargement. Pulmonary: Vent dependent respiratory failure MRSA/Klebsiella pneumonia Continue mechanical ventilation with pressure support ventilation / and 35% Albuterol/ipratropium aerosols every 6 hours while awake with albuterol aerosols every 2 hours as needed dyspnea Status post tracheostomy by Dr. Arellano 11/08 wean fio2 for goal spo2 > 90% GI/liver: Tube feeds Jevity 1.5 and advance to goal 65 cc/hour as tolerated Will need PEG tube if family decides on aggressive care Famotidine for GI prophylaxis Docusate sodium/senna 1 tablet twice daily for bowel regimen Renal/: IV hydration, strict intake output, Monitor and replete electrolytes, follow BUN/creatinine ID: MRSA/Klebsiella pneumonia Currently afebrile Sputum culture from 11/02 growing MRSA/g Klebsiella pneumonia. Continue with levofloxacin and linezolid on 5/6. Heme: History of DVT Chronic warfarin use secondary to mechanical heart valve/atrial fibrillation Monitor CBC and INR. hold anticoagulation today for procedure.. daily INRs. Routine warfarin 4/5 mg alternating dosages Endocrine: Hypothyroidism with significantly elevated TSH is 16 Watch for hypoglycemia, SSI for glycemic control if needed. TSH significantly elevated- 16 currently on levothyroxine 125 mcg/day. Recheck and adjust Prophylaxis: Famotidine for GI prophylaxis, SCDs. Full anticoagulation with heparin drip/ warfarin when clinically indicated. Overall impression: No significant improvement in neurologic function overnight. Long-term goal will undoubtedly include LTAC placement. Level 2 follow-up Yahir Tian MD November 11, 2017 10:06
[2017-11-11] MEDS ORDERED: INFO FOR PHARMACY/READ COMMENT ONE (11:00)
[2017-11-11] MEDS ORDERED: ACETAMINOPHEN 650 MG/20.3 ML UDC PEG PRN (11:00)
[2017-11-11] MEDS: SODIUM CHLOR 0.9% 1000 ML INJ 1,000 ML IV SCH (11:44)
[2017-11-11] MEDS ORDERED: LIDOCAINE HCL 1% PF 5 ML SYRINGE OTHER ONE (12:00)
[2017-11-11] MEDS ORDERED: GLYCOPYRROLATE 1 MG/5 ML SYRINGE IV PUSH ONE (12:00)
[2017-11-11] MEDS ORDERED: PROPOFOL 200 MG/20 ML AMP IV ONE (12:00)
[2017-11-11] MEDS: LEVOFLOXACIN 750 MG PREMIX INJ 150 ML IV SCH (12:11)
[2017-11-11] MEDS: RESP: ALBUTEROL 2.5 MG/IPRATROPIUM 0.5 MG NEB (SCH) NEB ×2 (13:10→20:00)
--- NOTE | 2017-11-11 14:21 | GIPROC ---
[facility] [address] [facility]. [facility], [address] EGD WITH PEG PROCEDURE REPORT EXAM DATE: 11/11/2017 PATIENT NAME: Tatiana Waters MR#: [id number] BIRTHDATE: 1940 ATTENDING: Ny Pruitt MD ORDER #: [id number] PLANT DIRECTOR: Giancarlo Glover and Hamida Davis STATUS: inpatient INDICATIONS: The patient is a 76 yr old female here for an EGD with PEG due to feeding difficulties, ventilator dependent PROCEDURE PERFORMED: EGD with biopsy EGD with PEG placement MEDICATIONS: None and Per Anesthesia. TOPICAL ANESTHETIC: none CONSENT: The patient understands the risks and benefits of the procedure and understands that these risks include, but are not limited to: sedation, allergic reaction, infection, perforation and/or bleeding. Alternative means of evaluation and treatment include, among others: physical exam, x-rays, and/or surgical intervention. The patient elects to proceed with this endoscopic procedure. medical equipment was checked for proper function. Hand hygiene and appropriate measures for infection prevention was taken. After the risks, benefits and alternatives of the procedure were thoroughly explained, Informed consent was verified, confirmed and timeout was successfully executed by the treatment team. The patient was anesthetized with topical anesthesia and the Pentax [id number] endoscope was introduced through the mouth and advanced to the second portion of the duodenum. The instrument was slowly withdrawn as the mucosa was fully examined. A nodule was found in the antrum. -biopsy The stomach was then inflated with air, and by a combination of transillumination and manual palpation, the site for the gastrostomy tube placement was selected and marked on the anterior abdominal wall. The skin of the anterior abdomen was surgically prepped and draped with sterile towels. Utilizing strict sterile technique, the selected site was then anesthetized with 1% xylocaine by injection into the skin and subcutaneous tissue. A 1 cm incision was made through the skin and subcutaneous tissue, and the needle/cannula assembly was then passed through the abdominal wall and through the anterior wall of the stomach, maintaining visualization with the endoscope. A snare device previously placed through the instrument channel was then opened and placed around the cannula, the needle was removed, and the insertion wire was passed through the cannula and into the stomach lumen. The snare was then loosened from the cannula, and repositioned to snare the insertion wire. The snare was then pulled up to the endoscope distal tip, and the scope was then withdrawn bringing with it the snare and insertion wire. The insertion wire was then released from the snare, and then loop-attached to the gastrostomy tube. Using the "pull technique", the G-tube was then pulled into place by traction on the insertion wire at the abdominal wall end. The G-tube insertion site was then cleansed once again, and the external bolster was placed over the tube to secure it to the abdominal wall. A sterile dressing was then applied, and the procedure terminated. a hiatal hernia The gastroscope was then slowly withdrawn and removed. ADVERSE EVENT: There were no complications. IMPRESSIONS: 1. A nodule was found in the antrum-biopsy 2. A hiatal hernia 3.S/p succesful placement of peg tube RECOMMENDATIONS: 1. Anti-reflux regimen 2. Begin feeding tomorrow 3.ok to use peg for medications today 4. ppi 5.fu biopsy REPEAT EXAM: Return 1 year(s) EGD pending pathology report Ny Pruitt MD eSigned: Ny Pruitt MD 11/11/2017 2:20 PM cc: PATIENT NAME: Tatiana Waters MR#: [id number]
[2017-11-11 16:45] LABS: HEMATOCRIT 29.9 % (35.0-46.0); HEMOGLOBIN 10.2 GM/DL (11.6-15.3); MEAN CELL VOLUME 92.7 FL (80.0-100.0); MEAN CORPUSCULAR HEMOGLOBIN 31.4 PG (27.0-34.0); MEAN CORPUSCULAR HGB CONC 33.9 % (32.0-36.0); MEAN PLATELET VOLUME 7.1 FL (7.0-11.0); PLATELET COUNT 260 TH/MM3 (150-450); RED BLOOD COUNT 3.23 MIL/MM3 (4.00-5.30); RED CELL DISTRIBUTION WIDTH 14.2 % (11.6-17.2); WHITE BLOOD COUNT 6.2 TH/MM3 (4.0-11.0)
[2017-11-11 16:54] LABS: INTERNATIONAL NORMALIZED RATIO 1.1 RATIO; PROTHROMBIN TIME - PATIENT 11.4 SEC (9.8-11.6)
--- NOTE | 2017-11-11 18:42 | EKG ---
Date Performed: 11/11/2017 Time Performed: 05:15:56 PTAGE: 76 years EKG: Atrial fibrillation Anterolateral ST-T changes are nonspecific Since the previous tracing, no significant change noted Abnormal ECG PREVIOUS TRACING : 10/26/2017 00.45 DOCTOR: Gil Mcadams Interpretating Date/Time 11/11/2017 18:41:35
[2017-11-11] MEDS: HEPARIN-D5W 25,000 U/250 ML 250 ML IV PRN (21:13)
[2017-11-12] VITALS (19 sets, daily range): BP systolic 117–147; BP diastolic 9–79; PULSE 69–78; RESP 12–33; TEMP 97.7–99.7; O2SAT 98–100
[2017-11-12] MEDS: LINEZOLID 600 MG PREMIX 300 ML IV SCH ×2 (00:29→12:20)
[2017-11-12 02:16] LABS: BASOPHIL % 0.3 % (0.0-2.0); EOSINOPHIL # 0.1 TH/MM3 (0-0.4); EOSINOPHIL % 1.2 % (0.0-4.0); HEMATOCRIT 30.6 % (35.0-46.0); HEMOGLOBIN 10.3 GM/DL (11.6-15.3); LYMPH % 8.7 % (9.0-44.0); LYMPHOCYTE # 0.9 TH/MM3 (1.0-4.8); MEAN CELL VOLUME 91.8 FL (80.0-100.0); MEAN CORPUSCULAR HGB CONC 33.8 % (32.0-36.0); MEAN PLATELET VOLUME 6.7 FL (7.0-11.0); MONO % 3.8 % (0.0-8.0); MONOCYTE # 0.4 TH/MM3 (0-0.9); PLATELET COUNT 265 TH/MM3 (150-450); RED BLOOD COUNT 3.33 MIL/MM3 (4.00-5.30); RED CELL DISTRIBUTION WIDTH 13.9 % (11.6-17.2); WHITE BLOOD COUNT 10.5 TH/MM3 (4.0-11.0)
[2017-11-12 02:31] LABS: ALBUMIN 2.1 GM/DL (3.4-5.0); ALT (GPT) 31 U/L (10-53); AST (GOT) 28 U/L (15-37); BICARBONATE 20.6 MEQ/L (21.0-32.0); BLOOD UREA NITROGEN 13 MG/DL (7-18); CALCIUM 8.2 MG/DL (8.5-10.1); CHLORIDE 111 MEQ/L (98-107); CREATININE 0.65 MG/DL (0.50-1.00); GLOMERULAR FILTRATION RATE 88 ML/MIN (>89); GLUCOSE,RANDOM 138 MG/DL (74-106); MAGNESIUM 2.1 MG/DL (1.5-2.5); PHOSPHORUS 2.8 MG/DL (2.5-4.9); SODIUM (NA) 142 MEQ/L (136-145)
[2017-11-12 02:38] LABS: INTERNATIONAL NORMALIZED RATIO 1.2 RATIO; PROTHROMBIN TIME - PATIENT 11.9 SEC (9.8-11.6)
[2017-11-12 02:45] LABS: ALKALINE PHOSPHATASE 87 U/L (45-117); DIGOXIN 0.7 NG/ML (0.8-2.0); TOTAL BILIRUBIN ADULT 0.9 MG/DL (0.2-1.0); TOTAL PROTEIN 6.5 GM/DL (6.4-8.2)
[2017-11-12] MEDS: CHLORHEXIDINE GLUCONATE 2 % 1 PACK (2 CLOTHS) TOP SCH (04:00)
[2017-11-12] MEDS: LEVOTHYROXINE SODIUM 125 MCG TAB PO SCH (05:25)
[2017-11-12] MEDS: INSULIN ASPART SUPPLEMENTAL SCALE SQ SCH ×3 (05:40→17:00)
[2017-11-12] MEDS: SODIUM CHLORIDE 0.9% FLUSH 10 ML FLUSH IV FLUSH SCH ×2 (07:57→20:35)
[2017-11-12] MEDS: ARTIFICIAL TEARS OPTH SOLN 15 ML BTL EACH EYE SCH ×3 (07:57→16:26)
[2017-11-12] MEDS: CHLORHEXIDINE 0.12% (ORAL KIT) 15 ML CUP MT SCH ×2 (07:57→19:47)
[2017-11-12] MEDS: RESP: ALBUTEROL 2.5 MG/IPRATROPIUM 0.5 MG NEB (SCH) NEB ×3 (08:03→19:52)
[2017-11-12] MEDS: MULTIVITAMIN TAB PO SCH (08:57)
[2017-11-12] MEDS: DOCUSATE SODIUM 50 MG/SENNA 8.6 MG TAB PO SCH ×2 (08:57→20:36)
[2017-11-12] MEDS: levETIRAcetam INJ 100 ML IV SCH ×2 (08:57→20:35)
[2017-11-12] MEDS: CARVEDILOL 12.5 MG TAB PO SCH ×2 (08:57→20:36)
[2017-11-12] MEDS: FAMOTIDINE 20 MG TAB PO SCH ×2 (08:57→20:36)
[2017-11-12] MEDS: ATORVASTATIN 20 MG TAB PO SCH (08:57)
[2017-11-12] MEDS: SERTRALINE HCL 50 MG TAB PO SCH (08:57)
[2017-11-12] MEDS: amLODIPine BESYLATE 5 MG TAB PO SCH (08:57)
[2017-11-12] MEDS: DIGOXIN 0.125 MG TAB PO SCH (08:57)
[2017-11-12] MEDS ORDERED: POTASSIUM CHLORIDE 20 MEQ PWD PACKET PO ONE (09:00)
--- NOTE | 2017-11-12 09:39 | HHI.CCPN ---
Subjective Remarks/Hospital Course The patient is a 76-year-old female that was apparently alert and talking prior to 11 PM tonight when she started vomiting. She then became comatose, [facility] was called and they intubated the patient using etomidate and Versed. 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 There has not been any head trauma. After intubation and Versed the blood pressure is 127/90. No seizure activity noted per ER physician. Patient was kept sedated orally intubated overnight on mechanical ventilation. She is starting to arousable although not following commands. She does try to open her eyes on command. Per nursing staff she was moving all [address] done in the ER did not reveal any acute bleed and had evidence of old strokes. Dr. Kim from neurology was contacted by ER physician and will be evaluating patient. When I evaluated the patient this morning she sedated with propofol, orally intubated on mechanical ventilation. History is obtained by reviewing records and discussion with nursing staff. 10/27: The patient currently remains intubated and sedated. EEG in process. MRI revealed acute right cerebellar. or infarct. Sedation vacation pending. 10/28: more cerebral edema on CT scan yesterday. remains very encephalopathic, intubated, obtunded. long conversation with family today where I explained current stroke and edema. family introduced the idea that if she would not come off life support or would need to be fully dependent on healthcare system, she would not want to live: will consult palliative care to assist with goals of care clarification. 10/29: remains intubated and encephalopathic. CT brain today demonstrates stable appearance of posterior fossa infarct and edema. neuro exam slightly better and now w/d x 4. 5/2: Remains encephalopathic, orally intubated on mechanical ventilation. Tolerating tube feeds. 5/3: Remains encephalopathic, orally intubated on mechanical ventilation. Tolerating tube feeds. 11/01: Remains encephalopathic, orally intubated on mechanical ventilation. Tolerating tube feeds. 11/02: Intubated off sedation for the last 5 days at least, remains unresponsive. Chest exam reveals bilateral wheezing. Breathing treatments scheduled and as needed ordered. Tmax 101.3, check chest x-ray sputum culture, blood culture and UA. According to the son at the bedside family might want to proceed with tracheostomy and PEG tube placement 11/03: Remains encephalopathic, orally intubated on mechanical ventilation. Grimaces with painful stimuli however not following commands. 11/04: Squeezes hands today. Discussed with Dr. Kim. He will start heparin gtt , convert to coumadin after tracheostomy. 11/05: Family has not agreed to trach or PEG yet, they want to see if she wakes up more. 11/06: Family remains encouraged by some early hand motility. They wish to wait to decide whether a tracheostomy is appropriate and/or necessary. 11/07: Will try patient on spontaneous breathing trials today, earlier efforts were plagued by episodes of apnea. Family continues to wish to hold off on tracheostomy at this point. 11/08: Family would like to go ahead with trach and PEG. Neurological function severely impaired and both will be required for ongoing care. 11/09: Trach site clean, dry. Will restart heparin 24 hours after PEG. No change in neuro function. 11/10: Tolerating SBT with moderately elevated pressure support. Plan is for PEG tube insertion in the morning. 24 hours after that we should be able to restart full anticoagulation, likely just go straight to Coumadin. 11/11: PSV trial 15/135%. Arousable and does open eyes but not following commands currently. Tube feeds currently on hold for planned percutaneous endoscopic gastrostomy tube placement in OR this a.m. Subjective 11/12: Tolerated PEG tube placement yesterday. No active bleeding. Site appears with minimal old dried blood. Arousable on the ventilator.. Currently on CPAP trial. Objective Vital Signs Date Time Temp Pulse Resp B/P (MAP) Pulse Ox O2 Delivery O2 Flow Rate FiO2 11/12/17 08:04 100 40 11/12/17 08:00 98.2 74 16 130/74 (92) Intake and Output 11/12/17 11/12/17 11/12/17 07:59 15:59 23:59 Intake Total 771 ml Output Total 1300 ml Balance -529 ml Result Diagram: 11/12/17 0159 11/12/17 0159 Other Results Microbiology Date/Time Source Procedure Growth Status 11/02/17 12:30 Blood Peripheral Aerobic Blood Culture - Final NO GROWTH IN 5 DAYS Complete 11/02/17 12:30 Blood Peripheral Anaerobic Blood Culture - Final NO GROWTH IN 5 DAYS Complete 10/26/17 05:15 Stool Stool Stool Occult Blood (MATTHEW) - Final HEMOCCULT NEGATIVE Complete 11/02/17 11:55 Sputum Endotracheal Gram Stain - Final Complete 11/02/17 11:55 Sputum Culture - Final S. Aureus Mrsa Klebsiella Pneumoniae Complete 11/02/17 11:55 Urine Catheterized Urine Urine Culture - Final 50-100,000 CFU/ML MIXED SHIRA... Complete Imaging Last Impressions Chest X-Ray 11/08/17 1620 Signed Impressions: Service Date/Time: Wednesday, November 08, 2017 16:46 - CONCLUSION: Tracheostomy without complication. Continued improvement in aeration Frankie Tsai MD Head CT 11/04/17 0900 Signed Impressions: Service Date/Time: Saturday, November 04, 2017 12:31 - CONCLUSION: 1. Persistent area of recent infarction at the right cerebellar hemisphere. 2. Multiple areas of encephalomalacia in the cerebral hemispheres and the left cerebellar hemisphere. 3. Atrophy. 4. Suspected small vessel ischemic change in the white matter. 5. Sinus disease. Frankie Zamudio MD Neck CTA 10/26/17 0012 Signed Impressions: Service Date/Time: Thursday, October 26, 2017 00:12 - CONCLUSION: 1. No luminal narrowing or significant plaque formation. 2. Left dominant vertebral system. Anatoly Early MD Head CTA 10/26/17 0012 Signed Impressions: Service Date/Time: Thursday, October 26, 2017 00:12 - CONCLUSION: No evidence of vessel truncation. Anatoly Early MD Brain MRI 10/26/17 0000 Signed Impressions: Service Date/Time: Thursday, October 26, 2017 16:04 - CONCLUSION: 1. Acute right cerebellar infarct. No midline shift or mass effect. 2. Multiple old bilateral infarcts. Samuel Chen MD Objective Remarks GENERAL: 76-year-old female currently resting in bed in no acute distress SKIN: Warm and dry. No rash HEAD: Atraumatic. Normocephalic. EYES: Pupils equal and round about 4 mm bilaterally reactive to 3. No scleral icterus. No injection or drainage. ENT: No nasal bleeding or discharge. Mucous membranes pink and moist. NG tube in right nares NECK: Trachea midline. No JVD. Tracheostomy site is clean dry and intact CARDIOVASCULAR: Irregularly irregular. S1, S3 no S4. 1/6 murmur RESPIRATORY: No accessory muscle use. Clear to auscultation. Breath sounds equal bilaterally. GASTROINTESTINAL: Abdomen soft, non-tender, nondistended. PEG tube site in left upper quadrant with minimal old dried blood. Hypoactive bowel sounds. MUSCULOSKELETAL: Extremities with trace bilateral upper and lower extremity edema. No obvious deformities. NEUROLOGICAL: Encephalopathic. No obvious cranial nerve deficits. Withdraws to noxious cannulation 4. Minimal movement right upper extremity. Date of Insertion: Oct 26, 2017 A/P Assessment and Plan Neuro/Psych: Bilateral cataract Dementia disorder NOS Acute encephalopathy Acute cerebellar CVA Posterior fossa cerebral edema History of previous strokes Off all sedation >8 days, according to RN sedation is off since 10/28/2017 frequent neuro checks 10/26 MRI brain-acute right cerebellar infarct. CT head 10/31/2017 shows stable right cerebellar infarct and multiple supratentorial infarct 10/27 EEG for further evaluation of altered mental status Neurology following- Dr. Kim. On ASA Continue heparin gtt. consider converting to Lovenox for ease of management after PEG. Cardiovascular: Atrial fibrillation Chronic systolic heart failure ejection fraction 20% Mechanical mitral valve on anticoagulation Coronary artery disease Currently on amlodipine 5 mg daily, digoxin 0.125 mg daily and carvedilol 12.5 mg mg p.o. twice daily/home medications Recheck digoxin level in a.m. 11/12 Continue atorvastatin 20 mg daily for dyslipidemia. hold coumadin for anticoagulation given size of stroke and edema. high concern for hemorrhagic conversion. Monitor INR Atrial fibrillation rate controlled Heparin gtt on hold for PEG 2D echocardiogram revealed EF less than 20%. Bilateral atrial enlargement. Pulmonary: Vent dependent respiratory failure MRSA/Klebsiella pneumonia Continue mechanical ventilation with pressure support ventilation 12/11 and 35% Albuterol/ipratropium aerosols every 6 hours while awake with albuterol aerosols every 2 hours as needed dyspnea Status post tracheostomy by Dr. Arellano 11/08 wean fio2 for goal spo2 > 90% GI/liver: Hypoalbuminemia Tube feeds Jevity 1.5 and advance to goal 65 cc/hour as tolerated. PEG tube site 11/[address] Edmond Sorianootidbrian for GI prophylaxis Docusate sodium/senna 1 tablet twice daily for bowel regimen Renal/: IV hydration as indicated, strict intake output, Monitor and replete electrolytes, follow BUN/creatinine ID: MRSA/Klebsiella pneumonia Currently afebrile Sputum culture from 11/02 growing MRSA/g Klebsiella pneumonia. Continue with levofloxacin and linezolid on 11/03. Heme: History of DVT Normocytic anemia Chronic warfarin use secondary to mechanical heart valve/atrial fibrillation Monitor CBC and INR. hold anticoagulation 11/12 for procedure.. daily INRs. Routine warfarin 4/5 mg alternating dosages at home. Started 2.5 mg daily Endocrine: Hypothyroidism with significantly elevated TSH is 16 Watch for hypoglycemia, SSI for glycemic control if needed. TSH significantly elevated- 16 currently on levothyroxine 125 mcg/day. Recheck and adjust Prophylaxis: Famotidine for GI prophylaxis, SCDs. Full anticoagulation with heparin drip/ warfarin when clinically indicated. Overall impression: No significant improvement in neurologic function overnight. Long-term goal will undoubtedly include LTAC placement. Level 2 follow-up Yahir Tian MD November 12, 2017 09:38
[2017-11-12] MEDS: SODIUM CHLOR 0.9% 1000 ML INJ 1,000 ML IV SCH (11:44)
--- NOTE | 2017-11-12 12:16 | HHI.GIFU ---
Subjective Remarks resting in bed. s/p trach and peg. Daughter at bedside. 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) Objective Vitals I&O Vital Signs Date Time Temp Pulse Resp B/P (MAP) Pulse Ox O2 Delivery O2 Flow Rate FiO2 11/12/17 11:36 98 40 11/12/17 10:00 78 11/12/17 08:04 100 40 11/12/17 08:04 40 11/12/17 08:00 98.2 74 16 130/74 (92) 100 11/12/17 08:00 74 11/12/17 08:00 45 11/12/17 06:00 76 11/12/17 04:39 99 40 11/12/17 04:00 76 11/12/17 04:00 99.6 76 17 121/74 (90) 100 11/12/17 04:00 45 11/12/17 02:00 70 11/12/17 00:57 99 40 11/12/17 00:00 45 11/12/17 00:00 72 11/12/17 00:00 99.7 72 16 117/77 (90) 100 11/11/17 22:00 76 11/11/17 20:31 100 60 11/11/17 20:00 98.8 74 18 141/81 (101) 100 11/11/17 20:00 74 11/11/17 20:00 35 11/11/17 18:00 72 11/11/17 16:44 100 80 11/11/17 16:00 35 11/11/17 16:00 98.5 79 17 160/82 (108) 100 11/11/17 16:00 79 11/11/17 14:00 70 I/O 11/11/17 11/11/17 11/11/17 11/12/17 11/12/17 11/12/17 07:00 15:00 23:00 07:00 15:00 23:00 Intake Total 650 ml 733 ml 771 ml Output Total 750 ml 1300 ml Balance -750 ml 650 ml 733 ml -529 ml IV Total 550 ml 733 ml 771 ml Other 100 ml Output Urine Total 750 ml 1300 ml # Voids 3 # Bowel Movements 0 1 1 Laboratory Laboratory Tests Test 11/11/17 15:18 11/11/17 22:03 11/12/17 01:59 11/12/17 09:00 White Blood Count 6.2 10.5 Red Blood Count 3.23 3.33 Hemoglobin 10.2 10.3 Hematocrit 29.9 30.6 Mean Corpuscular Volume 92.7 91.8 Mean Corpuscular Hemoglobin 31.4 31.0 Mean Corpuscular Hemoglobin Concent 33.9 33.8 Red Cell Distribution Width 14.2 13.9 Platelet Count 260 265 Mean Platelet Volume 7.1 6.7 Prothrombin Time 11.4 11.9 Prothromb Time International Ratio 1.1 1.2 Activated Partial Thromboplast Time 28.8 33.1 51.3 50.6 Neutrophils (%) (Auto) 86.0 Lymphocytes (%) (Auto) 8.7 Monocytes (%) (Auto) 3.8 Eosinophils (%) (Auto) 1.2 Basophils (%) (Auto) 0.3 Neutrophils # (Auto) 9.0 Lymphocytes # (Auto) 0.9 Monocytes # (Auto) 0.4 Eosinophils # (Auto) 0.1 Basophils # (Auto) 0.0 CBC Comment DIFF FINAL Differential Comment Blood Urea Nitrogen 13 Creatinine 0.65 Random Glucose 138 Total Protein 6.5 Albumin 2.1 Calcium Level 8.2 Phosphorus Level 2.8 Magnesium Level 2.1 Alkaline Phosphatase 87 Aspartate Amino Transf (AST/SGOT) 28 Alanine Aminotransferase (ALT/SGPT) 31 Total Bilirubin 0.9 Sodium Level 142 Potassium Level 3.7 Chloride Level 111 Carbon Dioxide Level 20.6 Anion Gap 10 Estimat Glomerular Filtration Rate 88 Thyroid Stimulating Hormone 3rd Gen 7.820 Digoxin Level 0.7 Date/Time Source Procedure Growth Status 11/02/17 12:30 Blood Peripheral Aerobic Blood Culture - Final NO GROWTH IN 5 DAYS Complete 11/02/17 12:30 Blood Peripheral Anaerobic Blood Culture - Final NO GROWTH IN 5 DAYS Complete 10/26/17 05:15 Stool Stool Stool Occult Blood (MATTHEW) - Final HEMOCCULT NEGATIVE Complete 11/02/17 11:55 Sputum Endotracheal Gram Stain - Final Complete 11/02/17 11:55 Sputum Culture - Final S. Aureus Mrsa Klebsiella Pneumoniae Complete 11/02/17 11:55 Urine Catheterized Urine Urine Culture - Final 50-100,000 CFU/ML MIXED SHIRA... Complete Imaging Last Impressions Chest X-Ray 11/08/17 1620 Signed Impressions: Service Date/Time: Wednesday, November 08, 2017 16:46 - CONCLUSION: Tracheostomy without complication. Continued improvement in aeration Frankie Tsai MD Head CT 11/04/17 0900 Signed Impressions: Service Date/Time: Saturday, November 04, 2017 12:31 - CONCLUSION: 1. Persistent area of recent infarction at the right cerebellar hemisphere. 2. Multiple areas of encephalomalacia in the cerebral hemispheres and the left cerebellar hemisphere. 3. Atrophy. 4. Suspected small vessel ischemic change in the white matter. 5. Sinus disease. Frankie Zamudio MD Neck CTA 10/26/1711 Signed Impressions: Service Date/Time: Thursday, October 26, 2017 00:12 - CONCLUSION: 1. No luminal narrowing or significant plaque formation. 2. Left dominant vertebral system. Anatoly Early MD Head CTA 10/26/1711 Signed Impressions: Service Date/Time: Thursday, October 26, 2017 00:12 - CONCLUSION: No evidence of vessel truncation. Anatoly Early MD Brain MRI 10/26/17 0000 Signed Impressions: Service Date/Time: Thursday, October 26, 2017 16:04 - CONCLUSION: 1. Acute right cerebellar infarct. No midline shift or mass effect. 2. Multiple old bilateral infarcts. Samuel Chen MD Physical Exam HEENT: Normocephalic; atraumatic CHEST: CTA trach to vent CARDIAC: RRR ABDOMEN: Soft, nondistended, bowel sounds active PEG site dressing d&i SKIN: Normal; no rash; no jaundice. BOOK AUTHOR: opens eyes (Rocio Rudolph) Assessment and Plan Plan Assessment: - Consult for PEG placement due to shelter vent dependence and long-term nutritional needs. S/P tracheostomy Currently receiving TF through NG tube- Jevity 1.5 running at 55mL/hr - History of a-fib- R cerebellar stroke- was on Heparin- planning on switching to Coumadin? for anticoagulation following PEG 11/12/17 s/p EGD and peg tube placement ---> hiatal hernia, antrum nodule. Plan await bx restart TF flush peg q6h supportive care GI will sign off, please reconsult if needed Patient has been seen and examined by myself and and this note on her behalf (Rocio Rudolph) Physician Comments agree with above (Ny Pruitt MD) Rocio Rudolph November 12, 2017 12:16 Ny Pruitt MD November 12, 2017 16:00
[2017-11-12] MEDS: LEVOFLOXACIN 750 MG PREMIX INJ 150 ML IV SCH (14:01)
[2017-11-12] MEDS: HEPARIN-D5W 25,000 U/250 ML 250 ML IV PRN (14:05)
[2017-11-12] MEDS: WARFARIN SOD 2.5 MG TAB PO SCH (16:26)
[2017-11-12] MEDS ORDERED: DIGOXIN SOLUTION 0.125 MG/2.5 ML CUP PO ONE (21:00)
[2017-11-13] VITALS (20 sets, daily range): BP systolic 114–172; BP diastolic 55–83; PULSE 60–94; RESP 13–31; TEMP 98–98.5; O2SAT 100
[2017-11-13] MEDS: LINEZOLID 600 MG PREMIX 300 ML IV SCH ×2 (00:10→13:00)
[2017-11-13] MEDS: INSULIN ASPART SUPPLEMENTAL SCALE SQ SCH ×4 (00:30→18:00)
[2017-11-13] MEDS: CHLORHEXIDINE GLUCONATE 2 % 1 PACK (2 CLOTHS) TOP SCH (03:24)
[2017-11-13 04:15] LABS: HEMATOCRIT 31.1 % (35.0-46.0); HEMOGLOBIN 10.4 GM/DL (11.6-15.3); MEAN CELL VOLUME 92.7 FL (80.0-100.0); MEAN CORPUSCULAR HEMOGLOBIN 30.9 PG (27.0-34.0); MEAN CORPUSCULAR HGB CONC 33.4 % (32.0-36.0); MEAN PLATELET VOLUME 6.8 FL (7.0-11.0); PLATELET COUNT 256 TH/MM3 (150-450); RED BLOOD COUNT 3.35 MIL/MM3 (4.00-5.30); RED CELL DISTRIBUTION WIDTH 14.2 % (11.6-17.2); WHITE BLOOD COUNT 7.9 TH/MM3 (4.0-11.0)
[2017-11-13 04:23] LABS: INTERNATIONAL NORMALIZED RATIO 1.1 RATIO; PROTHROMBIN TIME - PATIENT 11.6 SEC (9.8-11.6)
[2017-11-13 04:54] LABS: BICARBONATE 21.2 MEQ/L (21.0-32.0); CALCIUM 8.8 MG/DL (8.5-10.1); CREATININE 0.56 MG/DL (0.50-1.00)
[2017-11-13] MEDS: LEVOTHYROXINE SODIUM 125 MCG TAB PO SCH (05:16)
[2017-11-13] MEDS: CHLORHEXIDINE 0.12% (ORAL KIT) 15 ML CUP MT SCH ×2 (08:00→20:13)
--- NOTE | 2017-11-13 08:44 | HHI.CCPN ---
Subjective Remarks/Hospital Course The patient is a 76-year-old female that was apparently alert and talking prior to 11 PM tonight when she started vomiting. She then became comatose, [facility] was called and they intubated the patient using etomidate and Versed. 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 There has not been any head trauma. After intubation and Versed the blood pressure is 127/90. No seizure activity noted per ER physician. Patient was kept sedated orally intubated overnight on mechanical ventilation. She is starting to arousable although not following commands. She does try to open her eyes on command. Per nursing staff she was moving all [address] done in the ER did not reveal any acute bleed and had evidence of old strokes. Dr. Kim from neurology was contacted by ER physician and will be evaluating patient. When I evaluated the patient this morning she sedated with propofol, orally intubated on mechanical ventilation. History is obtained by reviewing records and discussion with nursing staff. 10/27: The patient currently remains intubated and sedated. EEG in process. MRI revealed acute right cerebellar. or infarct. Sedation vacation pending. 10/28: more cerebral edema on CT scan yesterday. remains very encephalopathic, intubated, obtunded. long conversation with family today where I explained current stroke and edema. family introduced the idea that if she would not come off life support or would need to be fully dependent on healthcare system, she would not want to live: will consult palliative care to assist with goals of care clarification. 10/29: remains intubated and encephalopathic. CT brain today demonstrates stable appearance of posterior fossa infarct and edema. neuro exam slightly better and now w/d x 4. 5/2: Remains encephalopathic, orally intubated on mechanical ventilation. Tolerating tube feeds. 5/3: Remains encephalopathic, orally intubated on mechanical ventilation. Tolerating tube feeds. 11/01: Remains encephalopathic, orally intubated on mechanical ventilation. Tolerating tube feeds. 11/02: Intubated off sedation for the last 5 days at least, remains unresponsive. Chest exam reveals bilateral wheezing. Breathing treatments scheduled and as needed ordered. Tmax 101.3, check chest x-ray sputum culture, blood culture and UA. According to the son at the bedside family might want to proceed with tracheostomy and PEG tube placement 11/03: Remains encephalopathic, orally intubated on mechanical ventilation. Grimaces with painful stimuli however not following commands. 11/04: Squeezes hands today. Discussed with Dr. Kim. He will start heparin gtt , convert to coumadin after tracheostomy. 11/05: Family has not agreed to trach or PEG yet, they want to see if she wakes up more. 11/06: Family remains encouraged by some early hand motility. They wish to wait to decide whether a tracheostomy is appropriate and/or necessary. 11/07: Will try patient on spontaneous breathing trials today, earlier efforts were plagued by episodes of apnea. Family continues to wish to hold off on tracheostomy at this point. 11/08: Family would like to go ahead with trach and PEG. Neurological function severely impaired and both will be required for ongoing care. 11/09: Trach site clean, dry. Will restart heparin 24 hours after PEG. No change in neuro function. 11/10: Tolerating SBT with moderately elevated pressure support. Plan is for PEG tube insertion in the morning. 24 hours after that we should be able to restart full anticoagulation, likely just go straight to Coumadin. 11/11: PSV trial 15/135%. Arousable and does open eyes but not following commands currently. Tube feeds currently on hold for planned percutaneous endoscopic gastrostomy tube placement in OR this a.m. 11/12: Tolerated PEG tube placement yesterday. No active bleeding. Site appears with minimal old dried blood. Arousable on the ventilator.. Currently on CPAP trial. Subjective 11/13: Afebrile. Some oozing from the PEG tube and tracheostomy site. Heparin drip currently on hold. Persistent leak now up to 48% per ventilator. Will likely need tracheostomy changed today. Placed 11/08. Objective Vital Signs Date Time Temp Pulse Resp B/P (MAP) Pulse Ox O2 Delivery O2 Flow Rate FiO2 11/13/17 06:00 60 11/13/17 05:13 100 40 11/13/17 04:00 98.0 16 123/72 (89) Intake and Output 11/13/17 11/13/17 11/14/17 08:00 16:00 00:00 Intake Total 809 ml Output Total 400 ml Balance 409 ml Result Diagram: 11/13/17 0407 11/13/17 0407 Other Results Microbiology Date/Time Source Procedure Growth Status 11/02/17 12:30 Blood Peripheral Aerobic Blood Culture - Final NO GROWTH IN 5 DAYS Complete 11/02/17 12:30 Blood Peripheral Anaerobic Blood Culture - Final NO GROWTH IN 5 DAYS Complete 10/26/17 05:15 Stool Stool Stool Occult Blood (MATTHEW) - Final HEMOCCULT NEGATIVE Complete 11/02/17 11:55 Sputum Endotracheal Gram Stain - Final Complete 11/02/17 11:55 Sputum Culture - Final S. Aureus Mrsa Klebsiella Pneumoniae Complete 11/02/17 11:55 Urine Catheterized Urine Urine Culture - Final 50-100,000 CFU/ML MIXED SHIRA... Complete Imaging Last Impressions Chest X-Ray 11/08/17 1620 Signed Impressions: Service Date/Time: Wednesday, November 08, 2017 16:46 - CONCLUSION: Tracheostomy without complication. Continued improvement in aeration Frankie Tsai MD Head CT 11/04/17 0900 Signed Impressions: Service Date/Time: Saturday, November 04, 2017 12:31 - CONCLUSION: 1. Persistent area of recent infarction at the right cerebellar hemisphere. 2. Multiple areas of encephalomalacia in the cerebral hemispheres and the left cerebellar hemisphere. 3. Atrophy. 4. Suspected small vessel ischemic change in the white matter. 5. Sinus disease. Frankie Zamudio MD Neck CTA 10/26/17 0012 Signed Impressions: Service Date/Time: Thursday, October 26, 2017 00:12 - CONCLUSION: 1. No luminal narrowing or significant plaque formation. 2. Left dominant vertebral system. Anatoly Early MD Head CTA 10/26/17 0012 Signed Impressions: Service Date/Time: Thursday, October 26, 2017 00:12 - CONCLUSION: No evidence of vessel truncation. Anatoly Early MD Brain MRI 10/26/17 0000 Signed Impressions: Service Date/Time: Thursday, October 26, 2017 16:04 - CONCLUSION: 1. Acute right cerebellar infarct. No midline shift or mass effect. 2. Multiple old bilateral infarcts. Samuel Chen MD Objective Remarks GENERAL: 76-year-old female currently resting in bed in no acute distress SKIN: Warm and dry. No rash HEAD: Atraumatic. Normocephalic. EYES: Pupils equal and round about 4 mm bilaterally reactive to 3. No scleral icterus. No injection or drainage. ENT: No nasal bleeding or discharge. Mucous membranes pink and moist. NG tube in right nares NECK: Trachea midline. No JVD. Tracheostomy site is with some fresh blood CARDIOVASCULAR: Irregularly irregular. S1, S3 no S4. 1/6 murmur RESPIRATORY: No accessory muscle use. Clear to auscultation. Breath sounds equal bilaterally. GASTROINTESTINAL: Abdomen soft, non-tender, nondistended. PEG tube site in left upper quadrant with minimal blood. Hypoactive bowel sounds. MUSCULOSKELETAL: Extremities with trace bilateral upper and lower extremity edema. No obvious deformities. NEUROLOGICAL: Encephalopathic. No obvious cranial nerve deficits. Withdraws to noxious cannulation 4. Minimal movement right upper extremity. Date of Insertion: Oct 26, 2017 Vascular Central Line Catheter: No Assessment to: Continue A/P Assessment and Plan Neuro/Psych: Bilateral cataract Dementia disorder NOS Acute encephalopathy Acute cerebellar CVA Posterior fossa cerebral edema History of previous strokes Off all sedation >8 days, according to RN sedation is off since 10/28/2017 frequent neuro checks 10/26 MRI brain-acute right cerebellar infarct. CT head 10/31/2017 shows stable right cerebellar infarct and multiple supratentorial infarct Neurology following- Dr. Kim. On ASA We will hold heparin gtt. for possible trach exchange Holding SSRI Zoloft while on linezolid Continue levetiracetam 5 mg by tube twice daily Cardiovascular: Atrial fibrillation Chronic systolic heart failure ejection fraction 20% Mechanical mitral valve on anticoagulation Coronary artery disease Currently on amlodipine 5 mg daily, digoxin 0.125 mg daily and carvedilol 12.5 mg mg p.o. twice daily/home medications Recheck digoxin level in a.m. 17. 0.7 0.5/50 Continue atorvastatin 20 mg daily for dyslipidemia. hold coumadin for anticoagulation given size of stroke and edema. high concern for hemorrhagic conversion. Monitor INR. Currently 1.1 Atrial fibrillation rate controlled Heparin gtt on hold for PEG using 2D echocardiogram revealed EF less than 20%. Bilateral atrial enlargement. Pulmonary: Vent dependent respiratory failure MRSA/Klebsiella pneumonia Continue mechanical ventilation with pressure support ventilation 15/5 and 35% Albuterol/ipratropium aerosols every 6 hours while awake with albuterol aerosols every 2 hours as needed dyspnea Status post tracheostomy by Dr. Arellano 11/08 wean fio2 for goal spo2 > 92% GI/liver: Hypoalbuminemia Tube feeds Jevity 1.5 and advance to goal 65 cc/hour as tolerated. PEG tube site 11/[address] Pruitt Famotidine for GI prophylaxis Docusate sodium/senna 1 tablet twice daily for bowel regimen Renal/: IV hydration as indicated, strict intake output, Monitor and replete electrolytes, follow BUN/creatinine ID: MRSA/Klebsiella pneumonia Currently afebrile Sputum culture from 11/02 growing MRSA/Klebsiella pneumonia. Continue with levofloxacin and linezolid on 11/03 will complete 14 days therapy. Heme: History of DVT Normocytic anemia Chronic warfarin use secondary to mechanical heart valve/atrial fibrillation Monitor CBC and INR. daily INRs.. Currently 1.1 Routine warfarin 4/5 mg alternating dosages at home. Started 2.5 mg daily Endocrine: Hypothyroidism with significantly elevated TSH is 16 Watch for hypoglycemia, SSI for glycemic control if needed. TSH significantly elevated- 16 currently on levothyroxine 125 mcg/day. Recheck and adjust Prophylaxis: Famotidine for GI prophylaxis, SCDs. Full anticoagulation with heparin drip/ warfarin as tolerated watching for bleeding Level 2 follow-up Yahir Tian MD November 13, 2017 08:44
[2017-11-13] MEDS ORDERED: POTASSIUM CHLORIDE 20 MEQ PWD PACKET PO ONE (08:45)
[2017-11-13] MEDS: RESP: ALBUTEROL 2.5 MG/IPRATROPIUM 0.5 MG NEB (SCH) NEB ×3 (08:48→19:56)
[2017-11-13] MEDS: FAMOTIDINE 20 MG TAB PO SCH ×2 (08:49→20:22)
[2017-11-13] MEDS: amLODIPine BESYLATE 5 MG TAB PO SCH (08:49)
[2017-11-13] MEDS: DOCUSATE SODIUM 50 MG/SENNA 8.6 MG TAB PO SCH ×2 (08:51→20:22)
[2017-11-13] MEDS: DIGOXIN 0.125 MG TAB PO SCH (08:51)
[2017-11-13] MEDS: ATORVASTATIN 20 MG TAB PO SCH (08:52)
[2017-11-13] MEDS: MULTIVITAMIN TAB PO SCH (08:52)
[2017-11-13] MEDS: ARTIFICIAL TEARS OPTH SOLN 15 ML BTL EACH EYE SCH ×3 (08:53→17:58)
[2017-11-13] MEDS: SODIUM CHLORIDE 0.9% FLUSH 10 ML FLUSH IV FLUSH SCH ×2 (08:54→20:22)
[2017-11-13] MEDS: CARVEDILOL 12.5 MG TAB PO SCH ×2 (09:00→20:22)
[2017-11-13] MEDS: levETIRAcetam 500 MG/5 ML UDC NG SCH ×2 (09:00→20:22)
--- NOTE | 2017-11-13 09:23 | RADRPT ---
EXAM DATE/TIME: 11/13/2017 08:40 [facility] COMPARISON: CHEST SINGLE AP, November 08, 2017, 16:46. INDICATIONS : Respiratory failure. MEDICAL HISTORY : Stroke. Hypertension. SURGICAL HISTORY : None. ENCOUNTER: Subsequent ACUITY: 3 days PAIN SCORE: Non-responsive. LOCATION: Bilateral chest FINDINGS: Stable tracheostomy. Interval removal of the nasogastric tube. Redemonstration of bilateral pleural e ffusions and associated airspac bibasilar airspace disease. Cardiomediastinal contours are stable. Re mainder of the exam is unchanged. CONCLUSION: 1. NGT has been removed. 2. Stable small bilateral pleural effusions and associated bibasilar airspace disease. 3. No significant interval change. Pollo Jang MD on November 13, 2017 at 9:19 Board Certified Radiologist. This report was verified electronically.
[2017-11-13] MEDS ORDERED: ROCURONIUM INJ 50 MG/5 ML VIAL IV ONE ×2 (10:30→16:00)
[2017-11-13] MEDS ORDERED: MIDAZOLAM HCL 2 MG/2 ML VIAL IV PUSH ONE ×2 (10:30→16:00)
[2017-11-13] MEDS: SODIUM CHLOR 0.9% 1000 ML INJ 1,000 ML IV SCH (10:51)
[2017-11-13] MEDS ORDERED: NOREPINEPHRINE INJ 4 MG in SODIUM CHLOR 0.9% 250 ML INJ 246 ML IV PRN (12:45)
[2017-11-13] MEDS ORDERED: TERBUTALINE INJ 1 MG/ML AMP SQ PRN (12:45)
[2017-11-13] MEDS ORDERED: SODIUM CHLOR 0.9% 1000 ML INJ 1,000 ML IV ONE (12:45)
[2017-11-13] MEDS: WARFARIN SOD 2.5 MG TAB PO SCH (14:00)
[2017-11-13] MEDS: LEVOFLOXACIN 750 MG PREMIX INJ 150 ML IV SCH (14:00)
[2017-11-13] MEDS ORDERED: SODIUM BICARBONATE 8.4% INJ 50 MEQ/50 ML SYR IV PUSH ONE (15:00)
[2017-11-13] MEDS ORDERED: MIDAZOLAM HCL 5 MG/ML VIAL (1 ML) IV PUSH ONE (15:05)
[2017-11-13] MEDS ORDERED: PROPOFOL 1000 MG/100 ML INJ 100 ML IV PRN (16:15)
[2017-11-13] MEDS ORDERED: fentaNYL DRIP 250 ML IV PRN (16:15)
--- NOTE | 2017-11-13 16:34 | RADRPT ---
EXAM DATE/TIME: 11/13/2017 16:11 [facility] COMPARISON: CHEST SINGLE AP, November 13, 2017, 8:40. INDICATIONS : Removal of tracheostomy, placement of ET tube. MEDICAL HISTORY : Stroke. Hypertension. SURGICAL HISTORY : None. ENCOUNTER: Subsequent ACUITY: 1 day PAIN SCORE: Non-responsive. LOCATION: chest FINDINGS: A single view of the chest demonstrates bibasilar airspace disease with associated effusions, unchang ed. Heart size is borderline prominent with findings of prior valvular prosthesis. Tracheostomy tube is been removed with placement of an endotracheal tube. The tip of the latter is positioned approxima tely 1.6 cm above the sho. CONCLUSION: 1. Stable bibasilar airspace disease with associated effusions. 2. Interval removal of the tracheostomy tube with placement of an endotracheal tube. The tip of the e ndotracheal tube is approximately 1.6 cm above the sho. Julio Bahena MD on November 13, 2017 at 16:29 Board Certified Radiologist. This report was verified electronically.
--- NOTE | 2017-11-13 17:46 | PD.PROCEDR ---
Procedure Note Procedure Procedure: Diagnostic and therapeutic fiberoptic Bronchoscopy Diagnosis: Bleeding around trach site Indications: In brief, this is a 76-year-old female with history of chronic respiratory failure status post tracheostomy 5 days ago. She had increased in bleeding around her trach site as well as a 50% air leak. Need for diagnostic evaluation of the airway as well as possible management of any bleeding. Consent: Obtained Anesthesia: Versed IV, fentanyl IV, rocuronium IV Description of the Procedure: The patient was sedated and mechanically ventilated. The patient was placed on 100% FIO2 and a volume control mode of ventilation. Initially, the patient was intubated orally by Dr. Tian, see separate procedure note for details. After this, the tracheostomy which was an 8.0 Shiley was removed. The fiberoptic bronchoscopy scope was inserted through the stoma to evaluate the bleeding which appeared to be coming from the cartilaginous surface of the trachea. This was suctioned aggressively. After this, the bronchoscope was inserted to the 8.0 oral endotracheal tube and the airway was suctioned of clots. There is a very large and tenacious blood clot which was aggressively suctioned through both the endotracheal tube as well as the tracheostomy stoma. At the conclusion of the procedure, the airway was clear blood or blood clots. The stoma was covered with a wet and then a dry 4 x 4 and clear dressing was applied over it. The patient was left orally intubated. Findings: Small amount of capillary bleeding coming from the raw cartilaginous edges of the trachea. No active bleeding. No evidence of large vessel tracheal fistulae. Multiple large blood clots in the airway BAL samples: none were sent The patient tolerated the procedure well with no hemodynamic instability or hypoxia. There were no immediate complications noted. At the conclusion of the procedure, the patient was placed back on their pre-procedure ventilatory settings. There was minimal EBL. A chest x-ray has been ordered. I personally performed the procedure. Bradly Arellano MD November 13, 2017 17:46
[2017-11-14] VITALS (19 sets, daily range): BP systolic 97–122; BP diastolic 54–76; PULSE 55–85; RESP 16–23; TEMP 97.2–98.7; O2SAT 97–100
[2017-11-14] MEDS: LINEZOLID 600 MG PREMIX 300 ML IV SCH ×2 (00:56→13:17)
--- NOTE | 2017-11-14 04:52 | RADRPT ---
EXAM DATE/TIME: 11/14/2017 04:14 [facility] COMPARISON: CT BRAIN W/O CONTRAST, November 04, 2017, 12:31. INDICATIONS : Follow-up CVA. RADIATION DOSE: 56.35 CTDIvol (mGy) MEDICAL HISTORY : Hypertension. Stroke SURGICAL HISTORY : None. ENCOUNTER: Subsequent ACUITY: 3 weeks PAIN SCALE: Non-responsive LOCATION: cranial TECHNIQUE: Multiple contiguous axial images were obtained of the head. Using automated exposure control and adj ustment of the mA and/or kV according to patient size, radiation dose was kept as low as reasonably a chievable to obtain optimal diagnostic quality images. DICOM format image data is available electro nically for review and comparison. FINDINGS: Again seen is an area of infarction involving the right cerebellar hemisphere. There is a tiny focus of high attenuation measuring 4 mm in greatest dimension consistent with an area of hemorrhage within the infarction. This is new from the prior study. Extensive encephalomalacia throughout both cerebra l hemispheres and left cerebellar hemisphere is stable. Periventricular low attenuation change involv ing both cerebral hemispheres is stable. Underlying atrophy. Complete opacification of the maxillary sinuses bilaterally with mucosal thickening involving scattered ethmoid air cells and sphenoid sinuse s bilaterally. CONCLUSION: 1. Development of a tiny focus of intraparenchymal hemorrhage involving the right cerebellar infarcti on. 2. Extensive scattered areas of encephalomalacia consistent with multiple prior infarctions. 3. Atrophy and chronic small vessel ischemic change. Anatoly Robin Jr., MD on November 14, 2017 at 4:46 Board Certified Radiologist. This report was verified electronically.
[2017-11-14] MEDS: CHLORHEXIDINE GLUCONATE 2 % 1 PACK (2 CLOTHS) TOP SCH (04:55)
[2017-11-14] MEDS: INSULIN ASPART SUPPLEMENTAL SCALE SQ SCH ×4 (05:38→18:00)
[2017-11-14] MEDS: LEVOTHYROXINE SODIUM 125 MCG TAB PO SCH (05:38)
[2017-11-14 06:17] LABS: INTERNATIONAL NORMALIZED RATIO 1.1 RATIO; PROTHROMBIN TIME - PATIENT 10.9 SEC (9.8-11.6)
[2017-11-14 06:33] LABS: ALBUMIN 2.3 GM/DL (3.4-5.0); AST (GOT) 41 U/L (15-37); BICARBONATE 23.9 MEQ/L (21.0-32.0); BLOOD UREA NITROGEN 16 MG/DL (7-18); CALCIUM 8.6 MG/DL (8.5-10.1); CHLORIDE 109 MEQ/L (98-107); CREATININE 0.63 MG/DL (0.50-1.00); GLOMERULAR FILTRATION RATE 92 ML/MIN (>89); GLUCOSE,RANDOM 93 MG/DL (74-106); MAGNESIUM 2.3 MG/DL (1.5-2.5); SODIUM (NA) 141 MEQ/L (136-145)
[2017-11-14 06:48] LABS: ALKALINE PHOSPHATASE 142 U/L (45-117); ALT (GPT) 39 U/L (10-53); DIGOXIN 1.1 NG/ML (0.8-2.0); PHOSPHORUS 2.7 MG/DL (2.5-4.9); TOTAL BILIRUBIN ADULT 0.6 MG/DL (0.2-1.0); TOTAL PROTEIN 7.2 GM/DL (6.4-8.2)
[2017-11-14] MEDS: CHLORHEXIDINE 0.12% (ORAL KIT) 15 ML CUP MT SCH ×2 (08:00→20:32)
[2017-11-14] MEDS: CARVEDILOL 12.5 MG TAB PO SCH ×2 (08:39→20:33)
[2017-11-14] MEDS: amLODIPine BESYLATE 5 MG TAB PO SCH (08:40)
[2017-11-14] MEDS: MULTIVITAMIN TAB PO SCH (08:47)
[2017-11-14] MEDS: levETIRAcetam 500 MG/5 ML UDC NG SCH ×2 (08:47→20:32)
[2017-11-14] MEDS: ATORVASTATIN 20 MG TAB PO SCH (08:47)
[2017-11-14] MEDS: DIGOXIN 0.125 MG TAB PO SCH (08:47)
[2017-11-14] MEDS: FAMOTIDINE 20 MG TAB PO SCH ×2 (08:48→20:33)
[2017-11-14] MEDS: DOCUSATE SODIUM 50 MG/SENNA 8.6 MG TAB PO SCH ×2 (08:48→20:33)
[2017-11-14] MEDS: SODIUM CHLORIDE 0.9% FLUSH 10 ML FLUSH IV FLUSH SCH ×2 (08:48→20:32)
[2017-11-14] MEDS: ARTIFICIAL TEARS OPTH SOLN 15 ML BTL EACH EYE SCH ×3 (08:48→18:00)
[2017-11-14] MEDS: RESP: ALBUTEROL 2.5 MG/IPRATROPIUM 0.5 MG NEB (SCH) NEB ×3 (09:17→20:46)
[2017-11-14 10:05] LABS: AUTOMATED NEUTROPHIL # 5.5 TH/MM3 (1.8-7.7); BASOPHIL % 0.4 % (0.0-2.0); EOSINOPHIL # 0.3 TH/MM3 (0-0.4); EOSINOPHIL % 4.6 % (0.0-4.0); HEMATOCRIT 33.1 % (35.0-46.0); HEMOGLOBIN 11.1 GM/DL (11.6-15.3); LYMPH % 14.4 % (9.0-44.0); LYMPHOCYTE # 1.1 TH/MM3 (1.0-4.8); MEAN CELL VOLUME 92.8 FL (80.0-100.0); MEAN CORPUSCULAR HEMOGLOBIN 31.1 PG (27.0-34.0); MEAN CORPUSCULAR HGB CONC 33.5 % (32.0-36.0); MONO % 5.6 % (0.0-8.0); MONOCYTE # 0.4 TH/MM3 (0-0.9); PLATELET COUNT 264 TH/MM3 (150-450); RED BLOOD COUNT 3.56 MIL/MM3 (4.00-5.30); WHITE BLOOD COUNT 7.4 TH/MM3 (4.0-11.0)
--- NOTE | 2017-11-14 11:25 | HHI.CCPN ---
Subjective Remarks/Hospital Course The patient is a 76-year-old female that was apparently alert and talking prior to 11 PM tonight when she started vomiting. She then became comatose, [facility] was called and they intubated the patient using etomidate and Versed. 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 There has not been any head trauma. After intubation and Versed the blood pressure is 127/90. No seizure activity noted per ER physician. Patient was kept sedated orally intubated overnight on mechanical ventilation. She is starting to arousable although not following commands. She does try to open her eyes on command. Per nursing staff she was moving all [address] done in the ER did not reveal any acute bleed and had evidence of old strokes. Dr. Kim from neurology was contacted by ER physician and will be evaluating patient. When I evaluated the patient this morning she sedated with propofol, orally intubated on mechanical ventilation. History is obtained by reviewing records and discussion with nursing staff. 10/27: The patient currently remains intubated and sedated. EEG in process. MRI revealed acute right cerebellar. or infarct. Sedation vacation pending. 10/28: more cerebral edema on CT scan yesterday. remains very encephalopathic, intubated, obtunded. long conversation with family today where I explained current stroke and edema. family introduced the idea that if she would not come off life support or would need to be fully dependent on healthcare system, she would not want to live: will consult palliative care to assist with goals of care clarification. 10/29: remains intubated and encephalopathic. CT brain today demonstrates stable appearance of posterior fossa infarct and edema. neuro exam slightly better and now w/d x 4. 5/2: Remains encephalopathic, orally intubated on mechanical ventilation. Tolerating tube feeds. 5/3: Remains encephalopathic, orally intubated on mechanical ventilation. Tolerating tube feeds. 11/01: Remains encephalopathic, orally intubated on mechanical ventilation. Tolerating tube feeds. 11/02: Intubated off sedation for the last 5 days at least, remains unresponsive. Chest exam reveals bilateral wheezing. Breathing treatments scheduled and as needed ordered. Tmax 101.3, check chest x-ray sputum culture, blood culture and UA. According to the son at the bedside family might want to proceed with tracheostomy and PEG tube placement 11/03: Remains encephalopathic, orally intubated on mechanical ventilation. Grimaces with painful stimuli however not following commands. 11/04: Squeezes hands today. Discussed with Dr. Kim. He will start heparin gtt , convert to coumadin after tracheostomy. 11/05: Family has not agreed to trach or PEG yet, they want to see if she wakes up more. 11/06: Family remains encouraged by some early hand motility. They wish to wait to decide whether a tracheostomy is appropriate and/or necessary. 11/07: Will try patient on spontaneous breathing trials today, earlier efforts were plagued by episodes of apnea. Family continues to wish to hold off on tracheostomy at this point. 11/08: Family would like to go ahead with trach and PEG. Neurological function severely impaired and both will be required for ongoing care. 11/09: Trach site clean, dry. Will restart heparin 24 hours after PEG. No change in neuro function. 11/10: Tolerating SBT with moderately elevated pressure support. Plan is for PEG tube insertion in the morning. 24 hours after that we should be able to restart full anticoagulation, likely just go straight to Coumadin. 11/11: PSV trial 15/135%. Arousable and does open eyes but not following commands currently. Tube feeds currently on hold for planned percutaneous endoscopic gastrostomy tube placement in OR this a.m. 11/12: Tolerated PEG tube placement yesterday. No active bleeding. Site appears with minimal old dried blood. Arousable on the ventilator.. Currently on CPAP trial. Subjective 11/13: Afebrile. Some oozing from the PEG tube and tracheostomy site. Heparin drip currently on hold. Persistent leak now up to 48% per ventilator. Will likely need tracheostomy changed today. Placed 11/08. 11/14: Tracheostomy removed due to bleeding and patient was intubated yesterday and placed on mechanical ventilation, currently orally intubated on mechanical ventilation. Objective Vital Signs Date Time Temp Pulse Resp B/P (MAP) Pulse Ox O2 Delivery O2 Flow Rate FiO2 11/14/17 09:23 100 40 11/14/17 06:00 59 11/14/17 04:00 98.6 16 100/56 (71) 11/13/17 16:14 15.00 Intake and Output 11/14/17 11/14/17 11/15/17 08:00 16:00 00:00 Intake Total 1340.7 ml Output Total 300 ml Balance 1040.7 ml Result Diagram: 11/14/17 0935 11/14/17 0513 Other Results Laboratory Tests Test 11/13/17 17:45 Blood Gas Puncture Site RT RADIAL Blood Gas Patient Temperature 98.6 Blood Gas HCO3 19 mmol/L (22-26) Blood Gas Base Excess -3.9 mmol/L (-2-2) Blood Gas Oxygen Saturation 98 % (90-100) Arterial Blood pH 7.50 (7.380-7.420) Arterial Blood Partial Pressure CO2 24 mmHg (38-42) Arterial Blood Partial Pressure O2 385 mmHg (61-120) Arterial Blood Oxygen Content 20.3 Vol % (12.0-20.0) Arterial Blood Carboxyhemoglobin 1.0 % (0-4) Arterial Blood Methemoglobin 0.9 % (0-2) Blood Gas Hemoglobin 14.0 G/DL (12.0-16.0) Oxygen Delivery Device VENT Blood Gas Ventilator Setting PRVC/22/700/1.0/5PEE Blood Gas Inspired Oxygen 100 % Imaging Last Impressions Chest X-Ray 11/08/17 1620 Signed Impressions: Service Date/Time: Wednesday, November 08, 2017 16:46 - CONCLUSION: Tracheostomy without complication. Continued improvement in aeration Frankie Tsai MD Head CT 11/04/17 0900 Signed Impressions: Service Date/Time: Saturday, November 04, 2017 12:31 - CONCLUSION: 1. Persistent area of recent infarction at the right cerebellar hemisphere. 2. Multiple areas of encephalomalacia in the cerebral hemispheres and the left cerebellar hemisphere. 3. Atrophy. 4. Suspected small vessel ischemic change in the white matter. 5. Sinus disease. Frankie Zamudio MD Neck CTA 10/26/17 0012 Signed Impressions: Service Date/Time: Thursday, October 26, 2017 00:12 - CONCLUSION: 1. No luminal narrowing or significant plaque formation. 2. Left dominant vertebral system. Anatoly Early MD Head CTA 10/26/17 0012 Signed Impressions: Service Date/Time: Thursday, October 26, 2017 00:12 - CONCLUSION: No evidence of vessel truncation. Anatoly Early MD Brain MRI 4/28/18 0000 Signed Impressions: Service Date/Time: Thursday, October 26, 2017 16:04 - CONCLUSION: 1. Acute right cerebellar infarct. No midline shift or mass effect. 2. Multiple old bilateral infarcts. Samuel Chen MD Objective Remarks GENERAL: 76-year-old female currently resting in bed in no acute distress SKIN: Warm and dry. No rash HEAD: Atraumatic. Normocephalic. EYES: Pupils equal and round about 4 mm bilaterally reactive to 3. No scleral icterus. No injection or drainage. ENT: No nasal bleeding or discharge. Mucous membranes pink and moist. NG tube in right nares NECK: Trachea midline. No JVD. Dressing over tracheostomy site CARDIOVASCULAR: Irregularly irregular. S1, S3 no S4. 1/6 murmur RESPIRATORY: Orally intubated on mechanical ventilation. Clear to auscultation. Breath sounds equal bilaterally. GASTROINTESTINAL: Abdomen soft, non-tender, nondistended. PEG tube site in left upper quadrant with minimal blood. Hypoactive bowel sounds. MUSCULOSKELETAL: Extremities with trace bilateral upper and lower extremity edema. No obvious deformities. NEUROLOGICAL: Encephalopathic. No obvious cranial nerve deficits. Withdraws to noxious cannulation 4. Minimal movement right upper extremity. Date of Insertion: Oct 26, 2017 A/P Assessment and Plan Neuro/Psych: Bilateral cataract Dementia disorder NOS Acute encephalopathy Acute cerebellar CVA Posterior fossa cerebral edema History of previous strokes frequent neuro checks 10/26 MRI brain-acute right cerebellar infarct. CT head 10/31/2017 shows stable right cerebellar infarct and multiple supratentorial infarct Neurology following- Dr. Kim. On ASA Holding heparin gtt. for bleeding from tracheostomy site Holding SSRI Zoloft while on linezolid Continue levetiracetam 5 mg by tube twice daily Cardiovascular: Atrial fibrillation Chronic systolic heart failure ejection fraction 20% Mechanical mitral valve on anticoagulation Coronary artery disease Currently on amlodipine 5 mg daily, digoxin 0.125 mg daily and carvedilol 12.5 mg mg p.o. twice daily/home medications Recheck digoxin level in a.m. 11/14. 0.7 0.5/50 Continue atorvastatin 20 mg daily for dyslipidemia. hold coumadin for anticoagulation given size of stroke and edema. high concern for hemorrhagic conversion. Monitor INR. Currently 1.1 Atrial fibrillation rate controlled Heparin gtt on hold. 2D echocardiogram revealed EF less than 20%. Bilateral atrial enlargement. Pulmonary: Vent dependent respiratory failure MRSA/Klebsiella pneumonia Continue mechanical ventilation with pressure support ventilation / and 35% Albuterol/ipratropium aerosols every 6 hours while awake with albuterol aerosols every 2 hours as needed dyspnea Status post tracheostomy by Dr. Arellano 11/08 wean fio2 for goal spo2 > 92% GI/liver: Hypoalbuminemia Tube feeds Jevity 1.5 and advance to goal 65 cc/hour as tolerated. PEG tube site 11/[address] Pruitt Famotidine for GI prophylaxis Docusate sodium/senna 1 tablet twice daily for bowel regimen Renal/: IV hydration as indicated, strict intake output, Monitor and replete electrolytes, follow BUN/creatinine ID: MRSA/Klebsiella pneumonia Currently afebrile Sputum culture from 11/02 growing MRSA/Klebsiella pneumonia. Continue with levofloxacin and linezolid on 11/03 will complete 14 days therapy. Heme: History of DVT Normocytic anemia Chronic warfarin use secondary to mechanical heart valve/atrial fibrillation Monitor CBC and INR. daily INRs.. Currently 1.1 Routine warfarin 4/5 mg alternating dosages at home. Started 2.5 mg daily Endocrine: Hypothyroidism with significantly elevated TSH is 16 Watch for hypoglycemia, SSI for glycemic control if needed. TSH significantly elevated- 16 currently on levothyroxine 125 mcg/day. Recheck and adjust Prophylaxis: Famotidine for GI prophylaxis, SCDs. Full anticoagulation with heparin drip/ warfarin as tolerated watching for bleeding Level 2 follow-up Armani Rodriguez MD November 14, 2017 11:24
[2017-11-14] MEDS ORDERED: fentaNYL CITRATE 250 MCG/5 ML AMP IV ONE (11:30)
[2017-11-14] MEDS ORDERED: ROCURONIUM INJ 50 MG/5 ML VIAL IV ONE (11:30)
[2017-11-14] MEDS ORDERED: MIDAZOLAM HCL 5 MG/5 ML VIAL IV ONE (11:30)
[2017-11-14] MEDS: SODIUM CHLOR 0.9% 1000 ML INJ 1,000 ML IV SCH (11:44)
[2017-11-14] MEDS: LEVOFLOXACIN 750 MG PREMIX INJ 150 ML IV SCH (13:17)
--- NOTE | 2017-11-14 13:44 | PD.PROCEDR ---
Procedure Note Procedure Procedure fiberoptic bronchoscopy for bronchoscopy guided percutaneous tracheostomy Operators: Dr. Armani Rodriguez for fiberoptic bronchoscopy/ Dr. Arellano for percutaneous tracheostomy Informed consent obtained from family and documented in chart Anesthesia used Versed 6 mg IV, fentanyl 200 g IV, Rocuronium 50mg IV for neuromuscular blockade. Propofol IV infusion: Procedure: Patient was placed on 100% oxygen via ET tube/mechanical ventilator. After ensuring adequate sedation/analgesia/ neuromuscular blockade, fiberoptic bronchoscope was inserted via adapter on ET tube and advanced into the trachea upto the sho. Following this bronchoscope was withdrawn back to the tip of ET tube. After deflating cuff of ET tube it was withdrawn back to the 18 cm han. Subsequent steps of percutaneous tracheostomy were directly visualized on videomonitor via bronchoscopy including insertion of introducer catheter followed by guidewire and then insertion of tracheal dilator followed by insertion of tracheostomy tube following which bronchoscope was withdrawn out of the ET tube and was inserted down the percutaneous tracheostomy and correct placement was confirmed by visualizing tracheal rings following which bronchoscope was withdrawn. Inner cannula was placed by Dr. Arellano and after inflating cuff, patient was connected to mechanical ventilation via tracheostomy tube. Bronchoscope was reinserted via ET tube and minimal amount of secretions were suctioned out from above cuff of tracheostomy tube following which bronchoscope and ET tube were withdrawn out. Patient tolerated the procedure well with no immediate complications noted. Post procedure CXR ordered and was pending. Will f/u when available. Armani Rodriguez MD November 14, 2017 13:44
--- NOTE | 2017-11-14 14:33 | RADRPT ---
EXAM DATE/TIME: 11/14/2017 13:55 [facility] COMPARISON: CHEST SINGLE AP, November 13, 2017, 16:11. INDICATIONS : Post tracheostomy MEDICAL HISTORY : Hypertension. Stroke SURGICAL HISTORY : None. ENCOUNTER: Subsequent ACUITY: 2 weeks PAIN SCORE: Non-responsive. LOCATION: Bilateral chest FINDINGS: There is a tracheostomy tube in place. The tracheostomy tube appears to be in good position. There is no pneumothorax. There are bilateral pulmonary infiltrates in the lower lungs. The heart size is sta ble. There is evidence of previous cardiothoracic surgery. The bony structures are stable. CONCLUSION: 1. Tracheostomy tube appears to be in good position. 2. No pneumothorax. 3. Bibasilar pulmonary infiltrates. Camilo Turpin MD on November 14, 2017 at 14:30 Board Certified Radiologist. This report was verified electronically.
--- NOTE | 2017-11-14 14:57 | PD.PROCEDR ---
Procedure Note Procedure Percutaneous Dilation Tracheostomy Tube Placement Diagnosis: Chronic respiratory failure Indications: In brief, this is a 76-year-old female with chronic restrictive failure status post trach. Please refer to yesterday's procedure notes for complete details: Patient had bleeding around the trach site which was diagnosed to be superficial oozing from the subcutaneous tissues and rough edges of the cartilaginous tissues. The heparin drip has been on hold 24 hours and a repeat evaluation today there is no evidence of bleeding. Patient has persistent chronic respiratory failure and a tracheostomy was replaced. Anesthesia: versed 6mg iv, fentanyl 100 mcg iv Neuromuscular Blockade: rocuronium 50mg iv Anesthesia was provided by the bedside RN Description of the Procedure: The patient was sedated and paralyzed. The patient was positioned in the supine position with a chest roll. The patient's neck was slightly extended. The prior dressing was removed and the stoma was evaluated without evidence of ongoing bleeding. A time out procedure was performed. The patient was placed on a volume control mode of ventilation, on 100% FiO2. The patient was prepped and draped sterilely. A bronchoscope was inserted into the endotracheal tube for endoscopic guidance (see separate bronchoscopy procedure note). Under direct bronchoscopic guidance, the cuff of the endotracheal tube was deflated and the endotracheal tube was retracted to a level above the level of the stoma. At this point, a 15g introducer catheter was advanced midline until the catheter was visualized in the lumen of the trachea. A 0.052 in diameter J- shaped guidewire was advanced through the catheter into the lumen of the trachea , under direct bronchoscopic visualization. Using a modified Seldinger technique, a 28 Fr tracheostomy loading catheter with 8.0 Cuffed Shiley tracheostomy tube was placed. The loading catheter and guidewire were removed and the tracheostomy tube was confirmed in the lumen of the trachea with bronchoscopy, end-tidal CO2, and returning volumes on the ventilator. The tracheostomy was sewn to the skin with interrupted 2.0 Prolene sutures, and a tracheostomy tie was applied to the skin. There were no immediate complications. There was minimal EBL. A chest x-ray has been ordered. Broadcast Engineer: Lawson Cole MD I personally performed the procedure. Bradly Arellano MD November 14, 2017 14:57
[2017-11-15] VITALS (17 sets, daily range): BP systolic 99–120; BP diastolic 55–68; PULSE 70–92; RESP 14–30; TEMP 98.6–99.7; O2SAT 94–100
[2017-11-15] MEDS: LINEZOLID 600 MG PREMIX 300 ML IV SCH ×2 (01:56→13:16)
[2017-11-15] MEDS: CHLORHEXIDINE GLUCONATE 2 % 1 PACK (2 CLOTHS) TOP SCH (04:00)
[2017-11-15] MEDS: LEVOTHYROXINE SODIUM 125 MCG TAB PO SCH (06:00)
[2017-11-15] MEDS: INSULIN ASPART SUPPLEMENTAL SCALE SQ SCH ×4 (06:00→18:00)
[2017-11-15] MEDS: RESP: ALBUTEROL 2.5 MG/IPRATROPIUM 0.5 MG NEB (SCH) NEB (08:12)
[2017-11-15] MEDS: ARTIFICIAL TEARS OPTH SOLN 15 ML BTL EACH EYE SCH ×3 (09:00→18:00)
[2017-11-15] MEDS: MULTIVITAMIN TAB PO SCH (09:08)
[2017-11-15] MEDS: FAMOTIDINE 20 MG TAB PO SCH (09:08)
[2017-11-15] MEDS: ATORVASTATIN 20 MG TAB PO SCH (09:08)
[2017-11-15] MEDS: DOCUSATE SODIUM 50 MG/SENNA 8.6 MG TAB PO SCH ×2 (09:08→21:00)
[2017-11-15] MEDS: amLODIPine BESYLATE 5 MG TAB PO SCH (09:08)
[2017-11-15] MEDS: CARVEDILOL 12.5 MG TAB PO SCH (09:08)
[2017-11-15] MEDS: DIGOXIN 0.125 MG TAB PO SCH (09:09)
[2017-11-15] MEDS: CHLORHEXIDINE 0.12% (ORAL KIT) 15 ML CUP MT SCH ×2 (09:09→20:00)
[2017-11-15] MEDS: SODIUM CHLORIDE 0.9% FLUSH 10 ML FLUSH IV FLUSH SCH ×2 (09:09→21:00)
[2017-11-15] MEDS: levETIRAcetam 500 MG/5 ML UDC NG SCH ×2 (09:09→21:00)
[2017-11-15] MEDS: SODIUM CHLOR 0.9% 1000 ML INJ 1,000 ML IV SCH (13:12)
[2017-11-15] MEDS: LEVOFLOXACIN 750 MG PREMIX INJ 150 ML IV SCH (13:16)
--- NOTE | 2017-11-15 14:14 | HHI.CCPN ---
Subjective Remarks/Hospital Course The patient is a 76-year-old female that was apparently alert and talking prior to 11 PM tonight when she started vomiting. She then became comatose, [facility] was called and they intubated the patient using etomidate and Versed. 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 There has not been any head trauma. After intubation and Versed the blood pressure is 127/90. No seizure activity noted per ER physician. Patient was kept sedated orally intubated overnight on mechanical ventilation. She is starting to arousable although not following commands. She does try to open her eyes on command. Per nursing staff she was moving all [address] done in the ER did not reveal any acute bleed and had evidence of old strokes. Dr. Kim from neurology was contacted by ER physician and will be evaluating patient. When I evaluated the patient this morning she sedated with propofol, orally intubated on mechanical ventilation. History is obtained by reviewing records and discussion with nursing staff. 10/27: The patient currently remains intubated and sedated. EEG in process. MRI revealed acute right cerebellar. or infarct. Sedation vacation pending. 10/28: more cerebral edema on CT scan yesterday. remains very encephalopathic, intubated, obtunded. long conversation with family today where I explained current stroke and edema. family introduced the idea that if she would not come off life support or would need to be fully dependent on healthcare system, she would not want to live: will consult palliative care to assist with goals of care clarification. 10/29: remains intubated and encephalopathic. CT brain today demonstrates stable appearance of posterior fossa infarct and edema. neuro exam slightly better and now w/d x 4. 5/2: Remains encephalopathic, orally intubated on mechanical ventilation. Tolerating tube feeds. 5/3: Remains encephalopathic, orally intubated on mechanical ventilation. Tolerating tube feeds. 11/01: Remains encephalopathic, orally intubated on mechanical ventilation. Tolerating tube feeds. 11/02: Intubated off sedation for the last 5 days at least, remains unresponsive. Chest exam reveals bilateral wheezing. Breathing treatments scheduled and as needed ordered. Tmax 101.3, check chest x-ray sputum culture, blood culture and UA. According to the son at the bedside family might want to proceed with tracheostomy and PEG tube placement 11/03: Remains encephalopathic, orally intubated on mechanical ventilation. Grimaces with painful stimuli however not following commands. 11/04: Squeezes hands today. Discussed with Dr. Kim. He will start heparin gtt , convert to coumadin after tracheostomy. 11/05: Family has not agreed to trach or PEG yet, they want to see if she wakes up more. 11/06: Family remains encouraged by some early hand motility. They wish to wait to decide whether a tracheostomy is appropriate and/or necessary. 11/07: Will try patient on spontaneous breathing trials today, earlier efforts were plagued by episodes of apnea. Family continues to wish to hold off on tracheostomy at this point. 11/08: Family would like to go ahead with trach and PEG. Neurological function severely impaired and both will be required for ongoing care. 11/09: Trach site clean, dry. Will restart heparin 24 hours after PEG. No change in neuro function. 11/10: Tolerating SBT with moderately elevated pressure support. Plan is for PEG tube insertion in the morning. 24 hours after that we should be able to restart full anticoagulation, likely just go straight to Coumadin. 11/11: PSV trial 15/135%. Arousable and does open eyes but not following commands currently. Tube feeds currently on hold for planned percutaneous endoscopic gastrostomy tube placement in OR this a.m. 11/12: Tolerated PEG tube placement yesterday. No active bleeding. Site appears with minimal old dried blood. Arousable on the ventilator.. Currently on CPAP trial. Subjective 11/13: Afebrile. Some oozing from the PEG tube and tracheostomy site. Heparin drip currently on hold. Persistent leak now up to 48% per ventilator. Will likely need tracheostomy changed today. Placed 11/08. 11/14: Tracheostomy removed due to bleeding and patient was intubated yesterday and placed on mechanical ventilation, currently orally intubated on mechanical ventilation. 11/15: Resting comfortably on mechanical ventilation via tracheostomy. Tracheostomy site with no bleeding since placement yesterday. Objective Vital Signs Date Time Temp Pulse Resp B/P (MAP) Pulse Ox O2 Delivery O2 Flow Rate FiO2 11/15/17 10:00 76 11/15/17 08:16 30 11/15/17 08:16 98 11/15/17 08:00 99.7 16 99/58 (72) 11/13/17 16:14 15.00 Intake and Output 11/15/17 11/15/17 11/16/17 08:00 16:00 00:00 Intake Total 600 ml Output Total 1400 ml Balance -800 ml Result Diagram: 11/14/17 0935 11/14/17 0513 Imaging Last Impressions Chest X-Ray 11/08/17 1620 Signed Impressions: Service Date/Time: Wednesday, November 08, 2017 16:46 - CONCLUSION: Tracheostomy without complication. Continued improvement in aeration Frankie Tsai MD Head CT 11/04/17 0900 Signed Impressions: Service Date/Time: Saturday, November 04, 2017 12:31 - CONCLUSION: 1. Persistent area of recent infarction at the right cerebellar hemisphere. 2. Multiple areas of encephalomalacia in the cerebral hemispheres and the left cerebellar hemisphere. 3. Atrophy. 4. Suspected small vessel ischemic change in the white matter. 5. Sinus disease. Frankie Zamudio MD Neck CTA 10/26/17 001 Signed Impressions: Service Date/Time: Thursday, October 26, 2017 00:12 - CONCLUSION: 1. No luminal narrowing or significant plaque formation. 2. Left dominant vertebral system. Anatoly Early MD Head CTA 10/26/17 001 Signed Impressions: Service Date/Time: Thursday, October 26, 2017 00:12 - CONCLUSION: No evidence of vessel truncation. Anatoly Early MD Brain MRI 10/26/17 0000 Signed Impressions: Service Date/Time: Thursday, October 26, 2017 16:04 - CONCLUSION: 1. Acute right cerebellar infarct. No midline shift or mass effect. 2. Multiple old bilateral infarcts. Samuel Chen MD Objective Remarks GENERAL: 76-year-old female currently resting in bed in no acute distress SKIN: Warm and dry. No rash HEAD: Atraumatic. Normocephalic. EYES: Pupils equal and round about 4 mm bilaterally reactive to 3. No scleral icterus. No injection or drainage. ENT: No nasal bleeding or discharge. Mucous membranes pink and moist. NG tube in right nares NECK: Trachea midline. No JVD. Dressing over tracheostomy site CARDIOVASCULAR: Irregularly irregular. S1, S3 no S4. 1/6 murmur RESPIRATORY: on mechanical ventilation via tracheostomy. Clear to auscultation. Breath sounds equal bilaterally. GASTROINTESTINAL: Abdomen soft, non-tender, nondistended. PEG tube site in left upper quadrant with minimal blood. Hypoactive bowel sounds. MUSCULOSKELETAL: Extremities with trace bilateral upper and lower extremity edema. No obvious deformities. NEUROLOGICAL: Encephalopathic. No obvious cranial nerve deficits. Withdraws to noxious cannulation 4. Minimal movement right upper extremity. Date of Insertion: Oct 26, 2017 A/P Assessment and Plan Neuro/Psych: Bilateral cataract Dementia disorder NOS Acute encephalopathy Acute cerebellar CVA Posterior fossa cerebral edema History of previous strokes frequent neuro checks 10/26 MRI brain-acute right cerebellar infarct. CT head 10/31/2017 shows stable right cerebellar infarct and multiple supratentorial infarct Neurology following- Dr. Kim. On ASA Holding heparin gtt. for bleeding from tracheostomy site Holding SSRI Zoloft while on linezolid Continue levetiracetam 5 mg by tube twice daily Cardiovascular: Atrial fibrillation Chronic systolic heart failure ejection fraction 20% Mechanical mitral valve on anticoagulation Coronary artery disease Currently on amlodipine 5 mg daily, digoxin 0.125 mg daily and carvedilol 12.5 mg mg p.o. twice daily/home medications Recheck digoxin level in a.m. 11/14. 0.7 0.5/50 Continue atorvastatin 20 mg daily for dyslipidemia. hold coumadin for anticoagulation given size of stroke and edema. high concern for hemorrhagic conversion. Monitor INR. Currently 1.1 Atrial fibrillation rate controlled Heparin gtt on hold. 2D echocardiogram revealed EF less than 20%. Bilateral atrial enlargement. Pulmonary: Vent dependent respiratory failure MRSA/Klebsiella pneumonia Continue mechanical ventilation with pressure support ventilation 15/5 and 35% Albuterol/ipratropium aerosols every 6 hours while awake with albuterol aerosols every 2 hours as needed dyspnea Status post tracheostomy by Dr. Arellano 11/08 wean fio2 for goal spo2 > 92% GI/liver: Hypoalbuminemia Tube feeds Jevity 1.5 and advance to goal 65 cc/hour as tolerated. PEG tube site 11/[address] Edmond Sorianootidbrian for GI prophylaxis Docusate sodium/senna 1 tablet twice daily for bowel regimen Renal/: IV hydration as indicated, strict intake output, Monitor and replete electrolytes, follow BUN/creatinine ID: MRSA/Klebsiella pneumonia Currently afebrile Sputum culture from 11/02 growing MRSA/Klebsiella pneumonia. Continue with levofloxacin and linezolid on 11/03 will complete 14 days therapy. Heme: History of DVT Normocytic anemia Chronic warfarin use secondary to mechanical heart valve/atrial fibrillation Monitor CBC and INR. daily INRs.. Currently 1.1 Routine warfarin 4/5 mg alternating dosages at home. Starting 2.5 mg daily on Endocrine: Hypothyroidism with significantly elevated TSH is 16 Watch for hypoglycemia, SSI for glycemic control if needed. TSH significantly elevated- 16 currently on levothyroxine 125 mcg/day. Recheck and adjust Prophylaxis: Famotidine for GI prophylaxis, SCDs. Start heparin 5000 units subcutaneously every 8 hourly for DVT prophylaxis. Level 2 follow-up Armani Rodriguez MD November 15, 2017 14:14
--- NOTE | 2017-11-15 16:26 | HHI.HCPN ---
Reason for visit a. To assist with evaluation and management of symptoms including: Encephalopathy, pain b. To assist medical decision maker(s) with: better understanding of current medical conditions; weighing benefits/burdens of medical treatment options; making medical treatment decisions. . Subjective/Interval History Follow up visit for clarifications of goals of care, medical update, family support. Patient seen in surgical ICU, remains on mechanical ventilation status post tracheostomy 11/08 which was replaced on 11/13, PEG tube 11/11. Patient underwent bronchoscopy on 11/13/17. Remains on ventilator dependent respiratory failure. Most recent chest x-ray 11/14 revealing bibasilar pulmonary infiltrates. Head CT 11/14 revealing development of a small intraparenchymal hemorrhage involving the right cerebellar infarct. Patient with some improved neurological condition, actively moving left hand and bilateral lower extremities to command. Today she was observed trying to mouth words to her son. She is a febrile, appears stable hemodynamically. Currently 30% FiO2, I am going CPAP trials. . Family/friend interactions Bedside conversation with patient's son Dorian. Medical update provided. Son verbalized feeling optimistic and hopeful of patient's eventual weaning from ventilator support. Family looking forward to acute rehabilitation, ultimate goal is for patient to return home once she is off vent support. Son Dorian reports that he is willing to care for patient at home. Son reiterated aggressive goals to include full code. . Advance Directives Health Care Surrogate: Copy in medical record Advance Directive Specifics Date completed: 07/13/2015 . Health Care Surrogate(s): Omega Low (RUBY) is designated as the [facility] decision maker; Lynsey Little is the alternate [facility] decision maker. . Documented care wishes: No documented care wishes are available other than the designation of healthcare surrogate. . Significant change in goals: Goals of therapy remain aggressive. . Objective Vital Signs Date Time Temp Pulse Resp B/P (MAP) Pulse Ox O2 Delivery O2 Flow Rate FiO2 11/15/17 14:00 72 11/15/17 12:00 30 11/15/17 12:00 98.7 74 30 106/55 (72) 97 11/15/17 12:00 74 11/15/17 10:00 76 11/15/17 08:16 30 11/15/17 08:16 98 30 11/15/17 08:00 80 11/15/17 08:00 40 11/15/17 08:00 99.7 80 16 99/58 (72) 94 11/15/17 06:00 78 11/15/17 04:00 98.7 76 15 109/67 (81) 99 11/15/17 04:00 40 11/15/17 04:00 76 11/15/17 03:23 98 30 11/15/17 02:00 92 11/15/17 01:15 97 30 11/15/17 00:00 98.6 78 14 113/68 (83) 98 11/15/17 00:00 40 11/15/17 00:00 78 11/14/17 22:00 76 11/14/17 20:46 97 30 11/14/17 20:00 40 11/14/17 20:00 85 11/14/17 20:00 98.7 85 16 119/76 (90) 98 11/14/17 18:00 81 11/14/17 16:56 100 30 Intake & Output 11/15/17 11/15/17 07:00 19:00 Intake Total 600 ml Output Total 1400 ml Balance -800 ml Tube Feeding 360 ml Other 240 ml Output Urine Total 1400 ml # Bowel Movements 1 Physical Exam CONSTITUTIONAL/GENERAL: This is an elderly, female patient in no acute distress. TUBES/LINES/DRAINS: PIV 2, trach, SCDs, external urinary catheter SKIN: No jaundice, rashes, or lesions. Ecchymoses on upper extremities. No wounds seen anteriorly. Skin temperature appropriate. Not diaphoretic. HEAD: Atraumatic. Normocephalic. EYES: Pupils equal and round and reactive. Extraocular motions intact. No scleral icterus. No injection or drainage. ENT: Hearing grossly normal. Nose without bleeding or purulent drainage. Moist oral mucosa. NECK: Trachea midline. Supple. Tracheostomy in place. CARDIOVASCULAR: Irregularly irregular without murmurs, gallops, or rubs. No JVD. Peripheral pulses symmetric. RESPIRATORY/CHEST: Symmetric, unlabored respirations. Coarse breath sounds bilaterally. On mechanical ventilation via tracheostomy. GASTROINTESTINAL: Abdomen soft, non-tender, nondistended. No guarding. Bowel sounds present. GENITOURINARY: Without palpable bladder distension. External urinary catheter. MUSCULOSKELETAL: Extremities without clubbing, cyanosis. Edema to right hand. No mottling or clubbing. NEUROLOGICAL: Tracking, moving bilateral lower extremities and left hand to command. Attempting to mouth some words. PSYCHIATRIC: Appears calm. . Diagnostic Tests Laboratory Laboratory Tests Test 11/13/17 04:07 11/13/17 17:45 11/14/17 05:13 11/14/17 09:35 White Blood Count 7.9 TH/MM3 (4.0-11.0) 7.4 TH/MM3 (4.0-11.0) Red Blood Count 3.35 MIL/MM3 (4.00-5.30) 3.56 MIL/MM3 (4.00-5.30) Hemoglobin 10.4 GM/DL (11.6-15.3) 11.1 GM/DL (11.6-15.3) Hematocrit 31.1 % (35.0-46.0) 33.1 % (35.0-46.0) Mean Corpuscular Volume 92.7 FL (80.0-100.0) 92.8 FL (80.0-100.0) Mean Corpuscular Hemoglobin 30.9 PG (27.0-34.0) 31.1 PG (27.0-34.0) Mean Corpuscular Hemoglobin Concent 33.4 % (32.0-36.0) 33.5 % (32.0-36.0) Red Cell Distribution Width 14.2 % (11.6-17.2) 14.0 % (11.6-17.2) Platelet Count 256 TH/MM3 (150-450) 264 TH/MM3 (150-450) Mean Platelet Volume 6.8 FL (7.0-11.0) 7.0 FL (7.0-11.0) Prothrombin Time 11.6 SEC (9.8-11.6) 10.9 SEC (9.8-11.6) Prothromb Time International Ratio 1.1 RATIO 1.1 RATIO Blood Urea Nitrogen 13 MG/DL (7-18) 16 MG/DL (7-18) Creatinine 0.56 MG/DL (0.50-1.00) 0.63 MG/DL (0.50-1.00) Random Glucose 117 MG/DL (74-106) 93 MG/DL (74-106) Calcium Level 8.8 MG/DL (8.5-10.1) 8.6 MG/DL (8.5-10.1) Sodium Level 141 MEQ/L (136-145) 141 MEQ/L (136-145) Potassium Level 3.5 MEQ/L (3.5-5.1) 3.9 MEQ/L (3.5-5.1) Chloride Level 110 MEQ/L (98-107) 109 MEQ/L (98-107) Carbon Dioxide Level 21.2 MEQ/L (21.0-32.0) 23.9 MEQ/L (21.0-32.0) Anion Gap 10 MEQ/L (5-15) 8 MEQ/L (5-15) Estimat Glomerular Filtration Rate 105 ML/MIN (>89) 92 ML/MIN (>89) Blood Gas Puncture Site RT RADIAL Blood Gas Patient Temperature 98.6 Blood Gas HCO3 19 mmol/L (22-26) Blood Gas Base Excess -3.9 mmol/L (-2-2) Blood Gas Oxygen Saturation 98 % (90-100) Arterial Blood pH 7.50 (7.380-7.420) Arterial Blood Partial Pressure CO2 24 mmHg (38-42) Arterial Blood Partial Pressure O2 385 mmHg (61-120) Arterial Blood Oxygen Content 20.3 Vol % (12.0-20.0) Arterial Blood Carboxyhemoglobin 1.0 % (0-4) Arterial Blood Methemoglobin 0.9 % (0-2) Blood Gas Hemoglobin 14.0 G/DL (12.0-16.0) Oxygen Delivery Device VENT Blood Gas Ventilator Setting [facility]/22/700/1.0/5PEE Blood Gas Inspired Oxygen 100 % Total Protein 7.2 GM/DL (6.4-8.2) Albumin 2.3 GM/DL (3.4-5.0) Phosphorus Level 2.7 MG/DL (2.5-4.9) Magnesium Level 2.3 MG/DL (1.5-2.5) Alkaline Phosphatase 142 U/L (45-117) Aspartate Amino Transf (AST/SGOT) 41 U/L (15-37) Alanine Aminotransferase (ALT/SGPT) 39 U/L (10-53) Total Bilirubin 0.6 MG/DL (0.2-1.0) Digoxin Level 1.1 NG/ML (0.8-2.0) Neutrophils (%) (Auto) 75.0 % (16.0-70.0) Lymphocytes (%) (Auto) 14.4 % (9.0-44.0) Monocytes (%) (Auto) 5.6 % (0.0-8.0) Eosinophils (%) (Auto) 4.6 % (0.0-4.0) Basophils (%) (Auto) 0.4 % (0.0-2.0) Neutrophils # (Auto) 5.5 TH/MM3 (1.8-7.7) Lymphocytes # (Auto) 1.1 TH/MM3 (1.0-4.8) Monocytes # (Auto) 0.4 TH/MM3 (0-0.9) Eosinophils # (Auto) 0.3 TH/MM3 (0-0.4) Basophils # (Auto) 0.0 TH/MM3 (0-0.2) CBC Comment DIFF FINAL Differential Comment Result Diagram: 11/14/17 0935 11/14/17 0513 Procedures * 10/26/2017 -endotracheal intubation * 11/08/2017 -tracheostomy placement * 11/11/2017 -PEG tube placement * 11/13/2017 -bronchoscopy * 11/14/2017 -trach replaced . Assessment and Plan Disease Oriented Problem List: (1) Ischemic cerebrovascular accident (CVA) (2) H/O mitral valve replacement with mechanical valve (3) Acute respiratory failure with hypoxia and hypercarbia (4) CAD (coronary artery disease) (5) CHF (congestive heart failure) (6) Dementia (7) Hypothyroidism (8) History of DVT (deep vein thrombosis) (9) Atrial fibrillation with RVR Symptom Scale: (1) Encephalopathy 0-10 Scale: Unable to quantify (2) Pain 0-10 Scale: Unable to quantify Pertinent Non-Medical Issues Psychosocial:Patient is originally from [place]. She is a ; her approximately 18 years ago. Patient 3 daughters and 4 sons. She has 11 grandchildren and at least one great grandchild. The patient lives with her son. Four of her children live locally, to live in [place] and one is in [place]. The patient has a private nurse who cares for her during the day. Spiritual: Bahai Legal: Omega Low is designated as the [facility] decision maker; Lynsey Little is the alternate [facility] decision maker. Ethical issues impacting care: No known ethical issues impacting care at this time. . Important Contacts Lynsey Little, daughter: [phone] Chelsea Low, daughter: [phone] Son Elio from [place] Son Tamar from [place] Son Dorian Son Micaela . Prognosis Patient is a 76-year-old female status post large cerebellar stroke and associated severe encephalopathy, hypoxic and hypercarbic respiratory failure. Patient will likely remain functionally dependent requiring total assistance. Given her age and multiple comorbidities, she will remain high risk for complications and ongoing decline. . Code Status: Full Code Plan * CODE STATUS: FULL CODE * MEDICAL DECISION-MAKING: Given patient's current clinical condition, she is unable to participate in establishment of medical treatment goals. Healthcare surrogate designation form was completed on 07/13/2015 and designates daughter, Omega Low (RUBY), as the primary [facility] decision maker. Daughter, Lynsey Little, is the designated alternate [facility] decision maker. * GOALS OF CARE: 11/15/17 -As per family, goals of treatment remain aggressive. Bedside conversation with patient's son Dorian. Son verbalized feeling optimistic /hopeful of patient's eventual weaning from ventilator support. Family looking forward to acute rehabilitation, ultimate goal is for patient to return home once she is off vent support. Son Dorian reports that he is willing to care for patient at home. Son reiterated aggressive goals to include full code. * Symptom management: == Encephalopathy: Secondary to acute right cerebellar infarct. Off sedation , appears neurologically improving. Tracking of following simple commands during my visit. == Pain: Multifactorial. Contributing factors may include poor circulation, invasive lines, immobility, bedbound status etc. PRN morphine available. Appears comfortable during my visit. == Shortness of breath: Remains vent dependent via tracheostomy. Currently tolerating CPAP. * Palliative care contact information has been provided to patient's family. * Palliative care will continue to follow this patient throughout her hospitalization to establish trust, assist with symptom management and clarification of medical treatment goals. . Time Spent Total Floor Time (mins): 24 (Total time to include review medical records, physical exam, goals of care conversation with patient's son Dorian. ) >50% Counseling/Coord of Care: Yes Attestation To help prompt me to consider important information that might be impacting today's encounter and assessment, information from prior notes written by myself or my colleagues may have been "brought forward" into today's note. My signature on this note, however, is an attestation that I personally performed the exam, history, and/or decision-making noted today, and, unless otherwise indicated, the interactions with patient, family, and staff as well as the review of records all occurred today. I also attest that the listed assessment and stated plan reflect my best clinical judgment today based on the combination of historical information, prior notes, and today's exam/ interactions. When time spent is documented, it refers only to time spent today by the signer, or if indicated, combined time spent today by collaborating physician/nurse practitioner. Carole Marina November 15, 2017 16:26
--- NOTE | 2017-11-15 17:26 | HHI.PR ---
Review/Management Diagnosis right cerebellar stroke--exam stable. but small hemorrhage on c atrial fibrillation Plan d/c coumadin and continue holding heparin due to small hemorrhage on CT recheck CT tomorrow to follow up Follow INR--- Diagnosis/Plan: Subjective Subjective Comments No acute events reported Off heparin due to bleeding from trach site Active Medications Current Medications Medications (Trade) Dose Ordered Sig/Nitin Route Start Time Stop Time Status Last Admin (Norvasc) 5 mg DAILY PO 10/26/17 09:00 11/15/17 09:08 (Lipitor) 20 mg DAILY PO 10/26/17 09:00 11/15/17 09:08 (Coreg) 12.5 mg BID PO 10/26/17 09:00 11/15/17 09:08 (Lanoxin) 0.125 mg DAILY PO 10/26/17 09:00 11/15/17 09:09 (Zoloft) 50 mg DAILY PO 10/26/17 09:00 Future Hold 11/12/17 08:57 (Theragran) 1 tab DAILY PO 10/26/17 09:00 11/15/17 09:08 Sodium Chloride 1,000 ml @ 20 mls/hr Q24H IV 10/26/17 01:39 11/15/17 13:12 (Morphine Inj) 2 mg Q2H PRN IV PUSH 10/26/17 01:45 10/28/17 18:25 (Ativan Inj) 1 mg Q1H PRN IV PUSH 10/26/17 01:45 (Tears Naturale Opth Soln) 1 drop TID EACH EYE 10/26/17 09:00 11/15/17 13:00 (Zofran Inj) 4 mg Q6H PRN IV PUSH 10/26/17 01:45 ([facility] [place] Nursing Information) 1 Q361D XX 10/26/17 01:45 10/26/17 01:45 (Chlorhexidine 2% Cloth) 3 pack Taper DAILY@04 TOP 10/26/17 04:00 10/22/18 03:59 11/15/17 04:00 (Chlorhexidine 2% Cloth) 3 pack UNSCH PRN TOP 10/26/17 01:45 (Ivette-Colace) 1 tab BID PO 10/26/17 09:00 11/15/17 09:08 (Milk Of Magnesia Liq) 30 ml Q12H PRN PO 10/26/17 01:45 (Senokot) 17.2 mg Q12H PRN PO 10/26/17 01:45 (Dulcolax Supp) 10 mg DAILY PRN RECTAL 10/26/17 01:45 (Lactulose Liq) 30 ml DAILY PRN PO 10/26/17 01:45 (NS Flush) 2 ml BID IV FLUSH 10/26/17 09:00 11/15/17 09:09 (NS Flush) 2 ml UNSCH PRN IV FLUSH 10/26/17 09:00 (D50w (Vial) Inj) 50 ml UNSCH PRN IV PUSH 10/26/17 09:00 (Glucagon Inj) 1 mg UNSCH PRN OTHER 10/26/17 09:00 (NovoLOG SUPPLEMENTAL SCALE) 1 Q6HR SQ 10/28/17 12:00 11/15/17 12:00 Potassium Chloride 100 ml @ 50 mls/hr Q2H PRN IV 10/28/17 08:30 Potassium Chloride 100 ml @ 50 mls/hr Q2H PRN IV 10/28/17 08:30 (K-Lyte Cl Eff) 50 meq UNSCH PRN PO 10/28/17 08:30 Potassium Chloride 100 ml @ 25 mls/hr UNSCH PRN IV 10/28/17 08:30 Potassium Chloride 100 ml @ 50 mls/hr Q2H PRN IV 10/28/17 08:30 11/01/17 07:20 Magnesium Sulfate 4 gm/Sodium Chloride 100 ml @ 50 mls/hr UNSCH PRN IV 10/28/17 08:30 (Mag-Ox) 800 mg UNSCH PRN PO 10/28/17 08:30 Magnesium Sulfate 2 gm/Sodium Chloride 100 ml @ 50 mls/hr UNSCH PRN IV 10/28/17 08:30 (K-Phos) 2,000 mg Q4H PRN PO 10/28/17 08:30 Sodium Phosphate 30 mmol/Sodium Chloride 250 ml @ 42 mls/hr UNSCH PRN IV 10/28/17 08:30 (K-Phos) 2,000 mg UNSCH PRN PO/TUBE 10/28/17 08:30 Potassium Phosphate 30 mmol/ Sodium Chloride 260 ml @ 42 mls/hr UNSCH PRN IV 10/28/17 08:30 10/28/17 15:39 (Synthroid) 125 mcg DAILY@0600 PO 10/29/17 06:00 11/15/17 06:00 (Vasotec Inj) 1.25 mg Q6H PRN IV PUSH 10/29/17 21:15 (Pepcid) 20 mg BID PO 10/30/17 21:00 11/15/17 09:08 Linezolid 300 ml @ 300 mls/hr Q12H IV 11/03/17 13:00 11/17/17 12:59 11/15/17 13:16 Levofloxacin/ Dextrose 150 ml @ 100 mls/hr Q24H IV 11/03/17 14:00 11/17/17 13:59 11/15/17 13:16 (Tylenol 650 Mg/ 20 ml Liq) 650 mg Q6H PRN PEG 11/11/17 11:00 (Albuterol Neb) 2.5 mg Q2HR NEB PRN NEB 11/11/17 10:00 (Coumadin) 2.5 mg DAILY@1600 PO 11/12/17 16:00 Future hold 11/12/17 16:26 (Keppra Liq) 500 mg Q12HR NG 11/13/17 09:00 11/15/17 09:09 Norepinephrine Bitartrate 4 mg/ Sodium Chloride 250 ml @ 7.5 mls/hr TITRATE PRN IV 11/13/17 12:45 (Brethine Inj) 1 mg UNSCH PRN SQ 11/13/17 12:45 (Peridex 0.12% Liq) 15 ml BID@08,20 MT 11/13/17 20:00 11/15/17 09:09 Pharmacy Profile Note 0 ml @ 0 mls/hr UNSCH OTHER 11/15/17 14:15 Allergies Allergies Coded Allergies amiodarone (Unverified Allergy, Severe, Blurred Vision, 10/23/17) amoxicillin (Unverified Allergy, Severe, Swelling, 10/23/17) *MDRO Multi-Drug Resistant Organism (Verified Adverse Reaction, Unknown, ) Exam I&O / VS Vital Signs Date Time Temp Pulse Resp B/P (MAP) Pulse Ox O2 Delivery O2 Flow Rate FiO2 11/15/17 16:10 100 30 11/15/17 14:00 72 11/15/17 12:00 30 11/15/17 12:00 98.7 74 30 106/55 (72) 97 11/15/17 12:00 74 11/15/17 10:00 76 11/15/17 08:16 30 11/15/17 08:16 98 30 11/15/17 08:00 80 11/15/17 08:00 40 11/15/17 08:00 99.7 80 16 99/58 (72) 94 11/15/17 06:00 78 11/15/17 04:00 98.7 76 15 109/67 (81) 99 11/15/17 04:00 40 11/15/17 04:00 76 11/15/17 03:23 98 30 11/15/17 02:00 92 11/15/17 01:15 97 30 11/15/17 00:00 98.6 78 14 113/68 (83) 98 11/15/17 00:00 40 11/15/17 00:00 78 11/14/17 22:00 76 11/14/17 20:46 97 30 11/14/17 20:00 40 11/14/17 20:00 85 11/14/17 20:00 98.7 85 16 119/76 (90) 98 11/14/17 18:00 81 Exam Comments lethargic but arouses,. Not following commands CN--PERRL. 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 Aureus Mrsa Klebsiella Pneumoniae Complete 11/02/17 11:55 Urine Catheterized Urine Urine Culture - Final 50-100,000 CFU/ML MIXED SHIRA... Complete Claudio Kim MD PhD November 15, 2017 17:26
[2017-11-15 18:42] LABS: INTERNATIONAL NORMALIZED RATIO 1.1 RATIO; PROTHROMBIN TIME - PATIENT 10.9 SEC (9.8-11.6)
[2017-11-16] VITALS (15 sets, daily range): BP systolic 90–161; BP diastolic 60–89; PULSE 57–80; RESP 12–30; TEMP 98.4–100; O2SAT 96–100
[2017-11-16] MEDS: FAMOTIDINE 20 MG TAB PO SCH ×3 (00:12→20:50)
[2017-11-16] MEDS: CARVEDILOL 12.5 MG TAB PO SCH ×3 (00:12→20:50)
[2017-11-16] MEDS: LINEZOLID 600 MG PREMIX 300 ML IV SCH ×3 (00:13→23:36)
[2017-11-16] MEDS: CHLORHEXIDINE GLUCONATE 2 % 1 PACK (2 CLOTHS) TOP SCH (04:00)
[2017-11-16] MEDS: LEVOTHYROXINE SODIUM 125 MCG TAB PO SCH (04:55)
[2017-11-16] MEDS: INSULIN ASPART SUPPLEMENTAL SCALE SQ SCH ×5 (06:00→23:35)
[2017-11-16 06:15] LABS: AUTOMATED NEUTROPHIL # 4.3 TH/MM3 (1.8-7.7); BASOPHIL % 0.3 % (0.0-2.0); EOSINOPHIL # 0.2 TH/MM3 (0-0.4); EOSINOPHIL % 3.7 % (0.0-4.0); HEMATOCRIT 27.1 % (35.0-46.0); HEMOGLOBIN 9.4 GM/DL (11.6-15.3); LYMPH % 16.6 % (9.0-44.0); MEAN CELL VOLUME 90.5 FL (80.0-100.0); MEAN CORPUSCULAR HEMOGLOBIN 31.4 PG (27.0-34.0); MEAN CORPUSCULAR HGB CONC 34.7 % (32.0-36.0); MONO % 6.5 % (0.0-8.0); MONOCYTE # 0.4 TH/MM3 (0-0.9); NEUT % 72.9 % (16.0-70.0); PLATELET COUNT 206 TH/MM3 (150-450); RED BLOOD COUNT 2.99 MIL/MM3 (4.00-5.30); RED CELL DISTRIBUTION WIDTH 13.9 % (11.6-17.2); WHITE BLOOD COUNT 5.9 TH/MM3 (4.0-11.0)
[2017-11-16 06:34] LABS: INTERNATIONAL NORMALIZED RATIO 1.1 RATIO; PROTHROMBIN TIME - PATIENT 11.2 SEC (9.8-11.6)
[2017-11-16 06:39] LABS: ALBUMIN 2.1 GM/DL (3.4-5.0); ALT (GPT) 29 U/L (10-53); AST (GOT) 29 U/L (15-37); BLOOD UREA NITROGEN 14 MG/DL (7-18); CALCIUM 8.1 MG/DL (8.5-10.1); CHLORIDE 108 MEQ/L (98-107); CREATININE 0.63 MG/DL (0.50-1.00); GLOMERULAR FILTRATION RATE 92 ML/MIN (>89); GLUCOSE,RANDOM 124 MG/DL (74-106); SODIUM (NA) 142 MEQ/L (136-145)
[2017-11-16 06:41] LABS: ALKALINE PHOSPHATASE 144 U/L (45-117); TOTAL BILIRUBIN ADULT 0.6 MG/DL (0.2-1.0); TOTAL PROTEIN 6.5 GM/DL (6.4-8.2)
[2017-11-16] MEDS: CHLORHEXIDINE 0.12% (ORAL KIT) 15 ML CUP MT SCH ×2 (08:00→20:00)
[2017-11-16] MEDS: levETIRAcetam 500 MG/5 ML UDC NG SCH ×2 (08:53→20:50)
[2017-11-16] MEDS: DIGOXIN 0.125 MG TAB PO SCH (08:53)
[2017-11-16] MEDS: amLODIPine BESYLATE 5 MG TAB PO SCH (08:53)
[2017-11-16] MEDS: MULTIVITAMIN TAB PO SCH (08:53)
[2017-11-16] MEDS: ATORVASTATIN 20 MG TAB PO SCH (08:53)
[2017-11-16] MEDS: DOCUSATE SODIUM 50 MG/SENNA 8.6 MG TAB PO SCH ×2 (08:53→20:50)
[2017-11-16] MEDS: SODIUM CHLORIDE 0.9% FLUSH 10 ML FLUSH IV FLUSH SCH ×2 (08:53→20:51)
[2017-11-16] MEDS: ARTIFICIAL TEARS OPTH SOLN 15 ML BTL EACH EYE SCH ×3 (08:53→17:43)
--- NOTE | 2017-11-16 10:37 | RADRPT ---
EXAM DATE/TIME: 11/16/2017 10:11 [place] COMPARISON: CT BRAIN W/O CONTRAST, November 14, 2017, 4:14. INDICATIONS : Follow up cerebellar hemorrhage. RADIATION DOSE: 56.35 CTDIvol (mGy) MEDICAL HISTORY : Cerebrovascular disease. Deep venous thrombosis. Cardiovascular diseaseCongestive heart failure. AFIB . Hypertension. Dementia. Diabetes. SURGICAL HISTORY : Non-responsive. ENCOUNTER: Subsequent ACUITY: 1 day PAIN SCALE: Non-responsive LOCATION: cranial TECHNIQUE: Multiple contiguous axial images were obtained of the head. Using automated exposure control and adj ustment of the mA and/or kV according to patient size, radiation dose was kept as low as reasonably a chievable to obtain optimal diagnostic quality images. DICOM format image data is available electro nically for review and comparison. FINDINGS: CEREBRUM: Stable appearance to extensive areas of hypoattenuation in the frontal and parietal lobes characteris tic of encephalomalacia, unchanged from prior examination 2 days ago. No evidence of acute hemorrhag e. There is ex vacuo enlargement of the lateral ventricles and no evidence of midline shift. POSTERIOR FOSSA: Right cerebellar infarction with stable appearance to the small internal hemorrhage. The 4th ventric le is in the midline. EXTRACRANIAL: Complete opacification of the maxillary sinuses, stable and stop SKULL: The calvaria is intact. No evidence of skull fracture. CONCLUSION: 1. Stable hemorrhagic right cerebellar infarction. 2. Stable scattered extensive supratentorial encephalomalacia. 3. Stable maxillary sinus. Anatoly Early MD on November 16, 2017 at 10:32 Board Certified Radiologist. This report was verified electronically.
--- NOTE | 2017-11-16 10:57 | HHI.PR ---
Review/Management Diagnosis right cerebellar stroke--with hemorrhagic transformation CT brain scan 11/16/2017 stable atrial fibrillation INR 1.1 DC planning to rehab Diagnosis/Plan: (1) Ischemic cerebrovascular accident (CVA) ICD Codes: I63.9 - Cerebral infarction, unspecified Status: Acute Plan: 10/26/2017 acute right cerebellar infarct now with hemorrhagic transformation History atrial fibrillation Was on Coumadin which has been held (2) CAD (coronary artery disease) ICD Codes: I25.10 - Atherosclerotic heart disease of [place] coronary artery without angina pectoris (3) CHF (congestive heart failure) ICD Codes: I50.9 - Heart failure, unspecified Status: Chronic (4) Hypothyroidism ICD Codes: E03.9 - Hypothyroidism, unspecified Status: Chronic (5) Encephalopathy ICD Codes: G93.40 - Encephalopathy, unspecified Status: Acute Subjective Subjective Comments No acute events reported Cross cover Active Medications Current Medications Medications (Trade) Dose Ordered Sig/Nitin Route Start Time Stop Time Status Last Admin (Norvasc) 5 mg DAILY PO 10/26/17 09:00 11/16/17 08:53 (Lipitor) 20 mg DAILY PO 10/26/17 09:00 11/16/17 08:53 (Coreg) 12.5 mg BID PO 10/26/17 09:00 11/16/17 08:53 (Lanoxin) 0.125 mg DAILY PO 10/26/17 09:00 11/16/17 08:53 (Zoloft) 50 mg DAILY PO 10/26/17 09:00 Future Hold 11/12/17 08:57 (Theragran) 1 tab DAILY PO 10/26/17 09:00 11/16/17 08:53 Sodium Chloride 1,000 ml @ 20 mls/hr Q24H IV 10/26/17 01:39 11/15/17 13:12 (Morphine Inj) 2 mg Q2H PRN IV PUSH 10/26/17 01:45 10/28/17 18:25 (Ativan Inj) 1 mg Q1H PRN IV PUSH 10/26/17 01:45 (Tears Naturale Opth Soln) 1 drop TID EACH EYE 10/26/17 09:00 11/16/17 08:53 (Zofran Inj) 4 mg Q6H PRN IV PUSH 10/26/17 01:45 ([facility] [place] Nursing Information) 1 Q361D XX 10/26/17 01:45 10/26/17 01:45 (Chlorhexidine 2% Cloth) 3 pack Taper DAILY@04 TOP 10/26/17 04:00 10/22/18 03:59 11/15/17 04:00 (Chlorhexidine 2% Cloth) 3 pack UNSCH PRN TOP 10/26/17 01:45 (Ivette-Colace) 1 tab BID PO 10/26/17 09:00 11/15/17 09:08 (Milk Of Magnesia Liq) 30 ml Q12H PRN PO 10/26/17 01:45 (Senokot) 17.2 mg Q12H PRN PO 10/26/17 01:45 (Dulcolax Supp) 10 mg DAILY PRN RECTAL 10/26/17 01:45 (Lactulose Liq) 30 ml DAILY PRN PO 10/26/17 01:45 (NS Flush) 2 ml BID IV FLUSH 10/26/17 09:00 11/16/17 08:53 (NS Flush) 2 ml UNSCH PRN IV FLUSH 10/26/17 09:00 (D50w (Vial) Inj) 50 ml UNSCH PRN IV PUSH 10/26/17 09:00 (Glucagon Inj) 1 mg UNSCH PRN OTHER 10/26/17 09:00 (NovoLOG SUPPLEMENTAL SCALE) 1 Q6HR SQ 10/28/17 12:00 11/15/17 12:00 Potassium Chloride 100 ml @ 50 mls/hr Q2H PRN IV 10/28/17 08:30 Potassium Chloride 100 ml @ 50 mls/hr Q2H PRN IV 10/28/17 08:30 (K-Lyte Cl Eff) 50 meq UNSCH PRN PO 10/28/17 08:30 Potassium Chloride 100 ml @ 25 mls/hr UNSCH PRN IV 10/28/17 08:30 Potassium Chloride 100 ml @ 50 mls/hr Q2H PRN IV 10/28/17 08:30 11/01/17 07:20 Magnesium Sulfate 4 gm/Sodium Chloride 100 ml @ 50 mls/hr UNSCH PRN IV 10/28/17 08:30 (Mag-Ox) 800 mg UNSCH PRN PO 10/28/17 08:30 Magnesium Sulfate 2 gm/Sodium Chloride 100 ml @ 50 mls/hr UNSCH PRN IV 10/28/17 08:30 (K-Phos) 2,000 mg Q4H PRN PO 10/28/17 08:30 Sodium Phosphate 30 mmol/Sodium Chloride 250 ml @ 42 mls/hr UNSCH PRN IV 10/28/17 08:30 (K-Phos) 2,000 mg UNSCH PRN PO/TUBE 10/28/17 08:30 Potassium Phosphate 30 mmol/ Sodium Chloride 260 ml @ 42 mls/hr UNSCH PRN IV 10/28/17 08:30 10/28/17 15:39 (Synthroid) 125 mcg DAILY@0600 PO 10/29/17 06:00 11/16/17 04:55 (Vasotec Inj) 1.25 mg Q6H PRN IV PUSH 10/29/17 21:15 (Pepcid) 20 mg BID PO 10/30/17 21:00 11/16/17 08:53 Linezolid 300 ml @ 300 mls/hr Q12H IV 11/03/17 13:00 11/17/17 12:59 11/16/17 00:13 Levofloxacin/ Dextrose 150 ml @ 100 mls/hr Q24H IV 11/03/17 14:00 11/17/17 13:59 11/15/17 13:16 (Tylenol 650 Mg/ 20 ml Liq) 650 mg Q6H PRN PEG 11/11/17 11:00 (Albuterol Neb) 2.5 mg Q2HR NEB PRN NEB 11/11/17 10:00 (Keppra Liq) 500 mg Q12HR NG 11/13/17 09:00 11/16/17 08:53 Norepinephrine Bitartrate 4 mg/ Sodium Chloride 250 ml @ 7.5 mls/hr TITRATE PRN IV 11/13/17 12:45 (Brethine Inj) 1 mg UNSCH PRN SQ 11/13/17 12:45 (Peridex 0.12% Liq) 15 ml BID@08,20 MT 11/13/17 20:00 11/16/17 08:00 Allergies Allergies Coded Allergies amiodarone (Unverified Allergy, Severe, Blurred Vision, 10/23/17) amoxicillin (Unverified Allergy, Severe, Swelling, 10/23/17) *MDRO Multi-Drug Resistant Organism (Verified Adverse Reaction, Unknown, ) Review of Systems All other ROS: Unable to obtain Exam I&O / VS 11/16/17 11/16/17 11/17/17 15:00 23:00 07:00 Output Total 0 ml Balance 0 ml Tube Feeding Residual Discard 0 ml Vital Signs Date Time Temp Pulse Resp B/P (MAP) Pulse Ox O2 Delivery O2 Flow Rate FiO2 11/16/17 10:27 100 100 11/16/17 08:32 30 11/16/17 08:32 98 30 11/16/17 08:20 30 11/16/17 08:00 99.4 80 17 161/89 (113) 99 11/16/17 08:00 80 11/16/17 06:00 80 11/16/17 04:03 100 30 11/16/17 04:00 30 11/16/17 04:00 75 11/16/17 04:00 99.1 75 15 118/65 (82) 99 11/16/17 02:00 69 11/16/17 01:25 100 30 11/16/17 00:00 100.0 76 15 130/70 (90) 96 11/16/17 00:00 30 11/16/17 00:00 76 11/15/17 22:00 70 11/15/17 20:17 99 30 11/15/17 20:00 99.0 70 15 120/65 (83) 98 11/15/17 20:00 30 11/15/17 20:00 70 11/15/17 18:00 70 11/15/17 16:10 100 30 11/15/17 16:00 30 11/15/17 16:00 70 11/15/17 16:00 99.1 70 21 111/56 (74) 98 11/15/17 14:00 72 11/15/17 12:00 30 11/15/17 12:00 98.7 74 30 106/55 (72) 97 11/15/17 12:00 74 Exam Comments Awake alert, has a trach and PEG withdraws no involuntary movements Objective Micro and Labs Laboratory Tests Test 11/15/17 18:20 11/16/17 05:59 Prothrombin Time 10.9 11.2 Prothromb Time International Ratio 1.1 1.1 White Blood Count 5.9 Red Blood Count 2.99 Hemoglobin 9.4 Hematocrit 27.1 Mean Corpuscular Volume 90.5 Mean Corpuscular Hemoglobin 31.4 Mean Corpuscular Hemoglobin Concent 34.7 Red Cell Distribution Width 13.9 Platelet Count 206 Mean Platelet Volume 7.0 Neutrophils (%) (Auto) 72.9 Lymphocytes (%) (Auto) 16.6 Monocytes (%) (Auto) 6.5 Eosinophils (%) (Auto) 3.7 Basophils (%) (Auto) 0.3 Neutrophils # (Auto) 4.3 Lymphocytes # (Auto) 1.0 Monocytes # (Auto) 0.4 Eosinophils # (Auto) 0.2 Basophils # (Auto) 0.0 CBC Comment DIFF FINAL Differential Comment Blood Urea Nitrogen 14 Creatinine 0.63 Random Glucose 124 Total Protein 6.5 Albumin 2.1 Calcium Level 8.1 Alkaline Phosphatase 144 Aspartate Amino Transf (AST/SGOT) 29 Alanine Aminotransferase (ALT/SGPT) 29 Total Bilirubin 0.6 Sodium Level 142 Potassium Level 3.8 Chloride Level 108 Carbon Dioxide Level 23.0 Anion Gap 11 Estimat Glomerular Filtration Rate 92 Date/Time Source Procedure Growth Status 11/02/17 12:30 Blood Peripheral Aerobic Blood Culture - Final NO GROWTH IN 5 DAYS Complete 11/02/17 12:30 Blood Peripheral Anaerobic Blood Culture - Final NO GROWTH IN 5 DAYS Complete 10/26/17 05:15 Stool Stool Stool Occult Blood (MATTHEW) - Final HEMOCCULT NEGATIVE Complete 11/02/17 11:55 Sputum Endotracheal Gram Stain - Final Complete 11/02/17 11:55 Sputum Culture - Final S. Aureus Mrsa Klebsiella Pneumoniae Complete 11/02/17 11:55 Urine Catheterized Urine Urine Culture - Final 50-100,000 CFU/ML MIXED SHIRA... Complete Problem Qualifiers (1) CHF (congestive heart failure): Adalberto George MD November 16, 2017 10:57
[2017-11-16] MEDS: SODIUM CHLOR 0.9% 1000 ML INJ 1,000 ML IV SCH (11:44)
[2017-11-16] MEDS: LEVOFLOXACIN 750 MG PREMIX INJ 150 ML IV SCH (14:07)
--- NOTE | 2017-11-16 15:59 | HHI.CCPN ---
Subjective Remarks/Hospital Course The patient is a 76-year-old female that was apparently alert and talking prior to 11 PM tonight when she started vomiting. She then became comatose, [facility] was called and they intubated the patient using etomidate and Versed. 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 There has not been any head trauma. After intubation and Versed the blood pressure is 127/90. No seizure activity noted per ER physician. Patient was kept sedated orally intubated overnight on mechanical ventilation. She is starting to arousable although not following commands. She does try to open her eyes on command. Per nursing staff she was moving all [address] done in the ER did not reveal any acute bleed and had evidence of old strokes. Dr. Kim from neurology was contacted by ER physician and will be evaluating patient. When I evaluated the patient this morning she sedated with propofol, orally intubated on mechanical ventilation. History is obtained by reviewing records and discussion with nursing staff. 10/27: The patient currently remains intubated and sedated. EEG in process. MRI revealed acute right cerebellar. or infarct. Sedation vacation pending. 10/28: more cerebral edema on CT scan yesterday. remains very encephalopathic, intubated, obtunded. long conversation with family today where I explained current stroke and edema. family introduced the idea that if she would not come off life support or would need to be fully dependent on healthcare system, she would not want to live: will consult palliative care to assist with goals of care clarification. 10/29: remains intubated and encephalopathic. CT brain today demonstrates stable appearance of posterior fossa infarct and edema. neuro exam slightly better and now w/d x 4. 5/2: Remains encephalopathic, orally intubated on mechanical ventilation. Tolerating tube feeds. 5/3: Remains encephalopathic, orally intubated on mechanical ventilation. Tolerating tube feeds. 11/01: Remains encephalopathic, orally intubated on mechanical ventilation. Tolerating tube feeds. 11/02: Intubated off sedation for the last 5 days at least, remains unresponsive. Chest exam reveals bilateral wheezing. Breathing treatments scheduled and as needed ordered. Tmax 101.3, check chest x-ray sputum culture, blood culture and UA. According to the son at the bedside family might want to proceed with tracheostomy and PEG tube placement 11/03: Remains encephalopathic, orally intubated on mechanical ventilation. Grimaces with painful stimuli however not following commands. 11/04: Squeezes hands today. Discussed with Dr. Kim. He will start heparin gtt , convert to coumadin after tracheostomy. 11/05: Family has not agreed to trach or PEG yet, they want to see if she wakes up more. 11/06: Family remains encouraged by some early hand motility. They wish to wait to decide whether a tracheostomy is appropriate and/or necessary. 11/07: Will try patient on spontaneous breathing trials today, earlier efforts were plagued by episodes of apnea. Family continues to wish to hold off on tracheostomy at this point. 11/08: Family would like to go ahead with trach and PEG. Neurological function severely impaired and both will be required for ongoing care. 11/09: Trach site clean, dry. Will restart heparin 24 hours after PEG. No change in neuro function. 11/10: Tolerating SBT with moderately elevated pressure support. Plan is for PEG tube insertion in the morning. 24 hours after that we should be able to restart full anticoagulation, likely just go straight to Coumadin. 11/11: PSV trial 15/135%. Arousable and does open eyes but not following commands currently. Tube feeds currently on hold for planned percutaneous endoscopic gastrostomy tube placement in OR this a.m. 11/12: Tolerated PEG tube placement yesterday. No active bleeding. Site appears with minimal old dried blood. Arousable on the ventilator.. Currently on CPAP trial. 11/13: Afebrile. Some oozing from the PEG tube and tracheostomy site. Heparin drip currently on hold. Persistent leak now up to 48% per ventilator. Will likely need tracheostomy changed today. Placed 11/08. 11/14: Tracheostomy removed due to bleeding and patient was intubated yesterday and placed on mechanical ventilation, currently orally intubated on mechanical ventilation. 11/15: Resting comfortably on mechanical ventilation via tracheostomy. Tracheostomy site with no bleeding since placement yesterday. Subjective 11/16: T-max 100. Currently 99.4. Tolerating tube feeds. For bowel movements. Currently resting in bed. Objective Vital Signs Date Time Temp Pulse Resp B/P (MAP) Pulse Ox O2 Delivery O2 Flow Rate FiO2 11/16/17 12:00 99.4 57 19 90/60 (70) 99 11/16/17 11:45 30 11/13/17 16:14 15.00 Intake and Output 11/16/17 11/16/17 11/17/17 08:00 16:00 00:00 Intake Total 647 ml 300 ml Output Total 600.0 ml 0 ml Balance 47.0 ml 300 ml Result Diagram: 11/16/17 0559 11/16/17 0559 Other Results Microbiology Date/Time Source Procedure Growth Status 11/02/17 12:30 Blood Peripheral Aerobic Blood Culture - Final NO GROWTH IN 5 DAYS Complete 11/02/17 12:30 Blood Peripheral Anaerobic Blood Culture - Final NO GROWTH IN 5 DAYS Complete 10/26/17 05:15 Stool Stool Stool Occult Blood (MATTHEW) - Final HEMOCCULT NEGATIVE Complete 11/02/17 11:55 Sputum Endotracheal Gram Stain - Final Complete 11/02/17 11:55 Sputum Culture - Final S. Aureus Mrsa Klebsiella Pneumoniae Complete 11/02/17 11:55 Urine Catheterized Urine Urine Culture - Final 50-100,000 CFU/ML MIXED SHIRA... Complete Imaging Last Impressions Head CT 11/16/17 0900 Signed Impressions: Service Date/Time: Thursday, November 16, 2017 10:11 - CONCLUSION: 1. Stable hemorrhagic right cerebellar infarction. 2. Stable scattered extensive supratentorial encephalomalacia. 3. Stable maxillary sinus. Anatoly Early MD Chest X-Ray 11/14/17 1350 Signed Impressions: Service Date/Time: October 13:55 - CONCLUSION: 1. Tracheostomy tube appears to be in good position. 2. No pneumothorax. 3. Bibasilar pulmonary infiltrates. Camilo Turpin MD Neck CTA 10/26/17 001 Signed Impressions: Service Date/Time: Thursday, October 26, 2017 00:12 - CONCLUSION: 1. No luminal narrowing or significant plaque formation. 2. Left dominant vertebral system. Anatoly Early MD Head CTA 10/26/17 0012 Signed Impressions: Service Date/Time: Thursday, October 26, 2017 00:12 - CONCLUSION: No evidence of vessel truncation. Anatoly Early MD Brain MRI 10/26/17 0000 Signed Impressions: Service Date/Time: Thursday, October 26, 2017 16:04 - CONCLUSION: 1. Acute right cerebellar infarct. No midline shift or mass effect. 2. Multiple old bilateral infarcts. Samuel Chen MD Objective Remarks GENERAL: 76-year-old female currently resting in bed in no acute distress SKIN: Warm and dry. No rash HEAD: Atraumatic. Normocephalic. EYES: Pupils equal and round about 4 mm bilaterally reactive to 3. No scleral icterus. No injection or drainage. ENT: No nasal bleeding or discharge. Mucous membranes pink and moist. NG tube in right nares NECK: Trachea midline. No JVD. Dressing over tracheostomy site CARDIOVASCULAR: Irregularly irregular. S1, S3 no S4. /6 murmur RESPIRATORY: on mechanical ventilation via tracheostomy. Clear to auscultation. Breath sounds equal bilaterally. GASTROINTESTINAL: Abdomen soft, non-tender, nondistended. PEG tube site in left upper quadrant with minimal blood. Hypoactive bowel sounds. MUSCULOSKELETAL: Extremities with trace bilateral upper and lower extremity edema. No obvious deformities. NEUROLOGICAL: Encephalopathic. No obvious cranial nerve deficits. Withdraws to noxious cannulation 4. Minimal movement right upper extremity. Urinary Catheter: No Assessment to: Continue Date of Insertion: Oct 26, 2017 Vascular Central Line Catheter: No Assessment to: Continue A/P Assessment and Plan Neuro/Psych: Bilateral cataract Dementia disorder NOS Acute encephalopathy Acute cerebellar CVA Posterior fossa cerebral edema History of previous strokes frequent neuro checks 10/26 MRI brain-acute right cerebellar infarct. CT head 10/31/2017 shows stable right cerebellar infarct and multiple supratentorial infarct CT brain 11/15 revealed small tiny right cerebellar intraparenchymal hemorrhage with evolving supratentorial infarcts. Repeat brain CT 11/16 stable Neurology following- Dr. Kim. On ASA Holding heparin gtt. for bleeding from tracheostomy site Holding SSRI Zoloft while on linezolid Continue levetiracetam 500 mg by tube twice daily Cardiovascular: Atrial fibrillation Chronic systolic heart failure ejection fraction 20% Mechanical mitral valve on anticoagulation Coronary artery disease Currently on amlodipine 5 mg daily, digoxin 0.125 mg daily and carvedilol 12.5 mg mg p.o. twice daily/home medications Recheck digoxin level in a.m. 11/14. 0.7 Continue atorvastatin 20 mg daily for dyslipidemia. Holding warfarin for anticoagulation given size of stroke and edema. high concern for hemorrhagic conversion. Monitor INR. Currently 1.1 Atrial fibrillation rate controlled Heparin gtt on hold. Due to bleed as above 2D echocardiogram revealed EF less than 20%. Bilateral atrial enlargement. Pulmonary: Vent dependent respiratory failure MRSA/Klebsiella pneumonia Continue mechanical ventilation with pressure support ventilation 12/11 and 35% Albuterol/ipratropium aerosols every 6 hours while awake with albuterol aerosols every 2 hours as needed dyspnea Status post tracheostomy by Dr. Arellano 11/08 wean fio2 for goal spo2 > 92% GI/liver: Hypoalbuminemia Tube feeds Jevity 1.5 and advance to goal 65 cc/hour as tolerated. PEG tube site 11/[address] Edmond Sorianootidbrian for GI prophylaxis Docusate sodium/senna 1 tablet twice daily for bowel regimen Renal/: IV hydration as indicated, strict intake output, Monitor and replete electrolytes, follow BUN/creatinine ID: MRSA/Klebsiella pneumonia Currently afebrile Sputum culture from 11/02 growing MRSA/Klebsiella pneumonia. Continue with levofloxacin and linezolid on 11/03 will complete 14 days therapy. Heme: History of DVT Normocytic anemia Chronic warfarin use secondary to mechanical heart valve/atrial fibrillation Monitor CBC and INR. daily INRs.. Currently 1.1 Routine warfarin 4/5 mg alternating dosages at home. Starting 2.5 mg daily on Endocrine: Hypothyroidism with significantly elevated TSH is 16 Watch for hypoglycemia, SSI for glycemic control if needed. TSH significantly elevated- 16 currently on levothyroxine 125 mcg/day. Recheck and adjust Prophylaxis: Famotidine for GI prophylaxis, SCDs. Start heparin 5000 units subcutaneously every 8 hourly for DVT prophylaxis. Level 2 follow-up Yahir Tian MD November 16, 2017 15:59
[2017-11-16] MEDS: RESP: ALBUTEROL 2.5 MG/IPRATROPIUM 0.5 MG NEB (SCH) NEB (20:46)
[2017-11-17] VITALS (11 sets, daily range): BP systolic 93–134; BP diastolic 52–68; PULSE 67–81; RESP 12–24; TEMP 97.5–99.9; O2SAT 97–100
[2017-11-17] MEDS: CHLORHEXIDINE GLUCONATE 2 % 1 PACK (2 CLOTHS) TOP SCH (03:24)
[2017-11-17] MEDS: RESP: ALBUTEROL 2.5 MG/IPRATROPIUM 0.5 MG NEB (SCH) NEB ×4 (04:28→21:27)
[2017-11-17] MEDS: LEVOTHYROXINE SODIUM 125 MCG TAB PO SCH (05:08)
[2017-11-17] MEDS: INSULIN ASPART SUPPLEMENTAL SCALE SQ SCH ×3 (05:43→18:00)
[2017-11-17 07:12] LABS: BICARBONATE 24.7 MEQ/L (21.0-32.0); CALCIUM 8.3 MG/DL (8.5-10.1); CREATININE 0.6 MG/DL (0.50-1.00)
[2017-11-17 07:32] LABS: HEMATOCRIT 27.3 % (35.0-46.0); HEMOGLOBIN 9.3 GM/DL (11.6-15.3); MEAN CELL VOLUME 92.1 FL (80.0-100.0); MEAN CORPUSCULAR HEMOGLOBIN 31.3 PG (27.0-34.0); MEAN PLATELET VOLUME 7.3 FL (7.0-11.0); PLATELET COUNT 185 TH/MM3 (150-450); RED BLOOD COUNT 2.96 MIL/MM3 (4.00-5.30); RED CELL DISTRIBUTION WIDTH 14.3 % (11.6-17.2)
[2017-11-17 07:35] LABS: INTERNATIONAL NORMALIZED RATIO 1.1 RATIO
[2017-11-17] MEDS: CHLORHEXIDINE 0.12% (ORAL KIT) 15 ML CUP MT SCH ×2 (08:00→19:35)
[2017-11-17] MEDS: ARTIFICIAL TEARS OPTH SOLN 15 ML BTL EACH EYE SCH ×3 (09:00→18:00)
[2017-11-17] MEDS: SODIUM CHLORIDE 0.9% FLUSH 10 ML FLUSH IV FLUSH SCH ×2 (09:00→19:35)
[2017-11-17] MEDS: amLODIPine BESYLATE 5 MG TAB PO SCH (09:00)
[2017-11-17] MEDS: DOCUSATE SODIUM 50 MG/SENNA 8.6 MG TAB PO SCH ×2 (09:00→19:35)
[2017-11-17] MEDS: ATORVASTATIN 20 MG TAB PO SCH (09:10)
[2017-11-17] MEDS: FAMOTIDINE 20 MG TAB PO SCH ×2 (09:10→19:35)
[2017-11-17] MEDS: DIGOXIN 0.125 MG TAB PO SCH (09:10)
[2017-11-17] MEDS: CARVEDILOL 12.5 MG TAB PO SCH ×2 (09:11→19:35)
[2017-11-17] MEDS: MULTIVITAMIN TAB PO SCH (09:11)
[2017-11-17] MEDS: levETIRAcetam 500 MG/5 ML UDC NG SCH ×2 (09:11→19:35)
--- NOTE | 2017-11-17 11:21 | HHI.PR ---
Review/Management Diagnosis right cerebellar stroke--with hemorrhagic transformation CT brain scan 11/16/2017 stable atrial fibrillation INR 1.1 DC planning to rehab Diagnosis/Plan: (1) Ischemic cerebrovascular accident (CVA) ICD Codes: I63.9 - Cerebral infarction, unspecified Status: Acute Plan: 10/26/2017 acute right cerebellar infarct now with hemorrhagic transformation History atrial fibrillation Was on Coumadin which has been held Reinitiation of anticoagulation will be considered by Dr. Kim. May need to have a repeat CAT scan a few days a week to ensure resolution of hemorrhage Discussed risks benefits of anticoagulation with her daughter (2) CAD (coronary artery disease) ICD Codes: I25.10 - Atherosclerotic heart disease of [place] coronary artery without angina pectoris Status: Chronic (3) CHF (congestive heart failure) ICD Codes: I50.9 - Heart failure, unspecified Status: Chronic (4) Hypothyroidism ICD Codes: E03.9 - Hypothyroidism, unspecified Status: Chronic (5) Encephalopathy ICD Codes: G93.40 - Encephalopathy, unspecified Status: Acute Subjective Subjective Comments No acute events reported Daughter at bedside Active Medications Current Medications Medications (Trade) Dose Ordered Sig/Nitin Route Start Time Stop Time Status Last Admin (Norvasc) 5 mg DAILY PO 10/26/17 09:00 11/16/17 08:53 (Lipitor) 20 mg DAILY PO 10/26/17 09:00 11/17/17 09:10 (Coreg) 12.5 mg BID PO 10/26/17 09:00 11/17/17 09:11 (Lanoxin) 0.125 mg DAILY PO 10/26/17 09:00 11/17/17 09:10 (Zoloft) 50 mg DAILY PO 10/26/17 09:00 Future Hold 11/12/17 08:57 (Theragran) 1 tab DAILY PO 10/26/17 09:00 11/17/17 09:11 Sodium Chloride 1,000 ml @ 20 mls/hr Q24H IV 10/26/17 01:39 11/15/17 13:12 (Morphine Inj) 2 mg Q2H PRN IV PUSH 10/26/17 01:45 10/28/17 18:25 (Ativan Inj) 1 mg Q1H PRN IV PUSH 10/26/17 01:45 (Tears Naturale Opth Soln) 1 drop TID EACH EYE 10/26/17 09:00 11/17/17 09:00 (Zofran Inj) 4 mg Q6H PRN IV PUSH 10/26/17 01:45 ([facility] [place] [facility]) 1 Q361D XX 10/26/17 01:45 10/26/17 01:45 (Chlorhexidine 2% Cloth) 3 pack Taper DAILY@04 TOP 10/26/17 04:00 10/22/18 03:59 11/15/17 04:00 (Chlorhexidine 2% Cloth) 3 pack UNSCH PRN TOP 10/26/17 01:45 (Ivette-Colace) 1 tab BID PO 10/26/17 09:00 11/16/17 20:50 (Milk Of Magnesia Liq) 30 ml Q12H PRN PO 10/26/17 01:45 (Senokot) 17.2 mg Q12H PRN PO 10/26/17 01:45 (Dulcolax Supp) 10 mg DAILY PRN RECTAL 10/26/17 01:45 (Lactulose Liq) 30 ml DAILY PRN PO 10/26/17 01:45 (NS Flush) 2 ml BID IV FLUSH 10/26/17 09:00 11/17/17 09:00 (NS Flush) 2 ml UNSCH PRN IV FLUSH 10/26/17 09:00 (D50w (Vial) Inj) 50 ml UNSCH PRN IV PUSH 10/26/17 09:00 (Glucagon Inj) 1 mg UNSCH PRN OTHER 10/26/17 09:00 (NovoLOG SUPPLEMENTAL SCALE) 1 Q6HR SQ 10/28/17 12:00 11/15/17 12:00 Potassium Chloride 100 ml @ 50 mls/hr Q2H PRN IV 10/28/17 08:30 Potassium Chloride 100 ml @ 50 mls/hr Q2H PRN IV 10/28/17 08:30 (K-Lyte Cl Eff) 50 meq UNSCH PRN PO 10/28/17 08:30 Potassium Chloride 100 ml @ 25 mls/hr UNSCH PRN IV 10/28/17 08:30 Potassium Chloride 100 ml @ 50 mls/hr Q2H PRN IV 10/28/17 08:30 11/01/17 07:20 Magnesium Sulfate 4 gm/Sodium Chloride 100 ml @ 50 mls/hr UNSCH PRN IV 10/28/17 08:30 (Mag-Ox) 800 mg UNSCH PRN PO 10/28/17 08:30 Magnesium Sulfate 2 gm/Sodium Chloride 100 ml @ 50 mls/hr UNSCH PRN IV 10/28/17 08:30 (K-Phos) 2,000 mg Q4H PRN PO 10/28/17 08:30 Sodium Phosphate 30 mmol/Sodium Chloride 250 ml @ 42 mls/hr UNSCH PRN IV 10/28/17 08:30 (K-Phos) 2,000 mg UNSCH PRN PO/TUBE 10/28/17 08:30 Potassium Phosphate 30 mmol/ Sodium Chloride 260 ml @ 42 mls/hr UNSCH PRN IV 10/28/17 08:30 10/28/17 15:39 (Synthroid) 125 mcg DAILY@0600 PO 10/29/17 06:00 11/17/17 05:08 (Vasotec Inj) 1.25 mg Q6H PRN IV PUSH 10/29/17 21:15 (Pepcid) 20 mg BID PO 10/30/17 21:00 11/17/17 09:10 Linezolid 300 ml @ 300 mls/hr Q12H IV 11/03/17 13:00 11/17/17 12:59 11/16/17 23:36 Levofloxacin/ Dextrose 150 ml @ 100 mls/hr Q24H IV 11/03/17 14:00 11/17/17 13:59 11/16/17 14:07 (Tylenol 650 Mg/ 20 ml Liq) 650 mg Q6H PRN PEG 11/11/17 11:00 (Albuterol Neb) 2.5 mg Q2HR NEB PRN NEB 11/11/17 10:00 (Keppra Liq) 500 mg Q12HR NG 11/13/17 09:00 11/17/17 09:11 Norepinephrine Bitartrate 4 mg/ Sodium Chloride 250 ml @ 7.5 mls/hr TITRATE PRN IV 11/13/17 12:45 (Brethine Inj) 1 mg UNSCH PRN SQ 11/13/17 12:45 (Peridex 0.12% Liq) 15 ml BID@08,20 MT 11/13/17 20:00 11/17/17 08:00 (Duoneb Neb) 1 ampule Q6HR [facility] NEB 11/16/17 22:00 11/17/17 08:47 Allergies Allergies Coded Allergies amiodarone (Unverified Allergy, Severe, Blurred Vision, 10/23/17) amoxicillin (Unverified Allergy, Severe, Swelling, 10/23/17) *MDRO Multi-Drug Resistant Organism (Verified Adverse Reaction, Unknown, ) Review of Systems All other ROS: Unable to obtain Exam I&O / VS 11/17/17 11/17/17 11/18/17 15:00 23:00 07:00 Output Total 0 ml Balance 0 ml Tube Feeding Residual Discard 0 ml Vital Signs Date Time Temp Pulse Resp B/P (MAP) Pulse Ox O2 Delivery O2 Flow Rate FiO2 11/17/17 08:48 30 11/17/17 08:48 99 30 11/17/17 08:00 99.9 77 12 110/66 (81) 100 11/17/17 08:00 77 11/17/17 08:00 30 11/17/17 04:25 97 30 11/17/17 04:00 99.5 81 12 117/64 (81) 98 11/17/17 04:00 81 11/17/17 04:00 30 11/17/17 00:00 69 11/17/17 00:00 99.5 68 12 93/52 (66) 98 11/17/17 00:00 30 11/16/17 20:48 100 30 11/16/17 20:00 98.5 76 12 103/68 (80) 100 11/16/17 20:00 72 11/16/17 20:00 30 11/16/17 16:35 30 11/16/17 16:02 100 30 11/16/17 16:00 98.4 72 30 114/72 (86) 100 11/16/17 16:00 72 11/16/17 12:00 99.4 57 19 90/60 (70) 99 11/16/17 12:00 57 11/16/17 11:45 98 30 Exam Comments Awake alerts, tries to speak, dysphonic, has a trach and PEG withdraws in all 4 limbs, no involuntary movements, Objective Micro and Labs Laboratory Tests Test 11/17/17 06:10 White Blood Count 7.0 Red Blood Count 2.96 Hemoglobin 9.3 Hematocrit 27.3 Mean Corpuscular Volume 92.1 Mean Corpuscular Hemoglobin 31.3 Mean Corpuscular Hemoglobin Concent 34.0 Red Cell Distribution Width 14.3 Platelet Count 185 Mean Platelet Volume 7.3 Prothrombin Time 11.0 Prothromb Time International Ratio 1.1 Blood Urea Nitrogen 15 Creatinine 0.60 Random Glucose 159 Calcium Level 8.3 Sodium Level 140 Potassium Level 4.2 Chloride Level 106 Carbon Dioxide Level 24.7 Anion Gap 9 Estimat Glomerular Filtration Rate 97 Date/Time Source Procedure Growth Status 11/02/17 12:30 Blood Peripheral Aerobic Blood Culture - Final NO GROWTH IN 5 DAYS Complete 11/02/17 12:30 Blood Peripheral Anaerobic Blood Culture - Final NO GROWTH IN 5 DAYS Complete 10/26/17 05:15 Stool Stool Stool Occult Blood (MATTHEW) - Final HEMOCCULT NEGATIVE Complete 11/02/17 11:55 Sputum Endotracheal Gram Stain - Final Complete 11/02/17 11:55 Sputum Culture - Final S. Aureus Mrsa Klebsiella Pneumoniae Complete 11/02/17 11:55 Urine Catheterized Urine Urine Culture - Final 50-100,000 CFU/ML MIXED SHIRA... Complete Problem Qualifiers (1) CHF (congestive heart failure): Adalberto George MD November 17, 2017 11:21
[2017-11-17] MEDS: SODIUM CHLOR 0.9% 1000 ML INJ 1,000 ML IV SCH (11:44)
--- NOTE | 2017-11-17 16:29 | HHI.CCPN ---
Subjective Remarks/Hospital Course The patient is a 76-year-old female that was apparently alert and talking prior to 11 PM tonight when she started vomiting. She then became comatose, [facility] was called and they intubated the patient using etomidate and Versed. 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 There has not been any head trauma. After intubation and Versed the blood pressure is 127/90. No seizure activity noted per ER physician. Patient was kept sedated orally intubated overnight on mechanical ventilation. She is starting to arousable although not following commands. She does try to open her eyes on command. Per nursing staff she was moving all [address] done in the ER did not reveal any acute bleed and had evidence of old strokes. Dr. Kim from neurology was contacted by ER physician and will be evaluating patient. When I evaluated the patient this morning she sedated with propofol, orally intubated on mechanical ventilation. History is obtained by reviewing records and discussion with nursing staff. 10/27: The patient currently remains intubated and sedated. EEG in process. MRI revealed acute right cerebellar. or infarct. Sedation vacation pending. 10/28: more cerebral edema on CT scan yesterday. remains very encephalopathic, intubated, obtunded. long conversation with family today where I explained current stroke and edema. family introduced the idea that if she would not come off life support or would need to be fully dependent on healthcare system, she would not want to live: will consult palliative care to assist with goals of care clarification. 10/29: remains intubated and encephalopathic. CT brain today demonstrates stable appearance of posterior fossa infarct and edema. neuro exam slightly better and now w/d x 4. 5/2: Remains encephalopathic, orally intubated on mechanical ventilation. Tolerating tube feeds. 5/3: Remains encephalopathic, orally intubated on mechanical ventilation. Tolerating tube feeds. 11/01: Remains encephalopathic, orally intubated on mechanical ventilation. Tolerating tube feeds. 11/02: Intubated off sedation for the last 5 days at least, remains unresponsive. Chest exam reveals bilateral wheezing. Breathing treatments scheduled and as needed ordered. Tmax 101.3, check chest x-ray sputum culture, blood culture and UA. According to the son at the bedside family might want to proceed with tracheostomy and PEG tube placement 11/03: Remains encephalopathic, orally intubated on mechanical ventilation. Grimaces with painful stimuli however not following commands. 11/04: Squeezes hands today. Discussed with Dr. Kim. He will start heparin gtt , convert to coumadin after tracheostomy. 11/05: Family has not agreed to trach or PEG yet, they want to see if she wakes up more. 11/06: Family remains encouraged by some early hand motility. They wish to wait to decide whether a tracheostomy is appropriate and/or necessary. 11/07: Will try patient on spontaneous breathing trials today, earlier efforts were plagued by episodes of apnea. Family continues to wish to hold off on tracheostomy at this point. 11/08: Family would like to go ahead with trach and PEG. Neurological function severely impaired and both will be required for ongoing care. 11/09: Trach site clean, dry. Will restart heparin 24 hours after PEG. No change in neuro function. 11/10: Tolerating SBT with moderately elevated pressure support. Plan is for PEG tube insertion in the morning. 24 hours after that we should be able to restart full anticoagulation, likely just go straight to Coumadin. 11/11: PSV trial 15/135%. Arousable and does open eyes but not following commands currently. Tube feeds currently on hold for planned percutaneous endoscopic gastrostomy tube placement in OR this a.m. 11/12: Tolerated PEG tube placement yesterday. No active bleeding. Site appears with minimal old dried blood. Arousable on the ventilator.. Currently on CPAP trial. 11/13: Afebrile. Some oozing from the PEG tube and tracheostomy site. Heparin drip currently on hold. Persistent leak now up to 48% per ventilator. Will likely need tracheostomy changed today. Placed 11/08. 11/14: Tracheostomy removed due to bleeding and patient was intubated yesterday and placed on mechanical ventilation, currently orally intubated on mechanical ventilation. 11/15: Resting comfortably on mechanical ventilation via tracheostomy. Tracheostomy site with no bleeding since placement yesterday. 11/16: T-max 100. Currently 99.4. Tolerating tube feeds. For bowel movements. Currently resting in bed. Subjective 11/17: Resting in bed in no acute distress on PSV trial. T-max 39.9. Currently 99. Tolerating tube feeds. Positive BM. No changes neurologically Objective Vital Signs Date Time Temp Pulse Resp B/P (MAP) Pulse Ox O2 Delivery O2 Flow Rate FiO2 11/17/17 12:02 100 30 11/17/17 12:00 99.0 75 24 98/59 (72) 11/13/17 16:14 15.00 Intake and Output 11/17/17 11/17/17 11/18/17 08:00 16:00 00:00 Intake Total 672 ml Output Total 402.0 ml 0 ml Balance 270.0 ml 0 ml Result Diagram: 11/17/17 0610 11/17/17 0610 Other Results Microbiology Date/Time Source Procedure Growth Status 11/02/17 12:30 Blood Peripheral Aerobic Blood Culture - Final NO GROWTH IN 5 DAYS Complete 11/02/17 12:30 Blood Peripheral Anaerobic Blood Culture - Final NO GROWTH IN 5 DAYS Complete 10/26/17 05:15 Stool Stool Stool Occult Blood (MATTHEW) - Final HEMOCCULT NEGATIVE Complete 11/02/17 11:55 Sputum Endotracheal Gram Stain - Final Complete 11/02/17 11:55 Sputum Culture - Final S. Aureus Mrsa Klebsiella Pneumoniae Complete 11/02/17 11:55 Urine Catheterized Urine Urine Culture - Final 50-100,000 CFU/ML MIXED SHIRA... Complete Imaging Last Impressions Head CT 11/16/17 0900 Signed Impressions: Service Date/Time: Thursday, November 16, 2017 10:11 - CONCLUSION: 1. Stable hemorrhagic right cerebellar infarction. 2. Stable scattered extensive supratentorial encephalomalacia. 3. Stable maxillary sinus. Anatoly Early MD Chest X-Ray 11/14/17 1350 Signed Impressions: Service Date/Time: October 13:55 - CONCLUSION: 1. Tracheostomy tube appears to be in good position. 2. No pneumothorax. 3. Bibasilar pulmonary infiltrates. Camilo Turpin MD Neck CTA 10/26/17 0012 Signed Impressions: Service Date/Time: Thursday, October 26, 2017 00:12 - CONCLUSION: 1. No luminal narrowing or significant plaque formation. 2. Left dominant vertebral system. Anatoly Early MD Head CTA 10/26/17 001 Signed Impressions: Service Date/Time: Thursday, October 26, 2017 00:12 - CONCLUSION: No evidence of vessel truncation. Anatoly Early MD Brain MRI 10/26/17 0000 Signed Impressions: Service Date/Time: Thursday, October 26, 2017 16:04 - CONCLUSION: 1. Acute right cerebellar infarct. No midline shift or mass effect. 2. Multiple old bilateral infarcts. Samuel Chen MD Objective Remarks GENERAL: 76-year-old female currently resting in bed in no acute distress SKIN: Warm and dry. No rash HEAD: Atraumatic. Normocephalic. EYES: Pupils equal and round about 4 mm bilaterally reactive to 3. No scleral icterus. No injection or drainage. ENT: No nasal bleeding or discharge. Mucous membranes pink and moist. NG tube in right nares NECK: Trachea midline. No JVD. Dressing over tracheostomy site CARDIOVASCULAR: Irregularly irregular. S1, S3 no S4. 1/6 murmur RESPIRATORY: on mechanical ventilation via tracheostomy. Clear to auscultation. Breath sounds equal bilaterally. GASTROINTESTINAL: Abdomen soft, non-tender, nondistended. PEG tube site in left upper quadrant with minimal blood. Hypoactive bowel sounds. MUSCULOSKELETAL: Extremities with trace bilateral upper and lower extremity edema. No obvious deformities. NEUROLOGICAL: Encephalopathic. No obvious cranial nerve deficits. Withdraws to noxious cannulation 4. Minimal movement right upper extremity. Urinary Catheter: No Assessment to: Continue Date of Insertion: Oct 26, 2017 Vascular Central Line Catheter: No Assessment to: Continue A/P Assessment and Plan Neuro/Psych: Bilateral cataract Dementia disorder NOS Acute encephalopathy Acute cerebellar CVA Posterior fossa cerebral edema History of previous strokes frequent neuro checks 10/26 MRI brain-acute right cerebellar infarct. CT head 10/31/2017 shows stable right cerebellar infarct and multiple supratentorial infarct CT brain 11/15 revealed small tiny right cerebellar intraparenchymal hemorrhage with evolving supratentorial infarcts. Repeat brain CT 11/16 right cerebellar hemorrhage Neurology following- Dr. Kim. Holding heparin gtt. for bleeding from tracheostomy site Holding SSRI sertraline 50 mg daily while on linezolid. Likely discharge in a.m. 11/18 Continue levetiracetam 500 mg by tube twice daily Cardiovascular: Atrial fibrillation Chronic systolic heart failure ejection fraction 20% Mechanical mitral valve on anticoagulation Coronary artery disease Currently on amlodipine 5 mg daily, digoxin 0.125 mg daily and carvedilol 12.5 mg mg p.o. twice daily/home medications Recheck digoxin level in a.m. 11/14. 0.7 Continue atorvastatin 20 mg daily for dyslipidemia. Holding warfarin for anticoagulation given size of stroke and edema. high concern for hemorrhagic conversion. Monitor INR. Currently 1.1 Atrial fibrillation rate controlled Heparin gtt on hold. Due to bleed as above Discussed with Dr. George. Recommend repeat CT in 1 week from Saturday pending resumption of systemic anticoagulation 2D echocardiogram revealed EF less than 20%. Bilateral atrial enlargement. Pulmonary: Vent dependent respiratory failure MRSA/Klebsiella pneumonia Continue mechanical ventilation with pressure support ventilation 12/11 and 35% Albuterol/ipratropium aerosols every 6 hours while awake with albuterol aerosols every 2 hours as needed dyspnea Status post tracheostomy by Dr. Arellano 11/08 wean fio2 for goal spo2 > 92% GI/liver: Hypoalbuminemia Tube feeds Jevity 1.5 and advance to goal 65 cc/hour as tolerated. PEG tube site 11/[address] Pruitt Famotidine for GI prophylaxis Docusate sodium/senna 1 tablet twice daily for bowel regimen Renal/: IV hydration as indicated, strict intake output, Monitor and replete electrolytes, follow BUN/creatinine ID: MRSA/Klebsiella pneumonia Currently afebrile Sputum culture from 11/02 growing MRSA/Klebsiella pneumonia. Continue with levofloxacin and linezolid on 11/03 will complete 14 days therapy. Heme: History of DVT Normocytic anemia Chronic warfarin use secondary to mechanical heart valve/atrial fibrillation Monitor CBC and INR. daily INRs.. Currently 1.1 Routine warfarin 4/5 mg alternating dosages at home. Starting 2.5 mg daily on Endocrine: Hypothyroidism with significantly elevated TSH is 16 Watch for hypoglycemia, SSI for glycemic control if needed. TSH significantly elevated- 16 currently on levothyroxine 125 mcg/day. Recheck and adjust Prophylaxis: Famotidine for GI prophylaxis, SCDs. Start heparin 5000 units subcutaneously every 8 hourly for DVT prophylaxis. Level 2 follow-up Yahir Tian MD November 17, 2017 16:29
[2017-11-18] VITALS (13 sets, daily range): BP systolic 99–143; BP diastolic 55–76; PULSE 66–86; RESP 12–20; TEMP 97.8–99.7; O2SAT 97–100
[2017-11-18] MEDS: CHLORHEXIDINE GLUCONATE 2 % 1 PACK (2 CLOTHS) TOP SCH (03:13)
[2017-11-18 05:05] LABS: HEMATOCRIT 27.7 % (35.0-46.0); HEMOGLOBIN 9.4 GM/DL (11.6-15.3); MEAN CELL VOLUME 92.3 FL (80.0-100.0); MEAN CORPUSCULAR HEMOGLOBIN 31.4 PG (27.0-34.0); MEAN PLATELET VOLUME 7.1 FL (7.0-11.0); PLATELET COUNT 172 TH/MM3 (150-450); RED CELL DISTRIBUTION WIDTH 14.1 % (11.6-17.2); WHITE BLOOD COUNT 4.4 TH/MM3 (4.0-11.0)
[2017-11-18] MEDS: RESP: ALBUTEROL 2.5 MG/IPRATROPIUM 0.5 MG NEB (SCH) NEB ×4 (05:11→21:02)
[2017-11-18 05:16] LABS: INTERNATIONAL NORMALIZED RATIO 1.1 RATIO; PROTHROMBIN TIME - PATIENT 10.9 SEC (9.8-11.6)
[2017-11-18 05:35] LABS: BICARBONATE 26.3 MEQ/L (21.0-32.0); CALCIUM 8.5 MG/DL (8.5-10.1); CREATININE 0.6 MG/DL (0.50-1.00)
[2017-11-18 05:50] LABS: DIGOXIN 0.8 NG/ML (0.8-2.0)
[2017-11-18] MEDS: INSULIN ASPART SUPPLEMENTAL SCALE SQ SCH ×4 (06:00→18:00)
[2017-11-18] MEDS: LEVOTHYROXINE SODIUM 125 MCG TAB PO SCH (06:00)
[2017-11-18] MEDS: CHLORHEXIDINE 0.12% (ORAL KIT) 15 ML CUP MT SCH ×2 (08:00→22:34)
[2017-11-18] MEDS: ARTIFICIAL TEARS OPTH SOLN 15 ML BTL EACH EYE SCH ×3 (08:36→18:00)
[2017-11-18] MEDS: SODIUM CHLORIDE 0.9% FLUSH 10 ML FLUSH IV FLUSH SCH ×2 (08:37→21:00)
[2017-11-18] MEDS: FAMOTIDINE 20 MG TAB PO SCH ×2 (08:50→22:34)
[2017-11-18] MEDS: amLODIPine BESYLATE 5 MG TAB PO SCH (08:50)
[2017-11-18] MEDS: DIGOXIN 0.125 MG TAB PO SCH (08:50)
[2017-11-18] MEDS: MULTIVITAMIN TAB PO SCH (08:50)
[2017-11-18] MEDS: levETIRAcetam 500 MG/5 ML UDC NG SCH ×2 (08:50→22:34)
[2017-11-18] MEDS: DOCUSATE SODIUM 50 MG/SENNA 8.6 MG TAB PO SCH ×2 (08:50→20:47)
[2017-11-18] MEDS: CARVEDILOL 12.5 MG TAB PO SCH ×2 (08:50→22:34)
[2017-11-18] MEDS: ATORVASTATIN 20 MG TAB PO SCH (08:51)
--- NOTE | 2017-11-18 11:25 | HHI.CCPN ---
Subjective Remarks/Hospital Course The patient is a 76-year-old female that was apparently alert and talking prior to 11 PM tonight when she started vomiting. She then became comatose, [facility] was called and they intubated the patient using etomidate and Versed. 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 There has not been any head trauma. After intubation and Versed the blood pressure is 127/90. No seizure activity noted per ER physician. Patient was kept sedated orally intubated overnight on mechanical ventilation. She is starting to arousable although not following commands. She does try to open her eyes on command. Per nursing staff she was moving all [address] done in the ER did not reveal any acute bleed and had evidence of old strokes. Dr. Kim from neurology was contacted by ER physician and will be evaluating patient. When I evaluated the patient this morning she sedated with propofol, orally intubated on mechanical ventilation. History is obtained by reviewing records and discussion with nursing staff. 10/27: The patient currently remains intubated and sedated. EEG in process. MRI revealed acute right cerebellar. or infarct. Sedation vacation pending. 10/28: more cerebral edema on CT scan yesterday. remains very encephalopathic, intubated, obtunded. long conversation with family today where I explained current stroke and edema. family introduced the idea that if she would not come off life support or would need to be fully dependent on healthcare system, she would not want to live: will consult palliative care to assist with goals of care clarification. 10/29: remains intubated and encephalopathic. CT brain today demonstrates stable appearance of posterior fossa infarct and edema. neuro exam slightly better and now w/d x 4. 5/2: Remains encephalopathic, orally intubated on mechanical ventilation. Tolerating tube feeds. 5/3: Remains encephalopathic, orally intubated on mechanical ventilation. Tolerating tube feeds. 11/01: Remains encephalopathic, orally intubated on mechanical ventilation. Tolerating tube feeds. 11/02: Intubated off sedation for the last 5 days at least, remains unresponsive. Chest exam reveals bilateral wheezing. Breathing treatments scheduled and as needed ordered. Tmax 101.3, check chest x-ray sputum culture, blood culture and UA. According to the son at the bedside family might want to proceed with tracheostomy and PEG tube placement 11/03: Remains encephalopathic, orally intubated on mechanical ventilation. Grimaces with painful stimuli however not following commands. 11/04: Squeezes hands today. Discussed with Dr. Kim. He will start heparin gtt , convert to coumadin after tracheostomy. 11/05: Family has not agreed to trach or PEG yet, they want to see if she wakes up more. 11/06: Family remains encouraged by some early hand motility. They wish to wait to decide whether a tracheostomy is appropriate and/or necessary. 11/07: Will try patient on spontaneous breathing trials today, earlier efforts were plagued by episodes of apnea. Family continues to wish to hold off on tracheostomy at this point. 11/08: Family would like to go ahead with trach and PEG. Neurological function severely impaired and both will be required for ongoing care. 11/09: Trach site clean, dry. Will restart heparin 24 hours after PEG. No change in neuro function. 11/10: Tolerating SBT with moderately elevated pressure support. Plan is for PEG tube insertion in the morning. 24 hours after that we should be able to restart full anticoagulation, likely just go straight to Coumadin. 11/11: PSV trial 15/135%. Arousable and does open eyes but not following commands currently. Tube feeds currently on hold for planned percutaneous endoscopic gastrostomy tube placement in OR this a.m. 11/12: Tolerated PEG tube placement yesterday. No active bleeding. Site appears with minimal old dried blood. Arousable on the ventilator.. Currently on CPAP trial. 11/13: Afebrile. Some oozing from the PEG tube and tracheostomy site. Heparin drip currently on hold. Persistent leak now up to 48% per ventilator. Will likely need tracheostomy changed today. Placed 11/08. 11/14: Tracheostomy removed due to bleeding and patient was intubated yesterday and placed on mechanical ventilation, currently orally intubated on mechanical ventilation. 11/15: Resting comfortably on mechanical ventilation via tracheostomy. Tracheostomy site with no bleeding since placement yesterday. 11/16: T-max 100. Currently 99.4. Tolerating tube feeds. For bowel movements. Currently resting in bed. Subjective 11/17: Resting in bed in no acute distress on PSV trial. T-max 39.9. Currently 99. Tolerating tube feeds. Positive BM. No changes neurologically. 11/18: Continuing weaning trials on pressure support ventilation. This will be a long-term process. Remains afebrile, warm and well-perfused. No change in neurologic function. Objective Vital Signs Date Time Temp Pulse Resp B/P (MAP) Pulse Ox O2 Delivery O2 Flow Rate FiO2 11/18/17 08:36 98 30 11/18/17 08:00 79 11/18/17 08:00 99.0 12 134/71 (92) Intake and Output 11/18/17 11/18/17 11/19/17 08:00 16:00 00:00 Intake Total 542 ml Output Total 500 ml Balance 42 ml Result Diagram: 11/18/1744011/18/17440 Imaging Last Impressions Head CT 11/16/17 0900 Signed Impressions: Service Date/Time: Thursday, November 16, 2017 10:11 - CONCLUSION: 1. Stable hemorrhagic right cerebellar infarction. 2. Stable scattered extensive supratentorial encephalomalacia. 3. Stable maxillary sinus. Anatoly Early MD Chest X-Ray 11/14/17 1350 Signed Impressions: Service Date/Time: October 13:55 - CONCLUSION: 1. Tracheostomy tube appears to be in good position. 2. No pneumothorax. 3. Bibasilar pulmonary infiltrates. Camilo Turpin MD Neck CTA 10/26/1711 Signed Impressions: Service Date/Time: Thursday, October 26, 2017 00:12 - CONCLUSION: 1. No luminal narrowing or significant plaque formation. 2. Left dominant vertebral system. Anatoly Early MD Head CTA 10/26/17 001 Signed Impressions: Service Date/Time: Thursday, October 26, 2017 00:12 - CONCLUSION: No evidence of vessel truncation. Anatoly Early MD Brain MRI 10/26/17 0000 Signed Impressions: Service Date/Time: Thursday, October 26, 2017 16:04 - CONCLUSION: 1. Acute right cerebellar infarct. No midline shift or mass effect. 2. Multiple old bilateral infarcts. Samuel Chen MD Objective Remarks GENERAL: 76-year-old female currently resting in bed in no acute distress SKIN: Warm and dry. No rash HEAD: Atraumatic. Normocephalic. EYES: Pupils equal and round about 4 mm bilaterally reactive to 3. No conjunctival icterus. No injection or drainage. ENT: No nasal bleeding or discharge. Mucous membranes pink and moist. NG tube in right nares NECK: Trachea midline. Dressing over tracheostomy site, clean, dry. CARDIOVASCULAR: Irregularly irregular. S1, S3. No JVD. RESPIRATORY: on mechanical ventilation via tracheostomy. Clear to auscultation. Breath sounds equal bilaterally. GASTROINTESTINAL: Abdomen soft, non-tender, nondistended. PEG tube site in left upper quadrant with minimal blood. Hypoactive bowel sounds. MUSCULOSKELETAL: Extremities with trace bilateral upper and lower extremity edema. No obvious deformities. NEUROLOGICAL: Encephalopathic. No obvious cranial nerve deficits. Withdraws to noxious cannulation 4. Minimal movement right upper extremity. Date of Insertion: Oct 26, 2017 A/P Assessment and Plan Neuro/Psych: Bilateral cataract Dementia disorder NOS Acute encephalopathy Acute cerebellar CVA Posterior fossa cerebral edema History of previous strokes frequent neuro checks 10/26 MRI brain-acute right cerebellar infarct. CT head 10/31/2017 shows stable right cerebellar infarct and multiple supratentorial infarct CT brain 11/15 revealed small tiny right cerebellar intraparenchymal hemorrhage with evolving supratentorial infarcts. Repeat brain CT 11/16 right cerebellar hemorrhage Neurology following- Dr. Kim. Holding heparin gtt. for bleeding from tracheostomy site Holding SSRI sertraline 50 mg daily while on linezolid. Likely discharge in a.m. 11/18 Continue levetiracetam 500 mg by tube twice daily Cardiovascular: Atrial fibrillation Chronic systolic heart failure ejection fraction 20% Mechanical mitral valve on anticoagulation Coronary artery disease Currently on amlodipine 5 mg daily, digoxin 0.125 mg daily and carvedilol 12.5 mg mg p.o. twice daily/home medications Recheck digoxin level in a.m. 11/14. 0.7 Continue atorvastatin 20 mg daily for dyslipidemia. Holding warfarin for anticoagulation given size of stroke and edema. high concern for hemorrhagic conversion. Monitor INR. Currently 1.1 Atrial fibrillation rate controlled Heparin gtt on hold. Due to bleed as above Discussed with Dr. George. Recommend repeat CT in 1 week from Saturday pending resumption of systemic anticoagulation 2D echocardiogram revealed EF less than 20%. Bilateral atrial enlargement. Digoxin level 0.8 11/18, continue present dose. Pulmonary: Vent dependent respiratory failure MRSA/Klebsiella pneumonia Continue mechanical ventilation with pressure support ventilation 12/11 and 35% Albuterol/ipratropium aerosols every 6 hours while awake with albuterol aerosols every 2 hours as needed dyspnea Status post tracheostomy by Dr. Arellano 11/08 wean fio2 for goal spo2 > 92% GI/liver: Hypoalbuminemia Tube feeds Jevity 1.5 and advance to goal 65 cc/hour as tolerated. PEG tube site 11/[address] Pruitt Famotidbrian for GI prophylaxis Docusate sodium/senna 1 tablet twice daily for bowel regimen Renal/: IV hydration as indicated, strict intake output, Monitor and replete electrolytes, follow BUN/creatinine ID: MRSA/Klebsiella pneumonia Currently afebrile Sputum culture from 11/02 growing MRSA/Klebsiella pneumonia. Continue with levofloxacin and linezolid on 11/03 will complete 14 days therapy. Heme: History of DVT Normocytic anemia Chronic warfarin use secondary to mechanical heart valve/atrial fibrillation Monitor CBC and INR. daily INRs.. Currently 1.1 Routine warfarin 4/5 mg alternating dosages at home. Starting 2.5 mg daily on Endocrine: Hypothyroidism with significantly elevated TSH is 16 Watch for hypoglycemia, SSI for glycemic control if needed. TSH significantly elevated- 16 currently on levothyroxine 125 mcg/day. Recheck and adjust Prophylaxis: Famotidine for GI prophylaxis, SCDs. Start heparin 5000 units subcutaneously every 8 hourly for DVT prophylaxis. Overall impression: Stable head CT following cerebellar hemorrhagic stroke. She is now a long-term ventilator weaning patient. Greg Cole MD November 18, 2017 11:25
[2017-11-18] MEDS: SODIUM CHLOR 0.9% 1000 ML INJ 1,000 ML IV SCH (11:44)
[2017-11-19] VITALS (10 sets, daily range): BP systolic 96–146; BP diastolic 61–77; PULSE 69–81; RESP 10–18; TEMP 97.7–99.3; O2SAT 97–100
[2017-11-19] MEDS: RESP: ALBUTEROL 2.5 MG/IPRATROPIUM 0.5 MG NEB (SCH) NEB ×3 (03:36→16:05)
[2017-11-19] MEDS: CHLORHEXIDINE GLUCONATE 2 % 1 PACK (2 CLOTHS) TOP SCH (04:00)
[2017-11-19 05:40] LABS: INTERNATIONAL NORMALIZED RATIO 1.1 RATIO; PROTHROMBIN TIME - PATIENT 10.8 SEC (9.8-11.6)
[2017-11-19] MEDS: INSULIN ASPART SUPPLEMENTAL SCALE SQ SCH ×3 (06:00→12:00)
[2017-11-19] MEDS: LEVOTHYROXINE SODIUM 125 MCG TAB PO SCH (06:11)
[2017-11-19] MEDS: CHLORHEXIDINE 0.12% (ORAL KIT) 15 ML CUP MT SCH (08:00)
[2017-11-19] MEDS: ARTIFICIAL TEARS OPTH SOLN 15 ML BTL EACH EYE SCH ×3 (09:00→16:07)
[2017-11-19] MEDS: CARVEDILOL 12.5 MG TAB PO SCH (09:00)
[2017-11-19] MEDS: SODIUM CHLORIDE 0.9% FLUSH 10 ML FLUSH IV FLUSH SCH (09:00)
[2017-11-19] MEDS: amLODIPine BESYLATE 5 MG TAB PO SCH (09:00)
--- NOTE | 2017-11-19 09:01 | HHI.CCPN ---
Subjective Remarks/Hospital Course The patient is a 76-year-old female that was apparently alert and talking prior to 11 PM tonight when she started vomiting. She then became comatose, [facility] was called and they intubated the patient using etomidate and Versed. 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 There has not been any head trauma. After intubation and Versed the blood pressure is 127/90. No seizure activity noted per ER physician. Patient was kept sedated orally intubated overnight on mechanical ventilation. She is starting to arousable although not following commands. She does try to open her eyes on command. Per nursing staff she was moving all [address] done in the ER did not reveal any acute bleed and had evidence of old strokes. Dr. Kim from neurology was contacted by ER physician and will be evaluating patient. When I evaluated the patient this morning she sedated with propofol, orally intubated on mechanical ventilation. History is obtained by reviewing records and discussion with nursing staff. 10/27: The patient currently remains intubated and sedated. EEG in process. MRI revealed acute right cerebellar. or infarct. Sedation vacation pending. 10/28: more cerebral edema on CT scan yesterday. remains very encephalopathic, intubated, obtunded. long conversation with family today where I explained current stroke and edema. family introduced the idea that if she would not come off life support or would need to be fully dependent on healthcare system, she would not want to live: will consult palliative care to assist with goals of care clarification. 10/29: remains intubated and encephalopathic. CT brain today demonstrates stable appearance of posterior fossa infarct and edema. neuro exam slightly better and now w/d x 4. 5/2: Remains encephalopathic, orally intubated on mechanical ventilation. Tolerating tube feeds. 5/3: Remains encephalopathic, orally intubated on mechanical ventilation. Tolerating tube feeds. 11/01: Remains encephalopathic, orally intubated on mechanical ventilation. Tolerating tube feeds. 11/02: Intubated off sedation for the last 5 days at least, remains unresponsive. Chest exam reveals bilateral wheezing. Breathing treatments scheduled and as needed ordered. Tmax 101.3, check chest x-ray sputum culture, blood culture and UA. According to the son at the bedside family might want to proceed with tracheostomy and PEG tube placement 11/03: Remains encephalopathic, orally intubated on mechanical ventilation. Grimaces with painful stimuli however not following commands. 11/04: Squeezes hands today. Discussed with Dr. Kim. He will start heparin gtt , convert to coumadin after tracheostomy. 11/05: Family has not agreed to trach or PEG yet, they want to see if she wakes up more. 11/06: Family remains encouraged by some early hand motility. They wish to wait to decide whether a tracheostomy is appropriate and/or necessary. 11/07: Will try patient on spontaneous breathing trials today, earlier efforts were plagued by episodes of apnea. Family continues to wish to hold off on tracheostomy at this point. 11/08: Family would like to go ahead with trach and PEG. Neurological function severely impaired and both will be required for ongoing care. 11/09: Trach site clean, dry. Will restart heparin 24 hours after PEG. No change in neuro function. 11/10: Tolerating SBT with moderately elevated pressure support. Plan is for PEG tube insertion in the morning. 24 hours after that we should be able to restart full anticoagulation, likely just go straight to Coumadin. 11/11: PSV trial 15/135%. Arousable and does open eyes but not following commands currently. Tube feeds currently on hold for planned percutaneous endoscopic gastrostomy tube placement in OR this a.m. 11/12: Tolerated PEG tube placement yesterday. No active bleeding. Site appears with minimal old dried blood. Arousable on the ventilator.. Currently on CPAP trial. 11/13: Afebrile. Some oozing from the PEG tube and tracheostomy site. Heparin drip currently on hold. Persistent leak now up to 48% per ventilator. Will likely need tracheostomy changed today. Placed 11/08. 11/14: Tracheostomy removed due to bleeding and patient was intubated yesterday and placed on mechanical ventilation, currently orally intubated on mechanical ventilation. 11/15: Resting comfortably on mechanical ventilation via tracheostomy. Tracheostomy site with no bleeding since placement yesterday. 11/16: T-max 100. Currently 99.4. Tolerating tube feeds. For bowel movements. Currently resting in bed. Subjective 11/17: Resting in bed in no acute distress on PSV trial. T-max 39.9. Currently 99. Tolerating tube feeds. Positive BM. No changes neurologically. 11/18: Continuing weaning trials on pressure support ventilation. This will be a long-term process. Remains afebrile, warm and well-perfused. No change in neurologic function. 11/19: Patient failed spontaneous breathing trials unless pressure support is elevated. Continue long-term weaning protocol. No change in neurologic status. Objective Vital Signs Date Time Temp Pulse Resp B/P (MAP) Pulse Ox O2 Delivery O2 Flow Rate FiO2 11/19/17 08:40 30 11/19/17 08:38 100 11/19/17 04:00 75 11/19/17 04:00 98.2 12 113/61 (78) Intake and Output 11/19/17 11/19/17 11/20/17 08:00 16:00 00:00 Intake Total 610 ml Output Total 200 ml Balance 410 ml Result Diagram: 11/18/17 0441 11/18/17 0441 Imaging Last Impressions Head CT 11/16/17 0900 Signed Impressions: Service Date/Time: Thursday, November 16, 2017 10:11 - CONCLUSION: 1. Stable hemorrhagic right cerebellar infarction. 2. Stable scattered extensive supratentorial encephalomalacia. 3. Stable maxillary sinus. Anatoly Early MD Chest X-Ray 11/14/17 1350 Signed Impressions: Service Date/Time: October 13:55 - CONCLUSION: 1. Tracheostomy tube appears to be in good position. 2. No pneumothorax. 3. Bibasilar pulmonary infiltrates. Camilo Turpin MD Neck CTA 10/26/17 001 Signed Impressions: Service Date/Time: Thursday, October 26, 2017 00:12 - CONCLUSION: 1. No luminal narrowing or significant plaque formation. 2. Left dominant vertebral system. Anatoly Early MD Head CTA 10/26/17 0012 Signed Impressions: Service Date/Time: Thursday, October 26, 2017 00:12 - CONCLUSION: No evidence of vessel truncation. Anatoly Early MD Brain MRI 10/26/17 0000 Signed Impressions: Service Date/Time: Thursday, October 26, 2017 16:04 - CONCLUSION: 1. Acute right cerebellar infarct. No midline shift or mass effect. 2. Multiple old bilateral infarcts. Samuel Chen MD Objective Remarks GENERAL: 76-year-old female currently resting comfortably. SKIN: Warm and dry. No rash HEAD: Atraumatic. Normocephalic. EYES: Pupils equal and round about 3 mm bilaterally reactive to 2. No conjunctival icterus. No injection or drainage. ENT: No nasal bleeding or discharge. Mucous membranes pink and moist. NECK: Trachea midline. Dressing over tracheostomy site, clean, dry. CARDIOVASCULAR: Irregularly irregular. S1, S3. No JVD. RESPIRATORY: On mechanical ventilation via tracheostomy. Clear to auscultation. Breath sounds equal bilaterally. Minimal secretions. GASTROINTESTINAL: Abdomen soft, non-tender, nondistended. PEG tube site in left upper quadrant with minimal blood. Hypoactive bowel sounds. MUSCULOSKELETAL: Extremities with trace bilateral upper and lower extremity edema. No obvious deformities. NEUROLOGICAL: Encephalopathic. No obvious cranial nerve deficits. Withdraws to noxious cannulation 4. Minimal movement right upper extremity. Date of Insertion: Oct 26, 2017 A/P Assessment and Plan Neuro/Psych: Bilateral cataract Dementia disorder NOS Acute encephalopathy Acute cerebellar CVA Posterior fossa cerebral edema History of previous strokes frequent neuro checks 10/26 MRI brain-acute right cerebellar infarct. CT head 10/31/2017 shows stable right cerebellar infarct and multiple supratentorial infarct CT brain 11/15 revealed small tiny right cerebellar intraparenchymal hemorrhage with evolving supratentorial infarcts. Repeat brain CT 11/16 right cerebellar hemorrhage Neurology following- Dr. Kim. Holding heparin gtt. for bleeding from tracheostomy site Holding SSRI sertraline 50 mg daily while on linezolid. Likely discharge in a.m. 11/18 Continue levetiracetam 500 mg by tube twice daily Cardiovascular: Atrial fibrillation Chronic systolic heart failure ejection fraction 20% Mechanical mitral valve on anticoagulation Coronary artery disease Currently on amlodipine 5 mg daily, digoxin 0.125 mg daily and carvedilol 12.5 mg mg p.o. twice daily/home medications Recheck digoxin level in a.m. 11/14. 0.7 Continue atorvastatin 20 mg daily for dyslipidemia. Holding warfarin for anticoagulation given size of stroke and edema. high concern for hemorrhagic conversion. Monitor INR. Currently 1.1 Atrial fibrillation rate controlled Heparin gtt on hold. Due to bleed as above Discussed with Dr. George. Recommend repeat CT in 1 week from Saturday pending resumption of systemic anticoagulation 2D echocardiogram revealed EF less than 20%. Bilateral atrial enlargement. Digoxin level 0.8 11/18, continue present dose. Pulmonary: Vent dependent respiratory failure MRSA/Klebsiella pneumonia Continue mechanical ventilation with pressure support ventilation 12/11 and 35% Albuterol/ipratropium aerosols every 6 hours while awake with albuterol aerosols every 2 hours as needed dyspnea Status post tracheostomy by Dr. Arellano 11/08 wean fio2 for goal spo2 > 92% GI/liver: Hypoalbuminemia Tube feeds Jevity 1.5 and advance to goal 65 cc/hour as tolerated. PEG tube site 11/[address] Pruitt Famotidbrian for GI prophylaxis Docusate sodium/senna 1 tablet twice daily for bowel regimen Renal/: IV hydration as indicated, strict intake output, Monitor and replete electrolytes, follow BUN/creatinine ID: MRSA/Klebsiella pneumonia Currently afebrile Sputum culture from 11/02 growing MRSA/Klebsiella pneumonia. Continue with levofloxacin and linezolid on 11/03 will complete 14 days therapy. Heme: History of DVT Normocytic anemia Chronic warfarin use secondary to mechanical heart valve/atrial fibrillation Monitor CBC and INR. daily INRs.. Currently 1.1 Routine warfarin 4/5 mg alternating dosages at home. Starting 2.5 mg daily on Endocrine: Hypothyroidism with significantly elevated TSH is 16 Watch for hypoglycemia, SSI for glycemic control if needed. TSH significantly elevated- 16 currently on levothyroxine 125 mcg/day. Recheck and adjust Prophylaxis: Famotidine for GI prophylaxis, SCDs. Start heparin 5000 units subcutaneously every 8 hourly for DVT prophylaxis. Overall impression: Stable head CT following cerebellar hemorrhagic stroke. Remains a long-term ventilator weaning patient. Greg Cole MD November 19, 2017 09:01
[2017-11-19] MEDS: levETIRAcetam 500 MG/5 ML UDC NG SCH (10:06)
[2017-11-19] MEDS: ATORVASTATIN 20 MG TAB PO SCH (10:06)
[2017-11-19] MEDS: DIGOXIN 0.125 MG TAB PO SCH (10:06)
[2017-11-19] MEDS: DOCUSATE SODIUM 50 MG/SENNA 8.6 MG TAB PO SCH (10:06)
[2017-11-19] MEDS: MULTIVITAMIN TAB PO SCH (10:07)
[2017-11-19] MEDS: FAMOTIDINE 20 MG TAB PO SCH (10:07)
--- NOTE | 2017-11-19 11:42 | HHI.DS ---
Discharge Summary Admission Date Oct 26, 2017 at 01:17 Discharge Date: November 19, 2017 Admitting Diagnosis Ischemic CVA (1) Ischemic cerebrovascular accident (CVA) ICD Code: I63.9 - Cerebral infarction, unspecified Diagnosis: Principal Status: Acute (2) Acute respiratory failure with hypoxia and hypercarbia ICD Code: J96.01 - Acute respiratory failure with hypoxia; J96.02 - Acute respiratory failure with hypercapnia Diagnosis: Principal Status: Acute (3) Encephalopathy ICD Code: G93.40 - Encephalopathy, unspecified Diagnosis: Principal Status: Acute (4) CHF (congestive heart failure) ICD Code: I50.9 - Heart failure, unspecified Status: Chronic Brief History HPI The patient is a 76-year-old female that was apparently alert and talking prior to 11 PM tonight when she started vomiting. She then became comatose, [facility] was called and they intubated the patient using etomidate and Versed. 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 There has not been any head trauma. After intubation and Versed the blood pressure is 127/90. No seizure activity noted per ER physician. Patient was kept sedated orally intubated overnight on mechanical ventilation. She is starting to arousable although not following commands. She does try to open her eyes on command. Per nursing staff she was moving all [address] done in the ER did not reveal any acute bleed and had evidence of old strokes. Dr. Kim from neurology was contacted by ER physician and will be evaluating patient. When I evaluated the patient this morning she sedated with propofol, orally intubated on mechanical ventilation. History is obtained by reviewing records and discussion with nursing staff. History PFSH Past Medical History Hx Anticoagulant Therapy: Yes Atrial Fibrillation: Yes Heart Rhythm Problems: Yes Cancer: No Cardiac Catheterization: Yes (2007) Cardiovascular Problems: Yes (htn on meds, HEART VALVE REPLACEMENT) High Cholesterol: Yes Chest Pain: Yes Congestive Heart Failure: Yes (?) Cerebrovascular Accident: Yes Coronary Artery Disease: Yes Dementia: Yes Diabetes: No (borderline) Diminished Hearing: No Deep Vein Thrombosis: Yes Endocrine: Yes Gastrointestinal Disorders: No Genitourinary: Yes Hypertension: Yes Immune Disorder: No Implanted Vascular Access Dvce: Yes Musculoskeletal: Yes Neurologic: Yes (CVA May 2012) Psychiatric: No Reproductive: No Respiratory: No Myocardial Infarction: Yes (2007) Thyroid Disease: Yes (HYPOTHRYROID) Triglycerides - High: Yes PNEUMOCCOCAL Vaccine (Year): 2 Menopausal: Yes Past Surgical History Body Medical Devices: MVR, MECHANICAL VALVE Cardiac Surgery: Yes (OPEN HEART - 2 VALVES) Coronary Artery Bypass Graft: Yes (2010) Eye Surgery: Yes (BILAT. 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 Reported Meds & Prescriptions Reported Meds & Active Scripts Active Zofran Odt (Ondansetron Odt) 4 Mg Tab 4 Mg SL Q6HR PRN Reported Multiple Vitamin 1 Tab 1 Tab PO DAILY K-Tab (Potassium Chloride) 10 Meq Tab 10 Meq PO DAILY Atorvastatin (Atorvastatin Calcium) 20 Mg Tab 20 Mg PO DAILY Coumadin (Warfarin) 4 Mg Tab 4 Mg PO DIRECTED Coumadin (Warfarin) 5 Mg Tab 5 Mg PO DIRECTED Amlodipine (Amlodipine Besylate) 5 Mg Tab 5 Mg PO DAILY Levothyroxine (Levothyroxine Sodium) 125 Mcg Tab 125 Mcg PO DAILY Digoxin 0.125 Mg Tab 0.125 Mg PO DAILY Sertraline (Sertraline HCl) 50 Mg Tab 50 Mg PO DAILY Lasix (Furosemide) 20 Mg Tab 20 Mg PO DIRECTED Carvedilol 12.5 Mg Tab 12.5 Mg PO BID ROS Review of Systems ROS Limitations: Altered Mental Status, intubated on mechanical ventilation CBC/BMP: 11/18/17 0441 11/18/17 0441 Significant Findings Laboratory Tests Test 11/17/17 06:10 11/18/17 04:41 11/19/17 04:57 Red Blood Count 2.96 MIL/MM3 (4.00-5.30) 3.00 MIL/MM3 (4.00-5.30) Hemoglobin 9.3 GM/DL (11.6-15.3) 9.4 GM/DL (11.6-15.3) Hematocrit 27.3 % (35.0-46.0) 27.7 % (35.0-46.0) Random Glucose 159 MG/DL (74-106) 118 MG/DL (74-106) Calcium Level 8.3 MG/DL (8.5-10.1) Blood Urea Nitrogen 19 MG/DL (7-18) Imaging CT head. MRI head PE at Discharge Warm, well perfused. Ventilator dependent respiratory failure. See today's progress note. Hospital Course The patient is a 76-year-old female that was apparently alert and talking prior to 11 PM tonight when she started vomiting. She then became comatose, [facility] was called and they intubated the patient using etomidate and Versed. 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 There has not been any head trauma. After intubation and Versed the blood pressure is 127/90. No seizure activity noted per ER physician. Patient was kept sedated orally intubated overnight on mechanical ventilation. She is starting to arousable although not following commands. She does try to open her eyes on command. Per nursing staff she was moving all [address] done in the ER did not reveal any acute bleed and had evidence of old strokes. Dr. Kim from neurology was contacted by ER physician and will be evaluating patient. When I evaluated the patient this morning she sedated with propofol, orally intubated on mechanical ventilation. History is obtained by reviewing records and discussion with nursing staff. 10/27: The patient currently remains intubated and sedated. EEG in process. MRI revealed acute right cerebellar. or infarct. Sedation vacation pending. 10/28: more cerebral edema on CT scan yesterday. remains very encephalopathic, intubated, obtunded. long conversation with family today where I explained current stroke and edema. family introduced the idea that if she would not come off life support or would need to be fully dependent on healthcare system, she would not want to live: will consult palliative care to assist with goals of care clarification. 10/29: remains intubated and encephalopathic. CT brain today demonstrates stable appearance of posterior fossa infarct and edema. neuro exam slightly better and now w/d x 4. 5/2: Remains encephalopathic, orally intubated on mechanical ventilation. Tolerating tube feeds. 10/31: Remains encephalopathic, orally intubated on mechanical ventilation. Tolerating tube feeds. 11/01: Remains encephalopathic, orally intubated on mechanical ventilation. Tolerating tube feeds. 11/02: Intubated off sedation for the last 5 days at least, remains unresponsive. Chest exam reveals bilateral wheezing. Breathing treatments scheduled and as needed ordered. Tmax 101.3, check chest x-ray sputum culture, blood culture and UA. According to the son at the bedside family might want to proceed with tracheostomy and PEG tube placement 11/03: Remains encephalopathic, orally intubated on mechanical ventilation. Grimaces with painful stimuli however not following commands. 11/04: Squeezes hands today. Discussed with Dr. Kim. He will start heparin gtt , convert to coumadin after tracheostomy. 11/05: Family has not agreed to trach or PEG yet, they want to see if she wakes up more. 11/06: Family remains encouraged by some early hand motility. They wish to wait to decide whether a tracheostomy is appropriate and/or necessary. 11/07: Will try patient on spontaneous breathing trials today, earlier efforts were plagued by episodes of apnea. Family continues to wish to hold off on tracheostomy at this point. 11/08: Family would like to go ahead with trach and PEG. Neurological function severely impaired and both will be required for ongoing care. 11/09: Trach site clean, dry. Will restart heparin 24 hours after PEG. No change in neuro function. 11/10: Tolerating SBT with moderately elevated pressure support. Plan is for PEG tube insertion in the morning. 24 hours after that we should be able to restart full anticoagulation, likely just go straight to Coumadin. 11/11: PSV trial 15/135%. Arousable and does open eyes but not following commands currently. Tube feeds currently on hold for planned percutaneous endoscopic gastrostomy tube placement in OR this a.m. 11/12: Tolerated PEG tube placement yesterday. No active bleeding. Site appears with minimal old dried blood. Arousable on the ventilator.. Currently on CPAP trial. 11/13: Afebrile. Some oozing from the PEG tube and tracheostomy site. Heparin drip currently on hold. Persistent leak now up to 48% per ventilator. Will likely need tracheostomy changed today. Placed 11/08. 11/14: Tracheostomy removed due to bleeding and patient was intubated yesterday and placed on mechanical ventilation, currently orally intubated on mechanical ventilation. 11/15: Resting comfortably on mechanical ventilation via tracheostomy. Tracheostomy site with no bleeding since placement yesterday. 11/16: T-max 100. Currently 99.4. Tolerating tube feeds. For bowel movements. Currently resting in bed. Subjective 11/17: Resting in bed in no acute distress on PSV trial. T-max 39.9. Currently 99. Tolerating tube feeds. Positive BM. No changes neurologically. 11/18: Continuing weaning trials on pressure support ventilation. This will be a long-term process. Remains afebrile, warm and well-perfused. No change in neurologic function. 11/19: Patient failed spontaneous breathing trials unless pressure support is elevated. Continue long-term weaning protocol. No change in neurologic status. Pt Condition on Discharge: Good Discharge Disposition: Disch to Another Hospital Discharge Instructions DIET: Follow Instructions for: On Tube Feeding Activities you can perform: Partial Weight Bearing Greg Cole MD November 19, 2017 11:42
[2017-11-19] MEDS: SODIUM CHLOR 0.9% 1000 ML INJ 1,000 ML IV SCH (11:44)
== END 2017-11-19 17:05 | DRG 4 ==
LOC: PHED 00:08 → PHEDA 01:17 → PHICU 02:56 → N03A 10-28 12:55
PROVIDERS: ADMIT Internal Medicine Critical Care Medicine; ATTEND Internal Medicine Critical Care Medicine
PROC: 5A1955Z Respiratory Ventilation, Greater than 96 Consecutive Hours (ICD-10-PCS; principal; 2017-10-26)
PROC: 0T9B70Z Drainage of Bladder with Drainage Device, Via Natural or Artificial Opening (ICD-10-PCS; 2017-10-26)
PROC: 0DH67UZ Insertion of Feeding Device into Stomach, Via Natural or Artificial Opening (ICD-10-PCS; 2017-10-26)
PROC: 0B113F4 Bypass Trachea to Cutaneous with Tracheostomy Device, Percutaneous Approach (ICD-10-PCS; 2017-11-08)
PROC: 0B9B8ZZ Drainage of Left Lower Lobe Bronchus, Via Natural or Artificial Opening Endoscopic (ICD-10-PCS; 2017-11-08)
PROC: 0DH63UZ Insertion of Feeding Device into Stomach, Percutaneous Approach (ICD-10-PCS; 2017-11-11)
PROC: 0DB68ZX Excision of Stomach, Via Natural or Artificial Opening Endoscopic, Diagnostic (ICD-10-PCS; 2017-11-11)
PROC: 0B918ZZ Drainage of Trachea, Via Natural or Artificial Opening Endoscopic (ICD-10-PCS; 2017-11-13)
PROC: 0BH17EZ Insertion of Endotracheal Airway into Trachea, Via Natural or Artificial Opening (ICD-10-PCS; 2017-11-13)
PROC: 0BP1XFZ Removal of Tracheostomy Device from Trachea, External Approach (ICD-10-PCS; 2017-11-14)
PROC: 0B113F4 Bypass Trachea to Cutaneous with Tracheostomy Device, Percutaneous Approach (ICD-10-PCS; 2017-11-14)
PROC: 0BJ08ZZ Inspection of Tracheobronchial Tree, Via Natural or Artificial Opening Endoscopic (ICD-10-PCS; 2017-11-14)
DX: I63.9 Cerebral infarction, unspecified (principal); I61.4 Nontraumatic intracerebral hemorrhage in cerebellum; G93.6 Cerebral edema; J15.0 Pneumonia due to Klebsiella pneumoniae; G93.40 Encephalopathy, unspecified; A41.9 Sepsis, unspecified organism; J96.21 Acute and chronic respiratory failure with hypoxia; I13.0 Hypertensive heart and chronic kidney disease with heart failure and stage 1 through stage 4 chronic kidney disease, or unspecified chronic kidney disease; J15.212 Pneumonia due to Methicillin resistant Staphylococcus aureus; I50.22 Chronic systolic (congestive) heart failure; J96.22 Acute and chronic respiratory failure with hypercapnia; J95.01 Hemorrhage from tracheostomy stoma; J93.82 Other air leak; Z99.11 Dependence on respirator [ventilator] status; R11.10 Vomiting, unspecified; Z86.73 Personal history of transient ischemic attack (TIA), and cerebral infarction without residual deficits; Z79.01 Long term (current) use of anticoagulants; I48.91 Unspecified atrial fibrillation; E78.5 Hyperlipidemia, unspecified; Z95.2 Presence of prosthetic heart valve; I25.10 Atherosclerotic heart disease of native coronary artery without angina pectoris; F03.90 Unspecified dementia, unspecified severity, without behavioral disturbance, psychotic disturbance, mood disturbance, and anxiety; Z86.718 Personal history of other venous thrombosis and embolism; I25.2 Old myocardial infarction; E03.9 Hypothyroidism, unspecified; Z95.1 Presence of aortocoronary bypass graft; N18.9 Chronic kidney disease, unspecified; R79.1 Abnormal coagulation profile; Z51.5 Encounter for palliative care; E66.9 Obesity, unspecified; Z68.26 Body mass index [BMI] 26.0-26.9, adult; K44.9 Diaphragmatic hernia without obstruction or gangrene; E88.09 Other disorders of plasma-protein metabolism, not elsewhere classified; D64.9 Anemia, unspecified
CPT/HCPCS: 31600; 36600; 51702; 70450; 70496; 70498; 70551; 71045; 76937; 80048; 80053; 80061; 80162; 80307; 81001; 82140; 82272; 82550; 82805; 82948; 83036; 83735; 84100; 84436; 84443; 84481; 84484; 85025; 85027; 85384; 85610; 85730; 86403; 86850; 86900; 86901; 87040; 87070; 87077; 87086; 87147; 87186; 87205; 88305; 88312; 93005; 93306; 94002; 94003; 94640; 94664; 95819; 96374; J1644; J1815; J1953; J1956; J2020; J2250; J2270; J3010; J3480; J7030; J7050; J7120; Q9967